=== PATIENT | female | born 1950 | race Caucasian/White ===

== ENCOUNTER → 2017-02-20 | Outpatient (REF) | payer BC ==
[2017-02-20 14:32] LABS: VITAMIN B12 LEVEL 466 PG/ML (247-911)
[2017-02-20 14:34] LABS: FOLATE 23.7 NG/ML (>5.4)
[2017-02-20 14:39] LABS: ALBUMIN 3.7 GM/DL (3.2-5.2); ALBUMIN/GLOBULIN RATIO 1.03 (1.00-1.93); ALKALINE PHOSPHATASE 91 U/L (45-117); ALT/SGPT 18 U/L (12-78); ANION GAP 9 MEQ/L (8-16); AST/SGOT 12 U/L (15-37); BILIRUBIN,TOTAL 0.3 MG/DL (0.2-1.0); BLOOD UREA NITROGEN 15 MG/DL (7-18); CALCIUM LEVEL 9.3 MG/DL (8.8-10.2); CARBON DIOXIDE LEVEL 28 MEQ/L (21-32); CHLORIDE LEVEL 100 MEQ/L (98-107); CREATININE FOR GFR 0.86 MG/DL (0.55-1.02); GLOMERULAR FILTRATION RATE > 60.0 (>45); GLUCOSE, FASTING 105 MG/DL (80-110); POTASSIUM SERUM 4.7 MEQ/L (3.5-5.1); SODIUM LEVEL 137 MEQ/L (136-145); TOTAL PROTEIN 7.3 GM/DL (6.4-8.2)
[2017-02-20 18:21] LABS: BASO % 0.7 % (0.0-1.0); EOS # 0.1 K/mm3 (0.0-0.50); EOS % 1.8 % (0.0-3.0); LARGE UNSTAINED CELL # 0.1 K/mm3 (0.0-0.4); LYMPH # 1.1 K/mm3 (1.5-4.5); LYMPH % 18.1 % (24.0-44.0); MEAN CORPUSCULAR HEMOGLOBIN 32.5 pg (27.0-33.0); MEAN CORPUSCULAR HGB CONC 33.3 g/dl (32.0-36.5); MEAN CORPUSCULAR VOLUME 97.5 fl (80.0-96.0); MONO # 0.3 K/mm3 (0.0-0.8); MONO % 5.4 % (0.0-5.0); NEUTROPHILS # 4.4 K/mm3 (1.8-7.7); NEUTROPHILS % 71.9 % (36.0-66.0); PLATELET COUNT, AUTOMATED 391 k/mm3 (150-450); RED CELL DISTRIBUTION WIDTH 12.8 % (11.5-14.5); WHITE BLOOD COUNT 6.1 K/mm3 (4.0-10.0)
[2017-02-20 20:14] LABS: ERYTHROCYTE SEDIMENTATION RATE 33 mm/hr (0-30)
[2017-02-21 13:37] LABS: ALBUMIN % 54.2 % (55.8-66.1)
[2017-02-21 13:38] LABS: ALBUMIN 3.96 GM/DL (3.29-5.55); GAMMA GLOBULIN % 14.4 % (11.1-18.8)
[2017-02-24 00:06] LABS: Lyme Disease IgG/IgM Antibodie <0.91 ISR (0.00-0.90); Lyme Disease IgM Ab Quantitati <0.80 index (0.00-0.79); VITAMIN E LEVEL 12.7 mg/L (6.5-21.5)
== END ==
LOC: M LABNEURO 10:21
PROVIDERS: ATTEND Psychiatry & Neurology Neurology
DX: G62.9 Polyneuropathy, unspecified (principal)

== ENCOUNTER → 2017-08-14 | Outpatient (CLI) | payer BC | LOC: M RAD 10:06 | DX: R06.00 Dyspnea, unspecified (principal) | CPT/HCPCS: G0297 ==

== ENCOUNTER → 2017-08-14 | Outpatient (CLI) | payer BC ==
[2017-08-14 11:00] LABS: ABG BASE EXCESS -2.7 (-2.0-2.0); ABG HCO3 20.7 MEQ/L (22.0-26.0); ABG O2 SATURATION 95.5 % (95.0-99.0); ABG PARTIAL PRESSURE CO2 31.7 mmHg (35.0-45.0); ABG PARTIAL PRESSURE O2 76.5 mmHg (75.0-100.0); ABG STANDARD HCO3 22.1 MEQ/L (22.0-26.0); ABG TOTAL CO2 21.6 MEQ/L (23.0-31.0); ABG pH (ARTERIAL) 7.432 UNITS (7.350-7.450)
== END ==
LOC: M CARPUL 08:00
DX: R06.00 Dyspnea, unspecified (principal)

== ENCOUNTER → 2017-10-25 | Outpatient (CLI) | payer BC | LOC: M PAIN 13:45 | DX: M79.1 Myalgia (principal); M54.12 Radiculopathy, cervical region; M50.30 Other cervical disc degeneration, unspecified cervical region; M51.36 Other intervertebral disc degeneration, lumbar region; M17.9 Osteoarthritis of knee, unspecified; M19.049 Primary osteoarthritis, unspecified hand; M48.00 Spinal stenosis, site unspecified; D68.51 Activated protein C resistance; E11.40 Type 2 diabetes mellitus with diabetic neuropathy, unspecified; I10 Essential (primary) hypertension; G47.30 Sleep apnea, unspecified; Z79.4 Long term (current) use of insulin; Z88.8 Allergy status to other drugs, medicaments and biological substances; Z87.891 Personal history of nicotine dependence | CPT/HCPCS: G0463 ==

== ENCOUNTER → 2017-10-25 | Outpatient (CLI) | payer BC, MEDICARE ==
[2017-10-25 17:03] LABS: ERYTHROCYTE SEDIMENTATION RATE 27 mm/hr (0-30)
[2017-10-25 18:11] LABS: RHEUMATOID FACTOR QUANT < 10.0 IU/ML (<15.0)
[2017-10-25 18:30] LABS: TOTAL 25(OH) VITAMIN D 32.9 NG/ML (30.0-100.0)
[2017-10-30 00:06] LABS: ANA (HEP2) Negative (.)
[2017-11-05 07:22] LABS: DRVV SCREEN 40.9 SEC
[2017-11-05 07:27] LABS: PTT LUPUS TYPE ANTICOAG SCREEN 0.9 (0-1.2)
== END ==
LOC: M LAB 15:53
DX: M79.1 Myalgia (principal)
CPT/HCPCS: 82306

== ENCOUNTER → 2017-11-29 | Outpatient (CLI) | payer BC ==
[~2017-11-29] MED LIST: BUPIVACAINE HCL 0.25% 10 ML VIAL As Ordered; BUPIVACAINE HCL 0.25% 30 ML VIAL As Ordered; TRIAMCINOLONE ACETONIDE SUSP 40 MG/ML VIAL (J3301) As Ordered; diazePAM 5 MG TAB As Ordered
== END ==
LOC: M PAIN 14:00
DX: G89.29 Other chronic pain (principal); M79.1 Myalgia; E11.9 Type 2 diabetes mellitus without complications; I10 Essential (primary) hypertension; G47.30 Sleep apnea, unspecified; Z79.4 Long term (current) use of insulin; Z79.82 Long term (current) use of aspirin; Z79.891 Long term (current) use of opiate analgesic; Z79.899 Other long term (current) drug therapy; Z88.4 Allergy status to anesthetic agent
CPT/HCPCS: J3301

== ENCOUNTER → 2017-12-05 | Outpatient (CLI) | payer BC ==
[~2017-12-05] MED LIST changes: -BUPIVACAINE HCL 0.25% 10 ML VIAL As Ordered; -BUPIVACAINE HCL 0.25% 30 ML VIAL As Ordered; +METHACHOLINE KIT (J7674) INH; -TRIAMCINOLONE ACETONIDE SUSP 40 MG/ML VIAL (J3301) As Ordered; -diazePAM 5 MG TAB As Ordered
== END ==
LOC: M CARPUL 10:12
DX: R06.00 Dyspnea, unspecified (principal)
CPT/HCPCS: J7674

== ENCOUNTER → 2018-01-20 | Outpatient (CLI) | payer BC | LOC: M PAIN 14:15 | DX: M79.1 Myalgia (principal); M17.0 Bilateral primary osteoarthritis of knee; M19.041 Primary osteoarthritis, right hand; M19.042 Primary osteoarthritis, left hand; E11.43 Type 2 diabetes mellitus with diabetic autonomic (poly)neuropathy; I10 Essential (primary) hypertension; G47.30 Sleep apnea, unspecified; Z79.4 Long term (current) use of insulin; Z79.891 Long term (current) use of opiate analgesic; Z79.82 Long term (current) use of aspirin; Z79.899 Other long term (current) drug therapy; Z88.8 Allergy status to other drugs, medicaments and biological substances; Z87.891 Personal history of nicotine dependence | CPT/HCPCS: G0463 ==

== ENCOUNTER → 2018-02-13 | Outpatient (CLI) | payer BC ==
[~2018-02-13] MED LIST changes: +BUPIVACAINE HCL 0.25% 10 ML VIAL As Ordered; +BUPIVACAINE HCL 0.25% 30 ML VIAL As Ordered; -METHACHOLINE KIT (J7674) INH; +TRIAMCINOLONE ACETONIDE SUSP 40 MG/ML VIAL (J3301) As Ordered; +diazePAM 5 MG TAB As Ordered
== END ==
LOC: M PAIN 10:00
DX: M79.1 Myalgia (principal); M25.511 Pain in right shoulder; M25.512 Pain in left shoulder; M54.6 Pain in thoracic spine; E11.40 Type 2 diabetes mellitus with diabetic neuropathy, unspecified; I10 Essential (primary) hypertension; M17.10 Unilateral primary osteoarthritis, unspecified knee; M19.049 Primary osteoarthritis, unspecified hand; D68.2 Hereditary deficiency of other clotting factors; G47.30 Sleep apnea, unspecified; Z79.4 Long term (current) use of insulin; Z79.82 Long term (current) use of aspirin; Z79.899 Other long term (current) drug therapy; Z88.8 Allergy status to other drugs, medicaments and biological substances; Z87.891 Personal history of nicotine dependence
CPT/HCPCS: J3301

== ENCOUNTER → 2018-03-10 | Outpatient (CLI) | payer BC | LOC: M PAIN 13:15 | DX: M79.18 Myalgia, other site (principal); E11.40 Type 2 diabetes mellitus with diabetic neuropathy, unspecified; I10 Essential (primary) hypertension; M19.041 Primary osteoarthritis, right hand; M19.042 Primary osteoarthritis, left hand; M17.0 Bilateral primary osteoarthritis of knee; D68.2 Hereditary deficiency of other clotting factors; G47.30 Sleep apnea, unspecified; Z79.4 Long term (current) use of insulin; Z79.82 Long term (current) use of aspirin; Z79.899 Other long term (current) drug therapy | CPT/HCPCS: G0463 ==

== ENCOUNTER → 2018-03-14 | Outpatient (CLI) | payer BC, MEDICARE ==
[~2018-03-14] MED LIST changes: -diazePAM 5 MG TAB As Ordered
== END ==
LOC: M PAIN 10:15
DX: M79.18 Myalgia, other site (principal); M17.0 Bilateral primary osteoarthritis of knee; E11.9 Type 2 diabetes mellitus without complications; I10 Essential (primary) hypertension; M19.041 Primary osteoarthritis, right hand; M19.042 Primary osteoarthritis, left hand; G47.30 Sleep apnea, unspecified; D68.2 Hereditary deficiency of other clotting factors; Z79.4 Long term (current) use of insulin; Z79.82 Long term (current) use of aspirin; Z79.899 Other long term (current) drug therapy; Z88.8 Allergy status to other drugs, medicaments and biological substances; Z87.891 Personal history of nicotine dependence
CPT/HCPCS: J3301

== ENCOUNTER → 2018-04-03 | Outpatient (CLI) | payer BC, MEDICARE | LOC: M PAIN 11:00 | DX: M79.18 Myalgia, other site (principal); M47.816 Spondylosis without myelopathy or radiculopathy, lumbar region; M50.20 Other cervical disc displacement, unspecified cervical region; E11.40 Type 2 diabetes mellitus with diabetic neuropathy, unspecified; G47.30 Sleep apnea, unspecified; D68.2 Hereditary deficiency of other clotting factors; I89.0 Lymphedema, not elsewhere classified; M17.0 Bilateral primary osteoarthritis of knee; M19.041 Primary osteoarthritis, right hand; M19.042 Primary osteoarthritis, left hand; Z98.42 Cataract extraction status, left eye; Z79.4 Long term (current) use of insulin; Z79.82 Long term (current) use of aspirin; Z79.899 Other long term (current) drug therapy; Z87.891 Personal history of nicotine dependence; Z88.4 Allergy status to anesthetic agent | CPT/HCPCS: G0463 ==

== ENCOUNTER → 2018-05-15 | Outpatient (CLI) | payer BC, MEDICARE ==
[~2018-05-15] MED LIST changes: -BUPIVACAINE HCL 0.25% 10 ML VIAL As Ordered; -BUPIVACAINE HCL 0.25% 30 ML VIAL As Ordered; +BUPIVACAINE HCL 0.25% 30 ML VIAL As Ordered ONE; +ISOVUE-M 300 61% 15ML VIAL (Q9967) As Ordered ONE; +LIDOCAINE 1% SDV INJ 30 ML VIAL As Ordered ONE; -TRIAMCINOLONE ACETONIDE SUSP 40 MG/ML VIAL (J3301) As Ordered; +TRIAMCINOLONE ACETONIDE SUSP 40 MG/ML VIAL (J3301) As Ordered ONE; +diazePAM 5 MG TAB As Ordered ONE; +oxyCODONE 5MG TAB As Ordered ONE
--- NOTE | 2018-06-04 00:14 | ECWPNPC ---
PATIENT NAME: CHRIS LONGORIA : 1950 GENDER: FEMALE VISIT DATE: 05/15/2018 DISCHARGE DATE: 05/15/181217 VISIT LOCKED DATE TIME: PHYSICIAN: DHARA HANSEN MD RESOURCE: DHARA HANSEN MD REASON FOR APPOINTMENT 1. BILATERAL LUMBAR FACET BLOCKS AT L4-5 AND L5-S1 HISTORY OF PRESENT ILLNESS DEPRESSION SCREENING: PHQ-2 IN LAST TWO WEEKS HAVE YOU BEEN BOTHERED BY LITTLE INTEREST OR PLEASURE IN DOING THINGSNO FEELING DOWN, DEPRESSED, OR HOPELESSNO HISTORY OF PRESENT ILLNESS: PAIN THE PATIENT DESCRIBES THE PAIN... FALL RISK SCREENING: SCREENING :NO FALLS IN THE PAST YEAR CURRENT MEDICATIONS TAKING CENTRUM SILVER 1 TABLET 1 TAB ORALLY DAILY, NOTES: 05/14/18899 TAKING VALSARTAN-HYDROCHLOROTHIAZIDE 320-25 MG TABLET 1 TABLET ORALLY ONCE A DAY, NOTES: 05/15/18714 TAKING DULOXETINE HCL 60 MG CAPSULE DELAYED RELEASE PARTICLES 1 CAPSULE ORALLY ONCE A DAY, NOTES: 05/14/18899 TAKING AMLODIPINE BESYLATE 10 MG TABLET 1 TABLET ORALLY ONCE A DAY, NOTES: 05/15/18714 TAKING METFORMIN HCL 1000 MG TABLET 1 TABLET WITH A MEAL ORALLY BID, NOTES: 05/14/182199 TAKING LABETALOL HCL 200 MG TABLET 1 TABLET ORALLY TWICE A DAY, NOTES: 05/15/18714 TAKING HYDRALAZINE HCL 25 MG TABLET 1 TABLET WITH FOOD ORALLY BID, NOTES: 05/15/18714 TAKING IRON (FERROUS GLUCONATE) 256 (28 FE) MG TABLET 1 TABLET ORALLY ONCE A DAY, NOTES: 05/14/18899 TAKING TRAMADOL HCL 50 MG TABLET 1 TABLET NEEDED ORALLY EVERY 6 HRS, NOTES: 05/15/18714 TAKING LANTUS SOLOSTAR 100 UNIT/ML SOLUTION PEN-INJECTOR 50 UNITS SUBCUTANEOUS DAILY, NOTES: 05/14/182199 TAKING ASPIRIN 81 81 MG TABLET CHEWABLE 1 TABLET ORALLY ONCE A DAY, NOTES: 05/14/182199 TAKING SIMVASTATIN 20 MG TABLET 1 TABLET IN THE EVENING ORALLY ONCE A DAY, NOTES: 05/14/182199 TAKING ROPINIROLE HCL 1 MG TABLET 4 TABLET 1 TO 3 HOURS BEFORE BEDTIME ORALLY ONCE A DAY, NOTES: 05/14/182199 TAKING OMEPRAZOLE 20 MG CAPSULE DELAYED RELEASE 1 CAPSULE ORALLY ONCE A DAY, NOTES: 05/14/182199 TAKING GABAPENTIN 100 MG CAPSULE 2 CAPSULE ORALLY BID, NOTES: 05/15/18714 TAKING TYLENOL PM EXTRA STRENGTH 500-25 MG TABLET 2 TABLET AT BEDTIME NEEDED ORALLY ONCE A DAY, NOTES: 05/14/182199 TAKING VITAMIN C 1000 MG TABLET 1 TABLET ORALLY ONCE A DAY, NOTES: 05/14/18899 TAKING CALCIUM + D + K 750-500-40 MG-UNT-MCG TABLET 1 TABLET WITH MEALS ORALLY TWICE A DAY, NOTES: 05/14/18899 TAKING BIOTIN 1000 MCG TABLET 1 TABLET ORALLY ONCE A DAY, NOTES: FEW DAYS AGO TAKING MAGNESIUM OXIDE 400 MG TABLET 2 TABLET NEEDED ORALLY ONCE A DAY, NOTES: 05/14/182199 TAKING BYDUREON BCISE 2 MG/0.85ML AUTO-INJECTOR SUBCUTANEOUS , NOTES: 05/11/18 TAKING YONI ALLERGY 180 MG TABLET 1 TABLET NEEDED ORALLY ONCE A DAY, NOTES: WEEKS AGO TAKING TIZANIDINE HCL 4 MG TABLET 1 TABLET NEEDED ORALLY BEFORE BEDTIME AND IN 4 YRS IF NEEDED MDD=2, NOTES: 05/15/18714 NOT-TAKING [id number] 1 MG TABLET CHEWABLE ORALLY NOT-TAKING FARXIGA 10 MG TABLET 1 TABLET ORALLY ONCE A DAY MEDICATION LIST REVIEWED AND RECONCILED WITH THE PATIENT PAST MEDICAL HISTORY BULGING DISCS- CERVICAL ARTHRITIS KNEES/HANDS SPINAL STENOSIS LYMPHEDEMA LOWER EXTREMITIES DIABETES TYPE 2 DIABETIC NEUROPATHY HIGH BLOOD PRESSURE DIVERTICULITIS FACTOR V LEYDEN SLEEP APNEA ALLERGIES GENERAL ANESTHESIA: NAUSEA/VOMITING: SIDE EFFECTS SURGICAL HISTORY TONSILLECTOMY 1950 APPENDIX 1970 LEFT SHOULDER REPAIR 08/28/04 LEFT CAROTID ENDARTERECTOMY 04/04/16 ARTERIOGRAM 09/07/16 LEFT CATARACT 09/26/16 FX RIGHT FOOT 2ND TOE 11/08/17 FAMILY HISTORY FATHER: 85 YRS, DIAGNOSED WITH HYPERTENSION, HEART DISEASE MOTHER: 80 YRS 1 BROTHER(S) , 3 SISTER(S) . MOTHER- DIVERTICULITIS, OF PNEUMONIASISTER - BREAST CANCER SURVIVOR, COPD. SOCIAL HISTORY GENERAL: TOBACCO USE ARE YOU A:FORMER SMOKER HOW LONG HAS IT BEEN SINCE YOU LAST SMOKED?> 10 YEARS RECREATIONAL DRUG USE DRUG USE?NO CAFFEINE CAFFEINE USE?YES HOW OFTEN AND HOW MUCH? 3 CUPS APPROXIMATELY SCIENTOLOGIST [id number] CONFUCIANISM LANGUAGE LANGUAGES SPOKEN:FRENCH LEARNING BARRIERS / SPECIAL NEEDS BARRIERS TO LEARNING?NO HEARING IMPAIRED?NO VISION IMPAIRED?NO COGNITIVELY IMPAIRED?NO READINESS TO LEARN?YES LEARNING PREFERENCES?NO LEARNING CAPABILITIES PRESENT?YES EMOTIONAL BARRIERS?NO SPECIAL DEVICES?NO HUMAN RESOURCES DIRECTOR NEEDED?NO MARITAL STATUS: SINGLE. PAIN CLINIC PFS, CLERGY, PUBLIC HEALTH REFERRALS WAS THE PROVIDER NOTIFIED OF ANY PERTINENT INFO?YES HAS THE PATIENT BEEN EDUCATED REGARDING HIS/HER PLAN OF CARE?YES HAS THE PATIENT BEEN EDUCATED REGARDING PAIN, THE RISK FOR PAIN, THE IMPORTANCE OF EFFECTIVE PAIN MANAGEMENT, AND THE PAIN ASSESSMENT PROCESS?YES ADVANCE DIRECTIVE ADVANCE DIRECTIVE DISCUSSED WITH PATIENT:YES HCP - NADER BANKS [phone] REVIEWED WITH PATIENT 04/03/18 1125 JSREVIEWED WITH PATIENT 05/15/18 1012 JS. HOSPITALIZATION/MAJOR DIAGNOSTIC PROCEDURE LEFT CAROTID ENDARTERECTOMY 04/04/16 APPENDIX 1970 BLOOD CLOT LEFT LEG (PT STATES IN THE 1989'S) TRACTION FOR BACK (PT STATES EARLY S) REVIEW OF SYSTEMS REVIEWED BY: PROVIDER: . CONSTITUTIONAL: ANY CHANGE IN YOUR MEDICAL CONDITION? YES, INCREASED PAIN . CHILLS NO . FEVER NO . INFECTION: DO YOU HAVE NEW INFECTIONS? NO . DO YOU HAVE HISTORY OF MRSA? NO . MUSCULOSKELETAL: ANY NEW PATTERNS OF PAIN OR NUMBNESS? YES, STATES PAIN INCREASED, MAKING IT DIFFICULT TO WALK SHORT DISTANCES . GASTROENTEROLOGY: ANY NEW CHANGE IN BOWEL CONTROL? NO . GENITOURINARY: ANY NEW CHANGE IN BLADDER CONTROL? NO . IS THERE A CHANCE YOU COULD BE ? NO . HEMATOLOGY/LYMPH: DO YOU TAKE ANY BLOOD THINNERS? (FOR EXAMPLE- COUMADIN, PLAVIX, AGGRENOX, PLATEL, PRADAXA, OR XARELTO) NO . WHEN WAS YOUR LAST DOSE? DATE: TIME: . NEUROLOGY: HAVE YOU FALLEN IN THE PAST 6 MONTHS? YES, STATES PRIOR TO LAST VISIT, DISCUSSED AT LAST VISIT . ANY NEW EXTREMITY NUMBNESS OR WEAKNESS? YES, STATES WORSENING WEAKNESS TO BILATERAL LEGS . CARDIOLOGY: DO YOU HAVE A PACEMAKER OR DEFIBRILLATOR? NO . RESPIRATORY: HAVE YOU BEEN SICK IN THE PAST WEEK? NO . FEVER NO . FLU LIKE SYMPTOMS? NO . COUGH NO . INTEGUMENTARY: DO YOU HAVE ANY RASHES OR OPEN SORES? NO . ALLERGIC/IMMUNO: ARE YOU ALLERGIC TO SHELLFISH OR IV DYE? NO . ANY NEW ALLERGIES? NO . PSYCHIATRIC: ARE YOU ABUSED, NEGLECTED, OR IN AN UNSAFE ENVIRONMENT? NO, PT STATES SHE HAS THOUGHTS OF HURTING HERSELF TO END THE PAIN, NO PLAN JUST THOUGHTS, DR HANSEN AWARE. DR HANSEN AT BEDSIDE, PT IS EXPRESSING WITH HER DAUGHTER AT BEDSIDE THAT THIS IS JUST A THOUGHT WHEN SHE IS AT HER WORST DAYS, NOT ALL THE TIME, NO ACTION PLAN. PT EXPRESSES THAT SHE FEELS SAFE WHEN SHE IS ALONE THAT SHE WILL NOT IMPLEMENT A PLAN. . ENDOCRINOLOGY: ARE YOU DIABETIC? YES . OTHER: DO YOU NEED ANY PRESCRIPTIONS? NO . IF YES, PLEASE LIST: ____ . ANY NEW PROBLEMS WITH YOUR MEDICATIONS? NO . WHEN DID YOU LAST EAT? 05/14/18 1000 . WHEN DID YOU LAST DRINK? 05/15/18 0730 . WHAT DID YOU LAST DRINK? WATER . NAME OF PERSON DRIVING YOU HOME? EMILIA . DO YOU HAVE ANY OTHER QUESTIONS OR CONCERNS NO . VITAL SIGNS WT 261.6 LBS, HT 71 IN, BMI 36.48 INDEX, BP 142/69 MM HG, HR 71 /MIN, RR 18 /MIN, TEMP 98.0 F, OXYGEN SAT % 95%, BLOOD GLUCOSE LEVEL 102 THIS AM, SAFE IN ENV? (Y/N) YES, NA INITIALS AW 0951, REVIEWED BY: JS. ASSESSMENTS SPONDYLOSIS OF LUMBAR REGION WITHOUT MYELOPATHY OR RADICULOPATHY - M47.816 (PRIMARY) SPONDYLOSIS OF LUMBOSACRAL REGION WITHOUT MYELOPATHY OR RADICULOPATHY - M47.817 PROCEDURES PN LUMBAR FACET BLOCK THERAPEUTIC PRE PROCEDURE DIAGNOSIS LUMBAR SPONDYLOSIS, LUMBOSACRAL SPONDYLOSIS POST PROCEDURE DIAGNOSIS LUMBAR SPONDYLOSIS, LUMBOSACRAL SPONDYLOSIS PROCEDURE BILATERAL L4-5 AND BILATERAL L5-S1 LUMBAR FACET THERAPEUTIC BLOCK SURGEON DR. DHARA HANSEN SWIMMING INSTRUCTOR NONE ANESTHESIA LOCAL PRE PROCEDURE NOTE PATIENT WITH A HISTORY OF CHRONIC LOW BACK PAIN. I EVALUATED THE PATIENT AND REVIEWED THE CHART. I WENT OVER THE RISKS, ALTERNATIVES, AND BENEFITS ASSOCIATED WITH THIS PROCEDURE. THE PATIENT WOULD LIKE TO PROCEED AND GAVE CONSENT TO PERFORM THE PROCEDURE. THE PATIENT DENIES UNEXPLAINABLE WEIGHT LOSS, FEVER, CHILLS, OR NEW CHANGES IN URINARY OR BOWEL CONTROL DESCRIPTION OF PROCEDURE THE PATIENT WAS BROUGHT TO THE PROCEDURE ROOM AND PLACED IN THE PRONE POSITION. THE LUMBOSACRAL AREA WAS CLEANED WITH CHLORAPREP SOLUTION AND DRAPED ASEPTICALLY. THE PROCEDURE WAS DONE UNDER STERILE CONDITIONS. I CHECKED LATERALITY AND THE LEVEL WHERE THE PROCEDURE WAS GOING TO BE PERFORMED WITH THE PATIENT AND THE SUPPORTING STAFF AT THE MOMENT OF THE TIME OUT IN THE PROCEDURE ROOM. UNDER FLUOROSCOPIC GUIDANCE, THE TARGET POINT WAS SELECTED AT THE RIGHT AND LEFT L4-5 AND RIGHT AND LEFT L5-S1 FACET JOINT. TARGET POINT WAS SELECTED AFTER LATERAL ROTATION AND TILT OF THE MAGNIFIER OF THE C-ARM. LIDOCAINE 0.5% WAS USED TO NUMB THE SKIN AND THE SUBCUTANEOUS TISSUE BELOW IT. SPINAL NEEDLES, 22-GAUGE, WERE ADVANCED UNDER FLUOROSCOPIC GUIDANCE AND FOLLOWING PATIENT FEEDBACK UNTIL THE TARGETS WERE TOUCHED. THE POSITION OF THE NEEDLES WAS VERIFIED WITH AP AND LATERAL VIEWS. AFTER PROPER POSITION OF THE NEEDLES WAS ACHIEVED, ISOVUE-M DYE 30% 0.1 ML WAS INJECTED SHOWING ADEQUATE SPREAD OF THE DYE. THEN A SOLUTION OF 1.9 ML OF BUPIVACAINE 0.125% OF KENALOG 10 MG WAS INJECTED AT EACH SITE. THERE WAS NO EVIDENCE OF BLOOD, PARESTHESIA OR CEREBROSPINAL FLUID DURING THE PROCEDURE. THE PATIENT WAS SENT TO THE RECOVERY ROOM. THE PATIENT WAS MOVING THE EXTREMITIES AND DOING WELL. THERE WAS NO COMPLICATION DURING THE PROCEDURE. FLUOROSCOPY TIME WAS 24 SECONDS POST PROCEDURE NOTE THE PATIENT WILL BE SEEN IN A FOLLOW UP IN THE NEXT FEW WEEKS. INSTRUCTIONS WERE GIVEN, QUESTIONS WERE ANSWERED, AND THE PATIENT EXPRESSED UNDERSTANDING AND AGREED WITH THE PLAN. I, KRISTEN SAXENA, DOCUMENTED THE ABOVE INFORMATION ACTING A SCRIBE FOR DR. HANSEN. I HAVE REVIEWED THE ABOVE DOCUMENT, WRITTEN BY KIRSTEN SAXENA SCRIBE AND I VERIFY THAT IT IS ACCURATE DIAGNOSTIC IMAGING [facility] FACET BLOCK (PAIN)[id number] PROCEDURE CODES 6045F RADXPS IN END [id number] PXD 92080 INJ PARAVERT F JNT L/S 1 LEV, MODIFIERS: 50 [id number] INJ PARAVERT F JNT L/S 2 LEV, MODIFIERS: 50 DISPOSITION & COMMUNICATION FOLLOW UP 3 WEEKS ELECTRONICALLY SIGNED BY DHARA HANSEN MD, MD ON 06/03/2018 AT 05:14 PM EST DISCLAIMER : THIS IS A VISIT SUMMARY EXTRACTED FROM THE [facility] CHART. IT IS NOT A COPY OF THE [facility] PROGRESS NOTE. MTDD
== END ==
LOC: M PAIN 10:00
PROVIDERS: ATTEND Anesthesiology
DX: M47.816 Spondylosis without myelopathy or radiculopathy, lumbar region (principal); M47.817 Spondylosis without myelopathy or radiculopathy, lumbosacral region; E11.40 Type 2 diabetes mellitus with diabetic neuropathy, unspecified; G47.30 Sleep apnea, unspecified; M50.20 Other cervical disc displacement, unspecified cervical region; M17.0 Bilateral primary osteoarthritis of knee; M19.041 Primary osteoarthritis, right hand; M19.042 Primary osteoarthritis, left hand; I89.0 Lymphedema, not elsewhere classified; R03.0 Elevated blood-pressure reading, without diagnosis of hypertension; D68.2 Hereditary deficiency of other clotting factors; Z98.42 Cataract extraction status, left eye; Z87.891 Personal history of nicotine dependence; Z79.4 Long term (current) use of insulin; Z79.82 Long term (current) use of aspirin; Z79.899 Other long term (current) drug therapy; Z88.4 Allergy status to anesthetic agent; Z90.49 Acquired absence of other specified parts of digestive tract
CPT/HCPCS: 64493; 64494; J3301; Q9967

== ENCOUNTER → 2018-05-28 | Outpatient (CLI) | payer BC, MEDICARE ==
--- NOTE | 2018-06-23 00:24 | ECWPNPC ---
PATIENT NAME: CHRIS LONGORIA : 1950 GENDER: FEMALE VISIT DATE: 05/28/2018 DISCHARGE DATE: 05/28/18 1135 VISIT LOCKED DATE TIME: PHYSICIAN: THOR WALTER RESOURCE: THOR WALTER REASON FOR APPOINTMENT 1. POST PROC HISTORY OF PRESENT ILLNESS HISTORY OF PRESENT ILLNESS: HERE FOR POST PROCEDURE F/U.HAD BILATERAL L4/5- L5/S1 THERAPEUTIC LUMBAR FACET BLOCK ON 05-15.DOING VERY WELL TODAY.RATING PAIN VAS 0/10.DISCUSSED RADIOFREQUENCY AND DIAGNOSTIC TESTING SHOULD PAIN RETURN.DISCUSSED WALKING PROGRAM. PAIN THE PATIENT DESCRIBES THE PAIN... FALL RISK SCREENING: SCREENING :NO FALLS IN THE PAST YEAR CURRENT MEDICATIONS TAKING CENTRUM SILVER 1 TABLET 1 TAB ORALLY DAILY TAKING VALSARTAN-HYDROCHLOROTHIAZIDE 320-25 MG TABLET 1 TABLET ORALLY ONCE A DAY TAKING DULOXETINE HCL 60 MG CAPSULE DELAYED RELEASE PARTICLES 1 CAPSULE ORALLY ONCE A DAY TAKING AMLODIPINE BESYLATE 10 MG TABLET 1 TABLET ORALLY ONCE A DAY TAKING METFORMIN HCL 1000 MG TABLET 1 TABLET WITH A MEAL ORALLY BID TAKING LABETALOL HCL 200 MG TABLET 1 TABLET ORALLY TWICE A DAY TAKING HYDRALAZINE HCL 25 MG TABLET 1 TABLET WITH FOOD ORALLY BID TAKING IRON (FERROUS GLUCONATE) 256 (28 FE) MG TABLET 1 TABLET ORALLY ONCE A DAY TAKING TRAMADOL HCL 50 MG TABLET 1 TABLET NEEDED ORALLY EVERY 6 HRS TAKING LANTUS SOLOSTAR 100 UNIT/ML SOLUTION PEN-INJECTOR 50 UNITS SUBCUTANEOUS DAILY TAKING ASPIRIN 81 81 MG TABLET CHEWABLE 1 TABLET ORALLY ONCE A DAY TAKING SIMVASTATIN 20 MG TABLET 1 TABLET IN THE EVENING ORALLY ONCE A DAY TAKING ROPINIROLE HCL 1 MG TABLET 4 TABLET 1 TO 3 HOURS BEFORE BEDTIME ORALLY ONCE A DAY TAKING OMEPRAZOLE 20 MG CAPSULE DELAYED RELEASE 1 CAPSULE ORALLY ONCE A DAY TAKING GABAPENTIN 100 MG CAPSULE 2 CAPSULE ORALLY BID TAKING TYLENOL PM EXTRA STRENGTH 500-25 MG TABLET 2 TABLET AT BEDTIME NEEDED ORALLY ONCE A DAY TAKING VITAMIN C 1000 MG TABLET 1 TABLET ORALLY ONCE A DAY TAKING CALCIUM + D + K 750-500-40 MG-UNT-MCG TABLET 1 TABLET WITH MEALS ORALLY TWICE A DAY TAKING BIOTIN 1000 MCG TABLET 1 TABLET ORALLY ONCE A DAY TAKING MAGNESIUM OXIDE 400 MG TABLET 2 TABLET NEEDED ORALLY ONCE A DAY TAKING BYDUREON BCISE 2 MG/0.85ML AUTO-INJECTOR SUBCUTANEOUS TAKING YONI ALLERGY 180 MG TABLET 1 TABLET NEEDED ORALLY ONCE A DAY TAKING TIZANIDINE HCL 4 MG TABLET 1 TABLET NEEDED ORALLY BEFORE BEDTIME AND IN 4 YRS IF NEEDED MDD=2 NOT-TAKING [id number] 1 MG TABLET CHEWABLE ORALLY NOT-TAKING FARXIGA 10 MG TABLET 1 TABLET ORALLY ONCE A DAY MEDICATION LIST REVIEWED AND RECONCILED WITH THE PATIENT PAST MEDICAL HISTORY BULGING DISCS- CERVICAL ARTHRITIS KNEES/HANDS SPINAL STENOSIS LYMPHEDEMA LOWER EXTREMITIES DIABETES TYPE 2 DIABETIC NEUROPATHY HIGH BLOOD PRESSURE DIVERTICULITIS FACTOR V LEYDEN SLEEP APNEA ALLERGIES GENERAL ANESTHESIA: NAUSEA/VOMITING: SIDE EFFECTS SURGICAL HISTORY TONSILLECTOMY 1950 APPENDIX 1970 LEFT SHOULDER REPAIR 08/28/04 LEFT CAROTID ENDARTERECTOMY 04/04/16 ARTERIOGRAM 09/07/16 LEFT CATARACT 09/26/16 FX RIGHT FOOT 2ND TOE 11/08/17 FAMILY HISTORY FATHER: 85 YRS, DIAGNOSED WITH HYPERTENSION, HEART DISEASE MOTHER: 80 YRS 1 BROTHER(S) , 3 SISTER(S) . MOTHER- DIVERTICULITIS, OF PNEUMONIASISTER - BREAST CANCER SURVIVOR, COPD. SOCIAL HISTORY GENERAL: TOBACCO USE ARE YOU A:FORMER SMOKER HOW LONG HAS IT BEEN SINCE YOU LAST SMOKED?> 10 YEARS RECREATIONAL DRUG USE DRUG USE?NO CAFFEINE CAFFEINE USE?YES HOW OFTEN AND HOW MUCH? 3 CUPS APPROXIMATELY SIKH [id number] CONGREGATION LANGUAGE LANGUAGES SPOKEN:[place] LEARNING BARRIERS / SPECIAL NEEDS BARRIERS TO LEARNING?NO HEARING IMPAIRED?NO VISION IMPAIRED?NO COGNITIVELY IMPAIRED?NO READINESS TO LEARN?YES LEARNING PREFERENCES?NO LEARNING CAPABILITIES PRESENT?YES EMOTIONAL BARRIERS?NO SPECIAL DEVICES?NO GEOPHYSICAL DATA TECHNICIAN NEEDED?NO MARITAL STATUS: SINGLE. PAIN CLINIC PFS, CLERGY, PUBLIC HEALTH REFERRALS WAS THE PROVIDER NOTIFIED OF ANY PERTINENT INFO?YES HAS THE PATIENT BEEN EDUCATED REGARDING HIS/HER PLAN OF CARE?YES HAS THE PATIENT BEEN EDUCATED REGARDING PAIN, THE RISK FOR PAIN, THE IMPORTANCE OF EFFECTIVE PAIN MANAGEMENT, AND THE PAIN ASSESSMENT PROCESS?YES ADVANCE DIRECTIVE ADVANCE DIRECTIVE DISCUSSED WITH PATIENT:YES HCP - NADER BANKS [phone] REVIEWED WITH PATIENT 04/03/18 1125 JSREVIEWED WITH PATIENT 05/15/18 1012 JSREVIEWED WITH PATIENT 05/28/18 1109 JS. HOSPITALIZATION/MAJOR DIAGNOSTIC PROCEDURE LEFT CAROTID ENDARTERECTOMY 04/04/16 APPENDIX 1970 BLOOD CLOT LEFT LEG (PT STATES IN THE S) TRACTION FOR BACK (PT STATES EARLY ) REVIEW OF SYSTEMS REVIEWED BY: PROVIDER: THOR REESE . CONSTITUTIONAL: ANY CHANGE IN YOUR MEDICAL CONDITION? NO . CHILLS NO . FEVER NO . INFECTION: DO YOU HAVE NEW INFECTIONS? NO . DO YOU HAVE HISTORY OF MRSA? NO . MUSCULOSKELETAL: ANY NEW PATTERNS OF PAIN OR NUMBNESS? NO . GASTROENTEROLOGY: ANY NEW CHANGE IN BOWEL CONTROL? NO . GENITOURINARY: ANY NEW CHANGE IN BLADDER CONTROL? NO . IS THERE A CHANCE YOU COULD BE ? NO . HEMATOLOGY/LYMPH: DO YOU TAKE ANY BLOOD THINNERS? (FOR EXAMPLE- COUMADIN, PLAVIX, AGGRENOX, PLATEL, PRADAXA, OR XARELTO) NO . WHEN WAS YOUR LAST DOSE? DATE: TIME: . NEUROLOGY: HAVE YOU FALLEN IN THE PAST 6 MONTHS? NO . ANY NEW EXTREMITY NUMBNESS OR WEAKNESS? NO . CARDIOLOGY: DO YOU HAVE A PACEMAKER OR DEFIBRILLATOR? NO . RESPIRATORY: HAVE YOU BEEN SICK IN THE PAST WEEK? NO . FEVER NO . FLU LIKE SYMPTOMS? NO . COUGH NO . INTEGUMENTARY: DO YOU HAVE ANY RASHES OR OPEN SORES? NO . ALLERGIC/IMMUNO: ARE YOU ALLERGIC TO SHELLFISH OR IV DYE? NO . ANY NEW ALLERGIES? NO . PSYCHIATRIC: DO YOU HAVE THOUGHTS OF HURTING YOURSELF OR SOMEONE ELSE? NO . ARE YOU ABUSED, NEGLECTED, OR IN AN UNSAFE ENVIRONMENT? NO . ENDOCRINOLOGY: ARE YOU DIABETIC? NO . OTHER: DO YOU NEED ANY PRESCRIPTIONS? NO . IF YES, PLEASE LIST: ____ . ANY NEW PROBLEMS WITH YOUR MEDICATIONS? NO . WHEN DID YOU LAST EAT? ____ . WHEN DID YOU LAST DRINK? ____ . WHAT DID YOU LAST DRINK? ____ . NAME OF PERSON DRIVING YOU HOME? ____ . DO YOU HAVE ANY OTHER QUESTIONS OR CONCERNS NO . VITAL SIGNS WT 256.4 LBS, HT 71 IN, BMI 35.76 INDEX, BP 158/68 MM HG, HR 72 /MIN, RR 16 /MIN, TEMP 96.8 F, OXYGEN SAT % 95%, SAFE IN ENV? (Y/N) YES, REVIEWED BY: AUNDREA. EXAMINATION GENERAL EXAMINATION: GENERAL APPEARANCE:AWAKE,ALERT ,PLEAASANT . PSYCHAFFECT NORMAL . LUNGS:LUNG SERNA ARE CLEAR TO AUSCULTATION BILATERALLY. GOOD MOVEMENT OF AIR . HEART:S1, S2 IN A REGULAR RATE AND RHYTHM. NO SIGNIFICANT MURMURS, RUBS OR GALLOPS NOTED . ASSESSMENTS SPONDYLOSIS OF LUMBAR REGION WITHOUT MYELOPATHY OR RADICULOPATHY - M47.816 (PRIMARY) TREATMENT SPONDYLOSIS OF LUMBAR REGION WITHOUT MYELOPATHY OR RADICULOPATHY NOTES: PATIENT WAS ADVISED TO START A WALKING PROGRAM TO STRENGTHEN LUMBAR PARASPINAL MUSCLES AND IMPROVE MOBILITY. THEY WERE ADVISED THAT THIS WILL IMPROVE WEIGHT LOSS AND ALSO DEPRESSION/FIBROMYALGIA SYMPTOMS. ADVISED TO WALK 10 MINUTES EVERY OTHER DAY ON A FLAT SURFACE. EMPHASIZED THE IMPORTANCE OF DOING THIS CONSISTANTLY AND NOT SPORATICALLY TO AVOID INJURY. STRONG ADVISED NOT TO DO MORE THAN 10 MINUTES EVERY OTHER DAY FOR THE FIRST 4 WEEKS. DISPOSITION & COMMUNICATION FOLLOW UP 6 WEEKS ELECTRONICALLY SIGNED BY MARY ANN ROA ON 06/22/2018 AT 03:42 PM EST DISCLAIMER : THIS IS A VISIT SUMMARY EXTRACTED FROM THE [employer] CHART. IT IS NOT A COPY OF THE [employer] PROGRESS NOTE. JUANITO
== END ==
LOC: M PAIN 11:15
PROVIDERS: ATTEND Nurse Practitioner Family
DX: M47.816 Spondylosis without myelopathy or radiculopathy, lumbar region (principal); E11.9 Type 2 diabetes mellitus without complications; I10 Essential (primary) hypertension; Z79.82 Long term (current) use of aspirin; Z79.4 Long term (current) use of insulin; Z79.891 Long term (current) use of opiate analgesic; Z79.899 Other long term (current) drug therapy; Z87.891 Personal history of nicotine dependence

== ENCOUNTER → 2018-07-11 | Outpatient (CLI) | payer BC, MEDICARE ==
--- NOTE | 2018-07-28 00:11 | ECWPNPC ---
PATIENT NAME: CHRIS LONGORIA : 1950 GENDER: FEMALE VISIT DATE: 07/11/2018 DISCHARGE DATE: 07/11/18 1235 VISIT LOCKED DATE TIME: PHYSICIAN: THOR WALTER RESOURCE: THOR WALTER REASON FOR APPOINTMENT 1. BACK & NECK HISTORY OF PRESENT ILLNESS HISTORY OF PRESENT ILLNESS: HERE FOR F/U OF CHRONIC LOW BACK PAIN.RATING PAIN VAS 3/10.CONTINUES TO BENEFIT FROM BILATERAL LUMBAR THERAPEUTIC FACET BLOCK DONE IN MAY. PAIN THE PATIENT DESCRIBES THE PAIN... FALL RISK SCREENING: SCREENING :NO FALLS IN THE PAST YEAR CURRENT MEDICATIONS TAKING CENTRUM SILVER 1 TABLET 1 TAB ORALLY DAILY TAKING VALSARTAN-HYDROCHLOROTHIAZIDE 320-25 MG TABLET 1 TABLET ORALLY ONCE A DAY TAKING DULOXETINE HCL 60 MG CAPSULE DELAYED RELEASE PARTICLES 1 CAPSULE ORALLY ONCE A DAY TAKING AMLODIPINE BESYLATE 10 MG TABLET 1 TABLET ORALLY ONCE A DAY TAKING METFORMIN HCL 1000 MG TABLET 1 TABLET WITH A MEAL ORALLY BID TAKING LABETALOL HCL 200 MG TABLET 1 TABLET ORALLY TWICE A DAY TAKING HYDRALAZINE HCL 25 MG TABLET 1 TABLET WITH FOOD ORALLY BID TAKING IRON (FERROUS GLUCONATE) 256 (28 FE) MG TABLET 1 TABLET ORALLY ONCE A DAY TAKING TRAMADOL HCL 50 MG TABLET 1 TABLET NEEDED ORALLY EVERY 6 HRS TAKING LANTUS SOLOSTAR 100 UNIT/ML SOLUTION PEN-INJECTOR 50 UNITS SUBCUTANEOUS DAILY TAKING ASPIRIN 81 81 MG TABLET CHEWABLE 1 TABLET ORALLY ONCE A DAY TAKING SIMVASTATIN 20 MG TABLET 1 TABLET IN THE EVENING ORALLY ONCE A DAY TAKING ROPINIROLE HCL 1 MG TABLET 4 TABLET 1 TO 3 HOURS BEFORE BEDTIME ORALLY ONCE A DAY TAKING OMEPRAZOLE 20 MG CAPSULE DELAYED RELEASE 1 CAPSULE ORALLY ONCE A DAY TAKING GABAPENTIN 100 MG CAPSULE 2 CAPSULE ORALLY BID TAKING TYLENOL PM EXTRA STRENGTH 500-25 MG TABLET 2 TABLET AT BEDTIME NEEDED ORALLY ONCE A DAY TAKING VITAMIN C 1000 MG TABLET 1 TABLET ORALLY ONCE A DAY TAKING CALCIUM + D + K 750-500-40 MG-UNT-MCG TABLET 1 TABLET WITH MEALS ORALLY TWICE A DAY TAKING BIOTIN 1000 MCG TABLET 1 TABLET ORALLY ONCE A DAY TAKING MAGNESIUM OXIDE 400 MG TABLET 2 TABLET NEEDED ORALLY ONCE A DAY TAKING YONI ALLERGY 180 MG TABLET 1 TABLET NEEDED ORALLY ONCE A DAY, NOTES: NOT LATELY TAKING TIZANIDINE HCL 4 MG TABLET 1 TABLET NEEDED ORALLY BEFORE BEDTIME AND IN 4 YRS IF NEEDED MDD=2 NOT-TAKING BYDUREON BCISE 2 MG/0.85ML AUTO-INJECTOR SUBCUTANEOUS UNKNOWN [id number] 1 MG TABLET CHEWABLE ORALLY UNKNOWN FARXIGA 10 MG TABLET 1 TABLET ORALLY ONCE A DAY MEDICATION LIST REVIEWED AND RECONCILED WITH THE PATIENT PAST MEDICAL HISTORY BULGING DISCS- CERVICAL ARTHRITIS KNEES/HANDS SPINAL STENOSIS LYMPHEDEMA LOWER EXTREMITIES DIABETES TYPE 2 DIABETIC NEUROPATHY HIGH BLOOD PRESSURE DIVERTICULITIS FACTOR V LEYDEN SLEEP APNEA ALLERGIES GENERAL ANESTHESIA: NAUSEA/VOMITING: SIDE EFFECTS SURGICAL HISTORY TONSILLECTOMY 1950 APPENDIX 1970 LEFT SHOULDER REPAIR 08/28/04 LEFT CAROTID ENDARTERECTOMY 04/04/16 ARTERIOGRAM 09/07/16 LEFT CATARACT 09/26/16 FX RIGHT FOOT 2ND TOE 11/08/17 FAMILY HISTORY FATHER: 85 YRS, DIAGNOSED WITH HYPERTENSION, HEART DISEASE MOTHER: 80 YRS 1 BROTHER(S) , 3 SISTER(S) . MOTHER- DIVERTICULITIS, OF PNEUMONIASISTER - BREAST CANCER SURVIVOR, COPD. SOCIAL HISTORY GENERAL: TOBACCO USE ARE YOU A:FORMER SMOKER HOW LONG HAS IT BEEN SINCE YOU LAST SMOKED?> 10 YEARS RECREATIONAL DRUG USE DRUG USE?NO CAFFEINE CAFFEINE USE?YES HOW OFTEN AND HOW MUCH? 3 CUPS APPROXIMATELY ANABAPTISM [id number] CHRISTIAN LANGUAGE LANGUAGES SPOKEN:SIERRA LEONEAN LEARNING BARRIERS / SPECIAL NEEDS BARRIERS TO LEARNING?NO HEARING IMPAIRED?NO VISION IMPAIRED?NO COGNITIVELY IMPAIRED?NO READINESS TO LEARN?YES LEARNING PREFERENCES?NO LEARNING CAPABILITIES PRESENT?YES EMOTIONAL BARRIERS?NO SPECIAL DEVICES?NO HOTEL DIRECTOR NEEDED?NO MARITAL STATUS: SINGLE. PAIN CLINIC PFS, CLERGY, PUBLIC HEALTH REFERRALS WAS THE PROVIDER NOTIFIED OF ANY PERTINENT INFO?YES HAS THE PATIENT BEEN EDUCATED REGARDING HIS/HER PLAN OF CARE?YES HAS THE PATIENT BEEN EDUCATED REGARDING PAIN, THE RISK FOR PAIN, THE IMPORTANCE OF EFFECTIVE PAIN MANAGEMENT, AND THE PAIN ASSESSMENT PROCESS?YES ADVANCE DIRECTIVE ADVANCE DIRECTIVE DISCUSSED WITH PATIENT:YES HCP - NADER BANKS [phone] REVIEWED WITH PATIENT 04/03/18 1125 JSREVIEWED WITH PATIENT 05/15/18 1012 JSREVIEWED WITH PATIENT 05/28/18 1109 JS. HOSPITALIZATION/MAJOR DIAGNOSTIC PROCEDURE LEFT CAROTID ENDARTERECTOMY 04/04/16 APPENDIX 1970 BLOOD CLOT LEFT LEG (PT STATES IN THE 1989'S) TRACTION FOR BACK (PT STATES EARLY ) REVIEW OF SYSTEMS REVIEWED BY: PROVIDER: THOR REESE . CONSTITUTIONAL: ANY CHANGE IN YOUR MEDICAL CONDITION? NO . CHILLS NO . FEVER NO . INFECTION: DO YOU HAVE NEW INFECTIONS? NO . DO YOU HAVE HISTORY OF MRSA? NO . MUSCULOSKELETAL: ANY NEW PATTERNS OF PAIN OR NUMBNESS? NO . GASTROENTEROLOGY: ANY NEW CHANGE IN BOWEL CONTROL? NO . GENITOURINARY: ANY NEW CHANGE IN BLADDER CONTROL? NO . IS THERE A CHANCE YOU COULD BE ? NO . HEMATOLOGY/LYMPH: DO YOU TAKE ANY BLOOD THINNERS? (FOR EXAMPLE- COUMADIN, PLAVIX, AGGRENOX, PLATEL, PRADAXA, OR XARELTO) NO . WHEN WAS YOUR LAST DOSE? DATE: TIME: . NEUROLOGY: HAVE YOU FALLEN IN THE PAST 12 MONTHS? NO . ANY NEW EXTREMITY NUMBNESS OR WEAKNESS? NO . CARDIOLOGY: DO YOU HAVE A PACEMAKER OR DEFIBRILLATOR? NO . RESPIRATORY: HAVE YOU BEEN SICK IN THE PAST WEEK? NO . FEVER NO . FLU LIKE SYMPTOMS? NO . COUGH NO . INTEGUMENTARY: DO YOU HAVE ANY RASHES OR OPEN SORES? NO . ALLERGIC/IMMUNO: ARE YOU ALLERGIC TO IV DYE? NO . ANY NEW ALLERGIES? NO . PSYCHIATRIC: DO YOU HAVE THOUGHTS OF HURTING YOURSELF OR SOMEONE ELSE? NO . ARE YOU ABUSED, NEGLECTED, OR IN AN UNSAFE ENVIRONMENT? NO . ENDOCRINOLOGY: ARE YOU DIABETIC? NO . OTHER: DO YOU NEED ANY PRESCRIPTIONS? NO . IF YES, PLEASE LIST: ____ . ANY NEW PROBLEMS WITH YOUR MEDICATIONS? NO . WHEN DID YOU LAST EAT? ____ . WHEN DID YOU LAST DRINK? ____ . WHAT DID YOU LAST DRINK? ____ . NAME OF PERSON DRIVING YOU HOME? ____ . DO YOU HAVE ANY OTHER QUESTIONS OR CONCERNS NO . VITAL SIGNS WT 270 LBS, HT 71 IN, BMI 37.65 INDEX, BP 160/88 MM HG, HR 70 /MIN, RR 17 /MIN, TEMP 97 F,2 F, OXYGEN SAT % 97, REVIEWED BY: KG. EXAMINATION GENERAL EXAMINATION: GENERAL APPEARANCE:AWAKE,ALERT ,PLEAASANT . PSYCHAFFECT NORMAL . LUNGS:LUNG SERNA ARE CLEAR TO AUSCULTATION BILATERALLY. GOOD MOVEMENT OF AIR . HEART:S1, S2 IN A REGULAR RATE AND RHYTHM. NO SIGNIFICANT MURMURS, RUBS OR GALLOPS NOTED . ASSESSMENTS SPONDYLOSIS OF LUMBAR REGION WITHOUT MYELOPATHY OR RADICULOPATHY - M47.816 (PRIMARY) TREATMENT SPONDYLOSIS OF LUMBAR REGION WITHOUT MYELOPATHY OR RADICULOPATHY NOTES: CONTINUE CONSERVATIVE CARE AND EXCERSISE. PROCEDURE CODES FA211 ESTABILISHED PATIENT [facility] FACILITY CHARGE DISPOSITION & COMMUNICATION FOLLOW UP 3 MONTHS ELECTRONICALLY SIGNED BY MARY ANN ROA ON 07/27/2018 AT 02:32 PM EST DISCLAIMER : THIS IS A VISIT SUMMARY EXTRACTED FROM THE [employer] CHART. IT IS NOT A COPY OF THE [employer] PROGRESS NOTE. JUANITO
== END ==
LOC: M PAIN 11:45
PROVIDERS: ATTEND Nurse Practitioner Family
DX: M47.816 Spondylosis without myelopathy or radiculopathy, lumbar region (principal); G89.29 Other chronic pain; M17.10 Unilateral primary osteoarthritis, unspecified knee; M19.049 Primary osteoarthritis, unspecified hand; E11.40 Type 2 diabetes mellitus with diabetic neuropathy, unspecified; I10 Essential (primary) hypertension; G47.30 Sleep apnea, unspecified; Z87.891 Personal history of nicotine dependence; Z88.4 Allergy status to anesthetic agent; Z79.4 Long term (current) use of insulin; Z79.82 Long term (current) use of aspirin; Z79.899 Other long term (current) drug therapy

== ENCOUNTER → 2018-08-13 | Outpatient (CLI) | payer BC, MEDICARE ==
--- NOTE | 2018-08-14 00:41 | ECWPNPC ---
PATIENT NAME: CHRIS LONGORIA : 1950 GENDER: FEMALE VISIT DATE: 08/13/2018 DISCHARGE DATE: 08/13/18 1444 VISIT LOCKED DATE TIME: PHYSICIAN: THOR WALTER RESOURCE: THOR WALTER REASON FOR APPOINTMENT 1. BACK & NECK HISTORY OF PRESENT ILLNESS HISTORY OF PRESENT ILLNESS: PAIN THE PATIENT DESCRIBES THE PAINDURING THE LAST MONTH SEVERITY - PAIN SCORE OF8/10 PATIENT IS A 68 YR OLD FEMALE WITH ONGOING LOWER BACK PAIN.SHE HAS PAIN WHEN WALKING AND SAYS SHE HAS WEAKNESS IN LEFT LOWER LEG WITH SOME RADIATING PAIN DOWN TO THE BACK OF KNEE.SHE SAYS SHE IS UNABLE TO SIT FOR LONG PERIODS AND UNABLE TO WALK LONG DISTANCES AND CANNOT CLIMB STAIRS DUE TO PAIN.SHE IS A DIABETIC. :LAST A1C WAS 9.5 G/DL TWO WEEKS AGO. FALL RISK SCREENING: SCREENING : NO FALLS IN THE PAST YEAR. CURRENT MEDICATIONS TAKING CENTRUM SILVER 1 TABLET 1 TAB ORALLY DAILY TAKING VALSARTAN-HYDROCHLOROTHIAZIDE 320-25 MG TABLET 1 TABLET ORALLY ONCE A DAY TAKING DULOXETINE HCL 60 MG CAPSULE DELAYED RELEASE PARTICLES 1 CAPSULE ORALLY ONCE A DAY TAKING AMLODIPINE BESYLATE 10 MG TABLET 1 TABLET ORALLY ONCE A DAY TAKING METFORMIN HCL 1000 MG TABLET 1 TABLET WITH A MEAL ORALLY BID TAKING LABETALOL HCL 200 MG TABLET 1 TABLET ORALLY TWICE A DAY TAKING HYDRALAZINE HCL 25 MG TABLET 1 TABLET WITH FOOD ORALLY BID TAKING IRON (FERROUS GLUCONATE) 256 (28 FE) MG TABLET 1 TABLET ORALLY ONCE A DAY TAKING TRAMADOL HCL 50 MG TABLET 1 TABLET NEEDED ORALLY EVERY 6 HRS TAKING LANTUS SOLOSTAR 100 UNIT/ML SOLUTION PEN-INJECTOR 50 UNITS SUBCUTANEOUS DAILY TAKING ASPIRIN 81 81 MG TABLET CHEWABLE 1 TABLET ORALLY ONCE A DAY TAKING SIMVASTATIN 20 MG TABLET 1 TABLET IN THE EVENING ORALLY ONCE A DAY TAKING ROPINIROLE HCL 1 MG TABLET 4 TABLET 1 TO 3 HOURS BEFORE BEDTIME ORALLY ONCE A DAY TAKING OMEPRAZOLE 20 MG CAPSULE DELAYED RELEASE 1 CAPSULE ORALLY ONCE A DAY TAKING GABAPENTIN 100 MG CAPSULE 2 CAPSULE ORALLY BID TAKING TYLENOL PM EXTRA STRENGTH 500-25 MG TABLET 2 TABLET AT BEDTIME NEEDED ORALLY ONCE A DAY TAKING VITAMIN C 1000 MG TABLET 1 TABLET ORALLY ONCE A DAY TAKING CALCIUM + D + K 750-500-40 MG-UNT-MCG TABLET 1 TABLET WITH MEALS ORALLY TWICE A DAY TAKING MAGNESIUM OXIDE 400 MG TABLET 2 TABLET NEEDED ORALLY ONCE A DAY TAKING YONI ALLERGY 180 MG TABLET 1 TABLET NEEDED ORALLY ONCE A DAY, NOTES: NOT LATELY TAKING TIZANIDINE HCL 4 MG TABLET 1 TABLET NEEDED ORALLY BEFORE BEDTIME AND IN 4 YRS IF NEEDED MDD=2 TAKING HUMALOG 100 UNIT/ML SOLUTION SUBCUTANEOUS SLIDING SCALE BEFORE MEALS NOT-TAKING BIOTIN 1000 MCG TABLET 1 TABLET ORALLY ONCE A DAY NOT-TAKING BYDUREON BCISE 2 MG/0.85ML AUTO-INJECTOR SUBCUTANEOUS NOT-TAKING [id number] 1 MG TABLET CHEWABLE ORALLY NOT-TAKING FARXIGA 10 MG TABLET 1 TABLET ORALLY ONCE A DAY MEDICATION LIST REVIEWED AND RECONCILED WITH THE PATIENT PAST MEDICAL HISTORY BULGING DISCS- CERVICAL ARTHRITIS KNEES/HANDS SPINAL STENOSIS LYMPHEDEMA LOWER EXTREMITIES DIABETES TYPE 2 DIABETIC NEUROPATHY HIGH BLOOD PRESSURE DIVERTICULITIS FACTOR V LEYDEN SLEEP APNEA ALLERGIES GENERAL ANESTHESIA: NAUSEA/VOMITING: SIDE EFFECTS SURGICAL HISTORY TONSILLECTOMY 1950 APPENDIX 1970 LEFT SHOULDER REPAIR 08/28/04 LEFT CAROTID ENDARTERECTOMY 04/04/16 ARTERIOGRAM 09/07/16 LEFT CATARACT 09/26/16 FX RIGHT FOOT 2ND TOE 11/08/17 FAMILY HISTORY FATHER: 85 YRS, DIAGNOSED WITH HYPERTENSION, HEART DISEASE MOTHER: 80 YRS 1 BROTHER(S) , 3 SISTER(S) . MOTHER- DIVERTICULITIS, OF PNEUMONIASISTER - BREAST CANCER SURVIVOR, COPD. SOCIAL HISTORY GENERAL: TOBACCO USE ARE YOU A:FORMER SMOKER HOW LONG HAS IT BEEN SINCE YOU LAST SMOKED?> 10 YEARS RECREATIONAL DRUG USE DRUG USE?NO CAFFEINE CAFFEINE USE?YES HOW OFTEN AND HOW MUCH? 3 CUPS APPROXIMATELY [employer] [id number] SCIENTOLOGY LANGUAGE LANGUAGES SPOKEN:NEPALESE LEARNING BARRIERS / SPECIAL NEEDS BARRIERS TO LEARNING?NO HEARING IMPAIRED?NO VISION IMPAIRED?NO COGNITIVELY IMPAIRED?NO READINESS TO LEARN?YES LEARNING PREFERENCES?NO LEARNING CAPABILITIES PRESENT?YES EMOTIONAL BARRIERS?NO SPECIAL DEVICES?NO HOUSE MOVER SUPERVISOR NEEDED?NO MARITAL STATUS: SINGLE. PAIN CLINIC PFS, CLERGY, PUBLIC HEALTH REFERRALS WAS THE PROVIDER NOTIFIED OF ANY PERTINENT INFO?YES HAS THE PATIENT BEEN EDUCATED REGARDING HIS/HER PLAN OF CARE?YES HAS THE PATIENT BEEN EDUCATED REGARDING PAIN, THE RISK FOR PAIN, THE IMPORTANCE OF EFFECTIVE PAIN MANAGEMENT, AND THE PAIN ASSESSMENT PROCESS?YES ADVANCE DIRECTIVE ADVANCE DIRECTIVE DISCUSSED WITH PATIENT:YES HCP - NADER BANKS [phone] REVIEWED WITH PATIENT 04/03/18 1125 JSREVIEWED WITH PATIENT 05/15/18 1012 JSREVIEWED WITH PATIENT 05/28/18 1109 JS. HOSPITALIZATION/MAJOR DIAGNOSTIC PROCEDURE LEFT CAROTID ENDARTERECTOMY 04/04/16 APPENDIX 1970 BLOOD CLOT LEFT LEG (PT STATES IN THE 1989'S) TRACTION FOR BACK (PT STATES EARLY S) REVIEW OF SYSTEMS REVIEWED BY: PROVIDER: CH . CONSTITUTIONAL: ANY CHANGE IN YOUR MEDICAL CONDITION? NO . CHILLS NO . FEVER NO . INFECTION: DO YOU HAVE NEW INFECTIONS? NO . DO YOU HAVE HISTORY OF MRSA? NO . MUSCULOSKELETAL: ANY NEW PATTERNS OF PAIN OR NUMBNESS? NO . GASTROENTEROLOGY: ANY NEW CHANGE IN BOWEL CONTROL? NO . GENITOURINARY: ANY NEW CHANGE IN BLADDER CONTROL? YES, PT C/O FREQUENCY AND INCONTENENCE BEFORE REACHING TOILET 2 WEEKS, PT HAS APPT W PCP 10/2018 FOR THIS . IS THERE A CHANCE YOU COULD BE ? NO . HEMATOLOGY/LYMPH: DO YOU TAKE ANY BLOOD THINNERS? (FOR EXAMPLE- COUMADIN, PLAVIX, AGGRENOX, PLATEL, PRADAXA, OR XARELTO) NO . WHEN WAS YOUR LAST DOSE? DATE: TIME: . NEUROLOGY: HAVE YOU FALLEN IN THE PAST 12 MONTHS? NO . ANY NEW EXTREMITY NUMBNESS OR WEAKNESS? NO . CARDIOLOGY: DO YOU HAVE A PACEMAKER OR DEFIBRILLATOR? NO . RESPIRATORY: HAVE YOU BEEN SICK IN THE PAST WEEK? NO . FEVER NO . FLU LIKE SYMPTOMS? NO . COUGH NO . INTEGUMENTARY: DO YOU HAVE ANY RASHES OR OPEN SORES? NO . ALLERGIC/IMMUNO: ARE YOU ALLERGIC TO IV DYE? NO . ANY NEW ALLERGIES? NO . PSYCHIATRIC: DO YOU HAVE THOUGHTS OF HURTING YOURSELF OR SOMEONE ELSE? NO . ARE YOU ABUSED, NEGLECTED, OR IN AN UNSAFE ENVIRONMENT? NO . ENDOCRINOLOGY: ARE YOU DIABETIC? YES . OTHER: DO YOU NEED ANY PRESCRIPTIONS? NO . IF YES, PLEASE LIST: ____ . ANY NEW PROBLEMS WITH YOUR MEDICATIONS? NO . WHEN DID YOU LAST EAT? ____ . WHEN DID YOU LAST DRINK? ____ . WHAT DID YOU LAST DRINK? ____ . NAME OF PERSON DRIVING YOU HOME? ____ . DO YOU HAVE ANY OTHER QUESTIONS OR CONCERNS NO . VITAL SIGNS WT 274.6 LBS, HT 71 IN, BMI 38.29 INDEX, BP 180/70 MM HG, HR 82 /MIN, RR 18 /MIN, TEMP 96.6 F, OXYGEN SAT % 96%, NA INITIALS AW 1400, REVIEWED BY: EM. EXAMINATION GENERAL EXAMINATION: GENERAL APPEARANCE:NO ACUTE DISTRESS, WELL NOURISHED AND HYDRATED, OVERWEIGHT . LUNGS:CLEAR TO AUSCULTATION BILATERALLY, NO WHEEZES, RHONCHI, RALES . HEART:NO MURMURS, REGULAR RATE AND RHYTHM . BACK:SLOW MOVMENTS WHEN TRANSFERRING FROM CHAIR TO STANDING POSITION. LIMITED ROM PALPATION TO PARASPINAL MUSCLES ++ IN L4-L5-S1 REGION SLR NEG BILATERAL . ASSESSMENTS SPONDYLOSIS OF LUMBAR REGION WITHOUT MYELOPATHY OR RADICULOPATHY - M47.816 (PRIMARY) TREATMENT SPONDYLOSIS OF LUMBAR REGION WITHOUT MYELOPATHY OR RADICULOPATHY CLINICAL NOTES: DISCUSSED OPTIONS FOR TREATMENT AND ADVISED LESI.PATIENT AGREED. RISKS DISCUSSEDIN DETAIL WITH PATIENT: SMALL RISK OF INFECTION, BLEEDING, PARALYSIS. PROCEDURE CODES FA211 ESTABILISHED PATIENT [facility] FACILITY CHARGE DISPOSITION & COMMUNICATION FOLLOW UP POST PROCEDURE EMILIA (REASON: LESI L4/L5,PATIENT AGREED,) ELECTRONICALLY SIGNED BY MARY ANN ROA ON 08/13/2018 AT 04:04 PM EDT DISCLAIMER : THIS IS A VISIT SUMMARY EXTRACTED FROM THE [employer] CHART. IT IS NOT A COPY OF THE [employer] PROGRESS NOTE. JUANITO
== END ==
LOC: M PAIN 13:45
PROVIDERS: ATTEND Nurse Practitioner Family
DX: M47.816 Spondylosis without myelopathy or radiculopathy, lumbar region (principal); M17.0 Bilateral primary osteoarthritis of knee; M19.041 Primary osteoarthritis, right hand; M19.042 Primary osteoarthritis, left hand; E11.40 Type 2 diabetes mellitus with diabetic neuropathy, unspecified; I10 Essential (primary) hypertension; G47.30 Sleep apnea, unspecified; Z87.891 Personal history of nicotine dependence; Z88.4 Allergy status to anesthetic agent; Z79.4 Long term (current) use of insulin; Z79.82 Long term (current) use of aspirin; Z79.899 Other long term (current) drug therapy

== ENCOUNTER → 2018-09-17 | Outpatient (CLI) | payer BC, MEDICARE ==
[~2018-09-17] MED LIST changes: -BUPIVACAINE HCL 0.25% 30 ML VIAL As Ordered ONE; -TRIAMCINOLONE ACETONIDE SUSP 40 MG/ML VIAL (J3301) As Ordered ONE; +methylPREDNISolone SUSP 40 MG/ML (DEPO-medrol) VIAL (J1030) As Ordered ONE; -oxyCODONE 5MG TAB As Ordered ONE
--- NOTE | 2018-09-17 14:36 | REP ---
Partial lumbar spine series: Two views. History: Injection procedure for pain. 15 seconds of fluoroscopy time is reported. Findings: A sequence of two fluoroscopically obtained last image hold procedural spot radiographs of the lumbar spine document needle position and contrast injection associated with injection procedure. Electronically Signed by Luan Bess MD 09/17/2018 02:27 P
--- NOTE | 2018-09-30 00:31 | ECWPNPC ---
PATIENT NAME: CHRIS LONGORIA : 1950 GENDER: FEMALE VISIT DATE: 09/17/2018 DISCHARGE DATE: 09/17/18 1119 VISIT LOCKED DATE TIME: PHYSICIAN: DHARA HANSEN MD RESOURCE: DAHRA HANSEN MD REASON FOR APPOINTMENT 1. LESI HISTORY OF PRESENT ILLNESS HISTORY OF PRESENT ILLNESS: PAIN THE PATIENT DESCRIBES THE PAIN... FALL RISK SCREENING: SCREENING :NO FALLS REPORTED IN THE LAST YEAR CURRENT MEDICATIONS TAKING CENTRUM SILVER 1 TABLET 1 TAB ORALLY DAILY, NOTES: 0700 TAKING VALSARTAN-HYDROCHLOROTHIAZIDE 320-25 MG TABLET 1 TABLET ORALLY ONCE A DAY, NOTES: 0700 TAKING DULOXETINE HCL 60 MG CAPSULE DELAYED RELEASE PARTICLES 1 CAPSULE ORALLY ONCE A DAY, NOTES: 0700 TAKING AMLODIPINE BESYLATE 10 MG TABLET 1 TABLET ORALLY ONCE A DAY, NOTES: 0700 TAKING METFORMIN HCL 1000 MG TABLET 1 TABLET WITH A MEAL ORALLY BID, NOTES: 09/16/18@2200 TAKING LABETALOL HCL 200 MG TABLET 1 TABLET ORALLY TWICE A DAY, NOTES: 0700 TAKING HYDRALAZINE HCL 25 MG TABLET 1 TABLET WITH FOOD ORALLY BID, NOTES: 0700 TAKING IRON (FERROUS GLUCONATE) 256 (28 FE) MG TABLET 1 TABLET ORALLY ONCE A DAY, NOTES: 0700 TAKING TRAMADOL HCL 50 MG TABLET 1 TABLET NEEDED ORALLY EVERY 6 HRS, NOTES: 0700 TAKING LANTUS SOLOSTAR 100 UNIT/ML SOLUTION PEN-INJECTOR 50 UNITS SUBCUTANEOUS DAILY, NOTES: 09/16/18 TAKING ASPIRIN 81 81 MG TABLET CHEWABLE 1 TABLET ORALLY ONCE A DAY, NOTES: 09/16/18 TAKING SIMVASTATIN 20 MG TABLET 1 TABLET IN THE EVENING ORALLY ONCE A DAY, NOTES: 09/16/18 TAKING ROPINIROLE HCL 1 MG TABLET 4 TABLET 1 TO 3 HOURS BEFORE BEDTIME ORALLY ONCE A DAY, NOTES: 09/16/18 TAKING OMEPRAZOLE 20 MG CAPSULE DELAYED RELEASE 1 CAPSULE ORALLY ONCE A DAY, NOTES: 09/16/18 TAKING GABAPENTIN 100 MG CAPSULE 2 CAPSULE ORALLY BID, NOTES: 09/17/18 TAKING TYLENOL PM EXTRA STRENGTH 500-25 MG TABLET 2 TABLET AT BEDTIME NEEDED ORALLY ONCE A DAY, NOTES: 09/17/18 TAKING VITAMIN C 1000 MG TABLET 1 TABLET ORALLY ONCE A DAY, NOTES: 0700 TAKING CALCIUM + D + K 750-500-40 MG-UNT-MCG TABLET 1 TABLET WITH MEALS ORALLY TWICE A DAY, NOTES: 0700 TAKING MAGNESIUM OXIDE 400 MG TABLET 2 TABLET NEEDED ORALLY ONCE A DAY, NOTES: 0700 TAKING YONI ALLERGY 180 MG TABLET 1 TABLET NEEDED ORALLY ONCE A DAY, NOTES: 0700 TAKING HUMALOG 100 UNIT/ML SOLUTION SUBCUTANEOUS SLIDING SCALE BEFORE MEALS, NOTES: 09/16/18@0700 TAKING TIZANIDINE HCL 4 MG TABLET 1 TABLET NEEDED ORALLY BEFORE BEDTIME AND IN 4 YRS IF NEEDED MDD=2, NOTES: 09/16/18@2100 TAKING MELOXICAM 7.5 MG TABLET 1 TABLET ORALLY BID TAKING [id number] 1 MG TABLET CHEWABLE ORALLY , NOTES: 0700 DISCONTINUED BIOTIN 1000 MCG TABLET 1 TABLET ORALLY ONCE A DAY DISCONTINUED BYDUREON BCISE 2 MG/0.85ML AUTO-INJECTOR SUBCUTANEOUS DISCONTINUED FARXIGA 10 MG TABLET 1 TABLET ORALLY ONCE A DAY MEDICATION LIST REVIEWED AND RECONCILED WITH THE PATIENT PAST MEDICAL HISTORY BULGING DISCS- CERVICAL ARTHRITIS KNEES/HANDS SPINAL STENOSIS LYMPHEDEMA LOWER EXTREMITIES DIABETES TYPE 2 DIABETIC NEUROPATHY HIGH BLOOD PRESSURE DIVERTICULITIS FACTOR V LEYDEN SLEEP APNEA ALLERGIES GENERAL ANESTHESIA: NAUSEA/VOMITING - SIDE EFFECTS SURGICAL HISTORY TONSILLECTOMY 1950 APPENDIX 1970 LEFT SHOULDER REPAIR 08/28/04 LEFT CAROTID ENDARTERECTOMY 04/04/16 ARTERIOGRAM 09/07/16 LEFT CATARACT 09/26/16 FX RIGHT FOOT 2ND TOE 11/08/17 FAMILY HISTORY FATHER: 85 YRS, DIAGNOSED WITH HYPERTENSION, HEART DISEASE MOTHER: 80 YRS 1 BROTHER(S) , 3 SISTER(S) . MOTHER- DIVERTICULITIS, OF PNEUMONIA\NSISTER - BREAST CANCER SURVIVOR, COPD. SOCIAL HISTORY GENERAL: TOBACCO USE ARE YOU A:FORMER SMOKER HOW LONG HAS IT BEEN SINCE YOU LAST SMOKED?> 10 YEARS LATEX QUESTIONNAIRE LATEX ALLERGY : HAVE YOU EVER DEVELOPED ANY TYPE OF REACTION AFTER HANDLING LATEX PRODUCTS SUCH RUBBER GLOVES, CONDOMS, DIAPHRAGMS, BALLOONS, SOCKS, OR UNDERWEAR?NO LATEX ALLERGY : HAVE YOU EVER DEVELOPED ANY TYPE OF REACTION DURING OR AFTER DENTAL APPOINTMENT, VAGINAL/RECTAL EXAMINATION, SURGICAL PROCEDURE, OR ANY OTHER EXPOSURE?NO LATEX RISK : HAVE YOU EVER HAD ANY DIFFICULTY BREATHING OR HIVES AFTER EATING OR HANDLING ANY FRUITS, OR VEGETABLES; SUCH KIWI, BANANAS, STONE FRUITS, OR CHESTNUTSNO LATEX RISK : DO YOU HAVE A PREVIOUS PERSONAL HISTORY OF MORE THAN NINE SURGERIES, SPINA BIFIDA, OR REPEATED CATHERTIZATIONS? NO LATEX RISK : ARE YOU FREQUENTLY EXPOSED TO LATEX PRODUCTS IN YOUR OCCUPATION?NO DATE ASKED : 09/17/2018 ALCOHOL SCREENING DID YOU HAVE A DRINK CONTAINING ALCOHOL IN THE PAST YEAR?NO POINTS0 INTERPRETATIONNEGATIVE RECREATIONAL DRUG USE DRUG USE?NO CAFFEINE CAFFEINE USE?YES HOW OFTEN AND HOW MUCH? 3 CUPS APPROXIMATELY ADVENTIST [id number] RASTAFARI LANGUAGE LANGUAGES SPOKEN:HONG KONGER LEARNING BARRIERS / SPECIAL NEEDS BARRIERS TO LEARNING?NO HEARING IMPAIRED?NO VISION IMPAIRED?NO COGNITIVELY IMPAIRED?NO READINESS TO LEARN?YES LEARNING PREFERENCES?NO LEARNING CAPABILITIES PRESENT?YES EMOTIONAL BARRIERS?NO SPECIAL DEVICES?NO ANCHOR TACKER NEEDED?NO OCCUPATION: RETIRED. DIET: REGULAR. MARITAL STATUS: SINGLE. OTHERS AT HOME: S[place]. PAIN CLINIC PFS, CLERGY, PUBLIC HEALTH REFERRALS WAS THE PROVIDER NOTIFIED OF ANY PERTINENT INFO?YES HAS THE PATIENT BEEN EDUCATED REGARDING HIS/HER PLAN OF CARE?YES HAS THE PATIENT BEEN EDUCATED REGARDING PAIN, THE RISK FOR PAIN, THE IMPORTANCE OF EFFECTIVE PAIN MANAGEMENT, AND THE PAIN ASSESSMENT PROCESS?YES ADVANCE DIRECTIVE ADVANCE DIRECTIVE DISCUSSED WITH PATIENT:YES HCP - NADER BANKS [phone] REVIEWED WITH PATIENT 04/03/18 1125 JSREVIEWED WITH PATIENT 05/15/18 1012 JSREVIEWED WITH PATIENT 05/28/18 1109 JS. HOSPITALIZATION/MAJOR DIAGNOSTIC PROCEDURE LEFT CAROTID ENDARTERECTOMY 04/04/16 APPENDIX 1970 BLOOD CLOT LEFT LEG (PT STATES IN THE 1989'S) TRACTION FOR BACK (PT STATES EARLY S) REVIEW OF SYSTEMS REVIEWED BY: PROVIDER: . CONSTITUTIONAL: ANY CHANGE IN YOUR MEDICAL CONDITION? NO . CHILLS NO . FEVER NO . INFECTION: DO YOU HAVE NEW INFECTIONS? NO . DO YOU HAVE HISTORY OF MRSA? NO . MUSCULOSKELETAL: ANY NEW PATTERNS OF PAIN OR NUMBNESS? NO . GASTROENTEROLOGY: ANY NEW CHANGE IN BOWEL CONTROL? NO . GENITOURINARY: ANY NEW CHANGE IN BLADDER CONTROL? NO . IS THERE A CHANCE YOU COULD BE ? NO . HEMATOLOGY/LYMPH: DO YOU TAKE ANY BLOOD THINNERS? (FOR EXAMPLE- COUMADIN, PLAVIX, AGGRENOX, PLATEL, PRADAXA, OR XARELTO) NO . WHEN WAS YOUR LAST DOSE? DATE: TIME: . NEUROLOGY: HAVE YOU FALLEN IN THE PAST 12 MONTHS? NO . ANY NEW EXTREMITY NUMBNESS OR WEAKNESS? NO . CARDIOLOGY: DO YOU HAVE A PACEMAKER OR DEFIBRILLATOR? NO . RESPIRATORY: HAVE YOU BEEN SICK IN THE PAST WEEK? NO . FEVER NO . FLU LIKE SYMPTOMS? NO . COUGH NO . INTEGUMENTARY: DO YOU HAVE ANY RASHES OR OPEN SORES? NO . ALLERGIC/IMMUNO: ARE YOU ALLERGIC TO IV DYE? NO . ANY NEW ALLERGIES? NO . PSYCHIATRIC: DO YOU HAVE THOUGHTS OF HURTING YOURSELF OR SOMEONE ELSE? NO . ARE YOU ABUSED, NEGLECTED, OR IN AN UNSAFE ENVIRONMENT? NO . ENDOCRINOLOGY: ARE YOU DIABETIC? NO . OTHER: DO YOU NEED ANY PRESCRIPTIONS? NO . IF YES, PLEASE LIST: ____ . ANY NEW PROBLEMS WITH YOUR MEDICATIONS? NO . WHEN DID YOU LAST EAT? ____09/16/18 . WHEN DID YOU LAST DRINK? ____07 . WHAT DID YOU LAST DRINK? ____WATER . NAME OF PERSON DRIVING YOU HOME? ____CHRISSY . DO YOU HAVE ANY OTHER QUESTIONS OR CONCERNS NO . VITAL SIGNS WT 273.6 LBS, HT 71 IN, BMI 38.16 INDEX, BP 150/70 MANUAL, HR 82 /MIN, RR 18 /MIN, TEMP 98.0 F, OXYGEN SAT % 96%, SAFE IN ENV? (Y/N) YES, NA INITIALS FL 09:36, REVIEWED BY: AILEEN. ASSESSMENTS INTERVERTEBRAL DISC DISORDER WITH RADICULOPATHY OF LUMBOSACRAL REGION - M51.17 (PRIMARY) PROCEDURES PRE PROCEDURE DIAGNOSIS LUMBOSACRAL DISC DISORDER WITH RADICULOPATHY POST PROCEDURE DIAGNOSIS LUMBOSACRAL DISC DISORDER WITH RADICULOPATHY PROCEDURE LUMBAR EPIDURAL STEROID INJECTION UNDER FLUOROSCOPIC GUIDANCE SURGEON DR. DHARA HANSEN CHAIRMAN NONE ANESTHESIA LOCAL PRE PROCEDURE NOTE THE PATIENT HAS A HISTORY OF CHRONIC LOW BACK PAIN. I EVALUATED THE PATIENT AND REVIEWED THE CHART. I WENT OVER THE RISKS, ALTERNATIVES, AND BENEFITS ASSOCIATED WITH THIS PROCEDURE. THE PATIENT WOULD LIKE TO PROCEED AND GIVE CONSENT TO PERFORM THE PROCEDURE. THE PATIENT DENIES UNEXPLAINABLE WEIGHT LOSS, FEVER, CHILLS, OR NEW CHANGES IN URINARY OR BOWEL CONTROL. DESCRIPTION OF PROCEDURE THE PATIENT WAS BROUGHT TO THE PROCEDURE ROOM AND PLACED IN THE PRONE POSITION. THE LUMBOSACRAL AREA WAS CLEANED WITH BETADINE SOLUTION AND DRAPED ASEPTICALLY. THE PROCEDURE WAS DONE UNDER STERILE CONDITIONS. I CHECKED LATERALITY AND THE LEVEL WHERE THE PROCEDURE WAS GOING TO BE PERFORMED WITH THE PATIENT AND THE SUPPORTING STAFF AT THE MOMENT OF THE TIME OUT IN THE PROCEDURE ROOM. UNDER FLUOROSCOPIC GUIDANCE, THE TARGET POINT WAS SELECTED AT THE INTERLAMINAR LEVEL OF L5-S1. LIDOCAINE WAS USED TO NUMB THE SKIN AND THE SUBCUTANEOUS TISSUE BELOW IT. EPIDURAL TUOHY NEEDLE, 17-GAUGE, WAS ADVANCED UNDER FLUOROSCOPIC GUIDANCE AND FOLLOWING PATIENT FEEDBACK UNTIL THE EPIDURAL SPACE WAS REACHED, 7 CM DEEP INTO THE SKIN BY THE LOSS OF RESISTANCE TECHNIQUE. ISOVUE M DYE 30%, 0.25 ML, WAS INJECTED SHOWING ADEQUATE SPREAD OF THE DYE. THEN, A SOLUTION OF 3 ML OF NORMAL SALINE WITH DEPO-MEDROL 60 MG WAS INJECTED SLOWLY FOLLOWING PATIENT FEEDBACK. THERE WAS NO EVIDENCE OF BLOOD, PARESTHESIA OR CEREBROSPINAL FLUID DURING THE PROCEDURE. THE PATIENT WAS SENT TO THE RECOVERY ROOM. THE PATIENT WAS MOVING THE EXTREMITIES AND DOING WELL. THERE WAS NO COMPLICATION DURING THE PROCEDURE. FLUOROSCOPY TIME WAS 15 SECONDS. POST PROCEDURE NOTE THE PATIENT WILL BE SEEN IN A FOLLOW UP IN THE NEXT FEW WEEKS. INSTRUCTIONS WERE GIVEN, QUESTIONS WERE ANSWERED, AND THE PATIENT EXPRESSED UNDERSTANDING AND AGREES WITH THE PLAN. I, RADU TENORIO, DOCUMENTED THE ABOVE INFORMATION ACTING A SCRIBE FOR DR. HANSEN. I HAVE REVIEWED THE ABOVE DOCUMENT, WRITTEN BY RADU TENORIO SCRIBE AND I VERIFY THAT IT IS ACCURATE. DIAGNOSTIC IMAGING [facility] FLUORO GUIDE SPINE INJECTION (PAIN)[id number] PROCEDURE CODES 77320 LUMBAR/SACRAL W/ IMAGING 6045F RADXPS IN END [id number] PXD DISPOSITION & COMMUNICATION FOLLOW UP 2 WEEKS ELECTRONICALLY SIGNED BY DHARA HANSEN MD, MD ON 09/29/2018 AT 02:45 PM EDT DISCLAIMER : THIS IS A VISIT SUMMARY EXTRACTED FROM THE [employer] CHART. IT IS NOT A COPY OF THE [employer] PROGRESS NOTE. MTDD
== END ==
LOC: M PAIN 09:30
PROVIDERS: ATTEND Anesthesiology
DX: M51.17 Intervertebral disc disorders with radiculopathy, lumbosacral region (principal); M17.0 Bilateral primary osteoarthritis of knee; M19.041 Primary osteoarthritis, right hand; M19.042 Primary osteoarthritis, left hand; I89.0 Lymphedema, not elsewhere classified; E11.40 Type 2 diabetes mellitus with diabetic neuropathy, unspecified; G47.30 Sleep apnea, unspecified; D68.2 Hereditary deficiency of other clotting factors; Z87.891 Personal history of nicotine dependence; Z79.4 Long term (current) use of insulin; Z79.899 Other long term (current) drug therapy; Z79.1 Long term (current) use of non-steroidal anti-inflammatories (NSAID); Z90.49 Acquired absence of other specified parts of digestive tract; Z98.42 Cataract extraction status, left eye; Z88.4 Allergy status to anesthetic agent
CPT/HCPCS: 62323; J1030; Q9967

== ENCOUNTER → 2018-10-03 | Outpatient (CLI) | payer BC, MEDICARE ==
--- NOTE | 2018-10-29 00:52 | ECWPNPC ---
PATIENT NAME: CHRIS LONGORIA : 1950 GENDER: FEMALE VISIT DATE: 10/03/2018 DISCHARGE DATE: 10/03/18 1132 VISIT LOCKED DATE TIME: PHYSICIAN: THOR WALTER RESOURCE: THOR WALTER REASON FOR APPOINTMENT 1. POST PROCEUDRE HISTORY OF PRESENT ILLNESS HISTORY OF PRESENT ILLNESS: HERE FOR POST PROEDURE F/U.HAD LESI ON 09/17/18.FEELS IT WAS HELPFUL.REPORTS RESOLUTION OF LEFT POSTERIOR THIGH PAIN.RATING PAIN VAS 5/10. PAIN THE PATIENT DESCRIBES THE PAIN... FALL RISK SCREENING: SCREENING :NO FALLS REPORTED IN THE LAST YEAR CURRENT MEDICATIONS TAKING CENTRUM SILVER 1 TABLET 1 TAB ORALLY DAILY TAKING VALSARTAN-HYDROCHLOROTHIAZIDE 320-25 MG TABLET 1 TABLET ORALLY ONCE A DAY TAKING DULOXETINE HCL 60 MG CAPSULE DELAYED RELEASE PARTICLES 1 CAPSULE ORALLY ONCE A DAY TAKING AMLODIPINE BESYLATE 10 MG TABLET 1 TABLET ORALLY ONCE A DAY TAKING METFORMIN HCL 1000 MG TABLET 1 TABLET WITH A MEAL ORALLY BID TAKING LABETALOL HCL 200 MG TABLET 1 TABLET ORALLY TWICE A DAY TAKING HYDRALAZINE HCL 25 MG TABLET 1 TABLET WITH FOOD ORALLY BID TAKING IRON (FERROUS GLUCONATE) 256 (28 FE) MG TABLET 1 TABLET ORALLY ONCE A DAY TAKING TRAMADOL HCL 50 MG TABLET 1 TABLET NEEDED ORALLY EVERY 6 HRS TAKING LANTUS SOLOSTAR 100 UNIT/ML SOLUTION PEN-INJECTOR 50 UNITS SUBCUTANEOUS DAILY TAKING ASPIRIN 81 81 MG TABLET CHEWABLE 1 TABLET ORALLY ONCE A DAY TAKING SIMVASTATIN 20 MG TABLET 1 TABLET IN THE EVENING ORALLY ONCE A DAY TAKING ROPINIROLE HCL 1 MG TABLET 4 TABLET 1 TO 3 HOURS BEFORE BEDTIME ORALLY ONCE A DAY TAKING OMEPRAZOLE 20 MG CAPSULE DELAYED RELEASE 1 CAPSULE ORALLY ONCE A DAY TAKING GABAPENTIN 100 MG CAPSULE 2 CAPSULE ORALLY BID TAKING TYLENOL PM EXTRA STRENGTH 500-25 MG TABLET 2 TABLET AT BEDTIME NEEDED ORALLY ONCE A DAY TAKING VITAMIN C 1000 MG TABLET 1 TABLET ORALLY ONCE A DAY TAKING CALCIUM + D + K 750-500-40 MG-UNT-MCG TABLET 1 TABLET WITH MEALS ORALLY TWICE A DAY TAKING MAGNESIUM OXIDE 400 MG TABLET 2 TABLET NEEDED ORALLY ONCE A DAY, NOTES: 0700 TAKING YONI ALLERGY 180 MG TABLET 1 TABLET NEEDED ORALLY ONCE A DAY, NOTES: 0700 TAKING HUMALOG 100 UNIT/ML SOLUTION SUBCUTANEOUS SLIDING SCALE BEFORE MEALS TAKING TIZANIDINE HCL 4 MG TABLET 1 TABLET NEEDED ORALLY BEFORE BEDTIME AND IN 4 YRS IF NEEDED MDD=2 TAKING MELOXICAM 7.5 MG TABLET 1 TABLET ORALLY BID TAKING [id number] 1 MG TABLET CHEWABLE ORALLY , NOTES: 0700 MEDICATION LIST REVIEWED AND RECONCILED WITH THE PATIENT PAST MEDICAL HISTORY BULGING DISCS- CERVICAL ARTHRITIS KNEES/HANDS SPINAL STENOSIS LYMPHEDEMA LOWER EXTREMITIES DIABETES TYPE 2 DIABETIC NEUROPATHY HIGH BLOOD PRESSURE DIVERTICULITIS FACTOR V LEYDEN SLEEP APNEA ALLERGIES GENERAL ANESTHESIA: NAUSEA/VOMITING - SIDE EFFECTS SURGICAL HISTORY TONSILLECTOMY 1950 APPENDIX 1970 LEFT SHOULDER REPAIR 08/28/04 LEFT CAROTID ENDARTERECTOMY 04/04/16 ARTERIOGRAM 09/07/16 LEFT CATARACT 09/26/16 FX RIGHT FOOT 2ND TOE 11/08/17 FAMILY HISTORY FATHER: 85 YRS, DIAGNOSED WITH HYPERTENSION, HEART DISEASE MOTHER: 80 YRS 1 BROTHER(S) , 3 SISTER(S) . MOTHER- DIVERTICULITIS, OF PNEUMONIA\\NSISTER - BREAST CANCER SURVIVOR, COPD. SOCIAL HISTORY GENERAL: TOBACCO USE ARE YOU A:FORMER SMOKER HOW LONG HAS IT BEEN SINCE YOU LAST SMOKED?> 10 YEARS OTHERS AT HOME: [place]ING. DIET: REGULAR. LANGUAGE LANGUAGES SPOKEN:MONEGASQUE RECREATIONAL DRUG USE DRUG USE?NO LEARNING BARRIERS / SPECIAL NEEDS BARRIERS TO LEARNING?NO HEARING IMPAIRED?NO VISION IMPAIRED?NO COGNITIVELY IMPAIRED?NO READINESS TO LEARN?YES LEARNING PREFERENCES?NO LEARNING CAPABILITIES PRESENT?YES EMOTIONAL BARRIERS?NO SPECIAL DEVICES?NO MANAGER AEROSPACE NEEDED?NO PAIN CLINIC PFS, CLERGY, PUBLIC HEALTH REFERRALS WAS THE PROVIDER NOTIFIED OF ANY PERTINENT INFO?YES HAS THE PATIENT BEEN EDUCATED REGARDING HIS/HER PLAN OF CARE?YES HAS THE PATIENT BEEN EDUCATED REGARDING PAIN, THE RISK FOR PAIN, THE IMPORTANCE OF EFFECTIVE PAIN MANAGEMENT, AND THE PAIN ASSESSMENT PROCESS?YES LATEX QUESTIONNAIRE LATEX ALLERGY : HAVE YOU EVER DEVELOPED ANY TYPE OF REACTION AFTER HANDLING LATEX PRODUCTS SUCH RUBBER GLOVES, CONDOMS, DIAPHRAGMS, BALLOONS, SOCKS, OR UNDERWEAR?NO LATEX ALLERGY : HAVE YOU EVER DEVELOPED ANY TYPE OF REACTION DURING OR AFTER DENTAL APPOINTMENT, VAGINAL/RECTAL EXAMINATION, SURGICAL PROCEDURE, OR ANY OTHER EXPOSURE?NO LATEX RISK : HAVE YOU EVER HAD ANY DIFFICULTY BREATHING OR HIVES AFTER EATING OR HANDLING ANY FRUITS, OR VEGETABLES; SUCH KIWI, BANANAS, STONE FRUITS, OR CHESTNUTSNO LATEX RISK : DO YOU HAVE A PREVIOUS PERSONAL HISTORY OF MORE THAN NINE SURGERIES, SPINA BIFIDA, OR REPEATED CATHERTIZATIONS? NO LATEX RISK : ARE YOU FREQUENTLY EXPOSED TO LATEX PRODUCTS IN YOUR OCCUPATION?NO DATE ASKED : 10/03/2018 CAFFEINE CAFFEINE USE?YES HOW OFTEN AND HOW MUCH? 3 CUPS APPROXIMATELY ADVANCE DIRECTIVE ADVANCE DIRECTIVE DISCUSSED WITH PATIENT:YES HCP - NADER BANKS [phone] SABIANIST [id number] VOODOO MARITAL STATUS: SINGLE. ALCOHOL SCREENING DID YOU HAVE A DRINK CONTAINING ALCOHOL IN THE PAST YEAR?NO POINTS0 INTERPRETATIONNEGATIVE OCCUPATION: RETIRED. REVIEWED WITH PATIENT 04/03/18 1125 JSREVIEWED WITH PATIENT 05/15/18 1012 JSREVIEWED WITH PATIENT 05/28/18 1109 JS. HOSPITALIZATION/MAJOR DIAGNOSTIC PROCEDURE LEFT CAROTID ENDARTERECTOMY 04/04/16 APPENDIX 1970 BLOOD CLOT LEFT LEG (PT STATES IN THE 1989'S) TRACTION FOR BACK (PT STATES EARLY S) REVIEW OF SYSTEMS REVIEWED BY: PROVIDER: THOR REESE . CONSTITUTIONAL: ANY CHANGE IN YOUR MEDICAL CONDITION? NO . CHILLS NO . FEVER NO . INFECTION: DO YOU HAVE NEW INFECTIONS? NO . DO YOU HAVE HISTORY OF MRSA? NO . MUSCULOSKELETAL: ANY NEW PATTERNS OF PAIN OR NUMBNESS? NO . GASTROENTEROLOGY: ANY NEW CHANGE IN BOWEL CONTROL? NO . GENITOURINARY: ANY NEW CHANGE IN BLADDER CONTROL? NO . IS THERE A CHANCE YOU COULD BE ? NO . HEMATOLOGY/LYMPH: DO YOU TAKE ANY BLOOD THINNERS? (FOR EXAMPLE- COUMADIN, PLAVIX, AGGRENOX, PLATEL, PRADAXA, OR XARELTO) NO . WHEN WAS YOUR LAST DOSE? DATE: TIME: . NEUROLOGY: HAVE YOU FALLEN IN THE PAST 12 MONTHS? NO . ANY NEW EXTREMITY NUMBNESS OR WEAKNESS? NO . CARDIOLOGY: DO YOU HAVE A PACEMAKER OR DEFIBRILLATOR? NO . RESPIRATORY: HAVE YOU BEEN SICK IN THE PAST WEEK? NO . FEVER NO . FLU LIKE SYMPTOMS? NO . COUGH NO . INTEGUMENTARY: DO YOU HAVE ANY RASHES OR OPEN SORES? NO . ALLERGIC/IMMUNO: ARE YOU ALLERGIC TO IV DYE? NO . ANY NEW ALLERGIES? NO . PSYCHIATRIC: DO YOU HAVE THOUGHTS OF HURTING YOURSELF OR SOMEONE ELSE? NO . ARE YOU ABUSED, NEGLECTED, OR IN AN UNSAFE ENVIRONMENT? NO . ENDOCRINOLOGY: ARE YOU DIABETIC? YES, MANAGED WITH INSULIN AND PO MEDS . OTHER: DO YOU NEED ANY PRESCRIPTIONS? NO . IF YES, PLEASE LIST: ____ . ANY NEW PROBLEMS WITH YOUR MEDICATIONS? NO . WHEN DID YOU LAST EAT? ____ . WHEN DID YOU LAST DRINK? ____ . WHAT DID YOU LAST DRINK? ____ . NAME OF PERSON DRIVING YOU HOME? ____ . DO YOU HAVE ANY OTHER QUESTIONS OR CONCERNS PT STATES THAT SHE HAS GOOD RELIEF FROM PROCEDURE, PT STATES THAT SHE NOTICES GOOD RELIEF ON LEFT SIDE, RIGHT SIDE REMAINS SORE AND PAINFUL . VITAL SIGNS WT 275.6 LBS, HT 71 IN, BMI 38.43 INDEX, BP 166/67 MM HG, HR 91 /MIN, RR 18 /MIN, TEMP 96.6 F, OXYGEN SAT % 96%, SAFE IN ENV? (Y/N) Y, NA INITIALS SC 10:38, REVIEWED BY: IBNA. EXAMINATION GENERAL EXAMINATION: GENERAL APPEARANCE: ALERT,NO DISTRESS . PSYCH AFFECT NORMAL . LUNGS: LUNG SOUNDS ARE CLEAR . HEART: HEART RATE REGULAR . MUSCULOSKELETAL: MST 5/5 BILAT. LOWER EXTREMITIES . LUMBAR SACRAL SPINE TENDERNESS BILAT. SIJ . DIAGNOSTIC TESTS REVIEWEDMRI L/S [id number] . ASSESSMENTS SACROILIITIS - M46.1 (PRIMARY) TREATMENT SACROILIITIS NOTES: BILAT SIJ. PROCEDURE CODES FA211 ESTABILISHED PATIENT [facility] FACILITY CHARGE DISPOSITION & COMMUNICATION FOLLOW UP POST (REASON: BILAT SIJ) ELECTRONICALLY SIGNED BY MARY ANN ROA ON 10/28/2018 AT 08:30 AM EDT DISCLAIMER : THIS IS A VISIT SUMMARY EXTRACTED FROM THE [employer] CHART. IT IS NOT A COPY OF THE [employer] PROGRESS NOTE. JUANITO
== END ==
LOC: M PAIN 10:30
PROVIDERS: ATTEND Nurse Practitioner Family
DX: M46.1 Sacroiliitis, not elsewhere classified (principal); M19.90 Unspecified osteoarthritis, unspecified site; E11.40 Type 2 diabetes mellitus with diabetic neuropathy, unspecified; I10 Essential (primary) hypertension; G47.30 Sleep apnea, unspecified; Z87.891 Personal history of nicotine dependence; Z88.4 Allergy status to anesthetic agent; Z79.4 Long term (current) use of insulin; Z79.82 Long term (current) use of aspirin; Z79.899 Other long term (current) drug therapy

== ENCOUNTER → 2018-11-06 | Outpatient (CLI) | payer BC, MEDICARE ==
[~2018-11-06] MED LIST changes: +BUPIVACAINE HCL 0.25% 30 ML VIAL As Ordered ONE; +TRIAMCINOLONE ACETONIDE SUSP 40 MG/ML VIAL (J3301) As Ordered ONE; -methylPREDNISolone SUSP 40 MG/ML (DEPO-medrol) VIAL (J1030) As Ordered ONE
--- NOTE | 2018-11-07 09:06 | REP ---
Fluoro guidance The images were reviewed with Dr. myers. The patient has a history of pain. The portable C-arm was provided in the OR for Dr. Joe Livingston for fluoroscopic guidance. Four intraoperative last image hold fluoro spot films were obtained for needle placement verification for bilateral SI joint injection. The films are on the PACS system and are available for review. 40 seconds of fluoroscopy time was utilized for this procedure. Reviewed by NYDIA Varma 11/06/2018 04:16 P Electronically Signed by Moshe Myers MD 11/07/2018 08:57 A
--- NOTE | 2018-11-16 23:53 | ECWPNPC ---
PATIENT NAME: CHRIS LONGORIA : 1950 GENDER: FEMALE VISIT DATE: 11/06/2018 DISCHARGE DATE: 11/06/18 1343 VISIT LOCKED DATE TIME: PHYSICIAN: DHARA HANSEN MD RESOURCE: DHARA HANSEN MD REASON FOR APPOINTMENT 1. CHRISSIE WICK HISTORY OF PRESENT ILLNESS HISTORY OF PRESENT ILLNESS: PAIN THE PATIENT DESCRIBES THE PAIN... FALL RISK SCREENING: SCREENING :NO FALLS REPORTED IN THE LAST YEAR CURRENT MEDICATIONS TAKING CENTRUM SILVER 1 TABLET 1 TAB ORALLY DAILY, NOTES: 11/05/18 AM TAKING VALSARTAN-HYDROCHLOROTHIAZIDE 320-25 MG TABLET 1 TABLET ORALLY ONCE A DAY, NOTES: 11/06/18 0800 TAKING DULOXETINE HCL 60 MG CAPSULE DELAYED RELEASE PARTICLES 1 CAPSULE ORALLY ONCE A DAY, NOTES: 11/06/18 0800 TAKING AMLODIPINE BESYLATE 10 MG TABLET 1 TABLET ORALLY ONCE A DAY, NOTES: 11/06/18 0900 TAKING METFORMIN HCL 1000 MG TABLET 1 TABLET WITH A MEAL ORALLY BID, NOTES: 11/05/18 PM TAKING LABETALOL HCL 200 MG TABLET 1 TABLET ORALLY TWICE A DAY, NOTES: 11/06/18 0900 TAKING HYDRALAZINE HCL 25 MG TABLET 1 TABLET WITH FOOD ORALLY BID, NOTES: 11/06/18 0900 TAKING IRON (FERROUS GLUCONATE) 256 (28 FE) MG TABLET 1 TABLET ORALLY ONCE A DAY, NOTES: 11/05/18 AM TAKING TRAMADOL HCL 50 MG TABLET 1 TABLET NEEDED ORALLY EVERY 6 HRS, NOTES: 11/05/18 PM TAKING LANTUS SOLOSTAR 100 UNIT/ML SOLUTION PEN-INJECTOR 50 UNITS SUBCUTANEOUS DAILY, NOTES: 11/05/18 PM TAKING ASPIRIN 81 81 MG TABLET CHEWABLE 1 TABLET ORALLY ONCE A DAY, NOTES: 11/05/18 PM TAKING SIMVASTATIN 20 MG TABLET 1 TABLET IN THE EVENING ORALLY ONCE A DAY, NOTES: 11/05/18 PM TAKING ROPINIROLE HCL 1 MG TABLET 4 TABLET 1 TO 3 HOURS BEFORE BEDTIME ORALLY ONCE A DAY, NOTES: 11/05/18 PM TAKING OMEPRAZOLE 20 MG CAPSULE DELAYED RELEASE 1 CAPSULE ORALLY ONCE A DAY, NOTES: 11/05/18 PM TAKING GABAPENTIN 100 MG CAPSULE 2 CAPSULE ORALLY BID, NOTES: 11/05/18 PM TAKING TYLENOL PM EXTRA STRENGTH 500-25 MG TABLET 2 TABLET AT BEDTIME NEEDED ORALLY ONCE A DAY, NOTES: NONE RECENT TAKING VITAMIN C 1000 MG TABLET 1 TABLET ORALLY ONCE A DAY, NOTES: 11/05/18 AM TAKING CALCIUM + D + K 750-500-40 MG-UNT-MCG TABLET 1 TABLET WITH MEALS ORALLY TWICE A DAY, NOTES: 11/05/18 AM TAKING MAGNESIUM OXIDE 400 MG TABLET 2 TABLET NEEDED ORALLY ONCE A DAY, NOTES: 11/05/18 PM TAKING YONI ALLERGY 180 MG TABLET 1 TABLET NEEDED ORALLY ONCE A DAY, NOTES: 11/06/18 AM TAKING HUMALOG 100 UNIT/ML SOLUTION SUBCUTANEOUS SLIDING SCALE BEFORE MEALS, NOTES: 11/05/18 PM TAKING TIZANIDINE HCL 4 MG TABLET 1 TABLET NEEDED ORALLY BEFORE BEDTIME AND IN 4 YRS IF NEEDED MDD=2, NOTES: 11/05/18 PM TAKING MELOXICAM 7.5 MG TABLET 1 TABLET ORALLY BID, NOTES: 11/05/18 PM TAKING [id number] 1 MG TABLET CHEWABLE ORALLY , NOTES: 11/05/18 AM MEDICATION LIST REVIEWED AND RECONCILED WITH THE PATIENT PAST MEDICAL HISTORY BULGING DISCS- CERVICAL ARTHRITIS KNEES/HANDS SPINAL STENOSIS LYMPHEDEMA LOWER EXTREMITIES DIABETES TYPE 2 DIABETIC NEUROPATHY HIGH BLOOD PRESSURE DIVERTICULITIS FACTOR V LEYDEN SLEEP APNEA ALLERGIES GENERAL ANESTHESIA: NAUSEA/VOMITING - SIDE EFFECTS SURGICAL HISTORY TONSILLECTOMY 1950 APPENDIX 1970 LEFT SHOULDER REPAIR 08/28/04 LEFT CAROTID ENDARTERECTOMY 04/04/16 ARTERIOGRAM 09/07/16 LEFT CATARACT 09/26/16 FX RIGHT FOOT 2ND TOE 11/08/17 FAMILY HISTORY FATHER: 85 YRS, DIAGNOSED WITH HYPERTENSION, HEART DISEASE MOTHER: 80 YRS 1 BROTHER(S) , 3 SISTER(S) . MOTHER- DIVERTICULITIS, OF PNEUMONIA\\NSISTER - BREAST CANCER SURVIVOR, COPD. SOCIAL HISTORY GENERAL: TOBACCO USE ARE YOU A:FORMER SMOKER HOW LONG HAS IT BEEN SINCE YOU LAST SMOKED?> 10 YEARS OTHERS AT HOME: [place]. DIET: REGULAR. LANGUAGE LANGUAGES SPOKEN:THAI RECREATIONAL DRUG USE DRUG USE?NO LEARNING BARRIERS / SPECIAL NEEDS BARRIERS TO LEARNING?NO HEARING IMPAIRED?NO VISION IMPAIRED?NO COGNITIVELY IMPAIRED?NO READINESS TO LEARN?YES LEARNING PREFERENCES?NO LEARNING CAPABILITIES PRESENT?YES EMOTIONAL BARRIERS?NO SPECIAL DEVICES?NO PROGRAM DIRECTOR/TRAFFIC DIRECTOR NEEDED?NO PAIN CLINIC PFS, CLERGY, PUBLIC HEALTH REFERRALS WAS THE PROVIDER NOTIFIED OF ANY PERTINENT INFO?YES HAS THE PATIENT BEEN EDUCATED REGARDING HIS/HER PLAN OF CARE?YES HAS THE PATIENT BEEN EDUCATED REGARDING PAIN, THE RISK FOR PAIN, THE IMPORTANCE OF EFFECTIVE PAIN MANAGEMENT, AND THE PAIN ASSESSMENT PROCESS?YES LATEX QUESTIONNAIRE LATEX ALLERGY : HAVE YOU EVER DEVELOPED ANY TYPE OF REACTION AFTER HANDLING LATEX PRODUCTS SUCH RUBBER GLOVES, CONDOMS, DIAPHRAGMS, BALLOONS, SOCKS, OR UNDERWEAR?NO LATEX ALLERGY : HAVE YOU EVER DEVELOPED ANY TYPE OF REACTION DURING OR AFTER DENTAL APPOINTMENT, VAGINAL/RECTAL EXAMINATION, SURGICAL PROCEDURE, OR ANY OTHER EXPOSURE?NO LATEX RISK : HAVE YOU EVER HAD ANY DIFFICULTY BREATHING OR HIVES AFTER EATING OR HANDLING ANY FRUITS, OR VEGETABLES; SUCH KIWI, BANANAS, STONE FRUITS, OR CHESTNUTSNO LATEX RISK : DO YOU HAVE A PREVIOUS PERSONAL HISTORY OF MORE THAN NINE SURGERIES, SPINA BIFIDA, OR REPEATED CATHERTIZATIONS? NO LATEX RISK : ARE YOU FREQUENTLY EXPOSED TO LATEX PRODUCTS IN YOUR OCCUPATION?NO DATE ASKED : 10/03/2018 CAFFEINE CAFFEINE USE?YES HOW OFTEN AND HOW MUCH? 3 CUPS APPROXIMATELY ADVANCE DIRECTIVE ADVANCE DIRECTIVE DISCUSSED WITH PATIENT:YES HCP - NADER BANKS [phone] HOAHAOISM [id number] [facility] STATUS: SINGLE. ALCOHOL SCREENING DID YOU HAVE A DRINK CONTAINING ALCOHOL IN THE PAST YEAR?NO POINTS0 INTERPRETATIONNEGATIVE OCCUPATION: RETIRED. REVIEWED WITH PATIENT 04/03/18 1125 JSREVIEWED WITH PATIENT 05/15/18 1012 JSREVIEWED WITH PATIENT 05/28/18 1109 JS REVIEWED WITH PT 11/06/18 1151 BV. HOSPITALIZATION/MAJOR DIAGNOSTIC PROCEDURE LEFT CAROTID ENDARTERECTOMY 04/04/16 APPENDIX 1970 BLOOD CLOT LEFT LEG (PT STATES IN THE 1989'S) TRACTION FOR BACK (PT STATES EARLY S) REVIEW OF SYSTEMS REVIEWED BY: PROVIDER: . CONSTITUTIONAL: ANY CHANGE IN YOUR MEDICAL CONDITION? NO . CHILLS NO . FEVER NO . INFECTION: DO YOU HAVE NEW INFECTIONS? NO . DO YOU HAVE HISTORY OF MRSA? NO . MUSCULOSKELETAL: ANY NEW PATTERNS OF PAIN OR NUMBNESS? NO . GASTROENTEROLOGY: ANY NEW CHANGE IN BOWEL CONTROL? NO . GENITOURINARY: ANY NEW CHANGE IN BLADDER CONTROL? NO . IS THERE A CHANCE YOU COULD BE ? NO . HEMATOLOGY/LYMPH: DO YOU TAKE ANY BLOOD THINNERS? (FOR EXAMPLE- COUMADIN, PLAVIX, AGGRENOX, PLATEL, PRADAXA, OR XARELTO) NO . WHEN WAS YOUR LAST DOSE? DATE: TIME: . NEUROLOGY: HAVE YOU FALLEN IN THE PAST 12 MONTHS? NO . ANY NEW EXTREMITY NUMBNESS OR WEAKNESS? NO . CARDIOLOGY: DO YOU HAVE A PACEMAKER OR DEFIBRILLATOR? NO . RESPIRATORY: HAVE YOU BEEN SICK IN THE PAST WEEK? NO . FEVER NO . FLU LIKE SYMPTOMS? NO . COUGH NO . INTEGUMENTARY: DO YOU HAVE ANY RASHES OR OPEN SORES? NO . ALLERGIC/IMMUNO: ARE YOU ALLERGIC TO IV DYE? NO . ANY NEW ALLERGIES? NO . PSYCHIATRIC: DO YOU HAVE THOUGHTS OF HURTING YOURSELF OR SOMEONE ELSE? NO . ARE YOU ABUSED, NEGLECTED, OR IN AN UNSAFE ENVIRONMENT? NO . ENDOCRINOLOGY: ARE YOU DIABETIC? YES . OTHER: DO YOU NEED ANY PRESCRIPTIONS? NO . IF YES, PLEASE LIST: ____ . ANY NEW PROBLEMS WITH YOUR MEDICATIONS? NO . WHEN DID YOU LAST EAT? ____10-05 1130 PM . WHEN DID YOU LAST DRINK? ____TODAY 830 AM . WHAT DID YOU LAST DRINK? ____WATER . NAME OF PERSON DRIVING YOU HOME? ____TIKI.VN . DO YOU HAVE ANY OTHER QUESTIONS OR CONCERNS NO . VITAL SIGNS WT 273.8 LBS, HT 71 IN, BMI 38.18 INDEX, BP 178/71 MM HG, HR 73 /MIN, RR 18 /MIN, TEMP 98.1 F, OXYGEN SAT % 92%, SAFE IN ENV? (Y/N) YES, NA INITIALS LA 11:05, REVIEWED BY: KG. ASSESSMENTS SACROILIITIS - M46.1 (PRIMARY) TREATMENT SACROILIITIS [facility] FLUORO GUIDANCE (PAIN)[id number] PROCEDURES PN SI PRE PROCEDURE DIAGNOSIS SACROILIITIS, SACROILIAC JOINT DYSFUNCTION POST PROCEDURE DIAGNOSIS SACROILIITIS, SACROILIAC JOINT DYSFUNCTION PROCEDURE BILATERAL SACROILIAC JOINT BLOCK SURGEON DR. DHARA HANSEN MANAGER OF T[employer] NONE ANESTHESIA LOCAL PRE PROCEDURE NOTE PATIENT WITH HISTORY OF CHRONIC LOW BACK PAIN. I EVALUATED THE PATIENT AND REVIEWED THE CHART. I WENT OVER THE RISKS, ALTERNATIVES, AND BENEFITS ASSOCIATED WITH THIS PROCEDURE. THE PATIENT WOULD LIKE TO PROCEED AND GAVE CONSENT TO PERFORM THE PROCEDURE. THE PATIENT DENIES UNEXPLAINABLE WEIGHT LOSS, FEVER, CHILLS, OR NEW CHANGES IN URINARY OR BOWEL CONTROL DESCRIPTION OF PROCEDURE THE PATIENT WAS BROUGHT TO THE PROCEDURE ROOM AND PLACED IN THE PRONE POSITION. THE LUMBOSACRAL AREA WAS CLEANED WITH CHLORAPREP SOLUTION AND DRAPED ASEPTICALLY. THE PROCEDURE WAS DONE UNDER STERILE CONDITIONS. I CHECKED LATERALITY AND THE LEVEL WHERE THE PROCEDURE WAS GOING TO BE PERFORMED WITH THE PATIENT AND THE SUPPORTING STAFF AT THE MOMENT OF THE TIME OUT IN THE PROCEDURE ROOM. UNDER FLUOROSCOPIC GUIDANCE, TARGET POINT WAS SELECTED AT THE LOWER BORDER OF THE RIGHT AND LEFT SACROILIAC JOINT. TARGET POINT WAS SELECTED AFTER MEDIAL ROTATION AND TILT OF THE MAGNIFIER OF THE C-ARM. LIDOCAINE WAS USED TO NUMB THE SKIN AND SUBCUTANEOUS TISSUE BELOW IT. A SPINAL NEEDLE, 22-GAUGE, WAS ADVANCED UNDER FLUOROSCOPIC GUIDANCE AND FOLLOWING PATIENT FEEDBACK UNTIL THE TARGET AREA WAS TOUCHED. THE POSITION OF THE NEEDLE WAS VERIFIED WITH AP AND LATERAL VIEWS. AFTER PROPER POSITION OF THE NEEDLE WAS ACHIEVED, ISOVUE M DYE 30%, 0.25 ML, WAS INJECTED SHOWING SPREAD OF THE DYE. THEN, A SOLUTION OF 20 MG OF KENALOG WAS INJECTED IN RIGHT AND LEFT JOINT WITH 3 ML OF BUPIVACAINE 0.125%. THERE WAS NO EVIDENCE OF BLOOD, PARESTHESIA OR CEREBROSPINAL FLUID DURING THE PROCEDURE. THE PATIENT WAS SENT TO THE RECOVERY ROOM. THE PATIENT WAS MOVING THE EXTREMITIES AND DOING WELL. THERE WAS NO COMPLICATION DURING THE PROCEDURE. FLUOROSCOPY TIME WAS 40 SECONDS POST PROCEDURE NOTE THE PATIENT WILL BE SEEN IN A FOLLOW UP IN THE NEXT FEW WEEKS. INSTRUCTIONS WERE GIVEN, QUESTIONS WERE ANSWERED, AND THE PATIENT EXPRESSED UNDERSTANDING AND AGREED WITH THE PLAN. I, YEYO CARTY, DOCUMENTED THE ABOVE INFORMATION ACTING A SCRIBE FOR DR. HANSEN. I HAVE REVIEWED THE ABOVE DOCUMENT, WRITTEN BY YEYO COLUNGA AND I VERIFY THAT IT IS ACCURATE. PROCEDURE CODES 6045F RADXPS IN END [id number] INJECT SACROILIAC JOINT, MODIFIERS: 50 DISPOSITION & COMMUNICATION FOLLOW UP 3 WEEKS ELECTRONICALLY SIGNED BY DHARA HANSEN MD, MD ON 11/16/2018 AT 02:04 PM EDT DISCLAIMER : THIS IS A VISIT SUMMARY EXTRACTED FROM THE [employer] CHART. IT IS NOT A COPY OF THE [employer] PROGRESS NOTE. MTDD
== END ==
LOC: M PAIN 11:00
PROVIDERS: ATTEND Anesthesiology
DX: M46.1 Sacroiliitis, not elsewhere classified (principal); M50.20 Other cervical disc displacement, unspecified cervical region; M17.0 Bilateral primary osteoarthritis of knee; M19.041 Primary osteoarthritis, right hand; M19.042 Primary osteoarthritis, left hand; I89.0 Lymphedema, not elsewhere classified; E11.40 Type 2 diabetes mellitus with diabetic neuropathy, unspecified; D68.2 Hereditary deficiency of other clotting factors; G47.30 Sleep apnea, unspecified; Z90.49 Acquired absence of other specified parts of digestive tract; Z98.41 Cataract extraction status, right eye; Z87.891 Personal history of nicotine dependence; Z79.4 Long term (current) use of insulin; Z79.82 Long term (current) use of aspirin; Z79.899 Other long term (current) drug therapy; Z88.4 Allergy status to anesthetic agent
CPT/HCPCS: G0260; J3301; Q9967

== ENCOUNTER → 2019-01-14 | Outpatient (CLI) | payer BC, MEDICARE ==
--- NOTE | 2019-01-16 00:25 | ECWPNPC ---
PATIENT NAME: CHRIS LONGORIA : 1950 GENDER: FEMALE VISIT DATE: 01/14/2019 DISCHARGE DATE: 01/14/19 1411 VISIT LOCKED DATE TIME: PHYSICIAN: MERY FLORES RESOURCE: MERY FLORES REASON FOR APPOINTMENT 1. POST BILAT SIJ HISTORY OF PRESENT ILLNESS HISTORY OF PRESENT ILLNESS: PAIN THE PATIENT DESCRIBES THE PAIN... 68 YEAR OLD FEMALE IN FOR POST BILATERAL SIJ FOLLOW UP. SHE FEELS THE PROCEDURE WORKED WELL AND LASTED A LITTLE OVER A MONTH. SHE DOES ADMIT THE PAIN HAS SINCE RETURNED AND RATES IT A 03/12. FALL RISK SCREENING: SCREENING :NO FALLS REPORTED IN THE LAST YEAR CURRENT MEDICATIONS TAKING VALSARTAN-HYDROCHLOROTHIAZIDE 320-25 MG TABLET 1 TABLET ORALLY ONCE A DAY TAKING DULOXETINE HCL 60 MG CAPSULE DELAYED RELEASE PARTICLES 1 CAPSULE ORALLY ONCE A DAY TAKING AMLODIPINE BESYLATE 10 MG TABLET 1 TABLET ORALLY ONCE A DAY TAKING METFORMIN HCL 1000 MG TABLET 1 TABLET WITH A MEAL ORALLY BID TAKING LABETALOL HCL 200 MG TABLET 1 TABLET ORALLY TWICE A DAY TAKING HYDRALAZINE HCL 25 MG TABLET 1 TABLET WITH FOOD ORALLY BID TAKING IRON (FERROUS GLUCONATE) 256 (28 FE) MG TABLET 1 TABLET ORALLY ONCE A DAY TAKING TRAMADOL HCL 50 MG TABLET 1 TABLET NEEDED ORALLY EVERY 6 HRS TAKING LANTUS SOLOSTAR 100 UNIT/ML SOLUTION PEN-INJECTOR 66 UNITS SUBCUTANEOUS DAILY TAKING ASPIRIN 81 81 MG TABLET CHEWABLE 1 TABLET ORALLY ONCE A DAY TAKING ROPINIROLE HCL 1 MG TABLET 4 TABLET 1 TO 3 HOURS BEFORE BEDTIME ORALLY ONCE A DAY TAKING OMEPRAZOLE 20 MG CAPSULE DELAYED RELEASE 1 CAPSULE ORALLY ONCE A DAY TAKING GABAPENTIN 100 MG CAPSULE 2 CAPSULE ORALLY BID TAKING TYLENOL PM EXTRA STRENGTH 500-25 MG TABLET 2 TABLET AT BEDTIME NEEDED ORALLY ONCE A DAY, NOTES: NONE RECENT TAKING YONI ALLERGY 180 MG TABLET 1 TABLET NEEDED ORALLY ONCE A DAY TAKING HUMALOG 100 UNIT/ML SOLUTION SUBCUTANEOUS SLIDING SCALE BEFORE MEALS TAKING TIZANIDINE HCL 4 MG TABLET 1 TABLET NEEDED ORALLY BEFORE BEDTIME AND IN 4 YRS IF NEEDED MDD=2 TAKING MELOXICAM 7.5 MG TABLET 1 TABLET ORALLY BID TAKING ROSUVASTATIN CALCIUM 10 MG TABLET 1 TABLET ORALLY ONCE A DAY NOT-TAKING CENTRUM SILVER 1 TABLET 1 TAB ORALLY DAILY NOT-TAKING SIMVASTATIN 20 MG TABLET 1 TABLET IN THE EVENING ORALLY ONCE A DAY NOT-TAKING VITAMIN C 1000 MG TABLET 1 TABLET ORALLY ONCE A DAY NOT-TAKING CALCIUM + D + K 750-500-40 MG-UNT-MCG TABLET 1 TABLET WITH MEALS ORALLY TWICE A DAY NOT-TAKING MAGNESIUM OXIDE 400 MG TABLET 2 TABLET NEEDED ORALLY ONCE A DAY NOT-TAKING [id number]-[id number] 1 MG TABLET CHEWABLE ORALLY MEDICATION LIST REVIEWED AND RECONCILED WITH THE PATIENT PAST MEDICAL HISTORY BULGING DISCS- CERVICAL ARTHRITIS KNEES/HANDS SPINAL STENOSIS LYMPHEDEMA LOWER EXTREMITIES DIABETES TYPE 2 DIABETIC NEUROPATHY HIGH BLOOD PRESSURE DIVERTICULITIS FACTOR V LEYDEN SLEEP APNEA SEPSIS AFTER TOE SURGERY DECEMBER 2018 ALLERGIES GENERAL ANESTHESIA: NAUSEA/VOMITING - SIDE EFFECTS SURGICAL HISTORY TONSILLECTOMY 1950 APPENDIX 1970 LEFT SHOULDER REPAIR 08/28/04 LEFT CAROTID ENDARTERECTOMY 04/04/16 ARTERIOGRAM 09/07/16 LEFT CATARACT 09/26/16 FX RIGHT FOOT 2ND TOE 11/08/17 AMOUTATION OF 3RD TOE LEFT FOOT 12/2018 FAMILY HISTORY FATHER: 85 YRS, DIAGNOSED WITH HYPERTENSION, HEART DISEASE MOTHER: 80 YRS 1 BROTHER(S) , 3 SISTER(S) . MOTHER- DIVERTICULITIS, OF PNEUMONIA\\NSISTER - BREAST CANCER SURVIVOR, COPD. SOCIAL HISTORY GENERAL: TOBACCO USE ARE YOU A:FORMER SMOKER HOW LONG HAS IT BEEN SINCE YOU LAST SMOKED?> 10 YEARS OTHERS AT HOME: [place]. DIET: REGULAR. LANGUAGE LANGUAGES SPOKEN:TELUGU RECREATIONAL DRUG USE DRUG USE?NO LEARNING BARRIERS / SPECIAL NEEDS BARRIERS TO LEARNING?NO HEARING IMPAIRED?NO VISION IMPAIRED?NO COGNITIVELY IMPAIRED?NO READINESS TO LEARN?YES LEARNING PREFERENCES?NO LEARNING CAPABILITIES PRESENT?YES EMOTIONAL BARRIERS?NO SPECIAL DEVICES?NO DIE CLEANER NEEDED?NO PAIN CLINIC PFS, CLERGY, PUBLIC HEALTH REFERRALS WAS THE PROVIDER NOTIFIED OF ANY PERTINENT INFO?YES HAS THE PATIENT BEEN EDUCATED REGARDING HIS/HER PLAN OF CARE?YES HAS THE PATIENT BEEN EDUCATED REGARDING PAIN, THE RISK FOR PAIN, THE IMPORTANCE OF EFFECTIVE PAIN MANAGEMENT, AND THE PAIN ASSESSMENT PROCESS?YES LATEX QUESTIONNAIRE LATEX ALLERGY : HAVE YOU EVER DEVELOPED ANY TYPE OF REACTION AFTER HANDLING LATEX PRODUCTS SUCH RUBBER GLOVES, CONDOMS, DIAPHRAGMS, BALLOONS, SOCKS, OR UNDERWEAR?NO LATEX ALLERGY : HAVE YOU EVER DEVELOPED ANY TYPE OF REACTION DURING OR AFTER DENTAL APPOINTMENT, VAGINAL/RECTAL EXAMINATION, SURGICAL PROCEDURE, OR ANY OTHER EXPOSURE?NO LATEX RISK : HAVE YOU EVER HAD ANY DIFFICULTY BREATHING OR HIVES AFTER EATING OR HANDLING ANY FRUITS, OR VEGETABLES; SUCH KIWI, BANANAS, STONE FRUITS, OR CHESTNUTSNO LATEX RISK : DO YOU HAVE A PREVIOUS PERSONAL HISTORY OF MORE THAN NINE SURGERIES, SPINA BIFIDA, OR REPEATED CATHERIZATIONS? NO LATEX RISK : ARE YOU FREQUENTLY EXPOSED TO LATEX PRODUCTS IN YOUR OCCUPATION?NO DATE ASKED : 10/03/2018 CAFFEINE CAFFEINE USE?YES HOW OFTEN AND HOW MUCH? 3 CUPS APPROXIMATELY ADVANCE DIRECTIVE ADVANCE DIRECTIVE DISCUSSED WITH PATIENT:YES HCP - NADER BANKS [phone] UATSDIN [id number] [employer] MARITAL STATUS: SINGLE. ALCOHOL SCREENING DID YOU HAVE A DRINK CONTAINING ALCOHOL IN THE PAST YEAR?NO POINTS0 INTERPRETATIONNEGATIVE OCCUPATION: RETIRED. REVIEWED WITH PATIENT 04/03/18 1125 JSREVIEWED WITH PATIENT 05/15/18 1012 JSREVIEWED WITH PATIENT 05/28/18 1109 JS REVIEWED WITH PT 11/06/18 1151 BVREVIEWED WITH PATIENT 01/14/19 1315 NLJ. HOSPITALIZATION/MAJOR DIAGNOSTIC PROCEDURE LEFT CAROTID ENDARTERECTOMY 04/04/16 APPENDIX 1970 BLOOD CLOT LEFT LEG (PT STATES IN THE S) TRACTION FOR BACK (PT STATES EARLY S) HOSPITALIZED WITH SEPSIS AFTER TOE SURGERY REVIEW OF SYSTEMS REVIEWED BY: PROVIDER: AMELIA REESE-Abad . CONSTITUTIONAL: ANY CHANGE IN YOUR MEDICAL CONDITION? YES- ADDMITTED TO THE HOSPITAL WITH SEPSIS AFTER FOOT SURGERY IN DECEMBER 2018 . CHILLS NO . FEVER NO . INFECTION: DO YOU HAVE NEW INFECTIONS? YES- SEPSIS IN DECEMBER 2018 . DO YOU HAVE HISTORY OF MRSA? NO . MUSCULOSKELETAL: ANY NEW PATTERNS OF PAIN OR NUMBNESS? YES- INCREASED PAIN SINCE BEING ADMITTED TO THE HOSPITAL IN DECEMBER 2018, AND A FALL IN DECEMBER 2018 . GASTROENTEROLOGY: ANY NEW CHANGE IN BOWEL CONTROL? NO . GENITOURINARY: ANY NEW CHANGE IN BLADDER CONTROL? NO . IS THERE A CHANCE YOU COULD BE ? NO . HEMATOLOGY/LYMPH: DO YOU TAKE ANY BLOOD THINNERS? (FOR EXAMPLE- COUMADIN, PLAVIX, AGGRENOX, PLATEL, PRADAXA, OR XARELTO) NO . WHEN WAS YOUR LAST DOSE? DATE: TIME: . NEUROLOGY: HAVE YOU FALLEN IN THE PAST 12 MONTHS? YES- LOST BALANCE IN DECEMBER 2018, STATES SHE DID NOT RECEIVE MEDICAL CARE, PAIN HAS INCREASED MORE SINCE THE FALL . ANY NEW EXTREMITY NUMBNESS OR WEAKNESS? YES- PAIN DOWN LEFT BUTTOCK AND GROIN AREA SINCE THE FALL . CARDIOLOGY: DO YOU HAVE A PACEMAKER OR DEFIBRILLATOR? NO . RESPIRATORY: HAVE YOU BEEN SICK IN THE PAST WEEK? NO . FEVER NO . FLU LIKE SYMPTOMS? NO . COUGH NO . INTEGUMENTARY: DO YOU HAVE ANY RASHES OR OPEN SORES? NO . ALLERGIC/IMMUNO: ARE YOU ALLERGIC TO IV DYE? NO . ANY NEW ALLERGIES? NO . PSYCHIATRIC: DO YOU HAVE THOUGHTS OF HURTING YOURSELF OR SOMEONE ELSE? NO . ARE YOU ABUSED, NEGLECTED, OR IN AN UNSAFE ENVIRONMENT? NO . ENDOCRINOLOGY: ARE YOU DIABETIC? NO . OTHER: DO YOU NEED ANY PRESCRIPTIONS? YES . IF YES, PLEASE LIST: ____TIZANIDINE . ANY NEW PROBLEMS WITH YOUR MEDICATIONS? NO . WHEN DID YOU LAST EAT? ____ . WHEN DID YOU LAST DRINK? ____ . WHAT DID YOU LAST DRINK? ____ . NAME OF PERSON DRIVING YOU HOME? ____ . DO YOU HAVE ANY OTHER QUESTIONS OR CONCERNS YES- WOULD LIKE SUGGESTIONS FOR PAIN CONTROL . VITAL SIGNS WT 272 LBS, HT 71 IN, BMI 37.93 INDEX, BP 150/100 MANUAL, HR 86 /MIN, RR 18 /MIN, TEMP 97.9 F, OXYGEN SAT % 94%, NA INITIALS AW 1316. EXAMINATION GENERAL EXAMINATION: GENERALNO ACUTE DISTRESS, WELL NOURISHED AND HYDRATED. PSYCHAPPROPRIATE MOOD AND AFFECT . LUNGS:CLEAR TO AUSCULTATION BILATERALLY, NO WHEEZES, RHONCHI, RALES. HEART:NO MURMURS, REGULAR RATE AND RHYTHM. BACK: POINT TENDER OVER BILATERAL SIJ. ASSESSMENTS SACROILIITIS - M46.1 (PRIMARY) MYALGIA - M79.10 TREATMENT SACROILIITIS NOTES: BILATERAL SIJ . CLINICAL NOTES: 68 YEAR OLD FEMALE IN FOR POST SIJ FOLLOW UP. GIVEN PRESENTING SYMPTOMS AND RESULTS OF PHYSICAL EXAMINATION RECOMMENDED REPEAT BILATERAL SIJ WITH POST PROCEDURAL FOLLOW UP. PT CURRENTLY ON TRAMADOL PRESCRIBED BY HER PCP AND WAS ENCOURAGED TO DISCUSS MEDICATION CHANGE WITH THEM. PATIENT HAS EXPRESSED UNDERSTANDING OF AND WAS IN AGREEMENT WITH TREATMENT PLAN. GIVEN TIME TO ASK QUESTIONS AND EXPRESS CONCERNS. . MYALGIA REFILL TIZANIDINE HCL TABLET, 4 MG, 1 TABLET NEEDED, ORALLY, BEFORE BEDTIME AND IN 4 YRS IF NEEDED MDD=2, 30 DAY(S), 60, REFILLS 3 PREVENTIVE MEDICINE PAIN CLINIC TEACHING: PROCEDURE TEACHING SACROILIAC JOINT INJECTION TEACHING PRINTED AND REVIEWED WITH PATIENT 01/14/19 1402 NLJ. PROCEDURE CODES FA211 ESTABILISHED PATIENT [facility] CHARGE DISPOSITION & COMMUNICATION FOLLOW UP POST PROCEDURE (REASON: BILATERAL SIJ ) ELECTRONICALLY SIGNED BY MARY ANN STOUT ON 01/15/2019 AT 10:38 AM EDT DISCLAIMER : THIS IS A VISIT SUMMARY EXTRACTED FROM THE [employer] CHART. IT IS NOT A COPY OF THE [employer] PROGRESS NOTE. JUANITO
== END ==
LOC: M PAIN 13:15
PROVIDERS: ATTEND Family Medicine
DX: M46.1 Sacroiliitis, not elsewhere classified (principal); M79.10 Myalgia, unspecified site; M17.0 Bilateral primary osteoarthritis of knee; M19.041 Primary osteoarthritis, right hand; M19.042 Primary osteoarthritis, left hand; E11.40 Type 2 diabetes mellitus with diabetic neuropathy, unspecified; I10 Essential (primary) hypertension; G47.30 Sleep apnea, unspecified; Z87.891 Personal history of nicotine dependence; Z88.4 Allergy status to anesthetic agent; Z79.4 Long term (current) use of insulin; Z79.82 Long term (current) use of aspirin; Z79.899 Other long term (current) drug therapy

== ENCOUNTER → 2019-02-04 | Outpatient (CLI) | payer BC, MEDICARE ==
[~2019-02-04] MED LIST changes: +AMLO10TA5; +ASPI81TA26 PO; +BYDU1INJ SC; +CALCCHW19 PO; +CENT1TAB PO; +DULO1CAP6; +FARX1TAB3 PO; +FERR325T3 PO; +GABA-845 PO; +HYDR-3911; +INSUHUMDS SC; +LABE20TAB; +LANTINJ4 SC; +MELO7.5T35; +METF10004; +OMEP-218; +ROPI1TAB; +ROSU10TA6; +SM HTAB3 PO; +TIZA4CAP6 PO; +TRAM50TA2; +VALS320T3 PO
--- NOTE | 2019-02-04 11:54 | REP ---
C-ARM VIEWS SACROILIAC JOINTS: CLINICAL HISTORY: Pain. Two C-arm views of the sacroiliac joints performed. A needle is seen overlying each sacroiliac joint. Injection performed by Dr. Dominguez. 42 seconds fluoroscopy time utilized. Electronically Signed by Moshe Myers MD 02/04/2019 03:34 P
--- NOTE | 2019-02-18 00:06 | ECWPNPC ---
PATIENT NAME: CHRIS LONGORIA : 1950 GENDER: FEMALE VISIT DATE: 02/04/2019 DISCHARGE DATE: 02/04/19 1145 VISIT LOCKED DATE TIME: PHYSICIAN: DHARA HANSEN MD RESOURCE: DHARA HANSEN MD REASON FOR APPOINTMENT 1. CHRISSIE WICK PER CHARGE NURSE HISTORY OF PRESENT ILLNESS HISTORY OF PRESENT ILLNESS: PAIN THE PATIENT DESCRIBES THE PAIN... FALL RISK SCREENING: SCREENING :NO FALLS REPORTED IN THE LAST YEAR CURRENT MEDICATIONS TAKING SIMVASTATIN 20 MG TABLET 1 TABLET IN THE EVENING ORALLY ONCE A DAY TAKING VALSARTAN-HYDROCHLOROTHIAZIDE 320-25 MG TABLET 1 TABLET ORALLY ONCE A DAY TAKING DULOXETINE HCL 60 MG CAPSULE DELAYED RELEASE PARTICLES 1 CAPSULE ORALLY ONCE A DAY TAKING AMLODIPINE BESYLATE 10 MG TABLET 1 TABLET ORALLY ONCE A DAY TAKING METFORMIN HCL 1000 MG TABLET 1 TABLET WITH A MEAL ORALLY BID, NOTES: 0200 TAKING LABETALOL HCL 200 MG TABLET 1 TABLET ORALLY TWICE A DAY, NOTES: 0800 TAKING HYDRALAZINE HCL 25 MG TABLET 1 TABLET WITH FOOD ORALLY BID TAKING TRAMADOL HCL 50 MG TABLET 1 TABLET NEEDED ORALLY EVERY 6 HRS TAKING LANTUS SOLOSTAR 100 UNIT/ML SOLUTION PEN-INJECTOR 66 UNITS SUBCUTANEOUS DAILY TAKING ASPIRIN 81 81 MG TABLET CHEWABLE 1 TABLET ORALLY ONCE A DAY TAKING ROPINIROLE HCL 1 MG TABLET 4 TABLET 1 TO 3 HOURS BEFORE BEDTIME ORALLY ONCE A DAY TAKING OMEPRAZOLE 20 MG CAPSULE DELAYED RELEASE 1 CAPSULE ORALLY ONCE A DAY TAKING GABAPENTIN 400 MG CAPSULE 1 CAPSULE ORALLY BID TAKING YONI ALLERGY 180 MG TABLET 1 TABLET NEEDED ORALLY ONCE A DAY TAKING HUMALOG 100 UNIT/ML SOLUTION SUBCUTANEOUS SLIDING SCALE BEFORE MEALS TAKING MELOXICAM 7.5 MG TABLET 1 TABLET ORALLY BID TAKING ROSUVASTATIN CALCIUM 10 MG TABLET 1 TABLET ORALLY ONCE A DAY TAKING TIZANIDINE HCL 4 MG TABLET 1 TABLET NEEDED ORALLY BEFORE BEDTIME AND IN 4 YRS IF NEEDED MDD=2 DISCONTINUED CENTRUM SILVER 1 TABLET 1 TAB ORALLY DAILY DISCONTINUED VITAMIN C 1000 MG TABLET 1 TABLET ORALLY ONCE A DAY DISCONTINUED CALCIUM + D + K 750-500-40 MG-UNT-MCG TABLET 1 TABLET WITH MEALS ORALLY TWICE A DAY DISCONTINUED MAGNESIUM OXIDE 400 MG TABLET 2 TABLET NEEDED ORALLY ONCE A DAY DISCONTINUED [id number] 1 MG TABLET CHEWABLE ORALLY DISCONTINUED IRON (FERROUS GLUCONATE) 256 (28 FE) MG TABLET 1 TABLET ORALLY ONCE A DAY DISCONTINUED TYLENOL PM EXTRA STRENGTH 500-25 MG TABLET 2 TABLET AT BEDTIME NEEDED ORALLY ONCE A DAY, NOTES: NONE RECENT MEDICATION LIST REVIEWED AND RECONCILED WITH THE PATIENT PAST MEDICAL HISTORY BULGING DISCS- CERVICAL ARTHRITIS KNEES/HANDS SPINAL STENOSIS LYMPHEDEMA LOWER EXTREMITIES DIABETES TYPE 2 DIABETIC NEUROPATHY HIGH BLOOD PRESSURE DIVERTICULITIS FACTOR V LEYDEN SLEEP APNEA SEPSIS AFTER TOE SURGERY DECEMBER 2018 ALLERGIES GENERAL ANESTHESIA: NAUSEA/VOMITING - SIDE EFFECTS SURGICAL HISTORY TONSILLECTOMY 1950 APPENDIX 1970 LEFT SHOULDER REPAIR 08/28/04 LEFT CAROTID ENDARTERECTOMY 04/04/16 ARTERIOGRAM 09/07/16 LEFT CATARACT 09/26/16 FX RIGHT FOOT 2ND TOE 11/08/17 AMOUTATION OF 3RD TOE LEFT FOOT 12/2018 FAMILY HISTORY FATHER: 85 YRS, DIAGNOSED WITH HYPERTENSION, UNSPECIFIED HEART DISEASE MOTHER: 80 YRS 1 BROTHER(S) , 3 SISTER(S) . MOTHER- DIVERTICULITIS, OF PNEUMONIA\\NSISTER - BREAST CANCER SURVIVOR, COPD. SOCIAL HISTORY GENERAL: TOBACCO USE ARE YOU A:FORMER SMOKER HOW LONG HAS IT BEEN SINCE YOU LAST SMOKED?> 10 YEARS OTHERS AT HOME: [place]. DIET: REGULAR. LANGUAGE LANGUAGES SPOKEN:ARMENIAN RECREATIONAL DRUG USE DRUG USE?NO LEARNING BARRIERS / SPECIAL NEEDS BARRIERS TO LEARNING?NO HEARING IMPAIRED?NO VISION IMPAIRED?NO COGNITIVELY IMPAIRED?NO READINESS TO LEARN?YES LEARNING PREFERENCES?NO LEARNING CAPABILITIES PRESENT?YES EMOTIONAL BARRIERS?NO SPECIAL DEVICES?NO AUTO DEALERSHIP PORTER NEEDED?NO PAIN CLINIC PFS, CLERGY, PUBLIC HEALTH REFERRALS WAS THE PROVIDER NOTIFIED OF ANY PERTINENT INFO?YES HAS THE PATIENT BEEN EDUCATED REGARDING HIS/HER PLAN OF CARE?YES HAS THE PATIENT BEEN EDUCATED REGARDING PAIN, THE RISK FOR PAIN, THE IMPORTANCE OF EFFECTIVE PAIN MANAGEMENT, AND THE PAIN ASSESSMENT PROCESS?YES LATEX QUESTIONNAIRE LATEX ALLERGY : HAVE YOU EVER DEVELOPED ANY TYPE OF REACTION AFTER HANDLING LATEX PRODUCTS SUCH RUBBER GLOVES, CONDOMS, DIAPHRAGMS, BALLOONS, SOCKS, OR UNDERWEAR?NO LATEX ALLERGY : HAVE YOU EVER DEVELOPED ANY TYPE OF REACTION DURING OR AFTER DENTAL APPOINTMENT, VAGINAL/RECTAL EXAMINATION, SURGICAL PROCEDURE, OR ANY OTHER EXPOSURE?NO LATEX RISK : HAVE YOU EVER HAD ANY DIFFICULTY BREATHING OR HIVES AFTER EATING OR HANDLING ANY FRUITS, OR VEGETABLES; SUCH KIWI, BANANAS, STONE FRUITS, OR CHESTNUTSNO LATEX RISK : DO YOU HAVE A PREVIOUS PERSONAL HISTORY OF MORE THAN NINE SURGERIES, SPINA BIFIDA, OR REPEATED CATHERIZATIONS? NO LATEX RISK : ARE YOU FREQUENTLY EXPOSED TO LATEX PRODUCTS IN YOUR OCCUPATION?NO DATE ASKED : 02/04/2019 CAFFEINE CAFFEINE USE?YES HOW OFTEN AND HOW MUCH? 3 CUPS APPROXIMATELY ADVANCE DIRECTIVE ADVANCE DIRECTIVE DISCUSSED WITH PATIENT:YES HCP - NADER BANKS [phone] MORMON [id number] JAIN MARITAL STATUS: SINGLE. ALCOHOL SCREENING DID YOU HAVE A DRINK CONTAINING ALCOHOL IN THE PAST YEAR?NO POINTS0 INTERPRETATIONNEGATIVE OCCUPATION: RETIRED. REVIEWED WITH PATIENT 04/03/18 1125 JSREVIEWED WITH PATIENT 05/15/18 1012 JSREVIEWED WITH PATIENT 05/28/18 1109 JS REVIEWED WITH PT 11/06/18 1151 BVREVIEWED WITH PATIENT 01/14/19 1315 NLJ. HOSPITALIZATION/MAJOR DIAGNOSTIC PROCEDURE LEFT CAROTID ENDARTERECTOMY 04/04/16 APPENDIX 1970 BLOOD CLOT LEFT LEG (PT STATES IN THE 1989'S) TRACTION FOR BACK (PT STATES EARLY ) HOSPITALIZED WITH SEPSIS AFTER TOE SURGERY REVIEW OF SYSTEMS REVIEWED BY: PROVIDER: . CONSTITUTIONAL: ANY CHANGE IN YOUR MEDICAL CONDITION? NO . CHILLS NO . FEVER NO . INFECTION: DO YOU HAVE NEW INFECTIONS? NO . DO YOU HAVE HISTORY OF MRSA? NO . MUSCULOSKELETAL: ANY NEW PATTERNS OF PAIN OR NUMBNESS? YES . GASTROENTEROLOGY: ANY NEW CHANGE IN BOWEL CONTROL? NO . GENITOURINARY: ANY NEW CHANGE IN BLADDER CONTROL? NO . IS THERE A CHANCE YOU COULD BE ? NO . HEMATOLOGY/LYMPH: DO YOU TAKE ANY BLOOD THINNERS? (FOR EXAMPLE- COUMADIN, PLAVIX, AGGRENOX, PLATEL, PRADAXA, OR XARELTO) NO . WHEN WAS YOUR LAST DOSE? DATE: TIME: . NEUROLOGY: HAVE YOU FALLEN IN THE PAST 12 MONTHS? NO . ANY NEW EXTREMITY NUMBNESS OR WEAKNESS? NO . CARDIOLOGY: DO YOU HAVE A PACEMAKER OR DEFIBRILLATOR? NO . RESPIRATORY: HAVE YOU BEEN SICK IN THE PAST WEEK? NO . FEVER NO . FLU LIKE SYMPTOMS? NO . COUGH NO . INTEGUMENTARY: DO YOU HAVE ANY RASHES OR OPEN SORES? NO . ALLERGIC/IMMUNO: ARE YOU ALLERGIC TO IV DYE? NO . ANY NEW ALLERGIES? NO . PSYCHIATRIC: DO YOU HAVE THOUGHTS OF HURTING YOURSELF OR SOMEONE ELSE? NO . ARE YOU ABUSED, NEGLECTED, OR IN AN UNSAFE ENVIRONMENT? NO . ENDOCRINOLOGY: ARE YOU DIABETIC? YES . OTHER: DO YOU NEED ANY PRESCRIPTIONS? NO . IF YES, PLEASE LIST: ____ . ANY NEW PROBLEMS WITH YOUR MEDICATIONS? NO . WHEN DID YOU LAST EAT? ____02/03/19 . WHEN DID YOU LAST DRINK? ____0800 . WHAT DID YOU LAST DRINK? ____WATER . NAME OF PERSON DRIVING YOU HOME? ____JUANITA . DO YOU HAVE ANY OTHER QUESTIONS OR CONCERNS NO . VITAL SIGNS WT 273.8 LBS, HT 71 IN, BMI 38.18 INDEX, BP 154/97 MM HG, HR 66 /MIN, RR 18 /MIN, TEMP 96.2 F, OXYGEN SAT % 95%, NA INITIALS SC 09:47. ASSESSMENTS SACROILIITIS - M46.1 (PRIMARY) TREATMENT SACROILIITIS SMC FACET BLOCK (PAIN)[id number] PROCEDURES PN SI PRE PROCEDURE DIAGNOSIS SACROILIITIS, SACROILIAC JOINT DYSFUNCTION POST PROCEDURE DIAGNOSIS SACROILIITIS, SACROILIAC JOINT DYSFUNCTION PROCEDURE BILATERAL SACROILIAC JOINT BLOCK SURGEON DR. DHARA HANSEN CHAIR CAR DRIVER NONE ANESTHESIA LOCAL PRE PROCEDURE NOTE PATIENT WITH HISTORY OF CHRONIC LOW BACK PAIN. I EVALUATED THE PATIENT AND REVIEWED THE CHART. I WENT OVER THE RISKS, ALTERNATIVES, AND BENEFITS ASSOCIATED WITH THIS PROCEDURE. THE PATIENT WOULD LIKE TO PROCEED AND GAVE CONSENT TO PERFORM THE PROCEDURE. THE PATIENT DENIES UNEXPLAINABLE WEIGHT LOSS, FEVER, CHILLS, OR NEW CHANGES IN URINARY OR BOWEL CONTROL DESCRIPTION OF PROCEDURE THE PATIENT WAS BROUGHT TO THE PROCEDURE ROOM AND PLACED IN THE PRONE POSITION. THE LUMBOSACRAL AREA WAS CLEANED WITH CHLORAPREP SOLUTION AND DRAPED ASEPTICALLY. THE PROCEDURE WAS DONE UNDER STERILE CONDITIONS. I CHECKED LATERALITY AND THE LEVEL WHERE THE PROCEDURE WAS GOING TO BE PERFORMED WITH THE PATIENT AND THE SUPPORTING STAFF AT THE MOMENT OF THE TIME OUT IN THE PROCEDURE ROOM. UNDER FLUOROSCOPIC GUIDANCE, TARGET POINT WAS SELECTED AT THE LOWER BORDER OF THE RIGHT AND LEFT SACROILIAC JOINT. TARGET POINT WAS SELECTED AFTER MEDIAL ROTATION AND TILT OF THE MAGNIFIER OF THE C-ARM. LIDOCAINE WAS USED TO NUMB THE SKIN AND SUBCUTANEOUS TISSUE BELOW IT. A SPINAL NEEDLE, 22-GAUGE, WAS ADVANCED UNDER FLUOROSCOPIC GUIDANCE AND FOLLOWING PATIENT FEEDBACK UNTIL THE TARGET AREA WAS TOUCHED. THE POSITION OF THE NEEDLE WAS VERIFIED WITH AP AND LATERAL VIEWS. AFTER PROPER POSITION OF THE NEEDLE WAS ACHIEVED, ISOVUE M DYE 30%, 0.25 ML, WAS INJECTED SHOWING SPREAD OF THE DYE. THEN, A SOLUTION OF 30 MG OF KENALOG WAS INJECTED IN RIGHT AND LEFT JOINT WITH 3 ML OF BUPIVACAINE 0.125%. THERE WAS NO EVIDENCE OF BLOOD, PARESTHESIA OR CEREBROSPINAL FLUID DURING THE PROCEDURE. THE PATIENT WAS SENT TO THE RECOVERY ROOM. THE PATIENT WAS MOVING THE EXTREMITIES AND DOING WELL. THERE WAS NO COMPLICATION DURING THE PROCEDURE. FLUOROSCOPY TIME WAS 42 SECONDS POST PROCEDURE NOTE THE PATIENT WILL BE SEEN IN A FOLLOW UP IN THE NEXT FEW WEEKS. INSTRUCTIONS WERE GIVEN, QUESTIONS WERE ANSWERED, AND THE PATIENT EXPRESSED UNDERSTANDING AND AGREED WITH THE PLAN. I, RADU TENORIO, DOCUMENTED THE ABOVE INFORMATION ACTING A SCRIBE FOR DR. HANSEN. I HAVE REVIEWED THE ABOVE DOCUMENT, WRITTEN BY RADU CASEYIBRaman AND I VERIFY THAT IT IS ACCURATE. PROCEDURE CODES 93452 INJECT SACROILIAC JOINT, MODIFIERS: 50 [id number] RADXPS IN END [id number] PXD DISPOSITION & COMMUNICATION FOLLOW UP 3 WEEKS ELECTRONICALLY SIGNED BY DHARA HANSEN MD, MD ON 02/17/2019 AT 10:39 AM EDT DISCLAIMER : THIS IS A VISIT SUMMARY EXTRACTED FROM THE [employer] CHART. IT IS NOT A COPY OF THE [employer] PROGRESS NOTE. MTDD
== END ==
LOC: M PAIN 09:15
PROVIDERS: ATTEND Anesthesiology
DX: M46.1 Sacroiliitis, not elsewhere classified (principal); M50.20 Other cervical disc displacement, unspecified cervical region; M17.0 Bilateral primary osteoarthritis of knee; M19.041 Primary osteoarthritis, right hand; M19.042 Primary osteoarthritis, left hand; E11.40 Type 2 diabetes mellitus with diabetic neuropathy, unspecified; G47.30 Sleep apnea, unspecified; D68.2 Hereditary deficiency of other clotting factors; R03.0 Elevated blood-pressure reading, without diagnosis of hypertension; M48.00 Spinal stenosis, site unspecified; Z98.42 Cataract extraction status, left eye; Z90.49 Acquired absence of other specified parts of digestive tract; Z89.422 Acquired absence of other left toe(s); Z79.82 Long term (current) use of aspirin; Z79.891 Long term (current) use of opiate analgesic; Z79.899 Other long term (current) drug therapy; Z87.891 Personal history of nicotine dependence; Z88.4 Allergy status to anesthetic agent
CPT/HCPCS: G0260; J3301; Q9967

== ENCOUNTER 2019-02-12 07:42 | Day surgery (SDC) | payer BC, MEDICARE ==
[~2019-02-12] VITALS: Ht 182.9 cm; Wt 119.9 kg
[~2019-02-12 07:42] MED LIST changes: -BUPIVACAINE HCL 0.25% 30 ML VIAL As Ordered ONE; -ISOVUE-M 300 61% 15ML VIAL (Q9967) As Ordered ONE; -LIDOCAINE 1% SDV INJ 30 ML VIAL As Ordered ONE; -TRIAMCINOLONE ACETONIDE SUSP 40 MG/ML VIAL (J3301) As Ordered ONE; -diazePAM 5 MG TAB As Ordered ONE
[2019-02-12] MEDS ORDERED: LIDOCAINE W/EPINEPHRINE 1% 20ML VIAL As Ordered ONE (08:41)
[2019-02-12] MEDS ORDERED: METHYLENE BLUE 0.5% (5MG/ML) 10 ML AMP (PROVAYBLUE)(Q9968 PER 1MG) As Ordered ONE (08:41)
[2019-02-12] MEDS ORDERED: EPINEPHrine 1MG/ML INJ 30ML MD-VIAL As Ordered ONE (08:42)
[2019-02-12] MEDS ORDERED: PROPOFOL 500 MG/50 ML VIAL As Ordered ONE ×2 (08:52→09:33)
[2019-02-12] MEDS ORDERED: PROPOFOL 200 MG/20 ML VIAL As Ordered ONE (08:57)
[2019-02-12] MEDS ORDERED: LIDOCAINE 2% INJ 100 MG/5 ML SDV (FOR ANES.) As Ordered ONE (08:57)
[2019-02-12] MEDS ORDERED: REMIFENTANIL 1MG 3ML VIAL As Ordered ONE (08:57)
[2019-02-12] MEDS ORDERED: ROCURONIUM BROMIDE 50 MG/5 ML VIAL As Ordered ONE (08:57)
[2019-02-12] MEDS ORDERED: fentaNYL 100 MCG/2 ML INJECTION (J3010) As Ordered ONE (08:59)
[2019-02-12] MEDS ORDERED: MIDAZOLAM INJ 2 MG/2 ML VIAL (J2250) As Ordered ONE (08:59)
[2019-02-12] MEDS ORDERED: SCOPOLAMINE 1MG TRANSDERMAL PATCH TOP ONE (09:00)
[2019-02-12] MEDS ORDERED: SCOPOLAMINE 1MG TRANSDERMAL PATCH As Ordered ONE (09:06)
[2019-02-12] MEDS ORDERED: ONDANSETRON 4MG/2ML VIAL (J2405) As Ordered ONE (09:29)
[2019-02-12] MEDS ORDERED: dexameTHASONE 4 MG/ML 1ML VIAL (J1100) As Ordered ONE (09:29)
[2019-02-12] MEDS ORDERED: NEOSTIGMINE 10 MG/10 ML VIAL (J2710) As Ordered ONE (09:41)
[2019-02-12] MEDS ORDERED: GLYCOPYRROLATE INJ 0.2 MG/ML 2 ML VIAL As Ordered ONE (09:41)
[2019-02-12] MEDS ORDERED: SUGAMMADEX SODIUM 500 MG/5 ML VIAL (BRIDION) As Ordered ONE (09:47)
[2019-02-12] MEDS ORDERED: LR 1,000 ML IV SCH ×2 (10:00→10:30)
[2019-02-12] MEDS ORDERED: ACETAMINOPH W/CODEINE #3 TAB UD PO PRN (10:00)
[2019-02-12] MEDS ORDERED: ONDANSETRON 4MG/2ML VIAL (J2405) IV PRN (10:30)
[2019-02-12] MEDS ORDERED: fentaNYL 100 MCG/2 ML INJECTION (J3010) IV PRN (10:30)
[2019-02-12] MEDS ORDERED: hydrALAZINE INJ 20 MG/ML VIAL As Ordered ONE (10:32)
[2019-02-12] MEDS: hydrALAZINE INJ 20 MG/ML VIAL IV SCH ×4 (10:35→10:50)
[2019-02-12 10:50] VITALS: BP 198/74
[2019-02-12 11:50] VITALS: BP 188/78
--- NOTE | 2019-02-12 20:39 | RO ---
DATE OF PROCEDURE: 02/12/2019 PREOPERATIVE DIAGNOSIS: Nasal septal deviation, chronic rhinitis. POSTOPERATIVE DIAGNOSIS: Nasal septal deviation, chronic rhinitis. PROCEDURE: Septoplasty, bilateral turbinectomy. SURGEON: Dr. Romel Shukla PRODUCT MANUFACTURING PROFESSIONAL: ANESTHESIA: General. DESCRIPTION OF PROCEDURE: Under general anesthesia with the patient intubated, the patient was draped in the usual manner. I used pledgets of adrenaline 1:1000 and infiltrated with lidocaine with epinephrine. I started on the left side. I made an incision anteriorly. The septum was deviated towards the left side anteriorly, the right side posteriorly. I the quadrangular cartilage from the maxillary crest and then took out a slip of cartilage inferiorly. I then the quadrangular cartilage from the ethmoid plate and removed a portion of the ethmoid plate, and vomer was deviated towards the right side. Once this was done, the septum was straight, so I closed the incision with interrupted #4-0 Vicryl, #4-0 chromic. I mad an incision anterior to the inferior turbinate on the right side and elevated periosteum and the mucosa. I then used the microdebrider to remove a portion of the maría elena anteriorly on that right side. On the left side, the middle turbinate was large, so I removed the lateral portion of the middle turbinate and then put in a Propel implant. Less than 10 mL estimated blood loss. The patient tolerated the procedure well, was extubated and then transferred to the recovery room in excellent condition.
== END 2019-02-12 12:20 | disposition home or self-care (01) ==
LOC: M SDC 07:42
PROVIDERS: ATTEND Otolaryngology
DX: J34.2 Deviated nasal septum (principal); J31.0 Chronic rhinitis; I10 Essential (primary) hypertension; I25.10 Atherosclerotic heart disease of native coronary artery without angina pectoris; E11.9 Type 2 diabetes mellitus without complications; K21.9 Gastro-esophageal reflux disease without esophagitis; K57.90 Diverticulosis of intestine, part unspecified, without perforation or abscess without bleeding; D64.9 Anemia, unspecified; G47.30 Sleep apnea, unspecified; F41.9 Anxiety disorder, unspecified; F32.9 Major depressive disorder, single episode, unspecified; Z79.82 Long term (current) use of aspirin; Z79.4 Long term (current) use of insulin; Z79.84 Long term (current) use of oral hypoglycemic drugs; Z79.899 Other long term (current) drug therapy; Z88.8 Allergy status to other drugs, medicaments and biological substances
CPT/HCPCS: 30140; 30520; 88300; 88305; C2625; J1100; J2250; J2405; J3010; Q9968

== ENCOUNTER → 2019-02-19 | Outpatient (CLI) | payer BC, MEDICARE ==
--- NOTE | 2019-02-21 00:25 | ECWPNPC ---
PATIENT NAME: CHRIS LONGORIA : 1950 GENDER: FEMALE VISIT DATE: 02/19/2019 DISCHARGE DATE: 02/19/19 1204 VISIT LOCKED DATE TIME: PHYSICIAN: MERY FLORES RESOURCE: MERY FLORES REASON FOR APPOINTMENT 1. POST PROC HISTORY OF PRESENT ILLNESS HISTORY OF PRESENT ILLNESS: PAIN THE PATIENT DESCRIBES THE PAIN... 68-YEAR-OLD FEMALE IN FOR POST BILATERAL SIJ FOLLOW-UP. SHE RATES HER PAIN PREPROCEDURE AT A 10 OUT OF 10 AND POSTPROCEDURE AT A 1-2 OUT OF 10. SHE RATES HER PAIN CURRENTLY AT A 2 OUT OF 10 AND DESCRIBES IT SORE. FALL RISK SCREENING: SCREENING :NO FALLS REPORTED IN THE LAST YEAR CURRENT MEDICATIONS TAKING VALSARTAN-HYDROCHLOROTHIAZIDE 320-25 MG TABLET 1 TABLET ORALLY ONCE A DAY TAKING DULOXETINE HCL 60 MG CAPSULE DELAYED RELEASE PARTICLES 1 CAPSULE ORALLY ONCE A DAY TAKING AMLODIPINE BESYLATE 10 MG TABLET 1 TABLET ORALLY ONCE A DAY TAKING METFORMIN HCL 1000 MG TABLET 1 TABLET WITH A MEAL ORALLY BID TAKING LABETALOL HCL 200 MG TABLET 1 TABLET ORALLY TWICE A DAY TAKING HYDRALAZINE HCL 50 MG TABLET 1 TABLET WITH FOOD ORALLY TID TAKING TRAMADOL HCL 50 MG TABLET 1 TABLET NEEDED ORALLY EVERY 6 HRS TAKING LANTUS SOLOSTAR 100 UNIT/ML SOLUTION PEN-INJECTOR 66 UNITS SUBCUTANEOUS DAILY TAKING ASPIRIN 81 81 MG TABLET CHEWABLE 1 TABLET ORALLY ONCE A DAY TAKING ROPINIROLE HCL 1 MG TABLET 4 TABLET 1 TO 3 HOURS BEFORE BEDTIME ORALLY ONCE A DAY TAKING OMEPRAZOLE 20 MG CAPSULE DELAYED RELEASE 1 CAPSULE ORALLY ONCE A DAY TAKING GABAPENTIN 400 MG CAPSULE 1 CAPSULE ORALLY BID TAKING YONI ALLERGY 180 MG TABLET 1 TABLET NEEDED ORALLY ONCE A DAY TAKING HUMALOG 100 UNIT/ML SOLUTION SUBCUTANEOUS SLIDING SCALE BEFORE MEALS TAKING MELOXICAM 7.5 MG TABLET 1 TABLET ORALLY BID TAKING ROSUVASTATIN CALCIUM 10 MG TABLET 1 TABLET ORALLY ONCE A DAY TAKING TIZANIDINE HCL 4 MG TABLET 1 TABLET NEEDED ORALLY BEFORE BEDTIME AND IN 4 YRS IF NEEDED MDD=2 NOT-TAKING SIMVASTATIN 20 MG TABLET 1 TABLET IN THE EVENING ORALLY ONCE A DAY MEDICATION LIST REVIEWED AND RECONCILED WITH THE PATIENT PAST MEDICAL HISTORY BULGING DISCS- CERVICAL ARTHRITIS KNEES/HANDS SPINAL STENOSIS LYMPHEDEMA LOWER EXTREMITIES DIABETES TYPE 2 DIABETIC NEUROPATHY HIGH BLOOD PRESSURE DIVERTICULITIS FACTOR V LEYDEN SLEEP APNEA SEPSIS AFTER TOE SURGERY DECEMBER 2018 ALLERGIES GENERAL ANESTHESIA: NAUSEA/VOMITING - SIDE EFFECTS SURGICAL HISTORY TONSILLECTOMY 1950 APPENDIX 1970 LEFT SHOULDER REPAIR 08/28/04 LEFT CAROTID ENDARTERECTOMY 04/04/16 ARTERIOGRAM 09/07/16 LEFT CATARACT 09/26/16 FX RIGHT FOOT 2ND TOE 11/08/17 AMOUTATION OF 3RD TOE LEFT FOOT 12/2018 DEVIATED SEPTUM REPAIR 02/2019 FAMILY HISTORY FATHER: 85 YRS, DIAGNOSED WITH HYPERTENSION, UNSPECIFIED HEART DISEASE MOTHER: 80 YRS 1 BROTHER(S) , 3 SISTER(S) . MOTHER- DIVERTICULITIS, OF PNEUMONIA\\NSISTER - BREAST CANCER SURVIVOR, COPD. SOCIAL HISTORY GENERAL: TOBACCO USE ARE YOU A:FORMER SMOKER HOW LONG HAS IT BEEN SINCE YOU LAST SMOKED?> 10 YEARS OTHERS AT HOME: [place]. DIET: REGULAR. LANGUAGE LANGUAGES SPOKEN:SAMMARINESE RECREATIONAL DRUG USE DRUG USE?NO LEARNING BARRIERS / SPECIAL NEEDS BARRIERS TO LEARNING?NO HEARING IMPAIRED?NO VISION IMPAIRED?NO COGNITIVELY IMPAIRED?NO READINESS TO LEARN?YES LEARNING PREFERENCES?NO LEARNING CAPABILITIES PRESENT?YES EMOTIONAL BARRIERS?NO SPECIAL DEVICES?NO INSPECTOR OPEN DIE NEEDED?NO PAIN CLINIC PFS, CLERGY, PUBLIC HEALTH REFERRALS WAS THE PROVIDER NOTIFIED OF ANY PERTINENT INFO?YES HAS THE PATIENT BEEN EDUCATED REGARDING HIS/HER PLAN OF CARE?YES HAS THE PATIENT BEEN EDUCATED REGARDING PAIN, THE RISK FOR PAIN, THE IMPORTANCE OF EFFECTIVE PAIN MANAGEMENT, AND THE PAIN ASSESSMENT PROCESS?YES LATEX QUESTIONNAIRE LATEX ALLERGY : HAVE YOU EVER DEVELOPED ANY TYPE OF REACTION AFTER HANDLING LATEX PRODUCTS SUCH RUBBER GLOVES, CONDOMS, DIAPHRAGMS, BALLOONS, SOCKS, OR UNDERWEAR?NO LATEX ALLERGY : HAVE YOU EVER DEVELOPED ANY TYPE OF REACTION DURING OR AFTER DENTAL APPOINTMENT, VAGINAL/RECTAL EXAMINATION, SURGICAL PROCEDURE, OR ANY OTHER EXPOSURE?NO LATEX RISK : HAVE YOU EVER HAD ANY DIFFICULTY BREATHING OR HIVES AFTER EATING OR HANDLING ANY FRUITS, OR VEGETABLES; SUCH KIWI, BANANAS, STONE FRUITS, OR CHESTNUTSNO LATEX RISK : DO YOU HAVE A PREVIOUS PERSONAL HISTORY OF MORE THAN NINE SURGERIES, SPINA BIFIDA, OR REPEATED CATHERIZATIONS? NO LATEX RISK : ARE YOU FREQUENTLY EXPOSED TO LATEX PRODUCTS IN YOUR OCCUPATION?NO DATE ASKED : 02/04/2019 CAFFEINE CAFFEINE USE?YES HOW OFTEN AND HOW MUCH? 3 CUPS APPROXIMATELY ADVANCE DIRECTIVE ADVANCE DIRECTIVE DISCUSSED WITH PATIENT:YES HCP - NADER BANKS [phone] YARSANISM [id number] QUAKER MARITAL STATUS: SINGLE. ALCOHOL SCREENING DID YOU HAVE A DRINK CONTAINING ALCOHOL IN THE PAST YEAR?NO POINTS0 INTERPRETATIONNEGATIVE OCCUPATION: RETIRED. REVIEWED WITH PATIENT 04/03/18 1125 JSREVIEWED WITH PATIENT 05/15/18 1012 JSREVIEWED WITH PATIENT 05/28/18 1109 JS REVIEWED WITH PT 11/06/18 1151 BVREVIEWED WITH PATIENT 01/14/19 1315 NLJREVIEWED WITH PATIENT 02/19/19 1139 JS. HOSPITALIZATION/MAJOR DIAGNOSTIC PROCEDURE LEFT CAROTID ENDARTERECTOMY 04/04/16 APPENDIX 1970 BLOOD CLOT LEFT LEG (PT STATES IN THE S) TRACTION FOR BACK (PT STATES EARLY ) HOSPITALIZED WITH SEPSIS AFTER TOE SURGERY REVIEW OF SYSTEMS REVIEWED BY: PROVIDER: AMELIA CARTER . CONSTITUTIONAL: ANY CHANGE IN YOUR MEDICAL CONDITION? NO . CHILLS NO . FEVER NO . INFECTION: DO YOU HAVE NEW INFECTIONS? NO . DO YOU HAVE HISTORY OF MRSA? NO . MUSCULOSKELETAL: ANY NEW PATTERNS OF PAIN OR NUMBNESS? NO . GASTROENTEROLOGY: ANY NEW CHANGE IN BOWEL CONTROL? NO . GENITOURINARY: ANY NEW CHANGE IN BLADDER CONTROL? NO . IS THERE A CHANCE YOU COULD BE ? NO . HEMATOLOGY/LYMPH: DO YOU TAKE ANY BLOOD THINNERS? (FOR EXAMPLE- COUMADIN, PLAVIX, AGGRENOX, PLATEL, PRADAXA, OR XARELTO) NO . WHEN WAS YOUR LAST DOSE? DATE: TIME: . NEUROLOGY: HAVE YOU FALLEN IN THE PAST 12 MONTHS? NO . ANY NEW EXTREMITY NUMBNESS OR WEAKNESS? NO . CARDIOLOGY: DO YOU HAVE A PACEMAKER OR DEFIBRILLATOR? NO . RESPIRATORY: HAVE YOU BEEN SICK IN THE PAST WEEK? NO . FEVER NO . FLU LIKE SYMPTOMS? NO . COUGH NO . INTEGUMENTARY: DO YOU HAVE ANY RASHES OR OPEN SORES? NO . ALLERGIC/IMMUNO: ARE YOU ALLERGIC TO IV DYE? NO . ANY NEW ALLERGIES? NO . PSYCHIATRIC: DO YOU HAVE THOUGHTS OF HURTING YOURSELF OR SOMEONE ELSE? NO . ARE YOU ABUSED, NEGLECTED, OR IN AN UNSAFE ENVIRONMENT? NO . ENDOCRINOLOGY: ARE YOU DIABETIC? YES . OTHER: DO YOU NEED ANY PRESCRIPTIONS? NO . IF YES, PLEASE LIST: ____ . ANY NEW PROBLEMS WITH YOUR MEDICATIONS? NO . WHEN DID YOU LAST EAT? ____ . WHEN DID YOU LAST DRINK? ____ . WHAT DID YOU LAST DRINK? ____ . NAME OF PERSON DRIVING YOU HOME? ____ . DO YOU HAVE ANY OTHER QUESTIONS OR CONCERNS NO . VITAL SIGNS WT 266.8 LBS, HT 71 IN, BMI 37.21 INDEX, BP 218/84 MM HG, REPEAT BP 156/68 MANUAL, HR 81 /MIN, RR 18 /MIN, TEMP 96.3 F, OXYGEN SAT % 93%, SAFE IN ENV? (Y/N) YES, NA INITIALS DE 11:32, REVIEWED BY: AUNDREA. EXAMINATION GENERAL EXAMINATION: GENERALNO ACUTE DISTRESS, WELL NOURISHED AND HYDRATED. PSYCHAPPROPRIATE MOOD AND AFFECT . LUNGS:CLEAR TO AUSCULTATION BILATERALLY, NO WHEEZES, RHONCHI, RALES. HEART:NO MURMURS, REGULAR RATE AND RHYTHM. ASSESSMENTS SACROILIITIS - M46.1 (PRIMARY) TREATMENT SACROILIITIS CLINICAL NOTES: 68-YEAR-OLD FEMALE IN FOR POST BILATERAL SIJ FOLLOW-UP. GIVEN PRESENTING SYMPTOMS AND RESULTS OF PHYSICAL EXAMINATION RECOMMENDED FOLLOW-UP IN 2 MONTHS. PATIENT HAS EXPRESSED UNDERSTANDING OF AND WAS IN AGREEMENT WITH TREATMENT PLAN. GIVEN TIME TO ASK QUESTIONS AND EXPRESS CONCERNS. PROCEDURE CODES FA211 ESTABILISHED PATIENT [facility] CHARGE DISPOSITION & COMMUNICATION FOLLOW UP 2 MONTHS (REASON: CHRONIC PAIN) ELECTRONICALLY SIGNED BY MARY ANN STOUT ON 02/20/2019 AT 11:50 AM EDT DISCLAIMER : THIS IS A VISIT SUMMARY EXTRACTED FROM THE [employer] CHART. IT IS NOT A COPY OF THE [employer] PROGRESS NOTE. JUANITO
== END ==
LOC: M PAIN 11:30
PROVIDERS: ATTEND Family Medicine
DX: M46.1 Sacroiliitis, not elsewhere classified (principal); M48.00 Spinal stenosis, site unspecified; E11.40 Type 2 diabetes mellitus with diabetic neuropathy, unspecified; I10 Essential (primary) hypertension; G47.30 Sleep apnea, unspecified; Z87.891 Personal history of nicotine dependence; Z88.4 Allergy status to anesthetic agent; Z79.4 Long term (current) use of insulin; Z79.82 Long term (current) use of aspirin; Z79.899 Other long term (current) drug therapy

== ENCOUNTER → 2019-04-21 | Outpatient (CLI) | payer BC, MEDICARE ==
--- NOTE | 2019-04-24 02:00 | ECWPNPC ---
PATIENT NAME: CHRIS LONGORIA : 1950 GENDER: FEMALE VISIT DATE: 04/21/2019 DISCHARGE DATE: 04/21/19 1419 VISIT LOCKED DATE TIME: PHYSICIAN: MERY FLORES RESOURCE: MERY FLORES REASON FOR APPOINTMENT 1. CHRONIC PAIN HISTORY OF PRESENT ILLNESS HISTORY OF PRESENT ILLNESS: PAIN THE PATIENT DESCRIBES THE PAIN... 69-YEAR-OLD FEMALE IN FOR CHRONIC PAIN FOLLOW-UP. SHE RATES HER PAIN CURRENTLY AT A 5 OUT OF 10 AND DESCRIBES IT ACHING, STABBING, SHOOTING, CONTINUOUS, AND FURTHER STATES IT WAKES HER FROM HER SLEEP. SHE FEELS HER MEDICATIONS ARE HELPFUL AND DENIES MED SIDE EFFECTS AT THIS TIME. SHE WOULD LIKE TO DISCUSS A REPEAT BILATERAL SIJ. FALL RISK SCREENING: SCREENING :NO FALLS REPORTED IN THE LAST YEAR CURRENT MEDICATIONS TAKING VALSARTAN-HYDROCHLOROTHIAZIDE 320-25 MG TABLET 1 TABLET ORALLY ONCE A DAY TAKING DULOXETINE HCL 60 MG CAPSULE DELAYED RELEASE PARTICLES 1 CAPSULE ORALLY ONCE A DAY TAKING AMLODIPINE BESYLATE 10 MG TABLET 1 TABLET ORALLY ONCE A DAY TAKING METFORMIN HCL 1000 MG TABLET 1 TABLET WITH A MEAL ORALLY BID TAKING LABETALOL HCL 200 MG TABLET 1 TABLET ORALLY TWICE A DAY TAKING HYDRALAZINE HCL 50 MG TABLET 1 TABLET WITH FOOD ORALLY TID TAKING TRAMADOL HCL 50 MG TABLET 1 TABLET NEEDED ORALLY EVERY 6 HRS TAKING LANTUS SOLOSTAR 100 UNIT/ML SOLUTION PEN-INJECTOR 70 UNITS SUBCUTANEOUS DAILY TAKING ASPIRIN 81 81 MG TABLET CHEWABLE 1 TABLET ORALLY ONCE A DAY TAKING ROPINIROLE HCL 1 MG TABLET 4 TABLET 1 TO 3 HOURS BEFORE BEDTIME ORALLY ONCE A DAY TAKING OMEPRAZOLE 20 MG CAPSULE DELAYED RELEASE 1 CAPSULE ORALLY ONCE A DAY TAKING GABAPENTIN 400 MG CAPSULE 1 CAPSULE ORALLY BID TAKING YONI ALLERGY 180 MG TABLET 1 TABLET NEEDED ORALLY ONCE A DAY TAKING HUMALOG 100 UNIT/ML SOLUTION SUBCUTANEOUS SLIDING SCALE BEFORE MEALS TAKING MELOXICAM 7.5 MG TABLET 1 TABLET ORALLY BID TAKING ROSUVASTATIN CALCIUM 10 MG TABLET 1 TABLET ORALLY ONCE A DAY TAKING TIZANIDINE HCL 4 MG TABLET 1 TABLET NEEDED ORALLY BEFORE BEDTIME AND IN 4 YRS IF NEEDED MDD=2 NOT-TAKING SIMVASTATIN 20 MG TABLET 1 TABLET IN THE EVENING ORALLY ONCE A DAY MEDICATION LIST REVIEWED AND RECONCILED WITH THE PATIENT PAST MEDICAL HISTORY BULGING DISCS- CERVICAL ARTHRITIS KNEES/HANDS SPINAL STENOSIS LYMPHEDEMA LOWER EXTREMITIES DIABETES TYPE 2 DIABETIC NEUROPATHY HIGH BLOOD PRESSURE DIVERTICULITIS FACTOR V LEYDEN SLEEP APNEA SEPSIS AFTER TOE SURGERY DECEMBER 2018 ALLERGIES GENERAL ANESTHESIA: NAUSEA/VOMITING - SIDE EFFECTS SURGICAL HISTORY TONSILLECTOMY 1950 APPENDIX 1970 LEFT SHOULDER REPAIR 08/28/04 LEFT CAROTID ENDARTERECTOMY 04/04/16 ARTERIOGRAM 09/07/16 LEFT CATARACT 09/26/16 FX RIGHT FOOT 2ND TOE 11/08/17 AMOUTATION OF 3RD TOE LEFT FOOT 12/2018 DEVIATED SEPTUM REPAIR 02/2019 FAMILY HISTORY FATHER: 85 YRS, DIAGNOSED WITH HYPERTENSION, UNSPECIFIED HEART DISEASE MOTHER: 80 YRS 1 BROTHER(S) , 3 SISTER(S) . MOTHER- DIVERTICULITIS, OF PNEUMONIA\\NSISTER - BREAST CANCER SURVIVOR, COPD. SOCIAL HISTORY GENERAL: TOBACCO USE ARE YOU A:FORMER SMOKER HOW LONG HAS IT BEEN SINCE YOU LAST SMOKED?> 10 YEARS OTHERS AT HOME: [place]. DIET: REGULAR. LANGUAGE LANGUAGES SPOKEN:KENYAN DOMESTIC VIOLENCE DO YOU FEEL SAFE IN YOUR ENVIRONMENT?YES RECREATIONAL DRUG USE DRUG USE?NO LEARNING BARRIERS / SPECIAL NEEDS BARRIERS TO LEARNING?NO HEARING IMPAIRED?NO VISION IMPAIRED?YES :CORRECTIVE LENSES COGNITIVELY IMPAIRED?NO READINESS TO LEARN?YES LEARNING PREFERENCES?NO LEARNING CAPABILITIES PRESENT?YES EMOTIONAL BARRIERS?NO SPECIAL DEVICES?NO FIGHTING VEHICLE SYSTEMS MAINTAINER NEEDED?NO PAIN CLINIC PFS, CLERGY, PUBLIC HEALTH REFERRALS HAS THE PATIENT BEEN EDUCATED REGARDING HIS/HER PLAN OF CARE?YES HAS THE PATIENT BEEN EDUCATED REGARDING PAIN, THE RISK FOR PAIN, THE IMPORTANCE OF EFFECTIVE PAIN MANAGEMENT, AND THE PAIN ASSESSMENT PROCESS?YES LATEX QUESTIONNAIRE LATEX ALLERGY : HAVE YOU EVER DEVELOPED ANY TYPE OF REACTION AFTER HANDLING LATEX PRODUCTS SUCH RUBBER GLOVES, CONDOMS, DIAPHRAGMS, BALLOONS, SOCKS, OR UNDERWEAR?NO LATEX ALLERGY : HAVE YOU EVER DEVELOPED ANY TYPE OF REACTION DURING OR AFTER DENTAL APPOINTMENT, VAGINAL/RECTAL EXAMINATION, SURGICAL PROCEDURE, OR ANY OTHER EXPOSURE?NO LATEX RISK : HAVE YOU EVER HAD ANY DIFFICULTY BREATHING OR HIVES AFTER EATING OR HANDLING ANY FRUITS, OR VEGETABLES; SUCH KIWI, BANANAS, STONE FRUITS, OR CHESTNUTSNO LATEX RISK : DO YOU HAVE A PREVIOUS PERSONAL HISTORY OF MORE THAN NINE SURGERIES, SPINA BIFIDA, OR REPEATED CATHERIZATIONS? NO LATEX RISK : ARE YOU FREQUENTLY EXPOSED TO LATEX PRODUCTS IN YOUR OCCUPATION?NO DATE ASKED : 04/21/2019 CAFFEINE CAFFEINE USE?YES HOW OFTEN AND HOW MUCH? 3 CUPS APPROXIMATELY ADVANCE DIRECTIVE ADVANCE DIRECTIVE DISCUSSED WITH PATIENT:YES HCP - NADER BANKS [phone] SCIENTOLOGY [id number] JEWISH MARITAL STATUS: SINGLE. ALCOHOL SCREENING DID YOU HAVE A DRINK CONTAINING ALCOHOL IN THE PAST YEAR?NO POINTS0 INTERPRETATIONNEGATIVE OCCUPATION: RETIRED. REVIEWED WITH PATIENT 04/03/18 1125 JSREVIEWED WITH PATIENT 05/15/18 1012 JSREVIEWED WITH PATIENT 05/28/18 1109 JS REVIEWED WITH PT 11/06/18 1151 BVREVIEWED WITH PATIENT 01/14/19 1315 [id number] REVIEWED WITH PT. ADREVIEWED WITH PATIENT 02/19/19 1139 JS. HOSPITALIZATION/MAJOR DIAGNOSTIC PROCEDURE LEFT CAROTID ENDARTERECTOMY 04/04/16 APPENDIX 1970 BLOOD CLOT LEFT LEG (PT STATES IN THE 1989'S) TRACTION FOR BACK (PT STATES EARLY ) HOSPITALIZED WITH SEPSIS AFTER TOE SURGERY REVIEW OF SYSTEMS REVIEWED BY: PROVIDER: AMELIA REESE-Abad . CONSTITUTIONAL: ANY CHANGE IN YOUR MEDICAL CONDITION? NO . CHILLS NO . FEVER NO . INFECTION: DO YOU HAVE NEW INFECTIONS? NO . DO YOU HAVE HISTORY OF MRSA? NO . MUSCULOSKELETAL: ANY NEW PATTERNS OF PAIN OR NUMBNESS? NO . GASTROENTEROLOGY: ANY NEW CHANGE IN BOWEL CONTROL? NO . GENITOURINARY: ANY NEW CHANGE IN BLADDER CONTROL? NO . IS THERE A CHANCE YOU COULD BE ? NO . HEMATOLOGY/LYMPH: DO YOU TAKE ANY BLOOD THINNERS? (FOR EXAMPLE- COUMADIN, PLAVIX, AGGRENOX, PLATEL, PRADAXA, OR XARELTO) NO . WHEN WAS YOUR LAST DOSE? DATE: TIME: . NEUROLOGY: HAVE YOU FALLEN IN THE PAST 12 MONTHS? NO . ANY NEW EXTREMITY NUMBNESS OR WEAKNESS? NO . CARDIOLOGY: DO YOU HAVE A PACEMAKER OR DEFIBRILLATOR? NO . RESPIRATORY: HAVE YOU BEEN SICK IN THE PAST WEEK? NO . FEVER NO . FLU LIKE SYMPTOMS? NO . COUGH NO . INTEGUMENTARY: DO YOU HAVE ANY RASHES OR OPEN SORES? NO . ALLERGIC/IMMUNO: ARE YOU ALLERGIC TO IV DYE? NO . ANY NEW ALLERGIES? NO . PSYCHIATRIC: DO YOU HAVE THOUGHTS OF HURTING YOURSELF OR SOMEONE ELSE? NO . ARE YOU ABUSED, NEGLECTED, OR IN AN UNSAFE ENVIRONMENT? NO . ENDOCRINOLOGY: ARE YOU DIABETIC? YES . OTHER: DO YOU NEED ANY PRESCRIPTIONS? YES . IF YES, PLEASE LIST: TIZANIDINE . ANY NEW PROBLEMS WITH YOUR MEDICATIONS? NO . WHEN DID YOU LAST EAT? ____ . WHEN DID YOU LAST DRINK? ____ . WHAT DID YOU LAST DRINK? ____ . NAME OF PERSON DRIVING YOU HOME? ____ . DO YOU HAVE ANY OTHER QUESTIONS OR CONCERNS NO . VITAL SIGNS WT 284.6 LBS, HT 71 IN, BMI 39.69 INDEX, BP 120/75 MM HG, HR 96 /MIN, RR 18 /MIN, TEMP 96.0 F, OXYGEN SAT % 91%, SAFE IN ENV? (Y/N) Y, NA INITIALS SC 13:40, REVIEWED BY: AD. EXAMINATION GENERAL EXAMINATION: GENERALNO ACUTE DISTRESS, WELL NOURISHED AND HYDRATED. PSYCHAPPROPRIATE MOOD AND AFFECT . LUNGS:CLEAR TO AUSCULTATION BILATERALLY, NO WHEEZES, RHONCHI, RALES. HEART:NO MURMURS, REGULAR RATE AND RHYTHM. BACK:POINT TENDER OVER BILATERAL SIJ . ASSESSMENTS SACROILIITIS - M46.1 (PRIMARY) TREATMENT SACROILIITIS REFILL TIZANIDINE HCL TABLET, 4 MG, 1 TABLET NEEDED, ORALLY, BEFORE BEDTIME AND IN 4 YRS IF NEEDED MDD=2, 30 DAY(S), 60, REFILLS 3 NOTES: BILATERAL SIJ. CLINICAL NOTES: 69-YEAR-OLD FEMALE IN FOR CHRONIC PAIN FOLLOW-UP. GIVEN PRESENTING SYMPTOMS AND RESULTS OF PHYSICAL EXAMINATION RECOMMENDED BILATERAL SIJ WITH POSTPROCEDURAL FOLLOW-UP. PATIENT HAS EXPRESSED UNDERSTANDING OF AND WAS IN AGREEMENT WITH TREATMENT PLAN. GIVEN TIME TO ASK QUESTIONS AND EXPRESS CONCERNS. PREVENTIVE MEDICINE PAIN CLINIC TEACHING: PROCEDURE TEACHING PT. DECLINED PRINTED INFORMATION ON SACROILIAC JOINT BLOCK STATING SHE HAS HAD IT BEFORE AND IS FAMILIAR WITH IT. PRINTED PRE-PROCEDURE INSTRUCTIONS GIVEN TO AND REVIEWED WITH PT AND SHE VERBALIZED UNDERSTANDING. AD. DISPOSITION & COMMUNICATION FOLLOW UP POSTPROCEDURE (REASON: BILATERAL SIJ) ELECTRONICALLY SIGNED BY MARY ANN STOUT ON 04/23/2019 AT 08:50 AM EST DISCLAIMER : THIS IS A VISIT SUMMARY EXTRACTED FROM THE [employer] CHART. IT IS NOT A COPY OF THE [employer] PROGRESS NOTE. JUANITO
== END ==
LOC: M PAIN 13:15
PROVIDERS: ATTEND Family Medicine
DX: M46.1 Sacroiliitis, not elsewhere classified (principal)

== ENCOUNTER → 2019-07-14 | Outpatient (CLI) | payer BC, MEDICARE ==
[~2019-07-14] MED LIST changes: +BUPIVACAINE HCL 0.25% 30 ML VIAL As Ordered ONE; +ISOVUE-M 300 61% 15ML VIAL (Q9967) As Ordered ONE; +LIDOCAINE 1% SDV INJ 30 ML VIAL As Ordered ONE; -ROPI1TAB; +ROPI1TAB3; +TRIAMCINOLONE ACETONIDE SUSP 40 MG/ML VIAL (J3301) As Ordered ONE
--- NOTE | 2019-07-14 15:30 | REP ---
Bilateral SI joint series: Limited study. Four views. History: Bilateral SI joint injection for pain. 49 seconds of fluoroscopy time is reported. Findings: A sequence of four last image hold fluoroscopically obtained spot radiographs of the SI joints document various needle positions and contrast injections associated with injection procedure. Electronically Signed by Luan Bess MD 07/14/2019 03:21 P
--- NOTE | 2019-07-18 03:19 | ECWPNPC ---
PATIENT NAME: CHRIS LONGORIA : 1950 GENDER: FEMALE VISIT DATE: 07/14/2019 DISCHARGE DATE: 07/14/19 1346 VISIT LOCKED DATE TIME: PHYSICIAN: DHARA HANSEN MD RESOURCE: DHARA HANSEN MD REASON FOR APPOINTMENT 1. BILATERAL SIJ HISTORY OF PRESENT ILLNESS HISTORY OF PRESENT ILLNESS: PAIN THE PATIENT DESCRIBES THE PAIN... FALL RISK SCREENING: SCREENING :NO FALLS REPORTED IN THE LAST YEAR CURRENT MEDICATIONS TAKING VALSARTAN-HYDROCHLOROTHIAZIDE 320-25 MG TABLET 1 TABLET ORALLY ONCE A DAY, NOTES: 2 AM TAKING DULOXETINE HCL 60 MG CAPSULE DELAYED RELEASE PARTICLES 1 CAPSULE ORALLY ONCE A DAY, NOTES: 07/13 PM TAKING AMLODIPINE BESYLATE 10 MG TABLET 1 TABLET ORALLY ONCE A DAY, NOTES: 07/13 AM TAKING METFORMIN HCL 1000 MG TABLET 1 TABLET WITH A MEAL ORALLY BID, NOTES: 07/13 2300 TAKING LABETALOL HCL 200 MG TABLET 1 TABLET ORALLY TWICE A DAY, NOTES: 07/14 0800 TAKING HYDRALAZINE HCL 50 MG TABLET 1 TABLET WITH FOOD ORALLY TID, NOTES: 07/14 08 TAKING LANTUS SOLOSTAR 100 UNIT/ML SOLUTION PEN-INJECTOR 70 UNITS SUBCUTANEOUS DAILY, NOTES: 07/13 PM TAKING ASPIRIN 81 81 MG TABLET CHEWABLE 1 TABLET ORALLY ONCE A DAY, NOTES: 07/13 PM TAKING ROPINIROLE HCL 1 MG TABLET 4 TABLET 1 TO 3 HOURS BEFORE BEDTIME ORALLY ONCE A DAY, NOTES: 07/13 PM TAKING OMEPRAZOLE 20 MG CAPSULE DELAYED RELEASE 1 CAPSULE ORALLY ONCE A DAY, NOTES: 07/13 PM TAKING GABAPENTIN 400 MG CAPSULE 1 CAPSULE ORALLY BID, NOTES: 07/13 PM TAKING YONI ALLERGY 180 MG TABLET 1 TABLET NEEDED ORALLY ONCE A DAY, NOTES: NONE RECNET TAKING HUMALOG 100 UNIT/ML SOLUTION SUBCUTANEOUS SLIDING SCALE BEFORE MEALS, NOTES: 07/13 PM TAKING ROSUVASTATIN CALCIUM 10 MG TABLET 1 TABLET ORALLY ONCE A DAY, NOTES: 07/12 TAKING TIZANIDINE HCL 4 MG TABLET 1 TABLET NEEDED ORALLY BEFORE BEDTIME AND IN 4 YRS IF NEEDED MDD=2, NOTES: 07/13 PM TAKING TYLENOL WITH CODEINE #3 300-30 MG TABLET 1 TABLET NEEDED ORALLY EVERY 6 HRS, NOTES: 07/13 PM TAKING ELIQUIS 5 MG TABLET DIRECTED ORALLY BID, NOTES: 2/10 PM NOT-TAKING SIMVASTATIN 20 MG TABLET 1 TABLET IN THE EVENING ORALLY ONCE A DAY MEDICATION LIST REVIEWED AND RECONCILED WITH THE PATIENT PAST MEDICAL HISTORY BULGING DISCS- CERVICAL ARTHRITIS KNEES/HANDS SPINAL STENOSIS LYMPHEDEMA LOWER EXTREMITIES DIABETES TYPE 2 DIABETIC NEUROPATHY HIGH BLOOD PRESSURE DIVERTICULITIS FACTOR V LEYDEN SLEEP APNEA SEPSIS AFTER TOE SURGERY DECEMBER 2018 DVT IN LUNGS ALLERGIES GENERAL ANESTHESIA: NAUSEA/VOMITING - SIDE EFFECTS SURGICAL HISTORY TONSILLECTOMY 1950 APPENDIX 1970 LEFT SHOULDER REPAIR 08/28/04 LEFT CAROTID ENDARTERECTOMY 04/04/16 ARTERIOGRAM 09/07/16 LEFT CATARACT 09/26/16 FX RIGHT FOOT 2ND TOE 11/08/17 AMOUTATION OF 3RD TOE LEFT FOOT 12/2018 DEVIATED SEPTUM REPAIR 02/2019 FAMILY HISTORY FATHER: 85 YRS, DIAGNOSED WITH HYPERTENSION, UNSPECIFIED HEART DISEASE MOTHER: 80 YRS 1 BROTHER(S) , 3 SISTER(S) . MOTHER- DIVERTICULITIS, OF PNEUMONIA\\NSISTER - BREAST CANCER SURVIVOR, COPD. SOCIAL HISTORY GENERAL: TOBACCO USE ARE YOU A:FORMER SMOKER HOW LONG HAS IT BEEN SINCE YOU LAST SMOKED?> 10 YEARS OTHERS AT HOME: [place]. DIET: REGULAR. LANGUAGE LANGUAGES SPOKEN:UPPER SORBIAN DOMESTIC VIOLENCE DO YOU FEEL SAFE IN YOUR ENVIRONMENT?YES RECREATIONAL DRUG USE DRUG USE?NO LEARNING BARRIERS / SPECIAL NEEDS BARRIERS TO LEARNING?NO HEARING IMPAIRED?NO VISION IMPAIRED?YES COGNITIVELY IMPAIRED?NO :CORRECTIVE LENSES READINESS TO LEARN?YES LEARNING PREFERENCES?NO LEARNING CAPABILITIES PRESENT?YES EMOTIONAL BARRIERS?NO SPECIAL DEVICES?NO TERADATA SOLUTION ARCHITECT NEEDED?NO PAIN CLINIC PFS, CLERGY, PUBLIC HEALTH REFERRALS HAS THE PATIENT BEEN EDUCATED REGARDING HIS/HER PLAN OF CARE?YES HAS THE PATIENT BEEN EDUCATED REGARDING PAIN, THE RISK FOR PAIN, THE IMPORTANCE OF EFFECTIVE PAIN MANAGEMENT, AND THE PAIN ASSESSMENT PROCESS?YES LATEX QUESTIONNAIRE LATEX ALLERGY : HAVE YOU EVER DEVELOPED ANY TYPE OF REACTION AFTER HANDLING LATEX PRODUCTS SUCH RUBBER GLOVES, CONDOMS, DIAPHRAGMS, BALLOONS, SOCKS, OR UNDERWEAR?NO LATEX ALLERGY : HAVE YOU EVER DEVELOPED ANY TYPE OF REACTION DURING OR AFTER DENTAL APPOINTMENT, VAGINAL/RECTAL EXAMINATION, SURGICAL PROCEDURE, OR ANY OTHER EXPOSURE?NO LATEX RISK : HAVE YOU EVER HAD ANY DIFFICULTY BREATHING OR HIVES AFTER EATING OR HANDLING ANY FRUITS, OR VEGETABLES; SUCH KIWI, BANANAS, STONE FRUITS, OR CHESTNUTSNO LATEX RISK : DO YOU HAVE A PREVIOUS PERSONAL HISTORY OF MORE THAN NINE SURGERIES, SPINA BIFIDA, OR REPEATED CATHERIZATIONS? NO LATEX RISK : ARE YOU FREQUENTLY EXPOSED TO LATEX PRODUCTS IN YOUR OCCUPATION?NO DATE ASKED : 04/21/2019 CAFFEINE CAFFEINE USE?YES HOW OFTEN AND HOW MUCH? 3 CUPS APPROXIMATELY ADVANCE DIRECTIVE ADVANCE DIRECTIVE DISCUSSED WITH PATIENT:YES HCP - NADER BANKS [phone] JEW [id number] RESTORATIONISM MARITAL STATUS: SINGLE. ALCOHOL SCREENING DID YOU HAVE A DRINK CONTAINING ALCOHOL IN THE PAST YEAR?NO POINTS0 INTERPRETATIONNEGATIVE OCCUPATION: RETIRED. REVIEWED WITH PATIENT 04/03/18 1125 JSREVIEWED WITH PATIENT 05/15/18 1012 JSREVIEWED WITH PATIENT 05/28/18 1109 JS REVIEWED WITH PT 11/06/18 1151 BVREVIEWED WITH PATIENT 01/14/19 1315 [id number] REVIEWED WITH PT. ADREVIEWED WITH PATIENT 02/19/19 1139 JSPRE-PROCEDURE CALL DONE 07/13/19 EM. HOSPITALIZATION/MAJOR DIAGNOSTIC PROCEDURE LEFT CAROTID ENDARTERECTOMY 04/04/16 APPENDIX 1970 BLOOD CLOT LEFT LEG (PT STATES IN THE 1989'S) TRACTION FOR BACK (PT STATES EARLY S) HOSPITALIZED WITH SEPSIS AFTER TOE SURGERY TOE SURGERY 12/2018 REVIEW OF SYSTEMS REVIEWED BY: PROVIDER: . CONSTITUTIONAL: ANY CHANGE IN YOUR MEDICAL CONDITION? NO . CHILLS NO . FEVER NO . INFECTION: DO YOU HAVE NEW INFECTIONS? NO . DO YOU HAVE HISTORY OF MRSA? NO . MUSCULOSKELETAL: ANY NEW PATTERNS OF PAIN OR NUMBNESS? NO . GASTROENTEROLOGY: ANY NEW CHANGE IN BOWEL CONTROL? NO . GENITOURINARY: ANY NEW CHANGE IN BLADDER CONTROL? YES, PT REPORTS SOME URINARY LEAKAGE FOR ABOUT 2 MONTHS . IS THERE A CHANCE YOU COULD BE ? NO, PATIENT MARKED YES ON HER INTAKE SHEET, HOWEVER STATES SHE WAS JOKING AND THERE IS NO CHANCE SHE IS . HEMATOLOGY/LYMPH: DO YOU TAKE ANY BLOOD THINNERS? (FOR EXAMPLE- COUMADIN, PLAVIX, AGGRENOX, PLATEL, PRADAXA, OR XARELTO) YES, ELINILESH, LAST DOSE 2/10 PM . WHEN WAS YOUR LAST DOSE? DATE: TIME: . NEUROLOGY: HAVE YOU FALLEN IN THE PAST 12 MONTHS? NO . ANY NEW EXTREMITY NUMBNESS OR WEAKNESS? NO . CARDIOLOGY: DO YOU HAVE A PACEMAKER OR DEFIBRILLATOR? NO . RESPIRATORY: HAVE YOU BEEN SICK IN THE PAST WEEK? NO . FEVER NO . FLU LIKE SYMPTOMS? NO . COUGH NO . INTEGUMENTARY: DO YOU HAVE ANY RASHES OR OPEN SORES? NO . ALLERGIC/IMMUNO: ARE YOU ALLERGIC TO IV DYE? NO . ANY NEW ALLERGIES? NO . PSYCHIATRIC: DO YOU HAVE THOUGHTS OF HURTING YOURSELF OR SOMEONE ELSE? NO . ARE YOU ABUSED, NEGLECTED, OR IN AN UNSAFE ENVIRONMENT? NO . ENDOCRINOLOGY: ARE YOU DIABETIC? YES, FSBS WAS 150 AT 8AM . OTHER: DO YOU NEED ANY PRESCRIPTIONS? NO . IF YES, PLEASE LIST: ____ . ANY NEW PROBLEMS WITH YOUR MEDICATIONS? NO . WHEN DID YOU LAST EAT? 07/13 2300 . WHEN DID YOU LAST DRINK? 07/14/19 0800 . WHAT DID YOU LAST DRINK? WATER . NAME OF PERSON DRIVING YOU HOME? DENNY . DO YOU HAVE ANY OTHER QUESTIONS OR CONCERNS NO . VITAL SIGNS WT 270 LBS, HT 71 IN, BMI 37.65 INDEX, BP 145/65 MM HG, HR 89 /MIN, RR 18 /MIN, TEMP 98.1 F, OXYGEN SAT % 92%, NA INITIALS AW 1115, REVIEWED BY: BV. ASSESSMENTS SACROILIITIS - M46.1 (PRIMARY) TREATMENT SACROILIITIS [facility] FLUORO GUIDANCE (PAIN)[id number] PROCEDURES PN SI PRE PROCEDURE DIAGNOSIS SACROILIITIS, SACROILIAC JOINT DYSFUNCTION POST PROCEDURE DIAGNOSIS SACROILIITIS, SACROILIAC JOINT DYSFUNCTION PROCEDURE BILATERAL SACROILIAC JOINT BLOCK SURGEON DR. DHAAR HANSEN SERVICES TECH NONE ANESTHESIA LOCAL PRE PROCEDURE NOTE PATIENT WITH HISTORY OF CHRONIC LOW BACK PAIN. I EVALUATED THE PATIENT AND REVIEWED THE CHART. I WENT OVER THE RISKS, ALTERNATIVES, AND BENEFITS ASSOCIATED WITH THIS PROCEDURE. THE PATIENT WOULD LIKE TO PROCEED AND GAVE CONSENT TO PERFORM THE PROCEDURE. THE PATIENT DENIES UNEXPLAINABLE WEIGHT LOSS, FEVER, CHILLS, OR NEW CHANGES IN URINARY OR BOWEL CONTROL DESCRIPTION OF PROCEDURE THE PATIENT WAS BROUGHT TO THE PROCEDURE ROOM AND PLACED IN THE PRONE POSITION. THE LUMBOSACRAL AREA WAS CLEANED WITH CHLORAPREP SOLUTION AND DRAPED ASEPTICALLY. THE PROCEDURE WAS DONE UNDER STERILE CONDITIONS. I CHECKED LATERALITY AND THE LEVEL WHERE THE PROCEDURE WAS GOING TO BE PERFORMED WITH THE PATIENT AND THE SUPPORTING STAFF AT THE MOMENT OF THE TIME OUT IN THE PROCEDURE ROOM. UNDER FLUOROSCOPIC GUIDANCE, TARGET POINT WAS SELECTED AT THE LOWER BORDER OF THE RIGHT AND LEFT SACROILIAC JOINT. TARGET POINT WAS SELECTED AFTER MEDIAL ROTATION AND TILT OF THE MAGNIFIER OF THE C-ARM. LIDOCAINE WAS USED TO NUMB THE SKIN AND SUBCUTANEOUS TISSUE BELOW IT. A SPINAL NEEDLE, 22-GAUGE, WAS ADVANCED UNDER FLUOROSCOPIC GUIDANCE AND FOLLOWING PATIENT FEEDBACK UNTIL THE TARGET AREA WAS TOUCHED. THE POSITION OF THE NEEDLE WAS VERIFIED WITH AP AND LATERAL VIEWS. AFTER PROPER POSITION OF THE NEEDLE WAS ACHIEVED, ISOVUE M DYE 30%, 0.25 ML, WAS INJECTED SHOWING SPREAD OF THE DYE. THEN, A SOLUTION OF 30 MG OF KENALOG WAS INJECTED IN RIGHT AND LEFT JOINT WITH 3 ML OF BUPIVACAINE 0.125%. THERE WAS NO EVIDENCE OF BLOOD, PARESTHESIA OR CEREBROSPINAL FLUID DURING THE PROCEDURE. THE PATIENT WAS SENT TO THE RECOVERY ROOM. THE PATIENT WAS MOVING THE EXTREMITIES AND DOING WELL. THERE WAS NO COMPLICATION DURING THE PROCEDURE. FLUOROSCOPY TIME WAS 49 SECONDS POST PROCEDURE NOTE THE PATIENT WILL BE SEEN IN A FOLLOW UP IN THE NEXT FEW WEEKS. I AM LOOKING FOR LONG LASTING PAIN RELIEF WITH THIS INJECTION. INSTRUCTIONS WERE GIVEN, QUESTIONS WERE ANSWERED, AND THE PATIENT EXPRESSED UNDERSTANDING AND AGREED WITH THE PLAN. I, RADU TENORIO, DOCUMENTED THE ABOVE INFORMATION ACTING A SCRIBE FOR DR. HANSEN. I HAVE REVIEWED THE ABOVE DOCUMENT, WRITTEN BY RADU TENORIO SCRIBE AND I VERIFY THAT IT IS ACCURATE. PROCEDURE CODES 28432 INJECT SACROILIAC JOINT, MODIFIERS: [id number] RADXPS IN END [id number] PXD DISPOSITION & COMMUNICATION FOLLOW UP 3 WEEKS ELECTRONICALLY SIGNED BY DHARA HANSEN MD, MD ON 07/17/2019 AT 11:48 AM EST DISCLAIMER : THIS IS A VISIT SUMMARY EXTRACTED FROM THE [employer] CHART. IT IS NOT A COPY OF THE [employer] PROGRESS NOTE. MTDD
== END ==
LOC: M PAIN 11:15
PROVIDERS: ATTEND Anesthesiology
DX: M46.1 Sacroiliitis, not elsewhere classified (principal); E11.40 Type 2 diabetes mellitus with diabetic neuropathy, unspecified; I10 Essential (primary) hypertension; G47.30 Sleep apnea, unspecified; Z86.718 Personal history of other venous thrombosis and embolism; Z87.891 Personal history of nicotine dependence; Z88.4 Allergy status to anesthetic agent; Z79.01 Long term (current) use of anticoagulants; Z79.4 Long term (current) use of insulin; Z79.82 Long term (current) use of aspirin; Z79.899 Other long term (current) drug therapy
CPT/HCPCS: G0260; J3301; Q9967

== ENCOUNTER → 2019-08-06 | Outpatient (CLI) | payer BC, MEDICARE ==
[~2019-08-06] MED LIST changes: -BUPIVACAINE HCL 0.25% 30 ML VIAL As Ordered ONE; -ISOVUE-M 300 61% 15ML VIAL (Q9967) As Ordered ONE; -LIDOCAINE 1% SDV INJ 30 ML VIAL As Ordered ONE; -TRIAMCINOLONE ACETONIDE SUSP 40 MG/ML VIAL (J3301) As Ordered ONE
--- NOTE | 2019-08-08 02:50 | ECWPNPC ---
PATIENT NAME: CHRIS LONGORIA : 1950 GENDER: FEMALE VISIT DATE: 08/06/2019 DISCHARGE DATE: 08/06/19 1046 VISIT LOCKED DATE TIME: PHYSICIAN: MERY FLORES RESOURCE: MERY FLORES REASON FOR APPOINTMENT 1. POST F/U HISTORY OF PRESENT ILLNESS HISTORY OF PRESENT ILLNESS: PAIN THE PATIENT DESCRIBES THE PAIN... 69-YEAR-OLD FEMALE IN FOR POST SIJ FOLLOW-UP. SHE FEELS THE PROCEDURE WORKED WELL OVERALL RATING HER PAIN PREPROCEDURE AT A 10 OUT OF 10 AND POSTPROCEDURE AT A 0-3 OUT OF 10 FURTHER STATING THAT THE PAIN RELIEF CONTINUES TODAY. SHE RATES HER PAIN CURRENTLY AT A 1-3 OUT OF 10 AND DESCRIBES IT SORE, AND TENDER. FALL RISK SCREENING: SCREENING :NO FALLS REPORTED IN THE LAST YEAR CURRENT MEDICATIONS TAKING VALSARTAN-HYDROCHLOROTHIAZIDE 320-25 MG TABLET 1 TABLET ORALLY ONCE A DAY TAKING DULOXETINE HCL 60 MG CAPSULE DELAYED RELEASE PARTICLES 1 CAPSULE ORALLY ONCE A DAY TAKING AMLODIPINE BESYLATE 10 MG TABLET 1 TABLET ORALLY ONCE A DAY TAKING METFORMIN HCL 1000 MG TABLET 1 TABLET WITH A MEAL ORALLY BID TAKING LABETALOL HCL 200 MG TABLET 1 TABLET ORALLY TWICE A DAY TAKING HYDRALAZINE HCL 50 MG TABLET 1 TABLET WITH FOOD ORALLY TID TAKING LANTUS SOLOSTAR 100 UNIT/ML SOLUTION PEN-INJECTOR 66 UNITS SUBCUTANEOUS DAILY TAKING ASPIRIN 81 81 MG TABLET CHEWABLE 1 TABLET ORALLY ONCE A DAY TAKING ROPINIROLE HCL 1 MG TABLET 4 TABLET 1 TO 3 HOURS BEFORE BEDTIME ORALLY ONCE A DAY TAKING OMEPRAZOLE 20 MG CAPSULE DELAYED RELEASE 1 CAPSULE ORALLY ONCE A DAY TAKING GABAPENTIN 400 MG CAPSULE 1 CAPSULE ORALLY BID TAKING YONI ALLERGY 180 MG TABLET 1 TABLET NEEDED ORALLY ONCE A DAY TAKING HUMALOG 100 UNIT/ML SOLUTION SUBCUTANEOUS SLIDING SCALE BEFORE MEALS TAKING ROSUVASTATIN CALCIUM 10 MG TABLET 1 TABLET ORALLY EVERY OTHER DAY TAKING TIZANIDINE HCL 4 MG TABLET 1 TABLET NEEDED ORALLY BEFORE BEDTIME AND IN 4 HRS IF NEEDED MDD=2 TAKING TYLENOL WITH CODEINE #3 300-30 MG TABLET 1 TABLET NEEDED ORALLY EVERY 6 HRS TAKING ELIQUIS 5 MG TABLET DIRECTED ORALLY BID NOT-TAKING SIMVASTATIN 20 MG TABLET 1 TABLET IN THE EVENING ORALLY ONCE A DAY MEDICATION LIST REVIEWED AND RECONCILED WITH THE PATIENT PAST MEDICAL HISTORY BULGING DISCS- CERVICAL ARTHRITIS KNEES/HANDS SPINAL STENOSIS LYMPHEDEMA LOWER EXTREMITIES DIABETES TYPE 2 DIABETIC NEUROPATHY HIGH BLOOD PRESSURE DIVERTICULITIS FACTOR V LEYDEN SLEEP APNEA SEPSIS AFTER TOE SURGERY DECEMBER 2018 DVT IN LUNGS ALLERGIES GENERAL ANESTHESIA: NAUSEA/VOMITING - SIDE EFFECTS SURGICAL HISTORY TONSILLECTOMY 1950 APPENDIX 1970 LEFT SHOULDER REPAIR 08/28/04 LEFT CAROTID ENDARTERECTOMY 04/04/16 ARTERIOGRAM 09/07/16 LEFT CATARACT 09/26/16 FX RIGHT FOOT 2ND TOE 11/08/17 AMOUTATION OF 3RD TOE LEFT FOOT 12/2018 DEVIATED SEPTUM REPAIR 02/2019 FAMILY HISTORY FATHER: 85 YRS, DIAGNOSED WITH HYPERTENSION, UNSPECIFIED HEART DISEASE MOTHER: 80 YRS 1 BROTHER(S) , 3 SISTER(S) . MOTHER- DIVERTICULITIS, OF PNEUMONIA\\NSISTER - BREAST CANCER SURVIVOR, COPD. SOCIAL HISTORY GENERAL: TOBACCO USE ARE YOU A:FORMER SMOKER HOW LONG HAS IT BEEN SINCE YOU LAST SMOKED?> 10 YEARS OTHERS AT HOME: [place]. DIET: REGULAR. LANGUAGE LANGUAGES SPOKEN:ANDORRAN DOMESTIC VIOLENCE DO YOU FEEL SAFE IN YOUR ENVIRONMENT?YES RECREATIONAL DRUG USE DRUG USE?NO LEARNING BARRIERS / SPECIAL NEEDS BARRIERS TO LEARNING?NO HEARING IMPAIRED?NO VISION IMPAIRED?YES COGNITIVELY IMPAIRED?NO :CORRECTIVE LENSES READINESS TO LEARN?YES LEARNING PREFERENCES?NO LEARNING CAPABILITIES PRESENT?YES EMOTIONAL BARRIERS?NO SPECIAL DEVICES?NO CLOTH COVERED HELMET PULLER NEEDED?NO PAIN CLINIC PFS, CLERGY, PUBLIC HEALTH REFERRALS HAS THE PATIENT BEEN EDUCATED REGARDING HIS/HER PLAN OF CARE?YES HAS THE PATIENT BEEN EDUCATED REGARDING PAIN, THE RISK FOR PAIN, THE IMPORTANCE OF EFFECTIVE PAIN MANAGEMENT, AND THE PAIN ASSESSMENT PROCESS?YES LATEX QUESTIONNAIRE LATEX ALLERGY : HAVE YOU EVER DEVELOPED ANY TYPE OF REACTION AFTER HANDLING LATEX PRODUCTS SUCH RUBBER GLOVES, CONDOMS, DIAPHRAGMS, BALLOONS, SOCKS, OR UNDERWEAR?NO LATEX ALLERGY : HAVE YOU EVER DEVELOPED ANY TYPE OF REACTION DURING OR AFTER DENTAL APPOINTMENT, VAGINAL/RECTAL EXAMINATION, SURGICAL PROCEDURE, OR ANY OTHER EXPOSURE?NO DATE ASKED : 04/21/2019 LATEX RISK : HAVE YOU EVER HAD ANY DIFFICULTY BREATHING OR HIVES AFTER EATING OR HANDLING ANY FRUITS, OR VEGETABLES; SUCH KIWI, BANANAS, STONE FRUITS, OR CHESTNUTSNO LATEX RISK : DO YOU HAVE A PREVIOUS PERSONAL HISTORY OF MORE THAN NINE SURGERIES, SPINA BIFIDA, OR REPEATED CATHERIZATIONS? NO LATEX RISK : ARE YOU FREQUENTLY EXPOSED TO LATEX PRODUCTS IN YOUR OCCUPATION?NO CAFFEINE CAFFEINE USE?YES HOW OFTEN AND HOW MUCH? 3 CUPS APPROXIMATELY ADVANCE DIRECTIVE ADVANCE DIRECTIVE DISCUSSED WITH PATIENT:YES HCP - NADER BANKS [phone] VOODOO [id number] ORTHODOXY MARITAL STATUS: SINGLE. ALCOHOL SCREENING DID YOU HAVE A DRINK CONTAINING ALCOHOL IN THE PAST YEAR?NO POINTS0 INTERPRETATIONNEGATIVE OCCUPATION: RETIRED. REVIEWED WITH PATIENT 04/03/18 1125 JSREVIEWED WITH PATIENT 05/15/18 1012 JSREVIEWED WITH PATIENT 05/28/18 1109 JS REVIEWED WITH PT 11/06/18 1151 BVREVIEWED WITH PATIENT 01/14/19 1315 [id number]/[id number] REVIEWED WITH PT. ADREVIEWED WITH PATIENT 02/19/19 1139 JSPRE-PROCEDURE CALL DONE 07/13/19 EM. HOSPITALIZATION/MAJOR DIAGNOSTIC PROCEDURE LEFT CAROTID ENDARTERECTOMY 04/04/16 APPENDIX 1970 BLOOD CLOT LEFT LEG (PT STATES IN THE 1989'S) TRACTION FOR BACK (PT STATES EARLY S) HOSPITALIZED WITH SEPSIS AFTER TOE SURGERY TOE SURGERY 12/2018 REVIEW OF SYSTEMS REVIEWED BY: PROVIDER: AMELIA CARTER . CONSTITUTIONAL: ANY CHANGE IN YOUR MEDICAL CONDITION? NO . CHILLS NO . FEVER NO . INFECTION: DO YOU HAVE NEW INFECTIONS? NO . DO YOU HAVE HISTORY OF MRSA? NO . MUSCULOSKELETAL: ANY NEW PATTERNS OF PAIN OR NUMBNESS? NO . GASTROENTEROLOGY: ANY NEW CHANGE IN BOWEL CONTROL? NO . GENITOURINARY: ANY NEW CHANGE IN BLADDER CONTROL? NO . IS THERE A CHANCE YOU COULD BE ? NO . HEMATOLOGY/LYMPH: DO YOU TAKE ANY BLOOD THINNERS? (FOR EXAMPLE- COUMADIN, PLAVIX, AGGRENOX, PLATEL, PRADAXA, OR XARELTO) YES- ELIQUIS . WHEN WAS YOUR LAST DOSE? DATE:08/05/2019 TIME:2100 . NEUROLOGY: HAVE YOU FALLEN IN THE PAST 12 MONTHS? NO . ANY NEW EXTREMITY NUMBNESS OR WEAKNESS? NO . CARDIOLOGY: DO YOU HAVE A PACEMAKER OR DEFIBRILLATOR? NO . RESPIRATORY: HAVE YOU BEEN SICK IN THE PAST WEEK? NO . FEVER NO . FLU LIKE SYMPTOMS? NO . COUGH NO . INTEGUMENTARY: DO YOU HAVE ANY RASHES OR OPEN SORES? NO . ALLERGIC/IMMUNO: ARE YOU ALLERGIC TO IV DYE? NO . ANY NEW ALLERGIES? NO . PSYCHIATRIC: DO YOU HAVE THOUGHTS OF HURTING YOURSELF OR SOMEONE ELSE? NO . ARE YOU ABUSED, NEGLECTED, OR IN AN UNSAFE ENVIRONMENT? NO . ENDOCRINOLOGY: ARE YOU DIABETIC? NO . OTHER: DO YOU NEED ANY PRESCRIPTIONS? YES . IF YES, PLEASE LIST: TIZANIDINE BY THE END OF THE MONTH . ANY NEW PROBLEMS WITH YOUR MEDICATIONS? NO . WHEN DID YOU LAST EAT? ____ . WHEN DID YOU LAST DRINK? ____ . WHAT DID YOU LAST DRINK? ____ . NAME OF PERSON DRIVING YOU HOME? ____ . DO YOU HAVE ANY OTHER QUESTIONS OR CONCERNS NO- BILATERAL SIJ WORKED WELL FOR PT AND SHE STATES SHE CONTINUES TO FEEL RELIEF 08/06/2019 1027 NLJ . VITAL SIGNS WT 256.4 LBS, HT 71 IN, BMI 35.76 INDEX, BP 186/90 MANUAL, HR 93 /MIN, RR 19 /MIN, TEMP 96.1 F, OXYGEN SAT % 92%, SAFE IN ENV? (Y/N) YES, NA INITIALS MS 1015, REVIEWED BY: NLKarel. EXAMINATION GENERAL EXAMINATION: GENERALNO ACUTE DISTRESS, WELL NOURISHED AND HYDRATED. PSYCHAPPROPRIATE MOOD AND AFFECT . LUNGS:CLEAR TO AUSCULTATION BILATERALLY, NO WHEEZES, RHONCHI, RALES. HEART:NO MURMURS, REGULAR RATE AND RHYTHM. ASSESSMENTS SACROILIITIS - M46.1 (PRIMARY) TREATMENT SACROILIITIS REFILL TIZANIDINE HCL TABLET, 4 MG, 1 TABLET NEEDED, ORALLY, BEFORE BEDTIME AND IN 4 HRS IF NEEDED MDD=2, 30 DAYS, 30 CLINICAL NOTES: 69-YEAR-OLD FEMALE IN FOR POST SIJ FOLLOW-UP. GIVEN PRESENTING SYMPTOMS AND RESULTS PHYSICAL EXAMINATION RECOMMENDED FOLLOW-UP IN ONE MONTH. PATIENT HAS EXPRESSED UNDERSTANDING OF AND WAS IN AGREEMENT WITH TREATMENT PLAN. GIVEN TIME TO ASK QUESTIONS AND EXPRESS CONCERNS. OTHERS NOTES: INFIRMATION REVIEWED AND VERIFIED WITH PT 1024 NLJ. PROCEDURE CODES FA211 ESTABILISHED PATIENT [facility] FACILITY CHARGE DISPOSITION & COMMUNICATION FOLLOW UP 4 WEEKS (REASON: SACROILIITIS) ELECTRONICALLY SIGNED BY MARY ANN STOUT ON 08/07/2019 AT 08:40 AM EST DISCLAIMER : THIS IS A VISIT SUMMARY EXTRACTED FROM THE [employer] CHART. IT IS NOT A COPY OF THE [employer] PROGRESS NOTE. JUANITO
== END ==
LOC: M PAIN 10:00
PROVIDERS: ATTEND Family Medicine
DX: M46.1 Sacroiliitis, not elsewhere classified (principal); E11.40 Type 2 diabetes mellitus with diabetic neuropathy, unspecified; I10 Essential (primary) hypertension; G47.30 Sleep apnea, unspecified; Z86.718 Personal history of other venous thrombosis and embolism; Z87.891 Personal history of nicotine dependence; Z88.4 Allergy status to anesthetic agent; Z79.01 Long term (current) use of anticoagulants; Z79.4 Long term (current) use of insulin; Z79.82 Long term (current) use of aspirin; Z79.899 Other long term (current) drug therapy

== ENCOUNTER → 2019-10-02 | Outpatient (CLI) | payer BC, MEDICARE ==
--- NOTE | 2019-10-06 03:26 | ECWPNPC ---
PATIENT NAME: CHRIS LONGORIA : 1950 GENDER: FEMALE VISIT DATE: 10/02/2019 DISCHARGE DATE: 10/02/19 1150 VISIT LOCKED DATE TIME: PHYSICIAN: MERY FLORES RESOURCE: MERY FLORES REASON FOR APPOINTMENT 1. [phone] HISTORY OF PRESENT ILLNESS HISTORY OF PRESENT ILLNESS: PAIN THE PATIENT DESCRIBES THE PAIN... PERMISSION REQUESTED AND RECEIVED FROM PATIENT TO PERFORM TELEPHONE VISIT. 69-YEAR-OLD FEMALE IN FOR CHRONIC PAIN FOLLOW-UP. SHE RATES HER PAIN CURRENTLY AT A 7-9 OUT OF 10 AND DESCRIBES IT SHARP, STABBING, AND THROBBING. SHE IS PRESCRIBED TYLENOL WITH CODEINE FROM ANOTHER PROVIDER AND ADMITS THAT THIS MEDICATION HAS BEEN HELPFUL AND SHE DENIES BEEN SIDE EFFECTS WITH THIS. SHE WOULD LIKE TO DISCUSS A REPEAT PROCEDURE FOR HER SACROILIITIS. FALL RISK SCREENING: SCREENING :NO FALLS REPORTED IN THE LAST YEAR CURRENT MEDICATIONS TAKING VALSARTAN-HYDROCHLOROTHIAZIDE 320-25 MG TABLET 1 TABLET ORALLY ONCE A DAY TAKING DULOXETINE HCL 60 MG CAPSULE DELAYED RELEASE PARTICLES 1 CAPSULE ORALLY ONCE A DAY TAKING AMLODIPINE BESYLATE 10 MG TABLET 1 TABLET ORALLY ONCE A DAY TAKING METFORMIN HCL 1000 MG TABLET 1 TABLET WITH A MEAL ORALLY BID TAKING LABETALOL HCL 200 MG TABLET 1 TABLET ORALLY TWICE A DAY TAKING HYDRALAZINE HCL 50 MG TABLET 1 TABLET WITH FOOD ORALLY TID TAKING LANTUS SOLOSTAR 100 UNIT/ML SOLUTION PEN-INJECTOR 66 UNITS SUBCUTANEOUS DAILY TAKING ASPIRIN 81 81 MG TABLET CHEWABLE 1 TABLET ORALLY ONCE A DAY TAKING ROPINIROLE HCL 1 MG TABLET 4 TABLET 1 TO 3 HOURS BEFORE BEDTIME ORALLY ONCE A DAY TAKING OMEPRAZOLE 20 MG CAPSULE DELAYED RELEASE 1 CAPSULE ORALLY ONCE A DAY TAKING GABAPENTIN 400 MG CAPSULE 1 CAPSULE ORALLY BID TAKING YONI ALLERGY 180 MG TABLET 1 TABLET NEEDED ORALLY ONCE A DAY TAKING HUMALOG 100 UNIT/ML SOLUTION SUBCUTANEOUS SLIDING SCALE BEFORE MEALS TAKING ROSUVASTATIN CALCIUM 10 MG TABLET 1 TABLET ORALLY EVERY OTHER DAY TAKING TYLENOL WITH CODEINE #3 300-30 MG TABLET 1 TABLET NEEDED ORALLY EVERY 6 HRS TAKING ELIQUIS 5 MG TABLET DIRECTED ORALLY BID TAKING TIZANIDINE HCL 4 MG TABLET 1 TABLET NEEDED ORALLY BEFORE BEDTIME AND IN 4 HRS IF NEEDED MDD=2 NOT-TAKING SIMVASTATIN 20 MG TABLET 1 TABLET IN THE EVENING ORALLY ONCE A DAY MEDICATION LIST REVIEWED AND RECONCILED WITH THE PATIENT PAST MEDICAL HISTORY BULGING DISCS- CERVICAL ARTHRITIS KNEES/HANDS SPINAL STENOSIS LYMPHEDEMA LOWER EXTREMITIES DIABETES TYPE 2 DIABETIC NEUROPATHY HIGH BLOOD PRESSURE DIVERTICULITIS FACTOR V LEYDEN SLEEP APNEA SEPSIS AFTER TOE SURGERY DECEMBER 2018 DVT IN LUNGS ALLERGIES GENERAL ANESTHESIA: NAUSEA/VOMITING - SIDE EFFECTS SURGICAL HISTORY TONSILLECTOMY 1950 APPENDIX 1970 LEFT SHOULDER REPAIR 08/28/04 LEFT CAROTID ENDARTERECTOMY 04/04/16 ARTERIOGRAM 09/07/16 LEFT CATARACT 09/26/16 FX RIGHT FOOT 2ND TOE 11/08/17 AMOUTATION OF 3RD TOE LEFT FOOT 12/2018 DEVIATED SEPTUM REPAIR 02/2019 FAMILY HISTORY FATHER: 85 YRS, DIAGNOSED WITH HYPERTENSION, UNSPECIFIED HEART DISEASE MOTHER: 80 YRS 1 BROTHER(S) , 3 SISTER(S) . MOTHER- DIVERTICULITIS, OF PNEUMONIA\\NSISTER - BREAST CANCER SURVIVOR, COPD. SOCIAL HISTORY GENERAL: TOBACCO USE ARE YOU A:FORMER SMOKER HOW LONG HAS IT BEEN SINCE YOU LAST SMOKED?> 10 YEARS LATEX QUESTIONNAIRE LATEX ALLERGY : HAVE YOU EVER DEVELOPED ANY TYPE OF REACTION AFTER HANDLING LATEX PRODUCTS SUCH RUBBER GLOVES, CONDOMS, DIAPHRAGMS, BALLOONS, SOCKS, OR UNDERWEAR?NO LATEX ALLERGY : HAVE YOU EVER DEVELOPED ANY TYPE OF REACTION DURING OR AFTER DENTAL APPOINTMENT, VAGINAL/RECTAL EXAMINATION, SURGICAL PROCEDURE, OR ANY OTHER EXPOSURE?NO DATE ASKED : 04/21/2019 LATEX RISK : HAVE YOU EVER HAD ANY DIFFICULTY BREATHING OR HIVES AFTER EATING OR HANDLING ANY FRUITS, OR VEGETABLES; SUCH KIWI, BANANAS, STONE FRUITS, OR CHESTNUTSNO LATEX RISK : DO YOU HAVE A PREVIOUS PERSONAL HISTORY OF MORE THAN NINE SURGERIES, SPINA BIFIDA, OR REPEATED CATHERIZATIONS? NO LATEX RISK : ARE YOU FREQUENTLY EXPOSED TO LATEX PRODUCTS IN YOUR OCCUPATION?NO ALCOHOL SCREENING DID YOU HAVE A DRINK CONTAINING ALCOHOL IN THE PAST YEAR?NO POINTS0 INTERPRETATIONNEGATIVE RECREATIONAL DRUG USE DRUG USE?NO CAFFEINE CAFFEINE USE?YES HOW OFTEN AND HOW MUCH? 3 CUPS APPROXIMATELY FAITH [id number] ZOR[place]ASTRIAN LANGUAGE LANGUAGES SPOKEN:DIVEHI LEARNING BARRIERS / SPECIAL NEEDS BARRIERS TO LEARNING?NO HEARING IMPAIRED?NO VISION IMPAIRED?YES COGNITIVELY IMPAIRED?NO :CORRECTIVE LENSES READINESS TO LEARN?YES LEARNING PREFERENCES?NO LEARNING CAPABILITIES PRESENT?YES EMOTIONAL BARRIERS?NO SPECIAL DEVICES?NO MANAGER INFRASTRUCTURE NEEDED?NO DOMESTIC VIOLENCE DO YOU FEEL SAFE IN YOUR ENVIRONMENT?YES OCCUPATION: RETIRED. DIET: REGULAR. MARITAL STATUS: SINGLE. OTHERS AT HOME: [place]. NEW PATIENT PAIN DIARY TODAY'S VISIT 10/02/19 PATIENT DESCRIBES PAIN :ACHING, BURNING, IT COMES AND GOES, SHARP, STABBING, TENDER, THROBBING, SORE, SHOOTING FROM 0-10, WHAT LEVEL IS YOUR PAIN TODAY?8 PRECIPITATING FACTORS SITTING TO STANDING POSITION CHANGE ALLEVIATING FACTORS RESTING IMPACT ON FUNCTION YES PAIN CLINIC PFS, CLERGY, PUBLIC HEALTH REFERRALS HAS THE PATIENT BEEN EDUCATED REGARDING HIS/HER PLAN OF CARE?YES HAS THE PATIENT BEEN EDUCATED REGARDING PAIN, THE RISK FOR PAIN, THE IMPORTANCE OF EFFECTIVE PAIN MANAGEMENT, AND THE PAIN ASSESSMENT PROCESS?YES ADVANCE DIRECTIVE ADVANCE DIRECTIVE DISCUSSED WITH PATIENT:YES HCP - ANDER EMILIA BANKS [phone] REVIEWED WITH PATIENT 04/03/18 1125 JSREVIEWED WITH PATIENT 05/15/18 1012 JSREVIEWED WITH PATIENT 05/28/18 1109 JS REVIEWED WITH PT 11/06/18 1151 BVREVIEWED WITH PATIENT 01/14/19 1315 NLJ106/21/[id number] REVIEWED WITH PT. ADREVIEWED WITH PATIENT 02/19/19 1139 JSPRE-PROCEDURE CALL DONE 07/13/19 EM. HOSPITALIZATION/MAJOR DIAGNOSTIC PROCEDURE LEFT CAROTID ENDARTERECTOMY 04/04/16 APPENDIX 1970 BLOOD CLOT LEFT LEG (PT STATES IN THE 1989'S) TRACTION FOR BACK (PT STATES EARLY S) HOSPITALIZED WITH SEPSIS AFTER TOE SURGERY TOE SURGERY 12/2018 REVIEW OF SYSTEMS REVIEWED BY: PROVIDER: AMELIA CARTER . CONSTITUTIONAL: ANY CHANGE IN YOUR MEDICAL CONDITION? NO . CHILLS NO . FEVER NO . INFECTION: DO YOU HAVE NEW INFECTIONS? NO . DO YOU HAVE HISTORY OF MRSA? NO . MUSCULOSKELETAL: ANY NEW PATTERNS OF PAIN OR NUMBNESS? YES, PAIN IS WORSE IN PAST MONTH . GASTROENTEROLOGY: ANY NEW CHANGE IN BOWEL CONTROL? NO . GENITOURINARY: ANY NEW CHANGE IN BLADDER CONTROL? NO . IS THERE A CHANCE YOU COULD BE ? NO . HEMATOLOGY/LYMPH: DO YOU TAKE ANY BLOOD THINNERS? (FOR EXAMPLE- COUMADIN, PLAVIX, AGGRENOX, PLATEL, PRADAXA, OR XARELTO) YES, ELIQUIS . WHEN WAS YOUR LAST DOSE? DATE: TIME: . NEUROLOGY: HAVE YOU FALLEN IN THE PAST 12 MONTHS? NO . ANY NEW EXTREMITY NUMBNESS OR WEAKNESS? NO . CARDIOLOGY: DO YOU HAVE A PACEMAKER OR DEFIBRILLATOR? NO . RESPIRATORY: HAVE YOU BEEN SICK IN THE PAST WEEK? NO . FEVER NO . FLU LIKE SYMPTOMS? NO . COUGH NO . INTEGUMENTARY: DO YOU HAVE ANY RASHES OR OPEN SORES? NO . ALLERGIC/IMMUNO: ARE YOU ALLERGIC TO IV DYE? NO . ANY NEW ALLERGIES? NO . PSYCHIATRIC: DO YOU HAVE THOUGHTS OF HURTING YOURSELF OR SOMEONE ELSE? NO . ARE YOU ABUSED, NEGLECTED, OR IN AN UNSAFE ENVIRONMENT? NO . ENDOCRINOLOGY: ARE YOU DIABETIC? YES . OTHER: DO YOU NEED ANY PRESCRIPTIONS? YES, TIZANIDINE . IF YES, PLEASE LIST: ____ . ANY NEW PROBLEMS WITH YOUR MEDICATIONS? NO . WHEN DID YOU LAST EAT? ____ . WHEN DID YOU LAST DRINK? ____ . WHAT DID YOU LAST DRINK? ____ . NAME OF PERSON DRIVING YOU HOME? ____ . DO YOU HAVE ANY OTHER QUESTIONS OR CONCERNS NO . EXAMINATION GENERAL EXAMINATION: PSYCHAPPROPRIATE MOOD AND AFFECT , ORIENTED X 3. ASSESSMENTS SACROILIITIS - M46.1 (PRIMARY) TREATMENT SACROILIITIS REFILL TIZANIDINE HCL TABLET, 4 MG, 1 TABLET NEEDED, ORALLY, BEFORE BEDTIME AND IN 4 HRS IF NEEDED MDD=2, 30 DAYS, 30 CLINICAL NOTES: 69-YEAR-OLD FEMALE IN FOR CHRONIC PAIN FOLLOW-UP. GIVEN PRESENTING SYMPTOMS RECOMMEND IN CLINIC VISIT IN 2 WEEKS FOR PHYSICAL EXAM AND TO SCHEDULE SIJ PROCEDURE. PATIENT HAS EXPRESSED UNDERSTANDING OF AND WAS IN AGREEMENT WITH TREATMENT PLAN. GIVEN TIME TO ASK QUESTIONS AND EXPRESS CONCERNS. VISIT TO BE BILLED BASED ON TIME SPENT WITH PATIENT. TIME SPENT WITH PATIENT 11 MINUTES. DISPOSITION & COMMUNICATION FOLLOW UP 2 WEEKS IN CLINIC (REASON: SACROILIITIS) ELECTRONICALLY SIGNED BY MARY ANN STOUT ON 10/05/2019 AT 02:31 PM EDT DISCLAIMER : THIS IS A VISIT SUMMARY EXTRACTED FROM THE [employer] CHART. IT IS NOT A COPY OF THE [employer] PROGRESS NOTE. JUANITO
== END ==
LOC: M PAIN 11:30
PROVIDERS: ATTEND Family Medicine
DX: M46.1 Sacroiliitis, not elsewhere classified (principal); G89.29 Other chronic pain; E11.40 Type 2 diabetes mellitus with diabetic neuropathy, unspecified; I10 Essential (primary) hypertension; G47.30 Sleep apnea, unspecified; Z86.718 Personal history of other venous thrombosis and embolism; Z87.891 Personal history of nicotine dependence; Z88.4 Allergy status to anesthetic agent; Z79.01 Long term (current) use of anticoagulants; Z79.4 Long term (current) use of insulin; Z79.82 Long term (current) use of aspirin; Z79.899 Other long term (current) drug therapy

== ENCOUNTER → 2019-10-19 | Outpatient (CLI) | payer BC, MEDICARE ==
--- NOTE | 2019-10-21 02:10 | ECWPNPC ---
PATIENT NAME: CHRIS LONGORIA : 1950 GENDER: FEMALE VISIT DATE: 10/19/2019 DISCHARGE DATE: 10/19/19 1223 VISIT LOCKED DATE TIME: PHYSICIAN: MERY FLORES RESOURCE: MERY FLORES REASON FOR APPOINTMENT 1. SACROILIITIS HISTORY OF PRESENT ILLNESS HISTORY OF PRESENT ILLNESS: PAIN THE PATIENT DESCRIBES THE PAINDURING THE LAST MONTH SEVERITY - PAIN SCORE OF8/10, 9/10 LOCATIONSLOWER BACK SACRAL ILIAC QUALITYSTABBING, THROBBING DURATIONCONTINUOUS, CONSTANT, ALL DAY, MAINLY DURING THE DAY, AWAKENS FROM SLEEEP PAIN IS INCREASED BY:ACTIVITIES, PROLONGED STANDING MOSLTY WALKING PAIN IS DECREASED BY:USE OF PAIN MEDICATIONS 69-YEAR-OLD FEMALE IN FOR CHRONIC PAIN FOLLOW-UP. SHE RATES HER PAIN CURRENTLY AT AN 8-9 OUT OF 10 AND DESCRIBES IT STABBING AND THROBBING. PATIENT HAS HAD SIJ INJECTIONS IN THE PAST AND FOUND THEM HELPFUL IN ALLEVIATING HER PAIN SYMPTOMS. FALL RISK SCREENING: SCREENING :NO FALLS REPORTED IN THE LAST YEAR CURRENT MEDICATIONS TAKING VALSARTAN-HYDROCHLOROTHIAZIDE 320-25 MG TABLET 1 TABLET ORALLY ONCE A DAY TAKING DULOXETINE HCL 60 MG CAPSULE DELAYED RELEASE PARTICLES 1 CAPSULE ORALLY ONCE A DAY TAKING AMLODIPINE BESYLATE 10 MG TABLET 1 TABLET ORALLY ONCE A DAY TAKING METFORMIN HCL 1000 MG TABLET 1 TABLET WITH A MEAL ORALLY BID TAKING LABETALOL HCL 200 MG TABLET 1 TABLET ORALLY TWICE A DAY TAKING HYDRALAZINE HCL 50 MG TABLET 1 TABLET WITH FOOD ORALLY TID TAKING LANTUS SOLOSTAR 100 UNIT/ML SOLUTION PEN-INJECTOR 66 UNITS SUBCUTANEOUS DAILY TAKING ASPIRIN 81 81 MG TABLET CHEWABLE 1 TABLET ORALLY ONCE A DAY TAKING ROPINIROLE HCL 1 MG TABLET 4 TABLET 1 TO 3 HOURS BEFORE BEDTIME ORALLY ONCE A DAY TAKING OMEPRAZOLE 20 MG CAPSULE DELAYED RELEASE 1 CAPSULE ORALLY ONCE A DAY TAKING GABAPENTIN 400 MG CAPSULE 1 CAPSULE ORALLY BID TAKING YONI ALLERGY 180 MG TABLET 1 TABLET NEEDED ORALLY ONCE A DAY TAKING HUMALOG 100 UNIT/ML SOLUTION SUBCUTANEOUS SLIDING SCALE BEFORE MEALS TAKING ROSUVASTATIN CALCIUM 10 MG TABLET 1 TABLET ORALLY EVERY OTHER DAY TAKING TYLENOL WITH CODEINE #3 300-30 MG TABLET 1 TABLET NEEDED ORALLY EVERY 6 HRS TAKING ELIQUIS 5 MG TABLET DIRECTED ORALLY BID TAKING TIZANIDINE HCL 4 MG TABLET 1 TABLET NEEDED ORALLY BEFORE BEDTIME AND IN 4 HRS IF NEEDED MDD=2 NOT-TAKING SIMVASTATIN 20 MG TABLET 1 TABLET IN THE EVENING ORALLY ONCE A DAY MEDICATION LIST REVIEWED AND RECONCILED WITH THE PATIENT PAST MEDICAL HISTORY BULGING DISCS- CERVICAL ARTHRITIS KNEES/HANDS SPINAL STENOSIS LYMPHEDEMA LOWER EXTREMITIES DIABETES TYPE 2 DIABETIC NEUROPATHY HIGH BLOOD PRESSURE DIVERTICULITIS FACTOR V LEYDEN SLEEP APNEA SEPSIS AFTER TOE SURGERY DECEMBER 2018 DVT IN LUNGS ALLERGIES GENERAL ANESTHESIA: NAUSEA/VOMITING - SIDE EFFECTS SURGICAL HISTORY TONSILLECTOMY 1950 APPENDIX 1970 LEFT SHOULDER REPAIR 08/28/04 LEFT CAROTID ENDARTERECTOMY 04/04/16 ARTERIOGRAM 09/07/16 LEFT CATARACT 09/26/16 FX RIGHT FOOT 2ND TOE 11/08/17 AMOUTATION OF 3RD TOE LEFT FOOT 12/2018 DEVIATED SEPTUM REPAIR 02/2019 FAMILY HISTORY FATHER: 85 YRS, DIAGNOSED WITH UNSPECIFIED HEART DISEASE, HYPERTENSION MOTHER: 80 YRS 1 BROTHER(S) , 3 SISTER(S) . MOTHER- DIVERTICULITIS, OF PNEUMONIA\\NSISTER - BREAST CANCER SURVIVOR, COPD. SOCIAL HISTORY GENERAL: TOBACCO USE ARE YOU A:FORMER SMOKER HOW LONG HAS IT BEEN SINCE YOU LAST SMOKED?> 10 YEARS LATEX QUESTIONNAIRE LATEX ALLERGY : HAVE YOU EVER DEVELOPED ANY TYPE OF REACTION AFTER HANDLING LATEX PRODUCTS SUCH RUBBER GLOVES, CONDOMS, DIAPHRAGMS, BALLOONS, SOCKS, OR UNDERWEAR?NO LATEX ALLERGY : HAVE YOU EVER DEVELOPED ANY TYPE OF REACTION DURING OR AFTER DENTAL APPOINTMENT, VAGINAL/RECTAL EXAMINATION, SURGICAL PROCEDURE, OR ANY OTHER EXPOSURE?NO DATE ASKED : 04/21/2019 LATEX RISK : HAVE YOU EVER HAD ANY DIFFICULTY BREATHING OR HIVES AFTER EATING OR HANDLING ANY FRUITS, OR VEGETABLES; SUCH KIWI, BANANAS, STONE FRUITS, OR CHESTNUTSNO LATEX RISK : DO YOU HAVE A PREVIOUS PERSONAL HISTORY OF MORE THAN NINE SURGERIES, SPINA BIFIDA, OR REPEATED CATHERIZATIONS? NO LATEX RISK : ARE YOU FREQUENTLY EXPOSED TO LATEX PRODUCTS IN YOUR OCCUPATION?NO ALCOHOL SCREENING DID YOU HAVE A DRINK CONTAINING ALCOHOL IN THE PAST YEAR?NO POINTS0 INTERPRETATIONNEGATIVE RECREATIONAL DRUG USE DRUG USE?NO CAFFEINE CAFFEINE USE?YES HOW OFTEN AND HOW MUCH? 3 CUPS APPROXIMATELY WORSHIP [id number] PENTECOSTAL LANGUAGE LANGUAGES SPOKEN:PORTUGUESE LEARNING BARRIERS / SPECIAL NEEDS BARRIERS TO LEARNING?NO HEARING IMPAIRED?NO VISION IMPAIRED?YES COGNITIVELY IMPAIRED?NO :CORRECTIVE LENSES READINESS TO LEARN?YES LEARNING PREFERENCES?NO LEARNING CAPABILITIES PRESENT?YES EMOTIONAL BARRIERS?NO SPECIAL DEVICES?NO JOB PRESS OPERATOR NEEDED?NO DOMESTIC VIOLENCE DO YOU FEEL SAFE IN YOUR ENVIRONMENT?YES OCCUPATION: RETIRED. DIET: REGULAR. MARITAL STATUS: SINGLE. OTHERS AT HOME: SIBLING. NEW PATIENT PAIN DIARY TODAY'S VISIT 10/02/19 PATIENT DESCRIBES PAIN :ACHING, BURNING, IT COMES AND GOES, SHARP, STABBING, TENDER, THROBBING, SORE, SHOOTING FROM 0-10, WHAT LEVEL IS YOUR PAIN TODAY?8 PRECIPITATING FACTORS SITTING TO STANDING POSITION CHANGE ALLEVIATING FACTORS RESTING IMPACT ON FUNCTION YES PAIN CLINIC PFS, CLERGY, PUBLIC HEALTH REFERRALS HAS THE PATIENT BEEN EDUCATED REGARDING HIS/HER PLAN OF CARE?YES HAS THE PATIENT BEEN EDUCATED REGARDING PAIN, THE RISK FOR PAIN, THE IMPORTANCE OF EFFECTIVE PAIN MANAGEMENT, AND THE PAIN ASSESSMENT PROCESS?YES ADVANCE DIRECTIVE ADVANCE DIRECTIVE DISCUSSED WITH PATIENT:YES HCP - NADER BANKS [phone] HOSPITALIZATION/MAJOR DIAGNOSTIC PROCEDURE LEFT CAROTID ENDARTERECTOMY 04/04/16 APPENDIX 1970 BLOOD CLOT LEFT LEG (PT STATES IN THE 1989'S) TRACTION FOR BACK (PT STATES EARLY ) HOSPITALIZED WITH SEPSIS AFTER TOE SURGERY TOE SURGERY 12/2018 REVIEW OF SYSTEMS REVIEWED BY: PROVIDER: AMELIA FLORES MEDICAL TRANSLATOR-C . CONSTITUTIONAL: ANY CHANGE IN YOUR MEDICAL CONDITION? NO . CHILLS NO . FEVER NO . INFECTION: DO YOU HAVE NEW INFECTIONS? NO . DO YOU HAVE HISTORY OF MRSA? NO . MUSCULOSKELETAL: ANY NEW PATTERNS OF PAIN OR NUMBNESS? NO . GASTROENTEROLOGY: ANY NEW CHANGE IN BOWEL CONTROL? NO . GENITOURINARY: ANY NEW CHANGE IN BLADDER CONTROL? NO . IS THERE A CHANCE YOU COULD BE ? NO . HEMATOLOGY/LYMPH: DO YOU TAKE ANY BLOOD THINNERS? (FOR EXAMPLE- COUMADIN, PLAVIX, AGGRENOX, PLATEL, PRADAXA, OR XARELTO) YES . WHEN WAS YOUR LAST DOSE? DATE:10/18/19 TIME: 10:30PM . NEUROLOGY: HAVE YOU FALLEN IN THE PAST 12 MONTHS? NO . ANY NEW EXTREMITY NUMBNESS OR WEAKNESS? NO . CARDIOLOGY: DO YOU HAVE A PACEMAKER OR DEFIBRILLATOR? NO . RESPIRATORY: HAVE YOU BEEN SICK IN THE PAST WEEK? NO . FEVER NO . FLU LIKE SYMPTOMS? NO . COUGH NO . INTEGUMENTARY: DO YOU HAVE ANY RASHES OR OPEN SORES? NO . ALLERGIC/IMMUNO: ARE YOU ALLERGIC TO IV DYE? NO . ANY NEW ALLERGIES? NO . PSYCHIATRIC: DO YOU HAVE THOUGHTS OF HURTING YOURSELF OR SOMEONE ELSE? NO . ARE YOU ABUSED, NEGLECTED, OR IN AN UNSAFE ENVIRONMENT? NO . ENDOCRINOLOGY: ARE YOU DIABETIC? YES . OTHER: DO YOU NEED ANY PRESCRIPTIONS? YES, REFILL TIZANIDINE . IF YES, PLEASE LIST: ____ . ANY NEW PROBLEMS WITH YOUR MEDICATIONS? NO . WHEN DID YOU LAST EAT? ____ . WHEN DID YOU LAST DRINK? ____ . WHAT DID YOU LAST DRINK? ____ . NAME OF PERSON DRIVING YOU HOME? ____ . DO YOU HAVE ANY OTHER QUESTIONS OR CONCERNS NO . VITAL SIGNS WT 269.0 LBS, HT 71 IN, BMI 37.51 INDEX, BP 148/82 MM HG, HR 108 /MIN, RR 18 /MIN, TEMP 96.9 F, OXYGEN SAT % 93%, SAFE IN ENV? (Y/N) YES, NA INITIALS AW [id number] ASUMADU CONTENT DEVELOPMENT MANAGER. EXAMINATION GENERAL EXAMINATION: GENERALNO ACUTE DISTRESS, WELL NOURISHED AND HYDRATED. PSYCHAPPROPRIATE MOOD AND AFFECT . LUNGS:CLEAR TO AUSCULTATION BILATERALLY, NO WHEEZES, RHONCHI, RALES. HEART:NO MURMURS, REGULAR RATE AND RHYTHM. BACK:POINT TENDER OVER LEFT SIJ . ASSESSMENTS SACROILIITIS - M46.1 (PRIMARY) TREATMENT SACROILIITIS REFILL TIZANIDINE HCL TABLET, 4 MG, 1 TABLET NEEDED, ORALLY, BEFORE BEDTIME AND IN 4 HRS IF NEEDED MDD=2, 30 DAYS, 30 NOTES: LEFT SIJ. CLINICAL NOTES: 69-YEAR-OLD FEMALE IN FOR CHRONIC PAIN FOLLOW-UP. GIVEN PRESENTING SYMPTOMS AND RESULTS OF PHYSICAL EXAMINATION RECOMMENDED LEFT SIJ WITH POSTPROCEDURAL FOLLOW-UP. PATIENT HAS EXPRESSED UNDERSTANDING OF AND WAS IN AGREEMENT WITH TREATMENT PLAN. GIVEN TIME TO ASK QUESTIONS AND EXPRESS CONCERNS. PROCEDURE CODES FA211 ESTABILISHED PATIENT [facility] CHARGE DISPOSITION & COMMUNICATION FOLLOW UP POSTPROCEDURE (REASON: LEFT SIJ) ELECTRONICALLY SIGNED BY MARY ANN STOUT ON 10/20/2019 AT 08:19 AM EDT DISCLAIMER : THIS IS A VISIT SUMMARY EXTRACTED FROM THE [employer] CHART. IT IS NOT A COPY OF THE [employer] PROGRESS NOTE. JUANITO
== END ==
LOC: M PAIN 11:30
PROVIDERS: ATTEND Family Medicine
DX: M46.1 Sacroiliitis, not elsewhere classified (principal); G89.29 Other chronic pain; E11.40 Type 2 diabetes mellitus with diabetic neuropathy, unspecified; I10 Essential (primary) hypertension; G47.30 Sleep apnea, unspecified; Z86.718 Personal history of other venous thrombosis and embolism; Z87.891 Personal history of nicotine dependence; Z88.4 Allergy status to anesthetic agent; Z79.01 Long term (current) use of anticoagulants; Z79.4 Long term (current) use of insulin; Z79.82 Long term (current) use of aspirin; Z79.899 Other long term (current) drug therapy

== ENCOUNTER → 2019-11-01 | Outpatient (CLI) | payer BC, MEDICARE | LOC: M LABSMTC 11:32 | PROVIDERS: ATTEND Anesthesiology | DX: Z03.818 Encounter for observation for suspected exposure to other biological agents ruled out (principal); Z11.59 Encounter for screening for other viral diseases | CPT/HCPCS: C9803; U0003 ==

== ENCOUNTER → 2019-11-04 | Outpatient (CLI) | payer BC, MEDICARE ==
[~2019-11-04] MED LIST changes: +BUPIVACAINE HCL 0.25% 30ML VIAL As Ordered ONE; +ISOVUE-M 300 61% 15ML VIAL As Ordered ONE; +LIDOCAINE 1% SDV 30ML VIAL As Ordered ONE; +dexameTHASONE 10MG/1ML VIAL PRES.FREE (J1100 PER 1MG) As Ordered ONE
--- NOTE | 2019-11-04 13:25 | REP ---
C-ARM VIEWS LEFT SACROILIAC JOINT: CLINICAL HISTORY: Pain. Two C-arm views left sacroiliac joint performed during injection by Dr. Dominguez. Needle is seen at the left sacroiliac joint. 50 seconds of fluoroscopy time is utilized. Electronically Signed by Moshe Myers MD 11/05/2019 07:07 P
--- NOTE | 2019-11-05 01:06 | ECWPNPC ---
PATIENT NAME: CHRIS LONGORIA : 1950 GENDER: FEMALE VISIT DATE: 11/04/2019 DISCHARGE DATE: 11/04/19 1301 VISIT LOCKED DATE TIME: PHYSICIAN: DHARA HANSEN MD RESOURCE: DHARA HANSEN MD REASON FOR APPOINTMENT 1. LEFT SIJ PAT DONE HISTORY OF PRESENT ILLNESS GENERAL: -. FALL RISK SCREENING: SCREENING :NO FALLS REPORTED IN THE LAST YEAR PT STATES THAT SHE WAS HOME WHEN SHE FELL, PT STATES THAT SHE WAS NOT INJURED FROM FALL PAIN SCREENING: PATIENT HAS A COMPLAINT OF ACUTE OR CHRONIC PAIN :YES LOCATION OF PAIN:LEFT HIP, RIGHT HIP INTENSITY OF PAIN (SCALE OF 1 TO 10):10 WHAT DOES YOUR PAIN FEEL LIKE:ACHING, INTERMITTENT, SHARP, SHOOTING DURATION:ALL DAY, MAINLY DURING THE DAY, AWAKENS FROM SLEEP PAIN IS INCREASED BY:ACTIVITIES PAIN IS DECREASED BY:SITTING NURSING NOTE: -. PAIN CENTER INTAKE QUESTIONS: DO YOU HAVE A HISTORY OF MRSA? :NO DO YOU TAKE A BLOOD THINNERS? 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 :YES FACTOR FIVE - CAUSES BLOOD CLOTS ANY NEW NUMBNESS OR WEAKNESS IN YOUR LEGS OR ARMS? :NO ANY PACEMAKER,DEFIBRILLATOR, OR DORSAL COLUMN STIMULATOR? :NO DO YOU HAVE ANY RASHES OR OPEN SORES? :NO ARE YOU ALLERGIC TO IV DYE? :NO ARE YOU DIABETIC? :YES MANAGED WITH INSULIN AND ORAL MEDS FSBS 106 @ 9AM 11/04/2019 ANY NEW PROBLEMS WITH YOUR MEDICATIONS? :NO HAVE YOU RECEIVED A VACCINE IN THE PAST 30 DAYS? :NO DO YOU PLAN TO RECEIVE A VACCINE IN THE NEXT 21 DAYS? :NO ANY HISTORY OF SEIZURES? :NO ANY HISTORY OF CARDIAC ISSUES OR EVENTS? :NO DO YOU HAVE SLEEP APNEA? :YES DO YOU WEAR A CPAP?YES ANY RECENT HEAD INJURY? :NO DO YOU HAVE ANY NEW INFECTIONS? :NO WHEN DID YOU LAST EAT? : -11/03 5AM WHEN DID YOU LAST DRINK? : -11/03 0930 WHAT DID YOU LAST DRINK? : -WATER NAME OF PERSON DRIVING YOU HOME? : -NEPHEW - SHOAIB DO YOU HAVE ANY OTHER QUESTIONS OR CONCERNS? : PT STATES COVD-19 TESTING DONE AND NEGATIVE CURRENT MEDICATIONS TAKING VALSARTAN-HYDROCHLOROTHIAZIDE 320-25 MG TABLET 1 TABLET ORALLY ONCE A DAY, NOTES: 11/02 TAKING DULOXETINE HCL 60 MG CAPSULE DELAYED RELEASE PARTICLES 1 CAPSULE ORALLY ONCE A DAY, NOTES: 11/02 TAKING AMLODIPINE BESYLATE 10 MG TABLET 1 TABLET ORALLY ONCE A DAY, NOTES: 11/02 9A TAKING METFORMIN HCL 1000 MG TABLET 1 TABLET WITH A MEAL ORALLY BID, NOTES: 11/02 TAKING LABETALOL HCL 200 MG TABLET 1 TABLET ORALLY TWICE A DAY, NOTES: 11/02 TAKING HYDRALAZINE HCL 50 MG TABLET 1 TABLET WITH FOOD ORALLY TID, NOTES: 11/02 TAKING LANTUS SOLOSTAR 100 UNIT/ML SOLUTION PEN-INJECTOR 66 UNITS SUBCUTANEOUS DAILY, NOTES: 11/02 TAKING ASPIRIN 81 81 MG TABLET CHEWABLE 1 TABLET ORALLY ONCE A DAY, NOTES: 11/02 TAKING ROPINIROLE HCL 1 MG TABLET 4 TABLET 1 TO 3 HOURS BEFORE BEDTIME ORALLY ONCE A DAY, NOTES: 11/02 TAKING OMEPRAZOLE 20 MG CAPSULE DELAYED RELEASE 1 CAPSULE ORALLY ONCE A DAY, NOTES: 11/02 TAKING GABAPENTIN 400 MG CAPSULE 1 CAPSULE ORALLY BID, NOTES: 11/02 TAKING YONI ALLERGY 180 MG TABLET 1 TABLET NEEDED ORALLY ONCE A DAY, NOTES: 3 WEEKS TAKING HUMALOG 100 UNIT/ML SOLUTION SUBCUTANEOUS SLIDING SCALE BEFORE MEALS, NOTES: 11/02 TAKING ROSUVASTATIN CALCIUM 10 MG TABLET 1 TABLET ORALLY EVERY OTHER DAY, NOTES: 6 AM TAKING TYLENOL WITH CODEINE #3 300-30 MG TABLET 1 TABLET NEEDED ORALLY EVERY 6 HRS, NOTES: 11/02 TAKING ELIQUIS 5 MG TABLET DIRECTED ORALLY BID, NOTES: 11/02 TAKING TIZANIDINE HCL 4 MG TABLET 1 TABLET NEEDED ORALLY BEFORE BEDTIME AND IN 4 HRS IF NEEDED MDD=2, NOTES: 11/02 NOT-TAKING SIMVASTATIN 20 MG TABLET 1 TABLET IN THE EVENING ORALLY ONCE A DAY MEDICATION LIST REVIEWED AND RECONCILED WITH THE PATIENT PAST MEDICAL HISTORY BULGING DISCS- CERVICAL ARTHRITIS KNEES/HANDS SPINAL STENOSIS LYMPHEDEMA LOWER EXTREMITIES DIABETES TYPE 2 DIABETIC NEUROPATHY HIGH BLOOD PRESSURE DIVERTICULITIS FACTOR V LEYDEN SLEEP APNEA SEPSIS AFTER TOE SURGERY DECEMBER 2018 DVT IN LUNGS ALLERGIES GENERAL ANESTHESIA: NAUSEA/VOMITING - SIDE EFFECTS SURGICAL HISTORY TONSILLECTOMY 1950 APPENDIX 1970 LEFT SHOULDER REPAIR 08/28/04 LEFT CAROTID ENDARTERECTOMY 04/04/16 ARTERIOGRAM 09/07/16 LEFT CATARACT 09/26/16 FX RIGHT FOOT 2ND TOE 11/08/17 AMOUTATION OF 3RD TOE LEFT FOOT 12/2018 DEVIATED SEPTUM REPAIR 02/2019 FAMILY HISTORY FATHER: 85 YRS, DIAGNOSED WITH HYPERTENSION, UNSPECIFIED HEART DISEASE MOTHER: 80 YRS 1 BROTHER(S) , 3 SISTER(S) . MOTHER- DIVERTICULITIS, OF PNEUMONIA\\NSISTER - BREAST CANCER SURVIVOR, COPD. SOCIAL HISTORY GENERAL: TOBACCO USE ARE YOU A:FORMER SMOKER HOW LONG HAS IT BEEN SINCE YOU LAST SMOKED?> 10 YEARS LATEX QUESTIONNAIRE LATEX ALLERGY : HAVE YOU EVER DEVELOPED ANY TYPE OF REACTION AFTER HANDLING LATEX PRODUCTS SUCH RUBBER GLOVES, CONDOMS, DIAPHRAGMS, BALLOONS, SOCKS, OR UNDERWEAR?NO LATEX ALLERGY : HAVE YOU EVER DEVELOPED ANY TYPE OF REACTION DURING OR AFTER DENTAL APPOINTMENT, VAGINAL/RECTAL EXAMINATION, SURGICAL PROCEDURE, OR ANY OTHER EXPOSURE?NO LATEX RISK : HAVE YOU EVER HAD ANY DIFFICULTY BREATHING OR HIVES AFTER EATING OR HANDLING ANY FRUITS, OR VEGETABLES; SUCH KIWI, BANANAS, STONE FRUITS, OR CHESTNUTSNO LATEX RISK : DO YOU HAVE A PREVIOUS PERSONAL HISTORY OF MORE THAN NINE SURGERIES, SPINA BIFIDA, OR REPEATED CATHERIZATIONS? NO LATEX RISK : ARE YOU FREQUENTLY EXPOSED TO LATEX PRODUCTS IN YOUR OCCUPATION?NO DATE ASKED : 11/03/2019 ALCOHOL SCREENING DID YOU HAVE A DRINK CONTAINING ALCOHOL IN THE PAST YEAR?NO POINTS0 INTERPRETATIONNEGATIVE RECREATIONAL DRUG USE DRUG USE?NO CAFFEINE CAFFEINE USE?YES HOW OFTEN AND HOW MUCH? 3 CUPS APPROXIMATELY PENTECOSTAL [id number] TENRIISM LANGUAGE LANGUAGES SPOKEN:ARMENIAN LEARNING BARRIERS / SPECIAL NEEDS BARRIERS TO LEARNING?NO HEARING IMPAIRED?NO VISION IMPAIRED?YES COGNITIVELY IMPAIRED?NO :CORRECTIVE LENSES READINESS TO LEARN?YES LEARNING PREFERENCES?NO LEARNING CAPABILITIES PRESENT?YES EMOTIONAL BARRIERS?NO SPECIAL DEVICES?NO DIRECTOR PLANS NEEDED?NO DOMESTIC VIOLENCE DO YOU FEEL SAFE IN YOUR ENVIRONMENT?YES OCCUPATION: RETIRED. DIET: REGULAR. MARITAL STATUS: SINGLE. OTHERS AT HOME: SIBLING. NEW PATIENT PAIN DIARY PATIENT DESCRIBES PAIN :ACHING, BURNING, IT COMES AND GOES, SHARP, STABBING, TENDER, THROBBING, SORE, SHOOTING FROM 0-10, WHAT LEVEL IS YOUR PAIN TODAY?8 PRECIPITATING FACTORS SITTING TO STANDING POSITION CHANGE ALLEVIATING FACTORS RESTING IMPACT ON FUNCTION YES PAIN CLINIC PFS, CLERGY, PUBLIC HEALTH REFERRALS HAS THE PATIENT BEEN EDUCATED REGARDING HIS/HER PLAN OF CARE?YES HAS THE PATIENT BEEN EDUCATED REGARDING PAIN, THE RISK FOR PAIN, THE IMPORTANCE OF EFFECTIVE PAIN MANAGEMENT, AND THE PAIN ASSESSMENT PROCESS?YES ADVANCE DIRECTIVE ADVANCE DIRECTIVE DISCUSSED WITH PATIENT:YES HCP - NADER BANKS [phone] HOSPITALIZATION/MAJOR DIAGNOSTIC PROCEDURE LEFT CAROTID ENDARTERECTOMY 04/04/16 APPENDIX 1970 BLOOD CLOT LEFT LEG (PT STATES IN THE 1989'S) TRACTION FOR BACK (PT STATES EARLY ) HOSPITALIZED WITH SEPSIS AFTER TOE SURGERY TOE SURGERY 12/2018 VITAL SIGNS WT 280 LBS, HT 71 IN, BMI 39.05 INDEX, BP 190/80 MANUAL, HR 98 /MIN, RR 18 /MIN, TEMP 98.2 F, OXYGEN SAT % 95%, SAFE IN ENV? (Y/N) Y, NA INITIALS AW 1112, REVIEWED BY: IBAN. EXAMINATION GENERAL EXAMINATION: THE PATIENT IS ALERT, ORIENTED TIMES THREE AND COOPERATIVE. HEART SHOWS REGULAR RHYTHM, NO MURMURS AND NO GALLOPS. LUNGS ARE CLEAR TO AUSCULTATION. ASSESSMENTS SACROILIITIS - M46.1 SACROILIAC JOINT DYSFUNCTION - M53.3 TREATMENT SACROILIITIS [facility] FLUORO GUIDANCE (PAIN)[id number] PROCEDURES PAIN NURSING RECORD PRE-PROCEDURE IV SITE N/A, PRE-PROCEDURE ORAL MEDICATIONS NA PT TAKEN TO PROCEDURE ROOM VIA STRETCHER. PT POSITIONING SELF ON TABLE WITH MIN 1 ASSIST, PT TOLERATED TRANSFER AND POSITIONING WELL. PROCEDURE IN ROOM 1143, PHYSICIAN IN ROOM 1225, START 1228, FINISH 1235, PHYSICIAN OUT OF ROOM 1240, OUT OF ROOM 1244, STEROID DEXAMETHASONE, O2 RA, ECG NORMAL SINUS, PATIENT SHIELDED YES, SAFETY STRAP YES, PREP CHLOROPREP, IV INFUSED N/A, DRESSING TEGADERM MD HANSEN LOC: ASHOK SPARROW RN 11/04/2019 11:52:36 AM > , 1. ALERT, ORIENTED RESP: ASHOK SPARROW RN 11/04/2019 11:51:44 AM > , 1. REGULAR, NO DYSPNEA COLOR: ASHOK SPARROW RN 11/04/2019 11:51:49 AM > , 1. PINK SKIN: ASHOK SPARROW RN 11/04/2019 11:51:54 AM > , 1. WARM, DRY POSITION: ASHOK SPARROW RN 11/04/2019 11:51:51 AM > , 1. PRONE VITALS: ASHOK SPARROW RN 11/04/2019 11:49:40 AM > 187/113, 86, 16, 93% , ASHOK SPARROW RN 11/04/2019 12:05:24 PM > 188/117, 86, 16, 93% , ASHOK SPARROW RN 11/04/2019 12:20:40 PM > , 150/113, 85, 18, 90% ASHOK SPARROW RN 11/04/2019 12:29:52 PM > 198/107, 85, 18, 91% , ASHOK SPARROW RN 11/04/2019 12:47:11 PM > 186/96, 91, 18, 94% PT TRANSFERRED TO STRETCHER AND BROUGHT TO RECOVERY ROOM, PT ABLE TO STAND WITH MIN 1 ASSIST, PT GAIT STEADY. DS DISCHARGE: POST PAIN 06/12, DRESSING SITE DRY AND INTACT, IV N/A, GAIT STEADY, TEACHING COMPLETED, PATIENT ACKNOWLEDGES UNDERSTANDING YES, PATIENT DISCHARGED AT 1250 PN SI PRE PROCEDURE DIAGNOSIS SACROILIITIS, SACROILIAC JOINT DYSFUNCTION POST PROCEDURE DIAGNOSIS SACROILIITIS, SACROILIAC JOINT DYSFUNCTION PROCEDURE LEFT SACROILIAC JOINT BLOCK SURGEON DR. DHARA HANSEN AUDITING CODER NONE ANESTHESIA LOCAL PRE PROCEDURE NOTE THE PATIENT WITH HISTORY OF CHRONIC LOW BACK PAIN. I EVALUATED THE PATIENT AND REVIEWED THE CHART. I WENT OVER THE RISKS, ALTERNATIVES, AND BENEFITS ASSOCIATED WITH THIS PROCEDURE. I DISCUSSED THAT THE USE OF STEROIDS MAY CONTRIBUTE TO IMMUNOSUPPRESSION OF THE PATIENT'S BODY AGAINST INFECTIONS SUCH THE KIM VIRUS, COVID-19. THE PATIENT IS AWARE OF THE POTENTIAL COMPLICATIONS ASSOCIATED WITH AN INFECTION OF THIS VIRUS INCLUDING . THE PATIENT WOULD LIKE TO PROCEED AND GAVE CONSENT TO PERFORM THE PROCEDURE. THE PATIENT DENIES UNEXPLAINABLE WEIGHT LOSS, FEVER, CHILLS, OR NEW CHANGES IN URINARY OR BOWEL CONTROL. THE PATIENT IS COVID-19 NEGATIVE DESCRIPTION OF PROCEDURE THE PATIENT WAS BROUGHT TO THE PROCEDURE ROOM AND PLACED IN THE PRONE POSITION. THE LUMBOSACRAL AREA WAS CLEANED WITH CHLORAPREP SOLUTION AND DRAPED ASEPTICALLY. THE PROCEDURE WAS DONE UNDER STERILE CONDITIONS. I CHECKED LATERALITY AND THE LEVEL WHERE THE PROCEDURE WAS GOING TO BE PERFORMED WITH THE PATIENT AND THE SUPPORTING STAFF AT THE MOMENT OF THE TIME OUT IN THE PROCEDURE ROOM. UNDER FLUOROSCOPIC GUIDANCE, TARGET POINT WAS SELECTED AT THE LOWER BORDER OF THE LEFT SACROILIAC JOINT. TARGET POINT WAS SELECTED AFTER MEDIAL ROTATION AND TILT OF THE MAGNIFIER OF THE C-ARM. LIDOCAINE WAS USED TO NUMB THE SKIN AND SUBCUTANEOUS TISSUE BELOW IT. A SPINAL NEEDLE, 22-GAUGE, WAS ADVANCED UNDER FLUOROSCOPIC GUIDANCE AND FOLLOWING PATIENT FEEDBACK UNTIL THE TARGET AREA WAS TOUCHED. THE POSITION OF THE NEEDLE WAS VERIFIED WITH AP AND LATERAL VIEWS. AFTER PROPER POSITION OF THE NEEDLE WAS ACHIEVED, ISOVUE M DYE 30%, 0.25 ML, WAS INJECTED SHOWING SPREAD OF THE DYE. THEN, A SOLUTION OF 10 MG OF DEXAMETHASONE WAS INJECTED IN THE LEFT JOINT WITH 3 ML OF BUPIVACAINE 0.125%. THERE WAS NO EVIDENCE OF BLOOD, PARESTHESIA OR CEREBROSPINAL FLUID DURING THE PROCEDURE. THE PATIENT WAS SENT TO THE RECOVERY ROOM. THE PATIENT WAS MOVING THE EXTREMITIES AND DOING WELL. THERE WAS NO COMPLICATION DURING THE PROCEDURE. FLUOROSCOPY TIME WAS 50 SECONDS POST PROCEDURE NOTE THE PROCEDURE DONE WAS DISCUSSED WITH THE PATIENT. THE PATIENT WILL BE SEEN IN A FOLLOW UP IN THE NEXT FEW WEEKS. I AM LOOKING FOR LONG LASTING PAIN RELIEF FOR THE PATIENT WITH THIS INTERVENTION. INSTRUCTIONS WERE GIVEN, QUESTIONS WERE ANSWERED, AND THE PATIENT EXPRESSED UNDERSTANDING AND AGREES WITH THE PLAN. THE PATIENT IS AWARE TO STAY HOME FOR THE NEXT WEEK, IF POSSIBLE, DUE TO COVID-19. I, CRYS FERREIRA, DOCUMENTED THE ABOVE INFORMATION ACTING A SCRIBE FOR DR. HANSEN. I HAVE REVIEWED THE ABOVE DOCUMENT, WRITTEN BY CRYS FERREIRA, ORNITHOLOGY TEACHER, AND I VERIFY THAT IT IS ACCURATE PROCEDURE CODES 82163 INJECT SACROILIAC JOINT, MODIFIERS: LT DISPOSITION & COMMUNICATION FOLLOW UP F/UP WITH PAVING INSPECTOR (REASON: POST LEFT SIJ) ELECTRONICALLY SIGNED BY DHARA HANSEN MD, MD ON 11/04/2019 AT 04:43 PM EDT DISCLAIMER : THIS IS A VISIT SUMMARY EXTRACTED FROM THE [employer] CHART. IT IS NOT A COPY OF THE [employer] PROGRESS NOTE. JUANITO
== END ==
LOC: M PAIN 11:15
PROVIDERS: ATTEND Anesthesiology
DX: M46.1 Sacroiliitis, not elsewhere classified (principal); M53.3 Sacrococcygeal disorders, not elsewhere classified
CPT/HCPCS: G0260; J1100; Q9967

== ENCOUNTER → 2019-11-18 | Outpatient (CLI) | payer BC, MEDICARE ==
[~2019-11-18] MED LIST changes: -BUPIVACAINE HCL 0.25% 30ML VIAL As Ordered ONE; -ISOVUE-M 300 61% 15ML VIAL As Ordered ONE; -LIDOCAINE 1% SDV 30ML VIAL As Ordered ONE; -dexameTHASONE 10MG/1ML VIAL PRES.FREE (J1100 PER 1MG) As Ordered ONE
--- NOTE | 2019-11-20 01:57 | ECWPNPC ---
PATIENT NAME: CHRIS LONGORIA : 1950 GENDER: FEMALE VISIT DATE: 11/18/2019 DISCHARGE DATE: 11/18/19 1356 VISIT LOCKED DATE TIME: PHYSICIAN: MERY FLORES RESOURCE: MERY FLORES REASON FOR APPOINTMENT 1. POST LEFT SIJ [phone] PAT COMPLETED HISTORY OF PRESENT ILLNESS GENERAL: - 69-YEAR-OLD FEMALE IN FOR POST SIJ FOLLOW-UP. SHE RATES HER PAIN PREPROCEDURE AT A 10 OUT OF 10 AND POST PROCEDURE AT A 0-3 OUT OF 10. SHE FEELS THE PROCEDURE WAS HELPFUL. SHE RATES HER PAIN CURRENTLY AT A 2 OUT OF 10 AND DESCRIBES IT AN ACHE. FALL RISK SCREENING: SCREENING :NO FALLS REPORTED IN THE LAST YEAR PAIN SCREENING: PATIENT HAS A COMPLAINT OF ACUTE OR CHRONIC PAIN :YES [id number], [id number] LASTED FOR A WEEK. LOCATION OF PAIN:LOW BACK INTENSITY OF PAIN (SCALE OF 1 TO 10):3 WHAT DOES YOUR PAIN FEEL LIKE:ACHING DURATION:INTERMITTENT PAIN IS INCREASED BY:ACTIVITIES, PROLONGED STANDING WALLKING PAIN IS DECREASED BY:USE OF PAIN MEDICATIONS ICE PACK PAIN HAS INTERFERED WITH THE FOLLOWING:MOOD, WALKING ABILITY, HOUSEWORK, RELATIONSHIP WITH OTHERS, ENJOYMENT OF LIFE PLAN/GOALS/TREATMENT/INTERVENTION/FOLLOW UP:SEE PLAN NURSING NOTE: -. PAIN CENTER INTAKE QUESTIONS: DO YOU HAVE A HISTORY OF MRSA? :NO DO YOU TAKE A BLOOD THINNERS? :NO DO YOU HAVE ANY BLEEDING DISORDERS? :NO ANY NEW NUMBNESS OR WEAKNESS IN YOUR LEGS OR ARMS? :NO ANY PACEMAKER,DEFIBRILLATOR, OR DORSAL COLUMN STIMULATOR? :NO DO YOU HAVE ANY RASHES OR OPEN SORES? :NO ARE YOU ALLERGIC TO IV DYE? :NO ARE YOU DIABETIC? :YES ANY NEW PROBLEMS WITH YOUR MEDICATIONS? :NO HAVE YOU RECEIVED A VACCINE IN THE PAST 30 DAYS? :NO DO YOU PLAN TO RECEIVE A VACCINE IN THE NEXT 21 DAYS? :NO DO YOU NEED ANY PRESCRIPTION? :YES TIZANIDINE DO YOU TAKE ANY IMMUNOSUPPRESSIVE MEDICATIONS? :NO IS THERE A CHANCE YOU COULD BE ? :NO ARE YOU BREAST FEEDING? :NO CURRENT MEDICATIONS TAKING VALSARTAN-HYDROCHLOROTHIAZIDE 320-25 MG TABLET 1 TABLET ORALLY ONCE A DAY, NOTES: 11/02 9P TAKING DULOXETINE HCL 60 MG CAPSULE DELAYED RELEASE PARTICLES 1 CAPSULE ORALLY ONCE A DAY, NOTES: 11/02 9P TAKING AMLODIPINE BESYLATE 10 MG TABLET 1 TABLET ORALLY ONCE A DAY, NOTES: 11/02 9A TAKING METFORMIN HCL 1000 MG TABLET 1 TABLET WITH A MEAL ORALLY BID, NOTES: 11/02 7P TAKING LABETALOL HCL 200 MG TABLET 1 TABLET ORALLY TWICE A DAY, NOTES: 11/02 7P TAKING HYDRALAZINE HCL 50 MG TABLET 1 TABLET WITH FOOD ORALLY TID, NOTES: 11/02P TAKING LANTUS SOLOSTAR 100 UNIT/ML SOLUTION PEN-INJECTOR 66 UNITS SUBCUTANEOUS DAILY, NOTES: 11/02 7 TAKING ASPIRIN 81 81 MG TABLET CHEWABLE 1 TABLET ORALLY ONCE A DAY, NOTES: 11/02 TAKING ROPINIROLE HCL 1 MG TABLET 4 TABLET 1 TO 3 HOURS BEFORE BEDTIME ORALLY ONCE A DAY, NOTES: 11/02 TAKING OMEPRAZOLE 20 MG CAPSULE DELAYED RELEASE 1 CAPSULE ORALLY ONCE A DAY, NOTES: 11/02 TAKING GABAPENTIN 400 MG CAPSULE 1 CAPSULE ORALLY BID, NOTES: 11/02 TAKING YONI ALLERGY 180 MG TABLET 1 TABLET NEEDED ORALLY ONCE A DAY, NOTES: 3 WEEKS TAKING HUMALOG 100 UNIT/ML SOLUTION SUBCUTANEOUS SLIDING SCALE BEFORE MEALS, NOTES: 11/02 TAKING ROSUVASTATIN CALCIUM 10 MG TABLET 1 TABLET ORALLY EVERY OTHER DAY, NOTES: 11/01 AM TAKING TYLENOL WITH CODEINE #3 300-30 MG TABLET 1 TABLET NEEDED ORALLY EVERY 6 HRS, NOTES: 11/02 TAKING ELIQUIS 5 MG TABLET DIRECTED ORALLY BID, NOTES: 11/02 09P TAKING TIZANIDINE HCL 4 MG TABLET 1 TABLET NEEDED ORALLY BEFORE BEDTIME AND IN 4 HRS IF NEEDED MDD=2, NOTES: 11/02 09P NOT-TAKING SIMVASTATIN 20 MG TABLET 1 TABLET IN THE EVENING ORALLY ONCE A DAY MEDICATION LIST REVIEWED AND RECONCILED WITH THE PATIENT PAST MEDICAL HISTORY BULGING DISCS- CERVICAL ARTHRITIS KNEES/HANDS SPINAL STENOSIS LYMPHEDEMA LOWER EXTREMITIES DIABETES TYPE 2 DIABETIC NEUROPATHY HIGH BLOOD PRESSURE DIVERTICULITIS FACTOR V LEYDEN SLEEP APNEA SEPSIS AFTER TOE SURGERY DECEMBER 2018 DVT IN LUNGS ALLERGIES GENERAL ANESTHESIA: NAUSEA/VOMITING - SIDE EFFECTS SURGICAL HISTORY TONSILLECTOMY 1950 APPENDIX 1970 LEFT SHOULDER REPAIR 08/28/04 LEFT CAROTID ENDARTERECTOMY 04/04/16 ARTERIOGRAM 09/07/16 LEFT CATARACT 09/26/16 FX RIGHT FOOT 2ND TOE 11/08/17 AMOUTATION OF 3RD TOE LEFT FOOT 12/2018 DEVIATED SEPTUM REPAIR 02/2019 FAMILY HISTORY FATHER: 85 YRS, DIAGNOSED WITH HYPERTENSION, UNSPECIFIED HEART DISEASE MOTHER: 80 YRS 1 BROTHER(S) , 3 SISTER(S) . MOTHER- DIVERTICULITIS, OF PNEUMONIA\\NSISTER - BREAST CANCER SURVIVOR, COPD. SOCIAL HISTORY GENERAL: TOBACCO USE ARE YOU A:FORMER SMOKER HOW LONG HAS IT BEEN SINCE YOU LAST SMOKED?> 10 YEARS LATEX QUESTIONNAIRE LATEX ALLERGY : HAVE YOU EVER DEVELOPED ANY TYPE OF REACTION AFTER HANDLING LATEX PRODUCTS SUCH RUBBER GLOVES, CONDOMS, DIAPHRAGMS, BALLOONS, SOCKS, OR UNDERWEAR?NO LATEX ALLERGY : HAVE YOU EVER DEVELOPED ANY TYPE OF REACTION DURING OR AFTER DENTAL APPOINTMENT, VAGINAL/RECTAL EXAMINATION, SURGICAL PROCEDURE, OR ANY OTHER EXPOSURE?NO LATEX RISK : HAVE YOU EVER HAD ANY DIFFICULTY BREATHING OR HIVES AFTER EATING OR HANDLING ANY FRUITS, OR VEGETABLES; SUCH KIWI, BANANAS, STONE FRUITS, OR CHESTNUTSNO LATEX RISK : DO YOU HAVE A PREVIOUS PERSONAL HISTORY OF MORE THAN NINE SURGERIES, SPINA BIFIDA, OR REPEATED CATHERIZATIONS? NO LATEX RISK : ARE YOU FREQUENTLY EXPOSED TO LATEX PRODUCTS IN YOUR OCCUPATION?NO DATE ASKED : 11/17/2019 ALCOHOL SCREENING DID YOU HAVE A DRINK CONTAINING ALCOHOL IN THE PAST YEAR?NO POINTS0 INTERPRETATIONNEGATIVE RECREATIONAL DRUG USE DRUG USE?NO CAFFEINE CAFFEINE USE?YES HOW OFTEN AND HOW MUCH? 3 CUPS APPROXIMATELY ORIENTAL ORTHODOX [id number] RASTAFARIAN LANGUAGE LANGUAGES SPOKEN:FRENCH LEARNING BARRIERS / SPECIAL NEEDS BARRIERS TO LEARNING?NO HEARING IMPAIRED?NO VISION IMPAIRED?YES COGNITIVELY IMPAIRED?NO :CORRECTIVE LENSES READINESS TO LEARN?YES LEARNING PREFERENCES?NO LEARNING CAPABILITIES PRESENT?YES EMOTIONAL BARRIERS?NO SPECIAL DEVICES?NO FILTER FILLER NEEDED?NO DOMESTIC VIOLENCE DO YOU FEEL SAFE IN YOUR ENVIRONMENT?YES OCCUPATION: RETIRED. DIET: REGULAR. MARITAL STATUS: SINGLE. OTHERS AT HOME: SIBLING. NEW PATIENT PAIN DIARY PATIENT DESCRIBES PAIN :ACHING, BURNING, IT COMES AND GOES, SHARP, STABBING, TENDER, THROBBING, SORE, SHOOTING FROM 0-10, WHAT LEVEL IS YOUR PAIN TODAY?8 PRECIPITATING FACTORS SITTING TO STANDING POSITION CHANGE ALLEVIATING FACTORS RESTING IMPACT ON FUNCTION YES PAIN CLINIC PFS, CLERGY, PUBLIC HEALTH REFERRALS HAS THE PATIENT BEEN EDUCATED REGARDING HIS/HER PLAN OF CARE?YES HAS THE PATIENT BEEN EDUCATED REGARDING PAIN, THE RISK FOR PAIN, THE IMPORTANCE OF EFFECTIVE PAIN MANAGEMENT, AND THE PAIN ASSESSMENT PROCESS?YES ADVANCE DIRECTIVE ADVANCE DIRECTIVE DISCUSSED WITH PATIENT:YES HCP - NADER EMILIA BANKS [phone] HOSPITALIZATION/MAJOR DIAGNOSTIC PROCEDURE LEFT CAROTID ENDARTERECTOMY 04/04/16 APPENDIX 1970 BLOOD CLOT LEFT LEG (PT STATES IN THE 1989'S) TRACTION FOR BACK (PT STATES EARLY ) HOSPITALIZED WITH SEPSIS AFTER TOE SURGERY TOE SURGERY 12/2018 REVIEW OF SYSTEMS CONSTITUTIONAL: ANY RECENT FEVER NO . CHILLS NO . GASTROENTEROLOGY: BOWEL INCONTINENCE NO . ANY NEW CHANGE IN BOWEL CONTROL? NO . HISTORY OF UNUSUAL ABDOMINAL PAIN OR CRAMPING NOT MENTIONED NO . CONSTIPATION NO . GENITOURINARY: ANY NEW CHANGE IN BLADDER CONTROL? NO . URINARY INCONTINENCE NO . CARDIOLOGY: NEW CHEST PRESSURE NO . HISTORY OF CHEST PAIN,IRREGULAR HEART BEAT NOT MENTIONED NO . RESPIRATORY: COUGH NO . SHORTNESS OF BREATH NO . EXAMINATION GENERAL EXAMINATION: PSYCHAPPROPRIATE MOOD AND AFFECT , ORIENTED X 3. ASSESSMENTS SACROILIITIS - M46.1 (PRIMARY) TREATMENT SACROILIITIS REFILL TIZANIDINE HCL TABLET, 4 MG, 1 TABLET NEEDED, ORALLY, BEFORE BEDTIME AND IN 4 HRS IF NEEDED MDD=2, 30 DAYS, 30, NOTES: 11/02 10P CLINICAL NOTES: 69-YEAR-OLD FEMALE IN FOR POST SIJ FOLLOW-UP. GIVEN PRESENTING SYMPTOMS AND FOLLOW-UP IN CLINIC IN 2 MONTHS. PATIENT HAS EXPRESSED UNDERSTANDING OF AND WAS IN AGREEMENT WITH TREATMENT PLAN. GIVEN TIME TO ASK QUESTIONS AND EXPRESS CONCERNS. VISIT TO BE BILLED BASED ON TIME SPENT WITH PATIENT. TIME SPENT WITH PATIENT 11 MINUTES. OTHERS NOTES: VITALS NOT OBTAINED DUE TO VIRTUAL VISIT, PRE-SCREENING COMPLETED, 11/17/19,NA. DISPOSITION & COMMUNICATION FOLLOW UP 2 MONTHS (REASON: SACROILIITIS) ELECTRONICALLY SIGNED BY MARY ANN STOUT ON 11/19/2019 AT 08:51 AM EDT DISCLAIMER : THIS IS A VISIT SUMMARY EXTRACTED FROM THE [employer] CHART. IT IS NOT A COPY OF THE [employer] PROGRESS NOTE. JUANITO
== END ==
LOC: M PAIN 13:00
PROVIDERS: ATTEND Family Medicine
DX: M46.1 Sacroiliitis, not elsewhere classified (principal)

== ENCOUNTER 2020-01-18 13:30 | Inpatient (IN) | payer BC, MEDICARE ==
[~2020-01-18] VITALS: Ht 182.9 cm; Wt 123.7 kg
[~2020-01-18 13:30] MED LIST changes: -AMLO10TA5; +AMLO1TAB25
[2020-01-18] MEDS ORDERED: hydroCHLOROthiazide 12.5 MG CAPSULE As Ordered ONE (14:00)
[2020-01-18] MEDS ORDERED: **hydrALAZINE HCL** 25 MG TAB As Ordered ONE (14:00)
[2020-01-18] MEDS ORDERED: VALSARTAN 80 MG TAB (DIOVAN) As Ordered ONE (14:03)
[2020-01-18] MEDS ORDERED: LABETALOL 100MG/20ML VIAL As Ordered ONE (14:28)
[2020-01-18] MEDS ORDERED: niCARdipine 40MG IN 200ML NACL IV BAG As Ordered ONE (16:46)
[2020-01-18] MEDS ORDERED: KETOROLAC 30 MG/ML 1ML VIAL As Ordered ONE (17:23)
[2020-01-18] MEDS ORDERED: METOCLOPRAMIDE INJ 10MG/2ML VIAL (J2765 PER 1) As Ordered ONE (17:23)
[2020-01-18] MEDS ORDERED: diphenhydrAMINE 50MG/ML VIAL (J1200) As Ordered ONE (17:23)
[2020-01-18] MEDS ORDERED: NITROGLYCERIN 2% OINT 1 GM *U/D* PKT As Ordered ONE (18:49)
[2020-01-18] MEDS ORDERED: FUROSEMIDE 100MG/10ML VIAL (J1940) As Ordered ONE (18:49)
[2020-01-18] MEDS ORDERED: MORPHINE 2 MG/ML 1ML VIAL (J2270) As Ordered ONE (18:50)
[2020-01-18] MEDS ORDERED: LIDOCAINE 1% SDV 5ML VIAL As Ordered ONE (19:40)
[2020-01-18] MEDS ORDERED: AZITHROMYCIN 250MG TABLET As Ordered ONE (19:40)
[2020-01-18] MEDS ORDERED: cefTRIAXone SOD 250MG VIAL (J0696 PER 250MG) As Ordered ONE (19:41)
[2020-01-19] MEDS ORDERED: DULoxetine 30 MG CAP (CYMBALTA) ONE (00:18)
[2020-01-19] MEDS ORDERED: HumaLOG INSULIN (NovoLOG) PER UNIT ONE ×4 (00:18→16:47)
[2020-01-19] MEDS ORDERED: OMEPRAZOLE 20 MG CAP ONE (00:18)
[2020-01-19] MEDS ORDERED: rOPINIRole 1MG TAB ONE (00:18)
[2020-01-19] MEDS ORDERED: GABAPENTIN 400 MG CAP ONE ×2 (00:18→08:26)
[2020-01-19] MEDS ORDERED: **hydrALAZINE** 50 MG TAB ONE ×2 (00:18→08:26)
[2020-01-19] MEDS ORDERED: APIXABAN 5 MG TAB (ELIQUIS) ONE ×2 (00:18→08:26)
[2020-01-19] MEDS ORDERED: ASPIRIN 81 MG ENTERIC TAB ONE (00:18)
[2020-01-19] MEDS ORDERED: FUROSEMIDE 100MG/10ML VIAL (J1940) ONE ×2 (00:18→08:26)
[2020-01-19] MEDS ORDERED: LEVEMIR (INSULIN DETEMIR) 1 UNITS/0.01ML ONE (00:18)
[2020-01-19] MEDS ORDERED: ACETAMINOPHEN TAB 650MG DOSE (2X325MG) ONE ×3 (05:43→16:47)
[2020-01-19] MEDS ORDERED: VALSARTAN 80 MG TAB (DIOVAN) ONE (08:26)
[2020-01-19] MEDS ORDERED: LABETALOL 200 MG TAB ONE (08:26)
[2020-01-19] MEDS ORDERED: ASPI81TA26 PO (12:34)
[2020-01-19] MEDS ORDERED: ROSU10TA6 PO (12:34)
[2020-01-19] MEDS ORDERED: OMEP-218 PO (12:34)
[2020-01-19] MEDS ORDERED: ROPI4TAB3 PO (12:34)
[2020-01-19] MEDS ORDERED: METF10004 PO (12:34)
[2020-01-19] MEDS ORDERED: HYDR100T PO (12:34)
[2020-01-19] MEDS ORDERED: LANTINJ4 SC (12:34)
[2020-01-19] MEDS ORDERED: DULO1CAP6 PO (12:34)
[2020-01-19] MEDS ORDERED: GLUCOSE 4GM CHEW TABLET PO PRN (19:00)
[2020-01-19] MEDS ORDERED: GLUCAGON INJ 1MG VIAL SC PRN (19:00)
[2020-01-19 20:00] VITALS: BP 179/78
[2020-01-19] MEDS ORDERED: FUROSEMIDE 80 MG TAB As Ordered ONE (20:36)
[2020-01-19] MEDS: **hydrALAZINE** 50 MG TAB PO SCH (20:49)
[2020-01-19] MEDS: ASPIRIN 81 MG ENTERIC TAB PO SCH (20:49)
[2020-01-19] MEDS: GABAPENTIN 400 MG CAP PO SCH (20:49)
[2020-01-19] MEDS: DULoxetine 30 MG CAP (CYMBALTA) PO SCH (20:49)
[2020-01-19] MEDS: ROSUVASTATIN 10 MG TAB (CRESTOR) PO SCH (20:49)
[2020-01-19] MEDS: LABETALOL 200 MG TAB PO SCH (20:49)
[2020-01-19] MEDS: APIXABAN 5 MG TAB (ELIQUIS) PO SCH (20:49)
[2020-01-19] MEDS: HumaLOG INSULIN (NovoLOG) PER UNIT SC SCH (20:50)
[2020-01-19] MEDS: LEVEMIR (INSULIN DETEMIR) 1 UNITS/0.01ML SC SCH (20:50)
[2020-01-19] MEDS: rOPINIRole 2MG TAB PO SCH (20:50)
[2020-01-19] MEDS: OMEPRAZOLE 20 MG CAP PO SCH (20:50)
[2020-01-19 21:50] LABS: BASO # 0.1 10^3/uL (0.0-0.2); BASO % 0.8 % (0.0-1.0); EOS # 0.1 10^3/uL (0.0-0.5); EOS % 0.6 % (0.0-3.0); HEMOGLOBIN 10.5 g/dl (12.0-15.5); LYMPH # 1.2 10^3/uL (1.5-5.0); LYMPH % 14.5 % (24.0-44.0); MEAN CORPUSCULAR HEMOGLOBIN 24.7 pg (27.0-33.0); MEAN CORPUSCULAR HGB CONC 30.9 g/dl (32.0-36.5); MONO # 0.8 10^3/uL (0.0-0.8); MONO % 9.4 % (0.0-5.0); NEUTROPHILS % 74.3 % (36.0-66.0); PLATELET COUNT, AUTOMATED 338 10^3/uL (150-450); RED BLOOD COUNT 4.25 10^6/uL (4.00-5.40)
[2020-01-20] VITALS: BP 179/77
[2020-01-20 04:00] VITALS: BP 135/62
[2020-01-20 06:55] LABS: BASO % 0.6 % (0.0-1.0); EOS # 0.1 10^3/uL (0.0-0.5); EOS % 1.3 % (0.0-3.0); HEMATOCRIT 32.8 % (36.0-47.0); HEMOGLOBIN 9.9 g/dl (12.0-15.5); LYMPH # 1.7 10^3/uL (1.5-5.0); LYMPH % 23.9 % (24.0-44.0); MEAN CORPUSCULAR HEMOGLOBIN 24.4 pg (27.0-33.0); MEAN CORPUSCULAR HGB CONC 30.2 g/dl (32.0-36.5); MONO # 0.7 10^3/uL (0.0-0.8); MONO % 10.2 % (0.0-5.0); NEUTROPHILS # 4.5 10^3/uL (1.5-8.5); NEUTROPHILS % 63.7 % (36.0-66.0); PLATELET COUNT, AUTOMATED 313 10^3/uL (150-450); RED BLOOD COUNT 4.05 10^6/uL (4.00-5.40); WHITE BLOOD COUNT 7.1 10^3/uL (4.0-10.0)
[2020-01-20 07:22] LABS: ALBUMIN 2.7 GM/DL (3.2-5.2); ALT/SGPT 10 U/L (12-78); BILIRUBIN,TOTAL 0.5 MG/DL (0.2-1.0); BLOOD UREA NITROGEN 15 MG/DL (7-18); CALCIUM LEVEL 8.2 MG/DL (8.8-10.2); CARBON DIOXIDE LEVEL 36 MEQ/L (21-32); CHLORIDE LEVEL 97 MEQ/L (98-107); CREATININE FOR GFR 0.85 MG/DL (0.55-1.30); GLOMERULAR FILTRATION RATE > 60.0 (>39); GLUCOSE, FASTING 55 MG/DL (70-100); NT-PRO BNP 4111 PG/ML (<125); POTASSIUM SERUM 2.9 MEQ/L (3.5-5.1); SODIUM LEVEL 138 MEQ/L (136-145); TOTAL PROTEIN 5.8 GM/DL (6.4-8.2); TROPONIN I 0.06 NG/ML (< 0.10)
[2020-01-20] MEDS: HumaLOG INSULIN (NovoLOG) PER UNIT SC SCH ×4 (07:25→21:00)
[2020-01-20] MEDS: DEXTROSE 50% 50 ML SYRINGE IV PRN ×2 (07:31→08:47)
[2020-01-20 07:43] VITALS: BP 152/82
[2020-01-20] MEDS ORDERED: POTASSIUM CHLORIDE 10 MEQ SR TABLET PO ONE ×3 (08:00→12:00)
[2020-01-20] MEDS: **hydrALAZINE** 50 MG TAB PO SCH ×3 (08:10→21:00)
[2020-01-20] MEDS ORDERED: FUROSEMIDE 100MG/10ML VIAL (J1940) IV SCH (09:00)
[2020-01-20] MEDS: VALSARTAN 80 MG TAB (DIOVAN) PO SCH (10:03)
[2020-01-20] MEDS: LABETALOL 200 MG TAB PO SCH ×2 (10:05→21:59)
[2020-01-20] MEDS: FUROSEMIDE 80 MG TAB PO SCH ×2 (10:05→17:18)
[2020-01-20] MEDS: APIXABAN 5 MG TAB (ELIQUIS) PO SCH ×2 (10:06→21:59)
[2020-01-20] MEDS: GABAPENTIN 400 MG CAP PO SCH ×2 (10:06→21:59)
[2020-01-20] MEDS: ACETAMINOPHEN TAB 650MG DOSE (2X325MG) PO PRN ×2 (10:12→22:03)
[2020-01-20] MEDS ORDERED: SLF 3 ML SYR IV PRN (11:45)
[2020-01-20 12:00] VITALS: BP 122/48
[2020-01-20 12:44] LABS: FERRITIN 16 NG/ML (8-252); IRON (FE) 19 UG/DL (50-170); PERCENT SATURATION 5.5 % (13.2-45.0); TOTAL IRON BINDING CAPACITY 346 UG/DL (250-450)
[2020-01-20] MEDS: SPIRONOLACTONE 25 MG TAB PO SCH (12:52)
--- NOTE | 2020-01-20 13:38 | IPNPDOC ---
Date Seen The patient was seen on 01/20/20. Progress Note SUBJECTIVE: doing well, states SOB much improved. Denies CP, palpitations, n/v/d. OBJECTIVE PHYSICAL EXAMINATION: VITAL SIGNS: Please see below. GENERAL: NAD HEENT: PERRLA CARDIOVASCULAR: RRR, normal S1, S2. RESPIRATORY: lungs CTAB. ABDOMINAL: soft, non tender, obese EXTREMITIES: no joint deformity NEUROLOGICAL: AAO x 3 PSYCHOLOGICAL: calm, cooperative LABORATORY DATA, IMAGING STUDIES, MICROBIOLOGY: Please see below. Echocardiogram: pending DVT prophylaxis ordered?: Y ASSESSMENT AND PLAN: 69 yo F with a hx of HTN, DM2, CKD 3, CHF, RLS, chronic pain syndrome, Hx of DVT/PE, admitted to [facility] for acute on chronic CHF exacerbation and hypertensive emergency. PROBLEMS: 1. Hypertensive emergency: BP much improved. asymptomatic. Diuresed with lasix 60 mg BiD, switched to 80 mg PO BID. Edema significantly improved. Good UOP. Oral fluid restriction 1500 L/day. Consider reducing dose of lasix in am. Renal artery dopplers pending. Nephrology service consulted. F/u plasma, urine metane phrines, catecholamines, urine VMA. 2. Acute on chronic CHF exacerbation: improved. Edema 1+. C/w labetalol, lasix 80 mg PO BID. EHCO pending. Follows with Dr. Villagran outpatient - will need to follow up. Low salt diet. 3. DM2: uncontrolled. Check a1c in am. Insulin glargine. ISS. Accuchecks. Consi stent carb diet. 4. Chronic pain syndrome: home medications 5. RLS: ropinirole 6. CKD stage 3: nephrology on consult. 7. GERD ppx: ppi 8. Hx of DVT/PE: eliquis BID 9. DVT ppx: eliquis bid. DISPOSITION: likely DC home once medcally stable and BP controlled on PO med. VS, I&O, 24H, Fishbone Vital Signs/I&O Vital Signs Date Time Temp Pulse Resp B/P (MAP) Pulse Ox O2 Delivery O2 Flow Rate FiO2 01/20/20 12:00 97.7 70 16 122/48 (72) 97 01/20/20 12:00 2.0 01/20/20 07:43 Room Air I&O- Last 24 Hours up to 6 AM 01/20/20 06:00 Intake Total 540 ml Output Total 1025 ml Balance -485 ml Laboratory Data 24H LABS Laboratory Tests 2 01/20/20 06:03: Immature Granulocyte % (Auto) 0.3, Neutrophils (%) (Auto) 63.7, Lymphocytes (%) (Auto) 23.9L, Monocytes (%) (Auto) 10.2H, Eosinophils (%) (Auto) 1.3, Basophils (%) (Auto) 0.6, Neutrophils # (Auto) 4.5, Lymphocytes # (Auto) 1.7, Monocytes # (Auto) 0.7, Eosinophils # (Auto) 0.1, Basophils # (Auto) 0.0, Nucleated Red Blood Cells % (auto) 0.0, Anion Gap 5L, Glomerular Filtration Rate > 60.0, Calcium Level 8.2L, Iron Level 19L, Total Iron Binding Capacity 346, Transferrin % Saturation 5.5L, Ferritin 16, Total Bilirubin 0.5, Aspartate Amino Transf (AST/SGOT) 12, Alanine Aminotransferase (ALT/SGPT) 10L, Alkaline Phosphatase 85, Troponin I 0.06, AZ-Vak-L-Type Natriuretic Peptide 4111H, Total Protein 5.8L, Albumin 2.7L, Albumin/Globulin Ratio 0.9L 01/20/20 06:30: CBC/BMP Laboratory Tests 01/20/20 06:03 JORGE ALBERTO DUARTE MD Jan 20, 2020 13:38
[2020-01-20 15:51] VITALS: BP 154/70
[2020-01-20] MEDS: SLF 3 ML SYR IV SCH ×2 (16:08→21:59)
[2020-01-20 16:51] LABS: BLOOD UREA NITROGEN 15 MG/DL (7-18); CALCIUM LEVEL 8.3 MG/DL (8.8-10.2); CARBON DIOXIDE LEVEL 34 MEQ/L (21-32); CHLORIDE LEVEL 97 MEQ/L (98-107); CREATININE FOR GFR 0.95 MG/DL (0.55-1.30); GLOMERULAR FILTRATION RATE > 60.0 (>39); GLUCOSE, FASTING 176 MG/DL (70-100); POTASSIUM SERUM 3.3 MEQ/L (3.5-5.1); SODIUM LEVEL 134 MEQ/L (136-145)
[2020-01-20 20:00] VITALS: BP 162/70
[2020-01-20] MEDS: rOPINIRole 2MG TAB PO SCH (21:58)
[2020-01-20] MEDS: OMEPRAZOLE 20 MG CAP PO SCH (21:58)
[2020-01-20] MEDS: DULoxetine 30 MG CAP (CYMBALTA) PO SCH (21:59)
[2020-01-20] MEDS: ASPIRIN 81 MG ENTERIC TAB PO SCH (21:59)
[2020-01-20] MEDS: LEVEMIR (INSULIN DETEMIR) 1 UNITS/0.01ML SC SCH (21:59)
[2020-01-20] MEDS ORDERED: KCL 40MEQ in NS 1000ML 1,000 ML IV SCH (23:30)
[2020-01-21] VITALS: BP 150/68
[2020-01-21] MEDS ORDERED: POTASSIUM CHLORIDE 10 MEQ SR TABLET PO ONE
[2020-01-21] MEDS: SLF 3 ML SYR IV SCH ×3 (03:59→20:42)
[2020-01-21 04:00] VITALS: BP 148/84
[2020-01-21 04:47] LABS: BASO # 0.1 10^3/uL (0.0-0.2); BASO % 0.9 % (0.0-1.0); EOS # 0.2 10^3/uL (0.0-0.5); EOS % 2.3 % (0.0-3.0); HEMATOCRIT 33.2 % (36.0-47.0); HEMOGLOBIN 9.8 g/dl (12.0-15.5); LYMPH # 1.8 10^3/uL (1.5-5.0); LYMPH % 27.1 % (24.0-44.0); MEAN CORPUSCULAR HEMOGLOBIN 24.4 pg (27.0-33.0); MEAN CORPUSCULAR HGB CONC 29.5 g/dl (32.0-36.5); MEAN CORPUSCULAR VOLUME 82.8 fl (80.0-96.0); MONO % 15.3 % (0.0-5.0); NEUTROPHILS # 3.5 10^3/uL (1.5-8.5); NEUTROPHILS % 54.1 % (36.0-66.0); PLATELET COUNT, AUTOMATED 288 10^3/uL (150-450); RED BLOOD COUNT 4.01 10^6/uL (4.00-5.40); WHITE BLOOD COUNT 6.5 10^3/uL (4.0-10.0)
[2020-01-21 05:11] LABS: ALBUMIN 2.6 GM/DL (3.2-5.2); ALT/SGPT 10 U/L (12-78); BILIRUBIN,TOTAL 0.5 MG/DL (0.2-1.0); BLOOD UREA NITROGEN 15 MG/DL (7-18); CALCIUM LEVEL 8.2 MG/DL (8.8-10.2); CARBON DIOXIDE LEVEL 29 MEQ/L (21-32); CHLORIDE LEVEL 99 MEQ/L (98-107); CREATININE FOR GFR 0.95 MG/DL (0.55-1.30); GLOMERULAR FILTRATION RATE > 60.0 (>39); GLUCOSE, FASTING 158 MG/DL (70-100); POTASSIUM SERUM 4.6 MEQ/L (3.5-5.1); SODIUM LEVEL 133 MEQ/L (136-145); TOTAL PROTEIN 6.5 GM/DL (6.4-8.2)
--- NOTE | 2020-01-21 07:10 | IPNPDOC ---
Date Seen The patient was seen on 01/21/20. Progress Note SUBJECTIVE: doing well, states SOB much improved. Denies CP, palpitations, n/v/d. Ambulating with difficulty, working with PT. OBJECTIVE PHYSICAL EXAMINATION: VITAL SIGNS: Please see below. GENERAL: NAD HEENT: PERRLA CARDIOVASCULAR: RRR, normal S1, S2. RESPIRATORY: lungs CTAB. ABDOMINAL: soft, non tender, obese EXTREMITIES: no joint deformity, 1+ edema in BLE. NEUROLOGICAL: AAO x 3 PSYCHOLOGICAL: calm, cooperative LABORATORY DATA, IMAGING STUDIES, MICROBIOLOGY: Please see below. Echocardiogram: borderline LVH. LVEF 60%. Mild AV sclerosis. PROBLEMS: ASSESSMENT AND PLAN: 69 yo F with a hx of HTN, DM2, CKD 3, CHF, RLS, chronic pain syndrome, Hx of DVT/PE, admitted to [facility] for acute on chronic CHF exacerbation and hypertensive emergency. PROBLEMS: 1. Hypertensive emergency: BP much improved. asymptomatic. Edema significantly improved. Good UOP. Oral fluid restriction 1500 L/day. Renal artery dopplers pending. Nephrology service consulted. Lasix 40 mg BID, switch to torsemide. Outpatient follow up. F/u plasma, urine metanephrines, catecholamines, urine VMA. 2. Acute on chronic CHF exacerbation: improved. Edema 1+. C/w labetalol, torsemide. ECHO pending. Follows with Dr. Villagran outpatient - will need to follow up. Low salt diet. DC pollard cath. 3. DM2: uncontrolled. Check a1c in am. Insulin levemir 66 units qhs. ISS. Accuchecks. Consistent carb diet. 4. Chronic pain syndrome: home medications 5. RLS: ropinirole 6. CKD stage 3: nephrology on consult. 7. Anemia: IV iron while inpatient. DC on FeSO4 8. GERD ppx: ppi 9. Hx of DVT/PE: eliquis BID 10. DVT ppx: eliquis bid. DISPOSITION: likely DC home once PT cleared. VS, I&O, 24H, Fishbone Vital Signs/I&O Vital Signs Date Time Temp Pulse Resp B/P (MAP) Pulse Ox O2 Delivery O2 Flow Rate FiO2 01/21/20 04:00 97.3 71 16 148/84 (105) 99 Room Air 01/20/20 12:00 2.0 I&O- Last 24 Hours up to 6 AM 01/21/20 06:00 Intake Total 1916 ml Output Total 1901 ml Balance 15 ml Laboratory Data 24H LABS Laboratory Tests 2 01/20/20 16:00: Anion Gap 3L, Glomerular Filtration Rate > 60.0, Calcium Level 8.3L 01/21/20 04:30: Anion Gap 5L, Glomerular Filtration Rate > 60.0, Calcium Level 8.2L, Immature Granulocyte % (Auto) 0.3, Neutrophils (%) (Auto) 54.1, Lymphocytes (%) (Auto) 27.1, Monocytes (%) (Auto) 15.3H, Eosinophils (%) (Auto) 2.3, Basophils (%) (Auto) 0.9, Neutrophils # (Auto) 3.5, Lymphocytes # (Auto) 1.8, Monocytes # (Auto) 1.0H, Eosinophils # (Auto) 0.2, Basophils # (Auto) 0.1, Nucleated Red Blood Cells % (auto) 0.0, Total Bilirubin 0.5, Aspartate Amino Transf (AST/SGOT) 25, Alanine Aminotransferase (ALT/SGPT) 10L, Alkaline Phosphatase 82, Total Protein 6.5, Albumin 2.6L, Albumin/Globulin Ratio 0.7L CBC/BMP Laboratory Tests 01/20/20 16:00 01/21/20 04:30 Current Medications Current Medications Medications (Trade) Dose Ordered Sig/Heather Route PRN Reason Start Time Stop Time Status Last Admin Dose Admin Acetaminophen (Tylenol Tab) 650 mg Q4H PRN PO MILD PAIN OR FEVER 01/19/20 12:15 01/20/20 22:03 Apixaban (Eliquis) 5 mg BID PO 01/19/20 21:00 01/21/20 08:24 Aspirin (Ecotrin) 81 mg QHS PO 01/19/20 21:00 01/20/20 21:59 Dextrose (Dextrose 50%) 25 ml ASDIRECTED PRN IV SEE LABEL COMMENTS 01/19/20 19:00 01/20/20 08:47 Duloxetine HCl (Cymbalta) 60 mg QHS PO 01/19/20 21:00 01/20/20 21:59 Furosemide (LASIX injection) 60 mg BID@,17 IV 01/20/20 09:00 01/19/20 14:59 DC Furosemide (Lasix) 40 mg BID@09,17 PO 01/21/20 09:00 01/21/20 08:24 Furosemide (Lasix) 80 mg BID@ PO 01/20/20 09:00 01/20/20 23:30 DC 01/20/20 17:18 Gabapentin (Neurontin) 400 mg BID PO 01/19/20 21:00 01/21/20 08:24 Glucagon (Glucagon) 1 mg ASDIRECTED PRN SC SEE LABEL COMMENTS 01/19/20 19:00 Glucose (Glucose) 16GM'S (4 TABS) ASDIRECTED PRN PO SEE LABEL COMMENTS 01/19/20 19:00 01/20/20 08:35 Home Med (Med Rec Complete!) ASDIRECTED XX 01/20/20 05:00 01/20/20 05:13 DC Hydralazine HCl (Apresoline) 100 mg TID PO 01/19/20 21:00 01/21/20 08:22 Insulin Detemir (Levemir Insulin) 66 units QHS SC 01/19/20 21:00 01/20/20 21:59 Insulin Human Lispro (HumaLOG INSULIN) See Protocol Table AC SC 01/20/20 07:30 01/21/20 08:23 Insulin Human Lispro (HumaLOG INSULIN) See Protocol Table QHS SC 01/19/20 21:00 Iron 200 mg/ Sodium Chloride 110 ml @ 110 mls/hr DAILY@1100 IV 01/21/20 11:00 01/23/20 11:59 Labetalol HCl (Normodyne, Trandate) 200 mg BID PO 01/19/20 21:00 01/21/20 08:24 Omeprazole (PriLOSEC) 20 mg QHS PO 01/19/20 21:00 01/20/20 21:58 Potassium Chloride/Sodium Chloride 1,000 ml @ 100 mls/hr Q10H IV 01/20/20 23:30 Cancel Ropinirole HCl (Requip) 4 mg QHS PO 01/19/20 21:00 01/20/20 21:58 Rosuvastatin Calcium (Crestor) 10 mg Q48H PO 01/19/20 21:00 01/19/20 20:49 Sodium Chloride (Saline Lock Flush) 2 ml ASDIRECTED PRN IV SEE LABEL COMMENTS 01/20/20 11:45 Sodium Chloride (Saline Lock Flush) 2 ml SLF IV 01/20/20 14:00 01/21/20 03:59 Spironolactone (Aldactone) 25 mg QAM PO 01/20/20 09:00 01/21/20 08:23 Valsartan (Diovan) 320 mg DAILY PO 01/20/20 09:00 01/21/20 08:23 Allergies Coded Allergies: Anesthetics - Amide Type (Verified Adverse Reaction, Intermediate, nausea vomiting, 02/12/19) desflurane (Verified Adverse Reaction, Intermediate, "HALOGENATED ETHERS", 02/12/19) nausea vomiting Anesthetics - Kellen Type- Parabens (Verified Adverse Reaction, Unknown, nausea vomiting, 02/12/19) isoflurane (Verified Adverse Reaction, Unknown, "HALOGENATED ETHERS" nausea vomiting, 02/12/19) sevoflurane (Verified Adverse Reaction, Unknown, "HALOGENATED ETHERS" nausea vomiting, 02/12/19) JORGE ALBERTO DUARTE MD Jan 21, 2020 07:10
[2020-01-21 08:00] VITALS: BP 144/62
[2020-01-21] MEDS: **hydrALAZINE** 50 MG TAB PO SCH ×3 (08:22→20:38)
[2020-01-21] MEDS: HumaLOG INSULIN (NovoLOG) PER UNIT SC SCH ×4 (08:23→20:41)
[2020-01-21] MEDS: SPIRONOLACTONE 25 MG TAB PO SCH (08:23)
[2020-01-21] MEDS: VALSARTAN 80 MG TAB (DIOVAN) PO SCH (08:23)
[2020-01-21] MEDS: LABETALOL 200 MG TAB PO SCH ×2 (08:24→20:40)
[2020-01-21] MEDS: GABAPENTIN 400 MG CAP PO SCH ×2 (08:24→20:39)
[2020-01-21] MEDS: APIXABAN 5 MG TAB (ELIQUIS) PO SCH ×2 (08:24→20:41)
[2020-01-21] MEDS ORDERED: FUROSEMIDE 40 MG TAB PO SCH (09:00)
[2020-01-21] MEDS: IRON SUCROSE 200 MG in NS 100 ML IV SCH (11:12)
[2020-01-21 11:36] VITALS: BP 122/48
[2020-01-21] MEDS: ACETAMINOPHEN TAB 650MG DOSE (2X325MG) PO PRN (11:54)
[2020-01-21 13:20] LABS: HEMOGLOBIN A1c 10.1 %
[2020-01-21 15:55] VITALS: BP 132/56
[2020-01-21] MEDS: TORSEMIDE 20 MG TAB PO SCH (17:22)
[2020-01-21 20:00] VITALS: BP 134/52
[2020-01-21] MEDS: ASPIRIN 81 MG ENTERIC TAB PO SCH (20:39)
[2020-01-21] MEDS: ROSUVASTATIN 10 MG TAB (CRESTOR) PO SCH (20:39)
[2020-01-21] MEDS: DULoxetine 30 MG CAP (CYMBALTA) PO SCH (20:40)
[2020-01-21] MEDS: OMEPRAZOLE 20 MG CAP PO SCH (20:40)
[2020-01-21] MEDS: rOPINIRole 2MG TAB PO SCH (20:40)
[2020-01-21] MEDS: LEVEMIR (INSULIN DETEMIR) 1 UNITS/0.01ML SC SCH (20:41)
[2020-01-22] VITALS: BP 124/52
[2020-01-22 04:00] VITALS: BP 130/66
[2020-01-22 04:20] LABS: BASO % 0.7 % (0.0-1.0); EOS # 0.2 10^3/uL (0.0-0.5); EOS % 2.7 % (0.0-3.0); HEMATOCRIT 32.3 % (36.0-47.0); HEMOGLOBIN 9.8 g/dl (12.0-15.5); LYMPH # 1.5 10^3/uL (1.5-5.0); LYMPH % 25.4 % (24.0-44.0); MEAN CORPUSCULAR HEMOGLOBIN 24.6 pg (27.0-33.0); MEAN CORPUSCULAR HGB CONC 30.3 g/dl (32.0-36.5); MEAN CORPUSCULAR VOLUME 81.2 fl (80.0-96.0); MONO # 0.7 10^3/uL (0.0-0.8); MONO % 11.5 % (0.0-5.0); NEUTROPHILS # 3.5 10^3/uL (1.5-8.5); NEUTROPHILS % 59.4 % (36.0-66.0); PLATELET COUNT, AUTOMATED 294 10^3/uL (150-450); RED BLOOD COUNT 3.98 10^6/uL (4.00-5.40); WHITE BLOOD COUNT 5.9 10^3/uL (4.0-10.0)
[2020-01-22 04:43] LABS: BILIRUBIN,TOTAL 0.4 MG/DL (0.2-1.0); CALCIUM LEVEL 8.6 MG/DL (8.8-10.2); CREATININE FOR GFR 1.05 MG/DL (0.55-1.30); POTASSIUM SERUM 3.4 MEQ/L (3.5-5.1); TOTAL PROTEIN 6.5 GM/DL (6.4-8.2)
[2020-01-22] MEDS: SLF 3 ML SYR IV SCH ×2 (05:12→14:23)
[2020-01-22] MEDS: HumaLOG INSULIN (NovoLOG) PER UNIT SC SCH ×2 (07:30→12:23)
[2020-01-22 08:00] VITALS: BP 150/50
[2020-01-22] MEDS ORDERED: POTASSIUM CHLORIDE 10 MEQ SR TABLET PO ONE ×2 (08:00)
[2020-01-22] MEDS: **hydrALAZINE** 50 MG TAB PO SCH ×2 (08:52→14:00)
[2020-01-22] MEDS: ACETAMINOPHEN TAB 650MG DOSE (2X325MG) PO PRN (08:52)
[2020-01-22] MEDS: VALSARTAN 80 MG TAB (DIOVAN) PO SCH (08:53)
[2020-01-22] MEDS: GABAPENTIN 400 MG CAP PO SCH (08:53)
[2020-01-22] MEDS: SPIRONOLACTONE 25 MG TAB PO SCH (08:53)
[2020-01-22] MEDS: APIXABAN 5 MG TAB (ELIQUIS) PO SCH (08:54)
[2020-01-22] MEDS: LABETALOL 200 MG TAB PO SCH (08:54)
[2020-01-22] MEDS: TORSEMIDE 20 MG TAB PO SCH (08:54)
[2020-01-22] MEDS: IRON SUCROSE 200 MG in NS 100 ML IV SCH (10:53)
[2020-01-22] MEDS ORDERED: LABE20TAB PO (10:54)
[2020-01-22] MEDS ORDERED: ALDA25TA2 PO (10:54)
[2020-01-22] MEDS ORDERED: ELIQ5TAB PO (10:54)
[2020-01-22] MEDS ORDERED: HYDR50TA PO (10:54)
[2020-01-22] MEDS ORDERED: ACET1TAB55 PO (10:54)
[2020-01-22] MEDS ORDERED: TORS20TA2 PO (10:54)
[2020-01-22] MEDS ORDERED: DIOV80TA3 PO (10:54)
--- NOTE | 2020-01-22 11:18 | DS.PDOC ---
Discharge Summary General Date of Admission Jan 18, 2020 at 16:43 Date of Discharge 01/22/2020 Primary Care Physician: Leatha Metcalf Attending Physician: JORGE ALBERTO DUARTE MD Specialist/Consultants Involve: ALFONSO BURROWS MD Discharge Summary PROCEDURES PERFORMED DURING STAY: [None]. ADMITTING DIAGNOSES: 1.HYPERTENSIVE EMERGENCY 2. ACUTE ON CHRONIC CONGESTIVE HEART FAILURE EXACERBATION 3. TYPE 2 DM 4. CHRONIC PAIN SYNDROME 5. RLS 6. CKD STAGE 3 7. HX OF PE,DVT 8 GERD DISCHARGE DIAGNOSES: 1.HYPERTENSIVE EMERGENCY 2. ACUTE ON CHRONIC CONGESTIVE HEART FAILURE EXACERBATION 3. TYPE 2 DM 4. CHRONIC PAIN SYNDROME 5. RLS 6. CKD STAGE 3 7. HX OF PE,DVT 8 GERD COMPLICATIONS/CHIEF COMPLAINT: Shortness of breath. HISTORY OF PRESENT ILLNESS: Patient is a 69 yo F with a PMHx of resistant HTN, CHF, lymphedema, DM Type 2, RLS, CKD Stage III, chronic pain syndrome, who presented to the ED from pain clinic with SBP > 245 mmHg. She complained of increasing SOB, lower extremity swelling, unsteadiness on her feet. She denied cough, fever, chills, n/v/d, dizziness or lightheadedness. She states that she has been consuming greater quantities of salty fast food and has been poorly compliant with her medications. HOSPITAL COURSE: In the ED her SBP > 230 mmHg. Trop was mildly elevated at 0.05. EKG showed chronic changes. She was given her home medications which included valsartan 320 mmHg, HCTZ 25 mg, hydralazine 50 mg as well as labetalol IV x 2. Discussion with Dr. Grover took place, without formal consult. She was given a dose of lasix 80 mg IV, 1 mg moprhine and a pollard catheter was placed. She continued to be diuresed with IV lasix, and was subsequently switched to PO dosing of 40 mg BID. He home BP medications were continued. Nephrology service Dr. Barnes was consulted for assistance in management of resistant HTN. As she developed hypokalemia from ongoing diuresis, it was replaced as needed, and spironolactone 25 mg daily was added to her medication regimen. Renal ultrasound was non contributory, but renal artery doppler indicated questionable bilateral calcification with elevated resistive indices of intrarenal arteries of both kidneys. Bilateral duplex of lower extremities showed no DVTs. Plasma and urine metanephrines and catecholamines are pending, as well as urine VMA. Patient was also evaluated by PT/OT services and cleared for discharge to home. Instruction to follow up with PCP Dr. Metcalf, drawer maker Dr. Burrows and her technical assistance consultant Dr. Villagran were given. DISCHARGE MEDICATIONS: Please see below. ALLERGIES: Please see below. PHYSICAL EXAMINATION ON DISCHARGE: VITAL SIGNS: Please see below. GENERAL: NAD, comfortable, sitting up in chair HEENT: PERRLA, EOMI NECK: supple, no JVD CARDIOVASCULAR EXAMINATION: RRR, normal S1, S2 RESPIRATORY EXAMINATION: lungs CTAB ABDOMINAL EXAMINATION: obese, soft, non tender EXTREMITIES: 1+ edema, chronic venous stasis changes SKIN: xerosis. warm, normal turgor NEUROLOGICAL EXAMINATION: no focal neuro deficits PSYCHIATRIC EXAMINATION: calm, cooperative LABORATORY DATA: Please see below. IMAGING: please see hospital course. PROGNOSIS: good ACTIVITY: to use walker DIET: 2g salt restriction, 2L per day PO intake restriction DISCHARGE PLAN: DC home, with PCP and specialist follow up. DISPOSITION: Home DISCHARGE INSTRUCTIONS: 1. Follow up with PCP 2. Follow up with Medical Laboratory Technical Officer Dr. Burrows 3. Follow up with Dr. Villagran 4. Avoid fast food, heavily salted diet. 5. limit 2g of salt per day 6. limit water intake to 2L per day. ITEMS TO FOLLOWUP ON ON OUTPATIENT: 1. Specialist follow up (nephro, cardio). 2. Check BMP, had mild hypokalemia, spironolactone added on DC. DISCHARGE CONDITION: [Stable]. TIME SPENT ON DISCHARGE: Greater than [30] minutes. Vital Signs/I&Os Vital Signs Date Time Temp Pulse Resp B/P (MAP) Pulse Ox O2 Delivery O2 Flow Rate FiO2 01/22/20 08:54 72 01/22/20 08:52 150/62 01/22/20 08:00 97.8 18 97 Room Air 01/20/20 12:00 2.0 I&O- Last 24 Hours up to 6 AM 01/22/20 06:00 Intake Total 1270 ml Output Total 1450 ml Balance -180 ml Laboratory Data Labs 24H Laboratory Tests 2 01/22/20 04:05: Immature Granulocyte % (Auto) 0.3, Neutrophils (%) (Auto) 59.4, Lymphocytes (%) (Auto) 25.4, Monocytes (%) (Auto) 11.5H, Eosinophils (%) (Auto) 2.7, Basophils (%) (Auto) 0.7, Neutrophils # (Auto) 3.5, Lymphocytes # (Auto) 1.5, Monocytes # (Auto) 0.7, Eosinophils # (Auto) 0.2, Basophils # (Auto) 0.0, Nucleated Red Blood Cells % (auto) 0.0, Anion Gap 1L, Glomerular Filtration Rate 55.0, Calcium Level 8.6L, Total Bilirubin 0.4, Aspartate Amino Transf (AST/SGOT) 11, Alanine Aminotransferase (ALT/SGPT) 10L, Alkaline Phosphatase 83, Total Protein 6.5, Albumin 3.0L, Albumin/Globulin Ratio 0.9L CBC/BMP Laboratory Tests 01/22/20 04:05 Discharge Medications Scheduled Apixaban (Eliquis) 5 Mg Tablet, 5 MG PO BID Aspirin (Aspirin EC) 81 Mg Tablet.dr, 81 MG PO QHS, (Reported) Duloxetine Hcl (Duloxetine HCl) 60 Mg Capsule.dr, 60 MG PO QHS, (Reported) Gabapentin (Gabapentin) 400 Mg Capsule, 400 MG PO BID, (Reported) Hydralazine HCl (Hydralazine HCl) 50 Mg Tablet, 50 MG PO Q8H Insulin Glargine,Hum.rec.anlog (Lantus Solostar) 100 Unit/1 Ml Insuln.pen, 66 UNITS SC QHS, (Reported) Insulin Human Lispro (Humalog) 100 Unit/1 Ml Vial, 1 DOSE SC AC, (Reported) Labetalol HCl (Labetalol HCl) 200 Mg Tablet, 200 MG PO BID Metformin HCl (Metformin HCl) 1,000 Mg Tablet, 1,000 MG PO BID, (Reported) Omeprazole (Omeprazole) 20 Mg Capsule.dr, 20 MG PO QHS, (Reported) Ropinirole HCl (Ropinirole HCl) 4 Mg Tablet, 4 MG PO QHS, (Reported) Rosuvastatin Calcium (Rosuvastatin Calcium) 10 Mg Tablet, 10 MG PO Q2D, (Reported) Spironolactone (Aldactone) 25 Mg Tablet, 25 MG PO QAM Torsemide (Torsemide) 20 Mg Tablet, 20 MG PO BID@, Valsartan (Diovan) 80 Mg Tablet, 320 MG PO DAILY Scheduled PRN Acetaminophen (Acetaminophen) 325 Mg Tablet, 650 MG PO Q4H PRN for MILD PAIN OR FEVER Allergies Coded Allergies: Anesthetics - Amide Type (Verified Adverse Reaction, Intermediate, nausea vomiting, 02/12/19) desflurane (Verified Adverse Reaction, Intermediate, "HALOGENATED ETHERS", 02/12/19) nausea vomiting Anesthetics - Kellen Type- Parabens (Verified Adverse Reaction, Unknown, nausea vomiting, 02/12/19) isoflurane (Verified Adverse Reaction, Unknown, "HALOGENATED ETHERS" nausea vomiting, 02/12/19) sevoflurane (Verified Adverse Reaction, Unknown, "HALOGENATED ETHERS" nausea vomiting, 02/12/19) JORGE ALBERTO DUARTE MD Jan 22, 2020 11:17
[2020-01-22 12:00] VITALS: BP 142/50
[2020-01-22 14:00] VITALS: BP 128/62
[2020-01-23 23:09] LABS: BLOOD UREA NITROGEN 31 MG/DL (7-18); CALCIUM LEVEL 8.5 MG/DL (8.8-10.2); CARBON DIOXIDE LEVEL 25 MEQ/L (21-32); CHLORIDE LEVEL 110 MEQ/L (98-107); CREATININE FOR GFR 1.03 MG/DL (0.55-1.30); GLOMERULAR FILTRATION RATE 56.2 (>39); GLUCOSE, FASTING 110 MG/DL (70-100); POTASSIUM SERUM 3.8 MEQ/L (3.5-5.1); SODIUM LEVEL 141 MEQ/L (136-145)
[2020-01-23 23:15] LABS: MAGNESIUM LEVEL 1.5 MG/DL (1.8-2.4); TROPONIN I 0.05 NG/ML (< 0.10)
[2020-01-25 06:20] LABS: DOPAMINE PLASMA <30 pg/mL (0-48); EPINEPHRINE PLASMA 182 pg/mL (0-62); METANEPHRINE PLASMA 24.9 pg/mL (0.0-88.0); NOREPINEPHRINE PLASMA 618 pg/mL (0-874); NORMETANEPHRINE PLASMA 38.5 pg/mL (0.0-191.8)
--- NOTE | 2020-02-02 11:45 | CR ---
DATE: 01/20/2020 REQUESTING PHYSICIAN: Dr. Amos Limon MD. CONSULTING PHYSICIAN: Dr. Bates REASON FOR CONSULTATION: Management of congestive heart failure (CHF) and hypertension. CHIEF COMPLAINT: Patient presented to the hospital with elevated blood pressures and congestive heart failure. HISTORY OF PRESENT ILLNESS: Rose Mary Gilbert is a 69-year-old female with past medical history of hypertension, diabetes, congestive heart failure. She is ordinally from [place] and follows up with Dr. Metcalf, who is her primary care, and her large animal husbandry technician is Dr. Villagran. She has not seen her large animal husbandry technician for many months. She was actually in the pain clinic before presenting to the emergency room, and over there she was found to have very elevated blood pressures. She was transferred to the emergency room, where she was in hypertensive emergency with acute congestive heart failure. She was admitted under the hospital service and was started on antihypertensive medications along with diuretics for CHF. Despite all the diuretic regimen and antihypertensives, she kept on having fluctuating blood pressures with systolics in 170s and 180s. Nephrology service was called for further help in the management of this patient with congestive heart failure and elevated blood pressures. I saw and evaluated the patient today morning at the bedside. She was sitting up in the bed. She reports that she is feeling much better today as compared with the day of admission. She reports her edema is getting better, and shortness of breath is improving. MEDICAL HISTORY: 1. Obesity. 2. Congestive heart failure. Left ventricular ejection fraction is not known. 3. History of hypertension. 4. Diabetes mellitus, type 2. 5. Paroxysmal atrial fibrillation. SURGICAL HISTORY: 1. Left carotid endarterectomy. 2. History of shoulder surgery. 3. Appendectomy in the past. ALLERGIES: She is allergic to anesthetics. FAMILY HISTORY: No significant family history of end stage renal disease requiring hemodialysis. SOCIAL HISTORY: She lives at home. She denies any smoking, illicit drug abuse, or alcohol abuse. REVIEW OF SYSTEMS: CONSTITUTIONAL: Patient denies any fevers or chills. EYES: She denies any blurry vision or double vision. ENT: She denies any dysphagia or odynophagia. CARDIOVASCULAR: She denies any chest pain or palpitations. At this time she does report improving lower extremity edema. RESPIRATORY: She was initially short of breath, but she reports her shortness of breath is getting better. GASTROINTESTINAL: She denies any nausea or vomiting. GENITOURINARY: She denies any dysuria or hematuria. She actually has in indwelling Lane catheter at this time. MUSCULOSKELETAL: She denies any muscle aches and pains. SKIN: She denies any rashes or ulcers. PSYCHIATRIC: She denies any depression or anxiety. HEMATOLOGY/ONCOLOGY: She denies any easy bleeding or bruising. CENTRAL NERVOUS SYSTEM: She denies any strokes or seizures. All other review of systems is negative. PHYSICAL EXAMINATION: GENERAL: Patient is awake, alert, oriented times three, sitting up in the bed. VITAL SIGNS: Temperature 97.8 degrees Fahrenheit, blood pressure 152/82, pulse is 73; highest blood pressure was last night at 179/78. Respirations rate of 18, saturating 99% on room air. Intake and output: Her urine output recorded since overnight is 1125 mL. Weight in the bed scale is 124 kg. HEAD AND NECK: Extraocular muscles intact. Pupils equally round and reactive to light. Mucous membranes are moist. Neck is supple. She has moderately elevated jugular venous distention (JVD). CARDIOVASCULAR: S1 S2, regular rate. Edema 2+ of the bilateral lower extremities. RESPIRATORY: Mildly decreased breath sounds at the bases. Otherwise no active rales or rhonchi. ABDOMEN: Obese. Positive bowel sounds. Nontender. She has old surgical scar in the suprapubic regio. GENITOURINARY: She has an indwelling Lane catheter. Urine in the bag is clear. MUSCULOSKELETAL: She has chronic venous stasis changes of the bilateral lower extremities, 2+ edema of the bilateral lower extremities. CENTRAL NERVOUS SYSTEM: No focal deficit. Power is 5/5 in all extremities. PSYCHIATRIC: Normal mood and affect. LABORATORY REVIEW: CBC showed a WBC 7.1, hemoglobin 9.9, platelets are 313. BMP showed sodium 138, potassium 2.9, chloride 97, bicarbonate 36, BUN 15, creatinine is 0.85, calcium 8.2. Iron levels are pending. ProBNP is 4111. Albumin is 2.7. Epinephrine and norepinephrine levels are pending. IMAGING: Renal ultrasound results from the chart were reviewed, and there was no acute pathology. CURRENT INPATIENT MEDICATIONS: Patient's medications were all reviewed by myself. She is currently on Tylenol as needed, Eliquis 5 mg by mouth twice a day, aspirin 81 mg by mouth daily, Cymbalta 60 mg every night. She is on Lasix 80 mg by mouth twice a day, gabapentin 400 mg by mouth twice a day, hydralazine 100 mg by mouth three times a day, Levemir 66 units every night, insulin Lispro, labetalol 200 mg by mouth twice a day, Prilosec 20 mg by mouth daily. She was given potassium chloride 40 mEq by mouth in the morning and another dose in the afternoon. Requip 4 mg every night and rosuvastatin 10 mg by mouth every 48 hours. I have added spironolactone 25 mg by mouth daily, and she is already on valsartan 320 mg by mouth daily. ASSESSMENT AND PLAN: 1. Acute decompensated congestive heart failure. Left ventricular (LV) ejection fraction is not known. Most likely patient has diastolic dysfunction, and patient has clinical signs of right heart failure. Continue aggressive diuresis with Lasix; however, we need to add spironolactone, which has already been added, because patient is getting hypokalemic. Volume status is getting better. 2. Hypokalemia. It is secondary to aggressive diuresis. Patient has already been given potassium chloride orally. As mentioned above, spironolactone has been added. 3. Hypertensive emergency. Most likely it was secondary to fluid overload. Patient is already on labetalol, hydralazine, valsartan. Volume status is getting better with diuretics. Blood pressures are getting better. If needed, patient will be started on isosorbide, but I believe her blood pressure is going to get better once we get more fluid off of her. Echocardiogram has been ordered. Metanephrine levels are also pending. Renal artery Doppler result is also pending. 4. Atrial fibrillation. Patient is already on Eliquis and aspirin. Heart rate is controlled. 5. Diabetes mellitus, type 2. Patient is already on Levemir and insulin sliding scale. Glucose is controlled. She is already on valsartan for renal protection and for congestive heart failure (CHF) and hypertension as well. 6. Anemia. I have ordered the iron levels. If iron levels are low, patient will be given IV iron. Thank you for involving me in the care of that is patient. I shall be happy to follow the patient along with you tomorrow morning. [facility]
--- NOTE | 2020-02-17 15:17 | ECGEPIP ---
SINUS RHYTHM POSSIBLE LEFT ATRIAL ENLARGEMENT INCOMPLETE RIGHT BUNDLE BRANCH BLOCK NONSPECIFIC T-WAVE ABNORMALITY BORDERLINE ECG SEE SCANNED DOWNTIME REPORT MTDD
[2020-03-01 11:06] LABS: INR 1.23; PARTIAL THROMBOPLASTIN TIME 28.8 SECONDS (24.2-38.5); PROTHROMBIN TIME 15.8 SECONDS (12.5-14.3)
[2020-03-02 16:48] LABS: BASO # 0.1 10^3/uL (0.0-0.2); BASO % 0.9 % (0.0-1.0); EOS # 0.1 10^3/uL (0.0-0.5); HEMATOCRIT 33.7 % (36.0-47.0); HEMOGLOBIN 10.2 g/dl (12.0-15.5); LYMPH # 1.4 10^3/uL (1.5-5.0); LYMPH % 23.3 % (24.0-44.0); MEAN CORPUSCULAR HGB CONC 30.3 g/dl (32.0-36.5); MEAN CORPUSCULAR VOLUME 82.6 fl (80.0-96.0); MONO # 0.6 10^3/uL (0.0-0.8); MONO % 10.1 % (0.0-5.0); NEUTROPHILS # 3.8 10^3/uL (1.5-8.5); NEUTROPHILS % 64.5 % (36.0-66.0); PLATELET COUNT, AUTOMATED 301 10^3/uL (150-450); RED BLOOD COUNT 4.08 10^6/uL (4.00-5.40); WHITE BLOOD COUNT 5.8 10^3/uL (4.0-10.0)
--- NOTE | 2020-03-11 12:34 | IPN ---
DATE: 01/21/2020. SUBJECTIVE: Patient was seen and examined at the bedside today morning. Patient is afebrile, hemodynamically stable. Blood pressures are significantly better. Lower extremity edema is improving. She still reports weakness in the lower extremities and difficulty with ambulation. OBJECTIVE: Vital signs: Temperature 97 degrees Fahrenheit, blood pressure 144/62, pulse 72, respiratory rate of 18, saturating 98% on room air. Intake and output: Urine output recorded as 2.2 liters yesterday, 675 mL so far today. Since overnight, weight on the bed scale is 123.5 kg. PHYSICAL EXAMINATION: GENERAL: Patient is awake, alert and oriented x3, lying in bed in no apparent distress. HEAD & NECK: Extraocular muscles intact. Pupils equally round and reactive to light. Mucous membranes are moist. Neck is supple. There is mildly elevated JVD. CARDIOVASCULAR: S1, S2, regular rate, 2+ edema of the bilateral lower extremities, which is improving. RESPIRATORY: Chest is clear to auscultation bilaterally. Bilateral equal air entry. No rales or rhonchi. ABDOMEN: Obese. Positive bowel sounds. Nontender. No organomegaly. MUSCULOSKELETAL: She has chronic venous stasis changes in the bilateral lower extremities and edema of the lower extremities as mentioned above. CENTRAL NERVOUS SYSTEM: No focal deficit. Power is 5/5 in bilateral upper extremities, and she has decreased power in the lower extremities because of weakness. LABORATORY REVIEW: CBC showed WBC 6.5, hemoglobin 9.8, platelets 288,000. BMP showed sodium 133, potassium 4.6, chloride 99, bicarb 29, BUN 15, creatinine 0.9, calcium 8.2. Albumin 2.6. CURRENT INPATIENT MEDICATIONS: Patients medications were all reviewed by myself. Her Lasix dose was decreased to 40 mg p.o. twice a day, however, I stopped Lasix and I started the patient on Torsemide 20 mg p.o. twice a day. She was started on Spironolactone 25 mg p.o. daily yesterday. I started her on Venofer 200 mg I.V. daily for a total of three doses. ASSESSMENT & PLAN: 1. Hypertension with hypertensive heart disease: Her blood pressures are significantly better controlled. Continue current dose of Torsemide and Spironolactone. Continue Labetalol 200 mg p.o. twice a day, Hydralazine 100 mg p.o. three times a day, Valsartan 320 mg p.o. daily. 2. Decompensated congestive heart failure: Echocardiogram result is not available, most likely patient has diastolic dysfunction. Volume status is getting better. Diuretics have been changed to oral diuretics. Continue Torsemide 20 mg p.o. b.i.d. along with Spironolactone 25 mg p.o. daily. Further optimization will be done based upon patient's response to this dose. 3. Iron deficiency anemia: Patient has been started on Venofer 200 mg I.V. daily for a total of three doses. DISPOSITION: Patient is optimized to be discharged from nephrology standpoint, and she will need to follow-up with nephrology within two weeks after discharge from the hospital. [facility]
--- NOTE | 2020-03-11 12:35 | IPN ---
DATE: 01/22/2020 SUBJECTIVE: Patient was seen and examined at the bedside today morning. She is afebrile, hemodynamically stable. Her leg swelling is getting better. Blood pressure is better optimized. She actually is not receiving Hydralazine dosages because of holding parameter. She otherwise denies any active complaints and she is working with physical therapy to improve her strength. OBJECTIVE: Vital signs: Temperature 97.8 degrees Fahrenheit, blood pressure 150/62, pulse 74, respiratory rate of 18, saturating 97% on room air. Intake and output: Urine output recorded as 2.1 liters yesterday, 200 mL so far today. Since overnight, weight on the bed scale is stable at 123.7 kg. PHYSICAL EXAMINATION: GENERAL: Patient is awake, alert and oriented x3, sitting up in the bed in no apparent distress. HEAD & NECK: Extraocular muscles intact. Pupils equally round and reactive to light. Mucous membranes are moist. Neck is supple. There is no JVD. CARDIOVASCULAR: S1, S2, regular rate, 1+ edema of the bilateral lower extremities. RESPIRATORY: Chest is clear to auscultation bilaterally. Bilateral equal air entry. No rales or rhonchi. ABDOMEN: Soft, obese. Positive bowel sounds. Nontender. No organomegaly. MUSCULOSKELETAL: Patient has chronic venous stasis changes of the bilateral lower extremities, 1+ edema of the lower extremities. CENTRAL NERVOUS SYSTEM: No focal deficit. Power is 5/5 in bilateral upper extremities. LABORATORY REVIEW: CBC showed WBC 5.9, hemoglobin 9.8, platelets 294,000. BMP showed sodium 135, potassium 3.4, chloride 101, bicarb 33, BUN 16, creatinine 1.05. Albumin 3. CURRENT INPATIENT MEDICATIONS: Patients medications were all reviewed by myself. She continues to be on I.V. Venofer. She is currently on Torsemide 20 mg p.o. twice a day along with Spironolactone 25 mg p.o. daily. She was given a dose of 40 mEq p.o. in the morning of potassium. ASSESSMENT & PLAN: 1. Hypertension with hypertensive heart disease: Blood pressure is very well optimized. Continue current dose of Hydralazine 50 mg p.o. every 8 hourly, which was decreased today morning by myself because she was not receiving full dose of Hydralazine because of holding parameters. Continue Labetalol 200 mg p.o. twice a day. Continue current diuretics along with the Valsartan 320 mg p.o. daily. 2. Acute decompensated congestive heart failure: Echocardiogram report is not available. LVEF is not known, most likely she has diastolic dysfunction. Continue current dose of Torsemide 20 mg p.o. twice a day. She is on Spironolactone 25 mg p.o. daily. If she remains hypokalemic, then dose can be increased to 25 mg twice a day. Continue Valsartan, Labetalol and Hydralazine. 3. Hypokalemia: Continue Spironolactone 25 mg. She was given potassium today morning. If she remains hypokalemic, Spironolactone dose will be increased. 4. Iron deficiency anemia: Patient is receiving I.V. Venofer. Hemoglobin level is stable and improving. 5. Insulin dependent diabetes: Patient is currently on insulin sliding scale and Levemir. Glucose levels are controlled. DISPOSITION: Patient is optimized from nephrology standpoint. If she is cleared by physical therapy, she can be discharged and she can follow-up with nephrology as an outpatient. [facility]
--- NOTE | 2020-03-11 14:15 | ECHO ---
DATE OF PROCEDURE: 01/20/2020 Age: 69 Gender: Female Height: 183 cm Weight: 124 kg REFERRING PHYSICIAN: Mary Bates MD INDICATION: Heart failure, unspecified. MEASUREMENTS: 2D Measurements: Interventricular septum 1.62 cm Posterior wall 1.37 cm Left ventricle diastole 4.6 cm Aortic root 3.1 cm Left atrium 4.7 cm Inferior vena cava 2.3 cm Doppler Measurements: No aortic regurgitation No aortic stenosis Trace mitral regurgitation No mitral stenosis Mild tricuspid regurgitation No pulmonic regurgitation Aortic valve velocity 135 cm/s LVOT velocity 127 cm/s LVOT VTI 31.5 cm Mitral E velocity 111 cm/s Mitral A velocity 71.6 cm/s Mitral deceleration time 207 msec Estimated right ventricular systolic pressure 41-46 mmHg Estimated right atrial pressure 5-10 mmHg Pulmonary acceleration time 148 msec MITRAL ANNULAR TISSUE DOPPLER E prime lateral 6.0 cm/s, E prime septal 4.7 cm/s DESCRIPTION: Rhythm was sinus. Image quality was fair. This was a 2D, M-mode, color flow Doppler, and pulsed wave Doppler examination including mitral annular tissue Doppler. CONCLUSIONS: * Moderate concentric left ventricular hypertrophy. Normal regional LV wall motion and wall thickening. Normal LV systolic function. LVEF 65% by visual assessment. Grade 2 LV diastolic dysfunction (pseudonormal LV filling pattern). * Moderate left atrial dilatation. * Suggestive of moderate elevation of estimated right ventricle systolic pressure (41-46 mmHg). Normal right ventricle size and systolic function. Mild tricuspid regurgitation. * Moderate mitral annular calcification. Trace mitral regurgitation. No mitral stenosis. * Mild aortic valve sclerosis with a 3-cuspid aortic valve. No aortic regurgitation. * Very small pericardial effusion seen over the posterior aspect of the AV groove (0.8 cm). No diastolic chamber collapse. MTDD
[2020-04-10 16:16] LABS: ALBUMIN 3.2 GM/DL (3.2-5.2); ALT/SGPT 11 U/L (12-78); BILIRUBIN,DIRECT 0.3 MG/DL (0.0-0.2); BILIRUBIN,TOTAL 0.6 MG/DL (0.2-1.0); BLOOD UREA NITROGEN 12 MG/DL (7-18); CALCIUM LEVEL 8.8 MG/DL (8.8-10.2); CARBON DIOXIDE LEVEL 31 MEQ/L (21-32); CHLORIDE LEVEL 99 MEQ/L (98-107); CK-MB VALUE MASS 2.4 NG/ML (<3.6); CPK CREATINE PHOSPHOKINASE 76 U/L (26-192); FREE T4 1.29 NG/DL (0.76-1.46); GLOMERULAR FILTRATION RATE > 60.0 (>39); GLUCOSE, FASTING 378 MG/DL (70-100); MB/CK RELATIVE INDEX 3.16 (< OR =4); NT-PRO BNP 7053 PG/ML (<125); POTASSIUM SERUM 3.8 MEQ/L (3.5-5.1); SODIUM LEVEL 133 MEQ/L (136-145); TOTAL PROTEIN 6.8 GM/DL (6.4-8.2); TROPONIN I 0.05 NG/ML (< 0.10)
== END 2020-01-22 14:56 | disposition home or self-care (01) | DRG 194 ==
LOC: M ED 13:30 → M PCU 16:43
PROVIDERS: ADMIT Internal Medicine; ATTEND Family Medicine
DX: I13.0 Hypertensive heart and chronic kidney disease with heart failure and stage 1 through stage 4 chronic kidney disease, or unspecified chronic kidney disease (principal); N18.3 Chronic kidney disease, stage 3 (moderate); G89.29 Other chronic pain; K21.9 Gastro-esophageal reflux disease without esophagitis; G25.81 Restless legs syndrome; E11.9 Type 2 diabetes mellitus without complications; Z86.711 Personal history of pulmonary embolism; Z86.718 Personal history of other venous thrombosis and embolism; Z79.899 Other long term (current) drug therapy; Z79.82 Long term (current) use of aspirin; Z88.8 Allergy status to other drugs, medicaments and biological substances; E66.9 Obesity, unspecified; I16.0 Hypertensive urgency; I50.9 Heart failure, unspecified; I48.0 Paroxysmal atrial fibrillation; Z88.4 Allergy status to anesthetic agent; E87.6 Hypokalemia; D64.9 Anemia, unspecified

== ENCOUNTER → 2020-02-17 | Outpatient (CLI) | payer BC, MEDICARE ==
[~2020-02-17] MED LIST changes: +ACET1TAB55 PO; +ALDA25TA2 PO; +DIOV80TA3 PO; +DULO1CAP6 PO; +ELIQ5TAB PO; +HYDR100T PO; +HYDR50TA PO; +LABE20TAB PO; +METF10004 PO; +OMEP-218 PO; +ROPI4TAB3 PO; +ROSU10TA6 PO; +TORS20TA2 PO
== END ==
LOC: M PAIN 14:23
PROVIDERS: ATTEND Family Medicine
DX: M46.1 Sacroiliitis, not elsewhere classified (principal)

== ENCOUNTER → 2020-03-17 | Outpatient (CLI) | payer BC, MEDICARE ==
--- NOTE | 2020-03-21 10:26 | ECWPNPC ---
PATIENT NAME: CHRIS LONGORIA : 1950 GENDER: FEMALE VISIT DATE: 03/17/2020 DISCHARGE DATE: 03/17/20 1535 VISIT LOCKED DATE TIME: PHYSICIAN: MERY FLORES RESOURCE: MERY FLORES REASON FOR APPOINTMENT 1. BACK PAIN HISTORY OF PRESENT ILLNESS DEPRESSION SCREENIN-YEAR-OLD FEMALE IN FOR CHRONIC PAIN FOLLOW-UP. SHE RATES HER PAIN CURRENTLY AT A 5 OUT OF 10 AND DESCRIBES IT THROBBING. SHE WAS STARTED ON BACLOFEN AT LAST CLINIC VISIT AND ADMITS TODAY THAT THIS HAS BEEN HELPFUL. PHQ-2 (2015 EDITION) LITTLE INTEREST OR PLEASURE IN DOING THINGS?NOT AT ALL FEELING DOWN, DEPRESSED, OR HOPELESS?NOT AT ALL TOTAL SCORE0 GENERAL: -. FALL RISK SCREENING: SCREENING :TWO OR MORE FALLS WITHOUT INJURY IN THE PAST YEAR PAIN SCREENING: PATIENT HAS A COMPLAINT OF ACUTE OR CHRONIC PAIN :YES LOCATION OF PAIN:LOW BACK, LEG(S) INTENSITY OF PAIN (SCALE OF 1 TO 10):5 LESS PAIN WHEN SITTING WHAT DOES YOUR PAIN FEEL LIKE:THROBBING DURATION:CONTINOUS PAIN IS INCREASED BY:ACTIVITIES, PROLONGED STANDING PAIN IS DECREASED BY:USE OF PAIN MEDICATIONS NURSING NOTE: -. PAIN CENTER INTAKE QUESTIONS: DO YOU HAVE A HISTORY OF MRSA? :NO DO YOU TAKE A BLOOD THINNERS? :YES DO YOU HAVE ANY BLEEDING DISORDERS? :NO ANY NEW NUMBNESS OR WEAKNESS IN YOUR LEGS OR ARMS? :YES WEAKNESS IN LEGS ANY PACEMAKER,DEFIBRILLATOR, OR DORSAL COLUMN STIMULATOR? :NO DO YOU HAVE ANY RASHES OR OPEN SORES? :NO ARE YOU ALLERGIC TO IV DYE? :NO ARE YOU DIABETIC? :YES ANY NEW PROBLEMS WITH YOUR MEDICATIONS? :NO HAVE YOU RECEIVED A VACCINE IN THE PAST 30 DAYS? :NO DO YOU PLAN TO RECEIVE A VACCINE IN THE NEXT 21 DAYS? :NO DO YOU NEED ANY PRESCRIPTION? :NO DO YOU TAKE ANY IMMUNOSUPPRESSIVE MEDICATIONS? :NO IS THERE A CHANCE YOU COULD BE ? :NO ARE YOU BREAST FEEDING? :NO CURRENT MEDICATIONS TAKING VALSARTAN-HYDROCHLOROTHIAZIDE 320-25 MG TABLET 1 TABLET ORALLY ONCE A DAY, NOTES: 11/02 9P TAKING DULOXETINE HCL 60 MG CAPSULE DELAYED RELEASE PARTICLES 1 CAPSULE ORALLY ONCE A DAY, NOTES: 11/02 9P TAKING LABETALOL HCL 200 MG TABLET 1 TABLET ORALLY TWICE A DAY, NOTES: 11/02 7P TAKING HYDRALAZINE HCL 50 MG TABLET 1 TABLET WITH FOOD ORALLY TID, NOTES: 11/02 9P TAKING LANTUS SOLOSTAR 100 UNIT/ML SOLUTION PEN-INJECTOR 66 UNITS SUBCUTANEOUS DAILY, NOTES: 11/02 7P TAKING ASPIRIN 81 81 MG TABLET CHEWABLE 1 TABLET ORALLY ONCE A DAY, NOTES: 11/02 9P TAKING ROPINIROLE HCL 1 MG TABLET 4 TABLET 1 TO 3 HOURS BEFORE BEDTIME ORALLY ONCE A DAY, NOTES: 11/02 TAKING OMEPRAZOLE 20 MG CAPSULE DELAYED RELEASE 1 CAPSULE ORALLY ONCE A DAY, NOTES: 11/02 TAKING GABAPENTIN 400 MG CAPSULE 1 CAPSULE ORALLY BID, NOTES: 11/02 TAKING YONI ALLERGY 180 MG TABLET 1 TABLET NEEDED ORALLY ONCE A DAY, NOTES: 3 WEEKS TAKING HUMALOG 100 UNIT/ML SOLUTION SUBCUTANEOUS SLIDING SCALE BEFORE MEALS, NOTES: 11/02 9P TAKING ROSUVASTATIN CALCIUM 10 MG TABLET 1 TABLET ORALLY EVERY OTHER DAY, NOTES: 11/01 AM TAKING TYLENOL WITH CODEINE #3 300-30 MG TABLET 1 TABLET NEEDED ORALLY EVERY 6 HRS, NOTES: 11/02 TAKING ELIQUIS 5 MG TABLET DIRECTED ORALLY BID, NOTES: 11/02 TAKING FLUOCINONIDE 0.05 % SOLUTION 1 APPLICATION EXTERNALLY NIGHTLY TO SCALP NEEDED FOR ITCH NOT-TAKING TIZANIDINE HCL 4 MG TABLET 1 TABLET NEEDED ORALLY BEFORE BEDTIME AND IN 4 HRS IF NEEDED MDD=2, NOTES: 11/02 10P NOT-TAKING AMLODIPINE BESYLATE 10 MG TABLET 1 TABLET ORALLY ONCE A DAY, NOTES: 11/02 9A NOT-TAKING METFORMIN HCL 1000 MG TABLET 1 TABLET WITH A MEAL ORALLY BID, NOTES: 11/02 7 NOT-TAKING SIMVASTATIN 20 MG TABLET 1 TABLET IN THE EVENING ORALLY ONCE A DAY MEDICATION LIST REVIEWED AND RECONCILED WITH THE PATIENT PAST MEDICAL HISTORY BULGING DISCS- CERVICAL ARTHRITIS KNEES/HANDS SPINAL STENOSIS LYMPHEDEMA LOWER EXTREMITIES DIABETES TYPE 2 DIABETIC NEUROPATHY HIGH BLOOD PRESSURE DIVERTICULITIS FACTOR V LEYDEN SLEEP APNEA SEPSIS AFTER TOE SURGERY DECEMBER 2018 DVT IN LUNGS ALLERGIES GENERAL ANESTHESIA: NAUSEA/VOMITING - SIDE EFFECTS SURGICAL HISTORY TONSILLECTOMY 1950 APPENDIX 1970 LEFT SHOULDER REPAIR 08/28/04 LEFT CAROTID ENDARTERECTOMY 04/04/16 ARTERIOGRAM 09/07/16 LEFT CATARACT 09/26/16 FX RIGHT FOOT 2ND TOE 11/08/17 AMOUTATION OF 3RD TOE LEFT FOOT 12/2018 DEVIATED SEPTUM REPAIR 02/2019 FAMILY HISTORY FATHER: 85 YRS, DIAGNOSED WITH HYPERTENSION, UNSPECIFIED HEART DISEASE MOTHER: 80 YRS 1 BROTHER(S) , 3 SISTER(S) . MOTHER- DIVERTICULITIS, OF PNEUMONIA\\NSISTER - BREAST CANCER SURVIVOR, COPD. SOCIAL HISTORY GENERAL: TOBACCO USE ARE YOU A:FORMER SMOKER HOW LONG HAS IT BEEN SINCE YOU LAST SMOKED?> 10 YEARS LATEX QUESTIONNAIRE LATEX ALLERGY : HAVE YOU EVER DEVELOPED ANY TYPE OF REACTION AFTER HANDLING LATEX PRODUCTS SUCH RUBBER GLOVES, CONDOMS, DIAPHRAGMS, BALLOONS, SOCKS, OR UNDERWEAR?NO LATEX ALLERGY : HAVE YOU EVER DEVELOPED ANY TYPE OF REACTION DURING OR AFTER DENTAL APPOINTMENT, VAGINAL/RECTAL EXAMINATION, SURGICAL PROCEDURE, OR ANY OTHER EXPOSURE?NO LATEX RISK : HAVE YOU EVER HAD ANY DIFFICULTY BREATHING OR HIVES AFTER EATING OR HANDLING ANY FRUITS, OR VEGETABLES; SUCH KIWI, BANANAS, STONE FRUITS, OR CHESTNUTSNO LATEX RISK : DO YOU HAVE A PREVIOUS PERSONAL HISTORY OF MORE THAN NINE SURGERIES, SPINA BIFIDA, OR REPEATED CATHERIZATIONS? NO LATEX RISK : ARE YOU FREQUENTLY EXPOSED TO LATEX PRODUCTS IN YOUR OCCUPATION?NO DATE ASKED : 03/17/2020 ALCOHOL SCREENING DID YOU HAVE A DRINK CONTAINING ALCOHOL IN THE PAST YEAR?NO POINTS0 INTERPRETATIONNEGATIVE RECREATIONAL DRUG USE DRUG USE?NO CAFFEINE CAFFEINE USE?YES HOW OFTEN AND HOW MUCH? 3 CUPS APPROXIMATELY PENTECOSTALISM [id number] ORIENTAL ORTHODOX LANGUAGE LANGUAGES SPOKEN:FRISIAN LEARNING BARRIERS / SPECIAL NEEDS CHANGE FROM LAST VISIT?NO BARRIERS TO LEARNING?NO HEARING IMPAIRED?NO VISION IMPAIRED?YES COGNITIVELY IMPAIRED?NO :CORRECTIVE LENSES READINESS TO LEARN?YES LEARNING PREFERENCES?NO LEARNING CAPABILITIES PRESENT?YES EMOTIONAL BARRIERS?NO SPECIAL DEVICES?NO SPRING INTERN NEEDED?NO DOMESTIC VIOLENCE DO YOU FEEL SAFE IN YOUR ENVIRONMENT?YES OCCUPATION: RETIRED. DIET: REGULAR. MARITAL STATUS: SINGLE. OTHERS AT HOME: SIBLING. NEW PATIENT PAIN DIARY PATIENT DESCRIBES PAIN : ACHING, BURNING, IT COMES AND GOES, SHARP, STABBING, TENDER, THROBBING, SORE, SHOOTING, FROM 0-10, WHAT LEVEL IS YOUR PAIN TODAY? 8, PRECIPITATING FACTORS SITTING TO STANDING POSITION CHANGE, ALLEVIATING FACTORS RESTING, IMPACT ON FUNCTION YES. PAIN CLINIC PFS, CLERGY, PUBLIC HEALTH REFERRALS HAS THE PATIENT BEEN EDUCATED REGARDING HIS/HER PLAN OF CARE?YES HAS THE PATIENT BEEN EDUCATED REGARDING PAIN, THE RISK FOR PAIN, THE IMPORTANCE OF EFFECTIVE PAIN MANAGEMENT, AND THE PAIN ASSESSMENT PROCESS?YES ADVANCE DIRECTIVE ADVANCE DIRECTIVE DISCUSSED WITH PATIENT:YES HCP - NADER BANKS [phone] HOSPITALIZATION/MAJOR DIAGNOSTIC PROCEDURE LEFT CAROTID ENDARTERECTOMY 04/04/16 APPENDIX 1970 BLOOD CLOT LEFT LEG (PT STATES IN THE 1989'S) TRACTION FOR BACK (PT STATES EARLY ) HOSPITALIZED WITH SEPSIS AFTER TOE SURGERY TOE SURGERY 12/2018 REVIEW OF SYSTEMS CONSTITUTIONAL: ANY RECENT FEVER NO . CHILLS NO . WEIGHT CHANGE OF UNKNOWN REASONS NO . GASTROENTEROLOGY: NEW UNEXPLAINABLE CHANGES IN BOWEL CONTROL NO . CONSTIPATION NO . GENITOURINARY: ANY NEW CHANGE IN BLADDER CONTROL? NO . NEUROLOGY: NEW ONSET DIZZINESS OR NEUROLOGICAL CHANGES NOT MENTIONED NO . NEW NUMBNESS OR PAIN PATTERNS NOT MENTIONED AND PERTINENT TO TODAY'S VISIT NO . CARDIOLOGY: NEW CHEST PRESSURE NO . NEW CHEST PAIN NO . RESPIRATORY: UNEXPLAINABLE COUGH NO . NEW SHORTNESS OF BREATH NO . VITAL SIGNS WT 280 LBS, HT 71 IN, BMI 39.05 INDEX, BP 187/77 MM HG, HR 68 /MIN, RR 18 /MIN, TEMP 97.6 F, OXYGEN SAT % 91%, SAFE IN ENV? (Y/N) YES, NA INITIALS AK 13:57, REVIEWED BY: AUNDREA. EXAMINATION GENERAL EXAMINATION: GENERALNO ACUTE DISTRESS, WELL NOURISHED AND HYDRATED. PSYCHAPPROPRIATE MOOD AND AFFECT . LUNGS:CLEAR TO AUSCULTATION BILATERALLY, NO WHEEZES, RHONCHI, RALES. HEART:NO MURMURS, REGULAR RATE AND RHYTHM. BACK:POINT TENDER OVER COCCYX, SURROUNDING SKIN SHOWS NO ERYTHEMA, ECCHYMOSIS, INCREASED WARMTH, AND/OR SKIN ERUPTIONS NOTED. . 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 CLINICAL NOTES: 69-YEAR-OLD FEMALE IN FOR CHRONIC PAIN FOLLOW-UP. GIVEN PRESENTING SYMPTOMS AND RESULTS OF PHYSICAL EXAMINATION RECOMMENDED INCREASING BACLOFEN TO 10 MG 3 TIMES A DAY, AND SACROCOCCYGEAL BLOCK WITH POST PROCEDURAL FOLLOW-UP. PATIENT EXPRESSED UNDERSTANDING OF AND WAS IN AGREEMENT WITH TREATMENT PLAN. GIVEN TIME TO ASK QUESTIONS AND EXPRESS CONCERNS. PREVENTIVE MEDICINE (MALE) PREVENTIVE WELLNESS PLAN: TODAY'S VISIT PATIENT PRESENTS TODAY FOR: WILL SEE PT POST PROCEDURE. NOTE PER DOC WE DO NOT NEED TO HOLD HER ELIQUIS FOR THIS PROCEDURE PROCEDURE CODES FA211 ESTABILISHED PATIENT [facility] CHARGE DISPOSITION & COMMUNICATION FOLLOW UP POSTPROCEDURE (REASON: SACROCOCCYGEAL BLOCK) ELECTRONICALLY SIGNED BY MARY ANN STOUT ON 03/21/2020 AT 10:10 AM EDT DISCLAIMER : THIS IS A VISIT SUMMARY EXTRACTED FROM THE [employer] CHART. IT IS NOT A COPY OF THE [employer] PROGRESS NOTE. TOSHAD
== END ==
LOC: M PAIN 13:45
PROVIDERS: ATTEND Family Medicine
DX: M53.3 Sacrococcygeal disorders, not elsewhere classified (principal); G89.29 Other chronic pain; E11.40 Type 2 diabetes mellitus with diabetic neuropathy, unspecified; I10 Essential (primary) hypertension; G47.30 Sleep apnea, unspecified; Z86.718 Personal history of other venous thrombosis and embolism; Z87.891 Personal history of nicotine dependence; Z88.4 Allergy status to anesthetic agent; Z79.01 Long term (current) use of anticoagulants; Z79.4 Long term (current) use of insulin; Z79.899 Other long term (current) drug therapy

== ENCOUNTER → 2020-03-23 | Outpatient (CLI) | payer BC, MEDICARE | LOC: M LABSMTC 12:56 | PROVIDERS: ATTEND Anesthesiology | DX: Z20.828 Contact with and (suspected) exposure to other viral communicable diseases (principal) | CPT/HCPCS: C9803; U0003 ==

== ENCOUNTER → 2020-03-28 | Outpatient (CLI) | payer BC, MEDICARE ==
[~2020-03-28] MED LIST changes: +BUPIVACAINE HCL 0.25% 30ML VIAL As Ordered ONE; +ISOVUE-M 300 61% 15ML VIAL As Ordered ONE; +LIDOCAINE 1% SDV 30ML VIAL As Ordered ONE; +TRIAMCINOLONE ACETONIDE SUSP 40 MG/ML VIAL (J3301) As Ordered ONE; +diazePAM 5 MG TAB As Ordered ONE
--- NOTE | 2020-03-28 13:59 | REP ---
INDICATION: SACROCCYGEAL BLOCK//PAIN. COMPARISON: None. TECHNIQUE: Procedural imaging, 8 views. 16.7 seconds of fluoroscopy time is reported. FINDINGS: Sequence of 8 last image hold fluoroscopically obtained spot radiographs of the sacrum and coccyx document various needle positions and contrast injections associated with injection procedure. IMPRESSION: Procedural imaging. <Electronically signed by Curtis Bess > 03/28/20 [id number]
--- NOTE | 2020-04-02 01:34 | ECWPNPC ---
PATIENT NAME: CHRIS LONGORIA : 1950 GENDER: FEMALE VISIT DATE: 03/28/2020 DISCHARGE DATE: 03/28/20 1300 VISIT LOCKED DATE TIME: PHYSICIAN: DHARA HANSEN MD RESOURCE: DHARA HANSEN MD REASON FOR APPOINTMENT 1. SACROCOCCYGEAL BLOCK HISTORY OF PRESENT ILLNESS GENERAL: -. FALL RISK SCREENING: SCREENING :TWO OR MORE FALLS WITHOUT INJURY IN THE PAST YEAR PATIENT EPORTS MULTIPLE FALLS OVER THE PAST YEAR WITHOUT INJURY AND DID NOT SEEK MEDICAL ATTENTION. PAIN SCREENING: PATIENT HAS A COMPLAINT OF ACUTE OR CHRONIC PAIN :YES LOCATION OF PAIN:LOW BACK, LEG(S) INTENSITY OF PAIN (SCALE OF 1 TO 10):9 WHAT DOES YOUR PAIN FEEL LIKE:STABBING, BURNING, CONTINOUS DURATION:AWAKENS FROM SLEEP NURSING NOTE: -. PAIN CENTER INTAKE QUESTIONS: DO YOU HAVE A HISTORY OF MRSA? :NO DO YOU TAKE A BLOOD THINNERS? :YES KAMINI (DR. WRIGHT) DO YOU HAVE ANY BLEEDING DISORDERS? :YES FACTOR V BLEEDING DISORDER ANY NEW NUMBNESS OR WEAKNESS IN YOUR LEGS OR ARMS? :NO ANY PACEMAKER,DEFIBRILLATOR, OR DORSAL COLUMN STIMULATOR? :NO DO YOU HAVE ANY RASHES OR OPEN SORES? :NO ARE YOU ALLERGIC TO IV DYE? :NO ARE YOU DIABETIC? :YES ANY NEW PROBLEMS WITH YOUR MEDICATIONS? :NO HAVE YOU RECEIVED A VACCINE IN THE PAST 30 DAYS? :NO DO YOU PLAN TO RECEIVE A VACCINE IN THE NEXT 21 DAYS? :NO DO YOU TAKE ANY IMMUNOSUPPRESSIVE MEDICATIONS? :NO ANY HISTORY OF SEIZURES? :NO ANY HISTORY OF CARDIAC ISSUES OR EVENTS? :YES CHF DO YOU HAVE SLEEP APNEA? :YES DO YOU WEAR A CPAP?YES ANY RECENT HEAD INJURY? :NO DO YOU HAVE ANY NEW INFECTIONS? :NO IS THERE A CHANCE YOU COULD BE ? :NO ARE YOU BREAST FEEDING? :NO WHEN DID YOU LAST EAT? : 03/27/20 MIDNIGHT WHEN DID YOU LAST DRINK? : 03/28/20 0700 WHAT DID YOU LAST DRINK? : WATER NAME OF PERSON DRIVING YOU HOME? : ZULLY (NIECE) DO YOU HAVE ANY OTHER QUESTIONS OR CONCERNS? : NO CURRENT MEDICATIONS TAKING VALSARTAN-HYDROCHLOROTHIAZIDE 320-25 MG TABLET 1 TABLET ORALLY ONCE A DAY, NOTES: 03/28 07 TAKING DULOXETINE HCL 60 MG CAPSULE DELAYED RELEASE PARTICLES 1 CAPSULE ORALLY ONCE A DAY, NOTES: 03/27 2230 TAKING LABETALOL HCL 200 MG TABLET 1 TABLET ORALLY TWICE A DAY, NOTES: 03/28 700 TAKING HYDRALAZINE HCL 50 MG TABLET 1 TABLET WITH FOOD ORALLY TID, NOTES: 03/28 700 TAKING LANTUS SOLOSTAR 100 UNIT/ML SOLUTION PEN-INJECTOR 66 UNITS SUBCUTANEOUS DAILY, NOTES: 03/27 2230 TAKING ASPIRIN 81 81 MG TABLET CHEWABLE 1 TABLET ORALLY ONCE A DAY, NOTES: 03/27 2230 TAKING ROPINIROLE HCL 1 MG TABLET 4 TABLET 1 TO 3 HOURS BEFORE BEDTIME ORALLY ONCE A DAY, NOTES: 03/27 2230 TAKING OMEPRAZOLE 20 MG CAPSULE DELAYED RELEASE 1 CAPSULE ORALLY ONCE A DAY, NOTES: 03/27 2230 TAKING GABAPENTIN 400 MG CAPSULE 1 CAPSULE ORALLY BID, NOTES: 03/27 2230 TAKING YONI ALLERGY 180 MG TABLET 1 TABLET NEEDED ORALLY ONCE A DAY, NOTES: 03/27 AM TAKING HUMALOG 100 UNIT/ML SOLUTION SUBCUTANEOUS SLIDING SCALE BEFORE MEALS, NOTES: 03/27 2230 TAKING ROSUVASTATIN CALCIUM 10 MG TABLET 1 TABLET ORALLY EVERY OTHER DAY, NOTES: 03/26 2200 TAKING TYLENOL WITH CODEINE #3 300-30 MG TABLET 1 TABLET NEEDED ORALLY EVERY 6 HRS, NOTES: 03/28 700 TAKING ELIQUIS 5 MG TABLET DIRECTED ORALLY BID, NOTES: 03/28 700 TAKING BACLOFEN 10 MG TABLET 1 TABLET WITH FOOD OR MILK ORALLY THREE TIMES A DAY, NOTES: 03/27 2230 NOT-TAKING FLUOCINONIDE 0.05 % SOLUTION 1 APPLICATION EXTERNALLY NIGHTLY TO SCALP NEEDED FOR ITCH NOT-TAKING TIZANIDINE HCL 4 MG TABLET 1 TABLET NEEDED ORALLY BEFORE BEDTIME AND IN 4 HRS IF NEEDED MDD=2, NOTES: 11/02 10P NOT-TAKING AMLODIPINE BESYLATE 10 MG TABLET 1 TABLET ORALLY ONCE A DAY, NOTES: 11/02 9A NOT-TAKING METFORMIN HCL 1000 MG TABLET 1 TABLET WITH A MEAL ORALLY BID, NOTES: 11/02 7P NOT-TAKING SIMVASTATIN 20 MG TABLET 1 TABLET IN THE EVENING ORALLY ONCE A DAY MEDICATION LIST REVIEWED AND RECONCILED WITH THE PATIENT PAST MEDICAL HISTORY BULGING DISCS- CERVICAL ARTHRITIS KNEES/HANDS SPINAL STENOSIS LYMPHEDEMA LOWER EXTREMITIES DIABETES TYPE 2 DIABETIC NEUROPATHY HIGH BLOOD PRESSURE DIVERTICULITIS FACTOR V LEYDEN SLEEP APNEA SEPSIS AFTER TOE SURGERY DECEMBER 2018 DVT IN LUNGS CHF ALLERGIES GENERAL ANESTHESIA: NAUSEA/VOMITING - SIDE EFFECTS SURGICAL HISTORY TONSILLECTOMY 1950 APPENDIX 1970 LEFT SHOULDER REPAIR 08/28/04 LEFT CAROTID ENDARTERECTOMY 04/04/16 ARTERIOGRAM 09/07/16 LEFT CATARACT 09/26/16 FX RIGHT FOOT 2ND TOE 11/08/17 AMOUTATION OF 3RD TOE LEFT FOOT 12/2018 DEVIATED SEPTUM REPAIR 02/2019 FAMILY HISTORY FATHER: 85 YRS, DIAGNOSED WITH UNSPECIFIED HEART DISEASE, HYPERTENSION MOTHER: 80 YRS 1 BROTHER(S) , 3 SISTER(S) . MOTHER- DIVERTICULITIS, OF PNEUMONIA\\NSISTER - BREAST CANCER SURVIVOR, COPD. SOCIAL HISTORY GENERAL: TOBACCO USE ARE YOU A:FORMER SMOKER HOW LONG HAS IT BEEN SINCE YOU LAST SMOKED?> 10 YEARS LATEX QUESTIONNAIRE LATEX ALLERGY : HAVE YOU EVER DEVELOPED ANY TYPE OF REACTION AFTER HANDLING LATEX PRODUCTS SUCH RUBBER GLOVES, CONDOMS, DIAPHRAGMS, BALLOONS, SOCKS, OR UNDERWEAR?NO LATEX ALLERGY : HAVE YOU EVER DEVELOPED ANY TYPE OF REACTION DURING OR AFTER DENTAL APPOINTMENT, VAGINAL/RECTAL EXAMINATION, SURGICAL PROCEDURE, OR ANY OTHER EXPOSURE?NO DATE ASKED : 03/17/2020 LATEX RISK : HAVE YOU EVER HAD ANY DIFFICULTY BREATHING OR HIVES AFTER EATING OR HANDLING ANY FRUITS, OR VEGETABLES; SUCH KIWI, BANANAS, STONE FRUITS, OR CHESTNUTSNO LATEX RISK : DO YOU HAVE A PREVIOUS PERSONAL HISTORY OF MORE THAN NINE SURGERIES, SPINA BIFIDA, OR REPEATED CATHERIZATIONS? NO LATEX RISK : ARE YOU FREQUENTLY EXPOSED TO LATEX PRODUCTS IN YOUR OCCUPATION?NO ALCOHOL SCREENING DID YOU HAVE A DRINK CONTAINING ALCOHOL IN THE PAST YEAR?NO POINTS0 INTERPRETATIONNEGATIVE RECREATIONAL DRUG USE DRUG USE?NO CAFFEINE CAFFEINE USE?YES HOW OFTEN AND HOW MUCH? 3 CUPS APPROXIMATELY DRUZE [id number] RELIGION LANGUAGE LANGUAGES SPOKEN:ISRAELI LEARNING BARRIERS / SPECIAL NEEDS CHANGE FROM LAST VISIT?NO BARRIERS TO LEARNING?NO HEARING IMPAIRED?NO VISION IMPAIRED?YES COGNITIVELY IMPAIRED?NO :CORRECTIVE LENSES READINESS TO LEARN?YES LEARNING PREFERENCES?NO LEARNING CAPABILITIES PRESENT?YES EMOTIONAL BARRIERS?NO SPECIAL DEVICES?NO KILN CLEANER NEEDED?NO DOMESTIC VIOLENCE DO YOU FEEL SAFE IN YOUR ENVIRONMENT?YES OCCUPATION: RETIRED. DIET: REGULAR. MARITAL STATUS: SINGLE. OTHERS AT HOME: SIBLING. PATIENT DESCRIBES PAIN : ACHING, BURNING, IT COMES AND GOES, SHARP, STABBING, TENDER, THROBBING, SORE, SHOOTING, FROM 0-10, WHAT LEVEL IS YOUR PAIN TODAY? 8, PRECIPITATING FACTORS SITTING TO STANDING POSITION CHANGE, ALLEVIATING FACTORS RESTING, IMPACT ON FUNCTION YES. PAIN CLINIC PFS, CLERGY, PUBLIC HEALTH REFERRALS HAS THE PATIENT BEEN EDUCATED REGARDING HIS/HER PLAN OF CARE?YES HAS THE PATIENT BEEN EDUCATED REGARDING PAIN, THE RISK FOR PAIN, THE IMPORTANCE OF EFFECTIVE PAIN MANAGEMENT, AND THE PAIN ASSESSMENT PROCESS?YES ADVANCE DIRECTIVE ADVANCE DIRECTIVE DISCUSSED WITH PATIENT:YES HCP - NADER BANKS [phone] HOSPITALIZATION/MAJOR DIAGNOSTIC PROCEDURE LEFT CAROTID ENDARTERECTOMY 04/04/16 APPENDIX 1970 BLOOD CLOT LEFT LEG (PT STATES IN THE 1989'S) TRACTION FOR BACK (PT STATES EARLY ) HOSPITALIZED WITH SEPSIS AFTER TOE SURGERY TOE SURGERY 12/2018 CHF 01/2020 VITAL SIGNS WT 278.0 LBS, HT 71 IN, BMI 38.77 INDEX, BP 232/94 MM HG, REPEAT BP 212/84 MM HG, HR 74 /MIN, RR 18 /MIN, TEMP 97.8 F, OXYGEN SAT % 98%, SAFE IN ENV? (Y/N) YES, NA INITIALS SC 10:29, REVIEWED BY: MTRN WILL RECHECK MANUAL. EXAMINATION GENERAL EXAMINATION: THE PATIENT IS ALERT, ORIENTED TIMES THREE AND COOPERATIVE. HEART SHOWS REGULAR RHYTHM, NO MURMURS AND NO GALLOPS. LUNGS ARE CLEAR TO AUSCULTATION. ASSESSMENTS COCCYDYNIA - M53.3 (PRIMARY) TREATMENT COCCYDYNIA [facility] FLUORO GUIDE SPINE INJECTION (PAIN)[id number] MEDICATION: VALIUM TAB 5MG ORALLY (DIAZEPAM)DEBRA ENRIQUEZ 03/28/2020 11:05:10 AM > VERIFIED CARLA PIÑA 03/28/2020 11:06:22 AM > LOT#: [id number] EXP: 08/2020. CARLA PIÑA 03/28/2020 11:11:28 AM > ADMINISTERED AT 1110. PROCEDURES PAIN NURSING RECORD PRE-PROCEDURE IV SITE N/A PROCEDURE IN ROOM 1205 STRETCHER, PHYSICIAN IN ROOM 1218, START 1222, FINISH 1230, PHYSICIAN OUT OF ROOM 1232, OUT OF ROOM 1240 STRETCHER, STEROID KENALOG, O2 N/A, ECG NORMAL SINUS MULTI UNIFOCAL PVCS DURING PROCEDURE TRIGEMENY., PATIENT SHIELDED YES, SAFETY STRAP YES, PREP CHLOROPREP Mil PIÑA SCREEN PRINTING LOADER UNLOADER, IV INFUSED N/A, DRESSING TEGADERM DR. LANDRY LOC: CARLA PIÑA 03/28/2020 12:10:05 PM 1. ALERT, ORIENTED RESP: CARLA PIÑA 03/28/2020 12:10:05 PM 2. OTHER H/O CHF LUNG SOUNDS CLEAR AND EQUAL BILATERALLY WITH EQUAL RISE AND FALL OF CHEST. PATIENT APPEARS SOB WITH MINIMAL EXERTION. COLOR: CARLA PIÑA 03/28/2020 12:10:05 PM 1. PINK SKIN: CARLA PIÑA 03/28/2020 12:10:05 PM 1. WARM, DRY POSITION: CARLA PIÑA 03/28/2020 12:10:05 PM 1. PRONE VITALS: CARLA PIÑA 03/28/2020 11:25:31 PM > MANUAL BP AFTER 5MG OF VALIUM 162/74. CARLA PIÑA 03/28/2020 12:10:05 PM > 230/100, HR 72, 97% RA, 18. , CARLA PIÑA 03/28/2020 12:46:50 PM > POST PROCEDURE, MANUAL BP 162/86, HR 74, 96% RA, 18. NOTES CARLA PIÑA 03/28/2020 11:22:16 AM > DR. HANSEN AWARE OF PATIENT NOT STOPPING ELIQUIS, LAST DOSE 03/28/20. PATIENT REPORTS HISTORY OF DVTS AD PE. PATIENT HAS A FACTOR V BLEEDING DISORDER. PATIENT HYPERTENSIVE UPON ARRIVAL TO CLINIC, MANUAL BLOOD PESSURE 212/84. PROVIDER AWARE OF RECENT HOSPITAL ADMISSION TO PCU IN JANUARY 2020 DUE TO CHF. PATIENT ESCORTED TO CAR VIA WHEELCHAIR BY THIS AUTOMATIC GLUING MACHINE OPERATOR. DISCHARGE: POST PAIN 0/10, DRESSING SITE DRY AND INTACT, IV N/A, GAIT WHEELCHAIR WHEELCHAIR AND WALKER AT BASELINE., TEACHING COMPLETED, PATIENT ACKNOWLEDGES UNDERSTANDING YES, PATIENT DISCHARGED AT 1300 PRE PROCEDURE DIAGNOSIS 1. INFLAMMATION OF THE SACROCOCCYGEAL LIGAMENT. 2. COCCYDYNIA POST PROCEDURE DIAGNOSIS 1. INFLAMMATION OF THE SACROCOCCYGEAL LIGAMENT. 2. COCCYDYNIA PROCEDURE INJECTION OF THE RIGHT AND LEFT SACROCOCCYGEAL LIGAMENT SURGEON DR. DHARA HANSEN SOCK KNITTING MACHINE OPERATOR NONE ANESTHESIA LOCAL PRE PROCEDURE NOTE THE PATIENT HAS HISTORY OF LOW BACK PAIN. I EVALUATED THE PATIENT AND REVIEWED THE CHART. THE PATIENT IS AWARE OF THE POTENTIAL COMPLICATIONS INLCUDING BUT NOT LIMITED TO, INCLUDE INFECTIONS, VISCERAL PUNCTURE, INCLUDING RECTAL PUNCTURE. I DISCUSSED THAT THE USE OF STEROIDS MAY CONTRIBUTE TO IMMUNOSUPPRESSION OF THE PATIENT'S BODY AGAINST INFECTIONS SUCH COVID-19. THE PATIENT IS AWARE OF THE POTENTIAL COMPLICATIONS ASSOCIATED WITH THIS VIRUS, INCLUDING, BUT NOT LIMITED TO, . I DISCUSSED ALTERNATIVES AND THE PATIENT EXPRESSED WILLIINGNESS TO PROCEED. THE PATIENT DENIES UNEXPLAINABLE, WEIGHT LOSS, FEVER, CHILLS, OR CHANGES IN URINARY OR BOWEL CONTROL. THE PATIENT IS COVID-19 NEGATIVE DESCRIPTION OF PROCEDURE AFTER CONSENT WAS TAKEN, THE PATIENT WAS BROUGHT TO THE PROCEDURE ROOM AND PLACED IN THE PRONE POSITION. THE LUMBOSACRAL AREA WAS CLEANED WITH CHLORAPREP SOLUTION AND DRAPED ASEPTICALLY. THE PROCEDURE WAS DONE UNDER STERILE CONDITIONS. UNDER FLUOROSCOPIC GUIDANCE, THE TARGET WAS SELECTED AT THE RIGHT AND LEFT SACROCOCCYGEAL LIGAMENT. I CONFIRMED AGAIN WITH EVERYONE IN THE ROOM THE LATERALITY OF THE TARGET AT 1222. LIDOCAINE WAS USED TO NUMB THE SKIN AND THE SUBCUTANEOUS TISSUE BELOW IT. A 25 GAUGE NEEDLE WAS ADVANCED UNTIL WE REACHED THE RIGHT AND LEFT SACROCOCCYGEAL LIGAMENT. I DID AP AND LATERAL VIEWS. ISOVUE-M DYE 30%, 0.25 ML, WAS INJECTED SHOWING ADEQUATE SPREAD OF THE DYE. THEN A SOLUTION OF 30 ML OF BUPIVACAINE 0.125% WITH KENALOG 40 MG WAS INJECTED OVER THE AFFECTED STRUCTURE. THE MEDICATION WAS VERIFIED WITH THE NURSE. THERE WAS NO EVIDENCE OF BLOOD, PARESTHESIA OR CEREBROSPINAL FLUID. NO EVIDENCE OF VACUUM PHENOMENON OR VISCERAL PUNCTURE. THE PATIENT WAS SENT TO THE RECOVERY ROOM WHERE SHE WAS MOVING HER EXTREMITIES AND DOING WELL. THERE WERE NO COMPLICATIONS DURING THE PROCEDURE. EBL LESS THAN 5 ML. FLUOROSCOPY TIME WAS 16 SECONDS POST PROCEDURE NOTE IN THE FUTURE, I WOULD LIKE THE PATIENT TO HAVE A SALINE LOCK. THE PATIENT HAD SOME PVCS DURING THE PROCEDURE AND HAS A HISTORY OF CARDIAC PROBLEMS. I AM LOOKING FOR LONG LASTING PAIN RELIEF WITH THIS INTERVENTION. INSTRUCTIONS WERE GIVEN. QUESTIONS WERE ANSWERED. THE PATIENT REPORTS UNDERSTANDING AND AGREES WITH THE PLAN. THERE WERE NO COMPLICATIONS DURING THE PROCEDURE. I, CRYS FERREIRA, DOCUMENTED THE ABOVE INFORMATION ACTING A SCRIBE FOR DR. HANSEN. I HAVE REVIEWED THE ABOVE DOCUMENT, WRITTEN BY CRISTINE SILVA, AND I VERIFY THAT IT IS ACCURATE PROCEDURE CODES 41566 INJ TENDON SHEATH/LIGAMENT, MODIFIERS: [id number] NEEDLE LOCALIZATION BY XRAY, MODIFIERS: 26 DISPOSITION & COMMUNICATION FOLLOW UP FOLLOW UP WITH ELEMENTARY CLASSROOM TEACHER (REASON: POST SACROCOCCYGEAL) ELECTRONICALLY SIGNED BY DHARA HANSEN MD, MD ON 04/01/2020 AT 04:31 PM EDT DISCLAIMER : THIS IS A VISIT SUMMARY EXTRACTED FROM THE [employer] CHART. IT IS NOT A COPY OF THE [employer] PROGRESS NOTE. JUANIOT
== END ==
LOC: M PAIN 10:00
PROVIDERS: ATTEND Anesthesiology
DX: M53.3 Sacrococcygeal disorders, not elsewhere classified (principal); E11.40 Type 2 diabetes mellitus with diabetic neuropathy, unspecified; G47.30 Sleep apnea, unspecified; Z87.891 Personal history of nicotine dependence; D68.2 Hereditary deficiency of other clotting factors; Z79.4 Long term (current) use of insulin; Z79.82 Long term (current) use of aspirin; Z79.01 Long term (current) use of anticoagulants; Z79.899 Other long term (current) drug therapy; Z88.4 Allergy status to anesthetic agent
CPT/HCPCS: 20550; 77002; J3301; Q9967

== ENCOUNTER → 2020-04-13 | Outpatient (CLI) | payer BC, MEDICARE ==
[~2020-04-13] MED LIST changes: -BUPIVACAINE HCL 0.25% 30ML VIAL As Ordered ONE; -ISOVUE-M 300 61% 15ML VIAL As Ordered ONE; -LIDOCAINE 1% SDV 30ML VIAL As Ordered ONE; -TRIAMCINOLONE ACETONIDE SUSP 40 MG/ML VIAL (J3301) As Ordered ONE; -diazePAM 5 MG TAB As Ordered ONE
--- NOTE | 2020-04-15 01:23 | ECWPNPC ---
PATIENT NAME: CHRIS LONGORIA : 1950 GENDER: FEMALE VISIT DATE: 04/13/2020 DISCHARGE DATE: 04/13/20 1412 VISIT LOCKED DATE TIME: PHYSICIAN: MERY FLORES RESOURCE: MERY FLORES REASON FOR APPOINTMENT 1. POST SACROCOCCYGEAL HISTORY OF PRESENT ILLNESS GENERAL: - 69-YEAR-OLD FEMALE IN FOR POST SACROCOCCYGEAL BLOCK FOLLOW-UP. SHE FEELS THE PROCEDURE WAS UNSUCCESSFUL RATING HER PAIN PREPROCEDURE AT A 7-10 OUT OF 10 AND POSTPROCEDURE AT A 3-4 OUT OF 10X2 DAYS. SHE RATES HER PAIN CURRENTLY AT 7 OUT OF 10 AND DESCRIBES IT SHARP, STABBING, THROBBING, AND SORE. PATIENT CONTINUES WITH HER BACLOFEN AND ADMITS THAT THIS HAS BEEN HELPFUL. FALL RISK SCREENING: SCREENING :TWO OR MORE FALLS WITHOUT INJURY IN THE PAST YEAR MULTIPLE FALLS THAT PATIENT DID NOT SEEK MEDICAL ATTENTION. PAIN SCREENING: PATIENT HAS A COMPLAINT OF ACUTE OR CHRONIC PAIN :YES LOCATION OF PAIN: GENERALIZED, LOW BACK INTENSITY OF PAIN (SCALE OF 1 TO 10):7 WHAT DOES YOUR PAIN FEEL LIKE:CONTINOUS, SHARP, STABBING, THROBBING, SORE DURATION:CONTINOUS, AWAKENS FROM SLEEP PAIN IS INCREASED BY:ACTIVITIES, PROLONGED STANDING PLAN/GOALS/TREATMENT/INTERVENTION/FOLLOW UP:SEE PLAN NURSING NOTE: -. PAIN CENTER INTAKE QUESTIONS: DO YOU HAVE A HISTORY OF MRSA? :NO DO YOU TAKE A BLOOD THINNERS? :YES ELIQUIS DO YOU HAVE ANY BLEEDING DISORDERS? :NO ANY NEW NUMBNESS OR WEAKNESS IN YOUR LEGS OR ARMS? :YES BILATERAL ARMS INCREASED WEAKNESS ANY PACEMAKER,DEFIBRILLATOR, OR DORSAL COLUMN STIMULATOR? :NO DO YOU HAVE ANY RASHES OR OPEN SORES? :YES RIGHT LEG ARE YOU ALLERGIC TO IV DYE? :NO ARE YOU DIABETIC? :YES ANY NEW PROBLEMS WITH YOUR MEDICATIONS? :NO HAVE YOU RECEIVED A VACCINE IN THE PAST 30 DAYS? :NO DO YOU PLAN TO RECEIVE A VACCINE IN THE NEXT 21 DAYS? :NO DO YOU NEED ANY PRESCRIPTION? :NO DO YOU TAKE ANY IMMUNOSUPPRESSIVE MEDICATIONS? :NO IS THERE A CHANCE YOU COULD BE ? :NO ARE YOU BREAST FEEDING? :NO CURRENT MEDICATIONS TAKING VALSARTAN-HYDROCHLOROTHIAZIDE 320-25 MG TABLET 1 TABLET ORALLY ONCE A DAY TAKING DULOXETINE HCL 60 MG CAPSULE DELAYED RELEASE PARTICLES 1 CAPSULE ORALLY ONCE A DAY TAKING LABETALOL HCL 200 MG TABLET 1 TABLET ORALLY TWICE A DAY TAKING HYDRALAZINE HCL 50 MG TABLET 1 TABLET WITH FOOD ORALLY TID TAKING LANTUS SOLOSTAR 100 UNIT/ML SOLUTION PEN-INJECTOR 66 UNITS SUBCUTANEOUS DAILY TAKING ASPIRIN 81 81 MG TABLET CHEWABLE 1 TABLET ORALLY ONCE A DAY TAKING ROPINIROLE HCL 1 MG TABLET 4 TABLET 1 TO 3 HOURS BEFORE BEDTIME ORALLY ONCE A DAY TAKING OMEPRAZOLE 20 MG CAPSULE DELAYED RELEASE 1 CAPSULE ORALLY ONCE A DAY TAKING GABAPENTIN 400 MG CAPSULE 1 CAPSULE ORALLY BID TAKING YONI ALLERGY 180 MG TABLET 1 TABLET NEEDED ORALLY ONCE A DAY TAKING HUMALOG 100 UNIT/ML SOLUTION SUBCUTANEOUS SLIDING SCALE BEFORE MEALS TAKING ROSUVASTATIN CALCIUM 10 MG TABLET 1 TABLET ORALLY EVERY OTHER DAY TAKING TYLENOL WITH CODEINE #3 300-30 MG TABLET 1 TABLET NEEDED ORALLY EVERY 6 HRS TAKING ELIQUIS 5 MG TABLET DIRECTED ORALLY BID TAKING BACLOFEN 10 MG TABLET 1 TABLET WITH FOOD OR MILK ORALLY THREE TIMES A DAY NOT-TAKING FLUOCINONIDE 0.05 % SOLUTION 1 APPLICATION EXTERNALLY NIGHTLY TO SCALP NEEDED FOR ITCH NOT-TAKING TIZANIDINE HCL 4 MG TABLET 1 TABLET NEEDED ORALLY BEFORE BEDTIME AND IN 4 HRS IF NEEDED MDD=2, NOTES: 11/02 10P NOT-TAKING AMLODIPINE BESYLATE 10 MG TABLET 1 TABLET ORALLY ONCE A DAY, NOTES: /2 9A NOT-TAKING METFORMIN HCL 1000 MG TABLET 1 TABLET WITH A MEAL ORALLY BID, NOTES: 11/02 7P NOT-TAKING SIMVASTATIN 20 MG TABLET 1 TABLET IN THE EVENING ORALLY ONCE A DAY MEDICATION LIST REVIEWED AND RECONCILED WITH THE PATIENT PAST MEDICAL HISTORY BULGING DISCS- CERVICAL ARTHRITIS KNEES/HANDS SPINAL STENOSIS LYMPHEDEMA LOWER EXTREMITIES DIABETES TYPE 2 DIABETIC NEUROPATHY HIGH BLOOD PRESSURE DIVERTICULITIS FACTOR V LEYDEN SLEEP APNEA SEPSIS AFTER TOE SURGERY DECEMBER 2018 DVT IN LUNGS CHF ALLERGIES GENERAL ANESTHESIA: NAUSEA/VOMITING - SIDE EFFECTS SURGICAL HISTORY TONSILLECTOMY 1950 APPENDIX 1970 LEFT SHOULDER REPAIR 08/28/04 LEFT CAROTID ENDARTERECTOMY 04/04/16 ARTERIOGRAM 09/07/16 LEFT CATARACT 09/26/16 FX RIGHT FOOT 2ND TOE 11/08/17 AMOUTATION OF 3RD TOE LEFT FOOT 12/2018 DEVIATED SEPTUM REPAIR 02/2019 FAMILY HISTORY FATHER: 85 YRS, DIAGNOSED WITH HYPERTENSION, UNSPECIFIED HEART DISEASE MOTHER: 80 YRS 1 BROTHER(S) , 3 SISTER(S) . MOTHER- DIVERTICULITIS, OF PNEUMONIA\\NSISTER - BREAST CANCER SURVIVOR, COPD. SOCIAL HISTORY GENERAL: TOBACCO USE ARE YOU A:FORMER SMOKER HOW LONG HAS IT BEEN SINCE YOU LAST SMOKED?> 10 YEARS LATEX QUESTIONNAIRE LATEX ALLERGY : HAVE YOU EVER DEVELOPED ANY TYPE OF REACTION AFTER HANDLING LATEX PRODUCTS SUCH RUBBER GLOVES, CONDOMS, DIAPHRAGMS, BALLOONS, SOCKS, OR UNDERWEAR?NO LATEX ALLERGY : HAVE YOU EVER DEVELOPED ANY TYPE OF REACTION DURING OR AFTER DENTAL APPOINTMENT, VAGINAL/RECTAL EXAMINATION, SURGICAL PROCEDURE, OR ANY OTHER EXPOSURE?NO LATEX RISK : HAVE YOU EVER HAD ANY DIFFICULTY BREATHING OR HIVES AFTER EATING OR HANDLING ANY FRUITS, OR VEGETABLES; SUCH KIWI, BANANAS, STONE FRUITS, OR CHESTNUTSNO LATEX RISK : DO YOU HAVE A PREVIOUS PERSONAL HISTORY OF MORE THAN NINE SURGERIES, SPINA BIFIDA, OR REPEATED CATHERIZATIONS? NO LATEX RISK : ARE YOU FREQUENTLY EXPOSED TO LATEX PRODUCTS IN YOUR OCCUPATION?NO DATE ASKED : 04/13/2020 ALCOHOL SCREENING DID YOU HAVE A DRINK CONTAINING ALCOHOL IN THE PAST YEAR?NO POINTS0 INTERPRETATIONNEGATIVE RECREATIONAL DRUG USE DRUG USE?NO CAFFEINE CAFFEINE USE?YES HOW OFTEN AND HOW MUCH? 3 CUPS APPROXIMATELY MU-ISM [id number] ANGLICAN LANGUAGE LANGUAGES SPOKEN:YAKUT LEARNING BARRIERS / SPECIAL NEEDS CHANGE FROM LAST VISIT?NO BARRIERS TO LEARNING?NO HEARING IMPAIRED?NO VISION IMPAIRED?YES COGNITIVELY IMPAIRED?NO :CORRECTIVE LENSES READINESS TO LEARN?YES LEARNING PREFERENCES?NO LEARNING CAPABILITIES PRESENT?YES EMOTIONAL BARRIERS?NO SPECIAL DEVICES?NO BOOTS AND SHOES SUPERVISOR NEEDED?NO DOMESTIC VIOLENCE DO YOU FEEL SAFE IN YOUR ENVIRONMENT?YES OCCUPATION: RETIRED. DIET: REGULAR. MARITAL STATUS: SINGLE. OTHERS AT HOME: SIBLING. PATIENT DESCRIBES PAIN : ACHING, BURNING, IT COMES AND GOES, SHARP, STABBING, TENDER, THROBBING, SORE, SHOOTING, FROM 0-10, WHAT LEVEL IS YOUR PAIN TODAY? 8, PRECIPITATING FACTORS SITTING TO STANDING POSITION CHANGE, ALLEVIATING FACTORS RESTING, IMPACT ON FUNCTION YES. PAIN CLINIC PFS, CLERGY, PUBLIC HEALTH REFERRALS HAS THE PATIENT BEEN EDUCATED REGARDING HIS/HER PLAN OF CARE?YES HAS THE PATIENT BEEN EDUCATED REGARDING PAIN, THE RISK FOR PAIN, THE IMPORTANCE OF EFFECTIVE PAIN MANAGEMENT, AND THE PAIN ASSESSMENT PROCESS?YES ADVANCE DIRECTIVE ADVANCE DIRECTIVE DISCUSSED WITH PATIENT:YES HCP - NADER BANKS [phone] HOSPITALIZATION/MAJOR DIAGNOSTIC PROCEDURE LEFT CAROTID ENDARTERECTOMY 11/2/16 APPENDIX 1970 BLOOD CLOT LEFT LEG (PT STATES IN THE 1989'S) TRACTION FOR BACK (PT STATES EARLY ) HOSPITALIZED WITH SEPSIS AFTER TOE SURGERY TOE SURGERY 12/2018 CHF 01/2020 REVIEW OF SYSTEMS CONSTITUTIONAL: ANY RECENT FEVER NO . CHILLS NO . WEIGHT CHANGE OF UNKNOWN REASONS NO . GASTROENTEROLOGY: NEW UNEXPLAINABLE CHANGES IN BOWEL CONTROL NO . CONSTIPATION NO . GENITOURINARY: ANY NEW CHANGE IN BLADDER CONTROL? NO . NEUROLOGY: NEW ONSET DIZZINESS OR NEUROLOGICAL CHANGES NOT MENTIONED NO . NEW NUMBNESS OR PAIN PATTERNS NOT MENTIONED AND PERTINENT TO TODAY'S VISIT NO . CARDIOLOGY: NEW CHEST PRESSURE NO . NEW CHEST PAIN NO . RESPIRATORY: UNEXPLAINABLE COUGH NO . NEW SHORTNESS OF BREATH NO . VITAL SIGNS WT 269.4 LBS, HT 71 IN, BMI 37.57 INDEX, BP 164/72 MM HG, HR 81 /MIN, RR 18 /MIN, TEMP 97.0 F, OXYGEN SAT % 95%, SAFE IN ENV? (Y/N) YES, NA INITIALS AW 1340, REVIEWED BY: MTM. PIÑA BEAN SPROUT GROWER. EXAMINATION GENERAL EXAMINATION: GENERALNO ACUTE DISTRESS, WELL NOURISHED AND HYDRATED. PSYCHAPPROPRIATE MOOD AND AFFECT . LUNGS:CLEAR TO AUSCULTATION BILATERALLY, NO WHEEZES, RHONCHI, RALES. HEART:NO MURMURS, REGULAR RATE AND RHYTHM. ASSESSMENTS COCCYDYNIA - M53.3 (PRIMARY) OTHER CHRONIC PAIN - G89.29 TREATMENT COCCYDYNIA INCREASE BACLOFEN TABLET, 20 MG, 1 TABLET WITH FOOD OR MILK, ORALLY, THREE TIMES A DAY, 30 DAY(S), 90 NOTES: 69-YEAR-OLD FEMALE IN FOR POST SACROCOCCYGEAL BLOCK FOLLOW-UP. GIVEN PRESENTING SYMPTOMS RECOMMEND INCREASING BACLOFEN TO 20 MG 3 TIMES A DAY WITH FOLLOW-UP IN 2 MONTHS TO DETERMINE EFFICACY OF TREATMENT. PATIENT HAS EXPRESSED UNDERSTANDING OF AND WAS IN AGREEMENT WITH TREATMENT PLAN. GIVEN TIME TO ASK QUESTIONS AND EXPRESS CONCERNS. OTHER CHRONIC PAIN PAIN PROCEDURE LOGDATE OF [id number]/20PROCEDURE:SACROCOCCYGEAL BLOCKAMOUNT OF PRE CMVYMB1DR VALIUMRESULT:PRE--03/12 POST 08/10 X 2 DAYS PROCEDURE CODES FA211 ESTABILISHED PATIENT [facility] CHARGE DISPOSITION & COMMUNICATION FOLLOW UP 2 MONTHS (REASON: MEDICATION INCREASE) ELECTRONICALLY SIGNED BY MARY ANN STOUT ON 04/14/2020 AT 12:55 PM EST DISCLAIMER : THIS IS A VISIT SUMMARY EXTRACTED FROM THE [employer] CHART. IT IS NOT A COPY OF THE [employer] PROGRESS NOTE. JUANITO
== END ==
LOC: M PAIN 13:30
PROVIDERS: ATTEND Family Medicine
DX: G89.29 Other chronic pain (principal); M53.3 Sacrococcygeal disorders, not elsewhere classified; E11.40 Type 2 diabetes mellitus with diabetic neuropathy, unspecified; G47.30 Sleep apnea, unspecified; I50.9 Heart failure, unspecified; Z86.711 Personal history of pulmonary embolism; Z87.891 Personal history of nicotine dependence; Z79.4 Long term (current) use of insulin; Z79.82 Long term (current) use of aspirin; Z79.899 Other long term (current) drug therapy; Z88.4 Allergy status to anesthetic agent

== ENCOUNTER → 2020-06-16 | Outpatient (CLI) | payer MEDICARE ==
--- NOTE | 2020-06-21 10:27 | SLEEPCENT ---
NOCTURNAL POLYSOMNOGRAPHY CPAP TITRATION DATE: 06/16/2020 ORDERED BY: RAUL Grimm Nocturnal polysomnography was performed for re-titration of pressure therapy in this patient with severe obstructive sleep apnea syndrome utilizing BiLevel pressure therapy. For testing a ResMed Quattro full face mask of small size was used and an initial BiLevel pressure of 20/16 was applied to the circuit and the lights were extinguished. 7 hours and 44 minutes of data were reviewed. There were 280.5 minutes of sleep identified. Sleep latency was normal at 30 minutes. REM latency was delayed at 318 minutes. Sleep architecture showed fragmentation and poor sleep progression. There was only one REM cycle late in the study. Overall sleep efficiency was 61.7%. The electrocardiogram showed a sinus rhythm with small complexes. Average heart rate was 66 per minute. Unifocal ventricular ectopic beats were noted. EEG showed alpha intrusion into non-REM stages. No focal events were identified and there were normal waveforms for wake and sleep. Persistence of respiratory events prompted an increase in CPAP pressure. Best sleep was seen at an inspiratory pressure of 21/17. Some hypopneic events occurred thereafter; however, sleep progression appeared best at that pressure. The subsequent hypopneic events were seen more in a supine posture. Scattered limb activity was appreciated. No trains of events were identified. IMPRESSION: Obstructive sleep apnea syndrome (G47.33). RECOMMENDATION: Based on these results and a BiLevel pressure of 21/17, it would seem best to palliate respiratory events. It may be helpful also to enforce sleep position retraining for avoidance of the supine posture, as hypopneic events occurred despite elevated levels of pressure therapy.
== END ==
LOC: M SLEEP 20:00
PROVIDERS: ATTEND Nurse Practitioner Family
DX: G47.33 Obstructive sleep apnea (adult) (pediatric) (principal)

== ENCOUNTER → 2020-06-20 | Outpatient (CLI) | payer BC, MEDICARE ==
--- NOTE | 2020-06-22 06:41 | ECWPNPC ---
PATIENT NAME: CHRIS LONGORIA : 1950 GENDER: FEMALE VISIT DATE: 06/20/2020 DISCHARGE DATE: 06/20/20 1517 VISIT LOCKED DATE TIME: PHYSICIAN: MERY FLORES RESOURCE: MERY FLORES REASON FOR APPOINTMENT 1. MEDICATION INCREASE HISTORY OF PRESENT ILLNESS GENERAL: -70-YEAR-OLD FEMALE IN FOR CHRONIC PAIN FOLLOW-UP. SHE RATES HER PAIN CURRENTLY AT A 6 OUT OF 10 AND DESCRIBES IT BURNING, AND INTERMITTENT. PATIENT IS CURRENTLY PRESCRIBED TYLENOL 3 BY ANOTHER PROVIDER HOWEVER SHE STATES THIS MEDICATION DOES NOT COVER HER PAIN. FALL RISK SCREENING: SCREENING :TWO OR MORE FALLS WITHOUT INJURY IN THE PAST YEAR NO NEW FALLS SINCE LAST VISIT PAIN SCREENING: PATIENT HAS A COMPLAINT OF ACUTE OR CHRONIC PAIN :YES LOCATION OF PAIN:NECK, LOW BACK LEFT SIDE INTENSITY OF PAIN (SCALE OF 1 TO 10):6 WHEN WALKING WHAT DOES YOUR PAIN FEEL LIKE:BURNING, INTERMITTENT DURATION:MAINLY DURING THE NIGHT, INTERMITTENT WORSE AT NIGHT RECENTLY PAIN IS INCREASED BY:ACTIVITIES, PROLONGED STANDING PAIN IS DECREASED BY:SITTING NURSING NOTE: -. PAIN CENTER INTAKE QUESTIONS: DO YOU HAVE A HISTORY OF MRSA? :NO DO YOU TAKE A BLOOD THINNERS? :YES ELIQUIS DO YOU HAVE ANY BLEEDING DISORDERS? :YES FACTOR V ANY NEW NUMBNESS OR WEAKNESS IN YOUR LEGS OR ARMS? :YES INCREASED WEAKNESS IN LEGS ANY PACEMAKER,DEFIBRILLATOR, OR DORSAL COLUMN STIMULATOR? :NO DO YOU HAVE ANY RASHES OR OPEN SORES? :NO ARE YOU ALLERGIC TO IV DYE? :NO ARE YOU DIABETIC? :YES ANY NEW PROBLEMS WITH YOUR MEDICATIONS? :NO HAVE YOU RECEIVED A VACCINE IN THE PAST 30 DAYS? :NO DO YOU PLAN TO RECEIVE A VACCINE IN THE NEXT 21 DAYS? :NO DO YOU NEED ANY PRESCRIPTION? :YES BACLOFEN DO YOU TAKE ANY IMMUNOSUPPRESSIVE MEDICATIONS? :NO IS THERE A CHANCE YOU COULD BE ? :NO ARE YOU BREAST FEEDING? :NO CURRENT MEDICATIONS TAKING DULOXETINE HCL 60 MG CAPSULE DELAYED RELEASE PARTICLES 1 CAPSULE ORALLY ONCE A DAY TAKING LABETALOL HCL 200 MG TABLET 1 TABLET ORALLY TWICE A DAY TAKING HYDRALAZINE HCL 50 MG TABLET 1 TABLET WITH FOOD ORALLY TID TAKING LANTUS SOLOSTAR 100 UNIT/ML SOLUTION PEN-INJECTOR 50 UNITS SUBCUTANEOUS DAILY TAKING ASPIRIN 81 81 MG TABLET CHEWABLE 1 TABLET ORALLY ONCE A DAY TAKING ROPINIROLE HCL 1 MG TABLET 4 TABLET 1 TO 3 HOURS BEFORE BEDTIME ORALLY ONCE A DAY TAKING OMEPRAZOLE 20 MG CAPSULE DELAYED RELEASE 1 CAPSULE ORALLY ONCE A DAY TAKING GABAPENTIN 400 MG CAPSULE 1 CAPSULE ORALLY BID TAKING YONI ALLERGY 180 MG TABLET 1 TABLET NEEDED ORALLY ONCE A DAY TAKING HUMALOG 100 UNIT/ML SOLUTION SUBCUTANEOUS SLIDING SCALE BEFORE MEALS TAKING ROSUVASTATIN CALCIUM 10 MG TABLET 1 TABLET ORALLY EVERY OTHER DAY TAKING TYLENOL WITH CODEINE #3 300-30 MG TABLET 1 TABLET NEEDED ORALLY EVERY 6 HRS TAKING ELIQUIS 5 MG TABLET DIRECTED ORALLY BID TAKING BACLOFEN 20 MG TABLET 1 TABLET WITH FOOD OR MILK ORALLY THREE TIMES A DAY TAKING VALSARTAN 320 MG TABLET 1 TABLET ORALLY ONCE A DAY TAKING TRULICITY 3 MG/0.5ML SOLUTION PEN-INJECTOR DIRECTED SUBCUTANEOUS WEEKLY TAKING TORSEMIDE 20 MG TABLET DIRECTED ORALLY BID TAKING SPIRONOLACTONE 25 MG TABLET 1 TABLET ORALLY BID TAKING METFORMIN HCL 1000 MG TABLET 1 TABLET WITH A MEAL ORALLY BID NOT-TAKING VALSARTAN-HYDROCHLOROTHIAZIDE 320-25 MG TABLET 1 TABLET ORALLY ONCE A DAY NOT-TAKING FLUOCINONIDE 0.05 % SOLUTION 1 APPLICATION EXTERNALLY NIGHTLY TO SCALP NEEDED FOR ITCH NOT-TAKING TIZANIDINE HCL 4 MG TABLET 1 TABLET NEEDED ORALLY BEFORE BEDTIME AND IN 4 HRS IF NEEDED MDD=2, NOTES: 11/02 10P NOT-TAKING AMLODIPINE BESYLATE 10 MG TABLET 1 TABLET ORALLY ONCE A DAY, NOTES: 11/02 9A NOT-TAKING SIMVASTATIN 20 MG TABLET 1 TABLET IN THE EVENING ORALLY ONCE A DAY MEDICATION LIST REVIEWED AND RECONCILED WITH THE PATIENT PAST MEDICAL HISTORY BULGING DISCS- CERVICAL ARTHRITIS KNEES/HANDS SPINAL STENOSIS LYMPHEDEMA LOWER EXTREMITIES DIABETES TYPE 2 DIABETIC NEUROPATHY HIGH BLOOD PRESSURE DIVERTICULITIS FACTOR V LEYDEN SLEEP APNEA SEPSIS AFTER TOE SURGERY DECEMBER 2018 DVT IN LUNGS CHF ALLERGIES GENERAL ANESTHESIA: NAUSEA/VOMITING - SIDE EFFECTS SURGICAL HISTORY TONSILLECTOMY 1950 APPENDIX 1970 LEFT SHOULDER REPAIR 08/28/04 LEFT CAROTID ENDARTERECTOMY 04/04/16 ARTERIOGRAM 09/07/16 LEFT CATARACT 09/26/16 FX RIGHT FOOT 2ND TOE 11/08/17 AMOUTATION OF 3RD TOE LEFT FOOT 12/2018 DEVIATED SEPTUM REPAIR 02/2019 FAMILY HISTORY FATHER: 85 YRS, DIAGNOSED WITH HYPERTENSION, UNSPECIFIED HEART DISEASE MOTHER: 80 YRS 1 BROTHER(S) , 3 SISTER(S) . MOTHER- DIVERTICULITIS, OF PNEUMONIA\\NSISTER - BREAST CANCER SURVIVOR, COPD. SOCIAL HISTORY GENERAL: TOBACCO USE ARE YOU A:FORMER SMOKER HOW LONG HAS IT BEEN SINCE YOU LAST SMOKED?> 10 YEARS LATEX QUESTIONNAIRE LATEX ALLERGY : HAVE YOU EVER DEVELOPED ANY TYPE OF REACTION AFTER HANDLING LATEX PRODUCTS SUCH RUBBER GLOVES, CONDOMS, DIAPHRAGMS, BALLOONS, SOCKS, OR UNDERWEAR?NO LATEX ALLERGY : HAVE YOU EVER DEVELOPED ANY TYPE OF REACTION DURING OR AFTER DENTAL APPOINTMENT, VAGINAL/RECTAL EXAMINATION, SURGICAL PROCEDURE, OR ANY OTHER EXPOSURE?NO LATEX RISK : HAVE YOU EVER HAD ANY DIFFICULTY BREATHING OR HIVES AFTER EATING OR HANDLING ANY FRUITS, OR VEGETABLES; SUCH KIWI, BANANAS, STONE FRUITS, OR CHESTNUTSNO LATEX RISK : DO YOU HAVE A PREVIOUS PERSONAL HISTORY OF MORE THAN NINE SURGERIES, SPINA BIFIDA, OR REPEATED CATHERIZATIONS? NO LATEX RISK : ARE YOU FREQUENTLY EXPOSED TO LATEX PRODUCTS IN YOUR OCCUPATION?NO DATE ASKED : 04/13/2020 ALCOHOL SCREENING DID YOU HAVE A DRINK CONTAINING ALCOHOL IN THE PAST YEAR?NO POINTS0 INTERPRETATIONNEGATIVE RECREATIONAL DRUG USE DRUG USE?NO CAFFEINE CAFFEINE USE?YES HOW OFTEN AND HOW MUCH? 3 CUPS APPROXIMATELY SCIENTOLOGIST [id number] ORTHODOX LANGUAGE LANGUAGES SPOKEN:KYRGYZ LEARNING BARRIERS / SPECIAL NEEDS CHANGE FROM LAST VISIT?NO BARRIERS TO LEARNING?NO HEARING IMPAIRED?NO VISION IMPAIRED?YES :CORRECTIVE LENSES COGNITIVELY IMPAIRED?NO READINESS TO LEARN?YES LEARNING PREFERENCES?NO LEARNING CAPABILITIES PRESENT?YES EMOTIONAL BARRIERS?NO SPECIAL DEVICES?YES :WALKER RIDE ATTENDANT NEEDED?NO OCCUPATION: RETIRED. DIET: REGULAR. MARITAL STATUS: SINGLE. OTHERS AT HOME: SIBLING. PATIENT DESCRIBES PAIN : ACHING, BURNING, IT COMES AND GOES, SHARP, STABBING, TENDER, THROBBING, SORE, SHOOTING, FROM 0-10, WHAT LEVEL IS YOUR PAIN TODAY? 8, PRECIPITATING FACTORS SITTING TO STANDING POSITION CHANGE, ALLEVIATING FACTORS RESTING, IMPACT ON FUNCTION YES. PAIN CLINIC PFS, CLERGY, PUBLIC HEALTH REFERRALS HAS THE PATIENT BEEN EDUCATED REGARDING HIS/HER PLAN OF CARE?YES HAS THE PATIENT BEEN EDUCATED REGARDING PAIN, THE RISK FOR PAIN, THE IMPORTANCE OF EFFECTIVE PAIN MANAGEMENT, AND THE PAIN ASSESSMENT PROCESS?YES ADVANCE DIRECTIVE ADVANCE DIRECTIVE DISCUSSED WITH PATIENT:YES HCP - NADER BANKS [phone] HOSPITALIZATION/MAJOR DIAGNOSTIC PROCEDURE LEFT CAROTID ENDARTERECTOMY 04/04/16 APPENDIX 1970 BLOOD CLOT LEFT LEG (PT STATES IN THE S) TRACTION FOR BACK (PT STATES EARLY ) HOSPITALIZED WITH SEPSIS AFTER TOE SURGERY TOE SURGERY 12/2018 CHF 01/2020 REVIEW OF SYSTEMS CONSTITUTIONAL: ANY RECENT FEVER NO . CHILLS NO . WEIGHT CHANGE OF UNKNOWN REASONS NO . GASTROENTEROLOGY: NEW UNEXPLAINABLE CHANGES IN BOWEL CONTROL NO . CONSTIPATION NO . GENITOURINARY: ANY NEW CHANGE IN BLADDER CONTROL? NO . NEUROLOGY: NEW ONSET DIZZINESS OR NEUROLOGICAL CHANGES NOT MENTIONED NO . NEW NUMBNESS OR PAIN PATTERNS NOT MENTIONED AND PERTINENT TO TODAY'S VISIT NO . CARDIOLOGY: NEW CHEST PRESSURE NO . NEW CHEST PAIN NO . RESPIRATORY: UNEXPLAINABLE COUGH NO . NEW SHORTNESS OF BREATH NO . VITAL SIGNS WT 281 LBS, HT 71 IN, BMI 39.19 INDEX, BP 170/90 (MANUAL), HR 81 /MIN, RR 18 /MIN, TEMP 98 F, OXYGEN SAT % 97%, SAFE IN ENV? (Y/N) YES, REVIEWED BY: ZAIDA RNDISSCUSSED BLOOD PRESSURE WITH PATIENT, PATIENT ASYMPTOMATIC AND REPORTS TAKING BP MEDS AT HOME. MERY MARK NOTIFIED. YADIRA MENDOZA. EXAMINATION GENERAL EXAMINATION: GENERALNO ACUTE DISTRESS, WELL NOURISHED AND HYDRATED. PSYCHAPPROPRIATE MOOD AND AFFECT . LUNGS:CLEAR TO AUSCULTATION BILATERALLY, NO WHEEZES, RHONCHI, RALES. HEART:NO MURMURS, REGULAR RATE AND RHYTHM. ASSESSMENTS SPONDYLOSIS OF LUMBOSACRAL REGION WITHOUT MYELOPATHY OR RADICULOPATHY - M47.817 (PRIMARY) TREATMENT SPONDYLOSIS OF LUMBOSACRAL REGION WITHOUT MYELOPATHY OR RADICULOPATHY STOP TYLENOL WITH CODEINE #3 TABLET, 300-30 MG, 1 TABLET NEEDED, ORALLY, EVERY 6 HRS START ACETAMINOPHEN-CODEINE #4 TABLET, 300-60 MG, 1 TABLET NEEDED, ORALLY, EVERY 12 HRS PRN PAIN, 30 DAYS, 60 REFILL BACLOFEN TABLET, 20 MG, 1 TABLET WITH FOOD OR MILK, ORALLY, THREE TIMES A DAY, 30 DAY(S), 90 NOTES: 70-YEAR-OLD FEMALE IN FOR CHRONIC PAIN FOLLOW-UP. GIVEN PRESENTING SYMPTOMS RECOMMEND THAT THIS DIE DRAWING CHECKER TAKEOVER PRESCRIBING PATIENT'S TYLENOL WITH CODEINE AND INCREASE IT TO TYLENOL NO. 4 WITH FOLLOW-UP IN 2 MONTHS. PATIENT HAS EXPRESSED UNDERSTANDING OF AND WAS IN AGREEMENT WITH TREATMENT PLAN. GIVEN TIME TO ASK QUESTIONS AND EXPECT CONCERNS. , [employer] REGISTRY REVIEWED AND DEMONSTRATES COMPLLIANCE. (REF # [id number] ). PROCEDURE CODES FA211 ESTABILISHED PATIENT [facility] CHARGE DISPOSITION & COMMUNICATION FOLLOW UP 2 MONTHS (REASON: BACK PAIN, MEDICATION INCREASE) ELECTRONICALLY SIGNED BY MARY ANN STOUT ON 06/21/2020 AT 09:12 AM EST DISCLAIMER : THIS IS A VISIT SUMMARY EXTRACTED FROM THE [employer] CHART. IT IS NOT A COPY OF THE [employer] PROGRESS NOTE. JUANITO
== END ==
LOC: M PAIN 13:30
PROVIDERS: ATTEND Family Medicine
DX: M47.817 Spondylosis without myelopathy or radiculopathy, lumbosacral region (principal); E11.40 Type 2 diabetes mellitus with diabetic neuropathy, unspecified; G47.30 Sleep apnea, unspecified; I50.9 Heart failure, unspecified; I89.0 Lymphedema, not elsewhere classified; D68.2 Hereditary deficiency of other clotting factors; Z79.01 Long term (current) use of anticoagulants; Z79.84 Long term (current) use of oral hypoglycemic drugs; Z86.718 Personal history of other venous thrombosis and embolism; Z79.899 Other long term (current) drug therapy; Z79.82 Long term (current) use of aspirin; Z87.891 Personal history of nicotine dependence; Z88.4 Allergy status to anesthetic agent

== ENCOUNTER → 2020-08-15 | Outpatient (CLI) | payer BC, MEDICARE ==
--- NOTE | 2020-08-17 06:20 | ECWPNPC ---
PATIENT NAME: CHRIS LONGORIA : 1950 GENDER: FEMALE VISIT DATE: 08/15/2020 DISCHARGE DATE: 08/15/20 1135 VISIT LOCKED DATE TIME: PHYSICIAN: MERY FLORES RESOURCE: MERY FLORES REASON FOR APPOINTMENT 1. BACK PAIN, MEDICATION INCREASE HISTORY OF PRESENT ILLNESS GENERAL: - 70-YEAR-OLD FEMALE IN FOR CHRONIC PAIN FOLLOW-UP. AT LAST CLINIC VISIT PATIENT'S TYLENOL THREE WAS INCREASED TO THE TYLENOL FOUR AND SHE ADMITS TODAY THAT THIS HAS BEEN BENEFICIAL. SHE RATES HER PAIN CURRENTLY AT A 3 OUT OF 10 AND DESCRIBES IT BURNING, INTERMITTENT, AND STABBING. FALL RISK SCREENING: SCREENING : NO FALLS REPORTED IN THE LAST YEAR. PAIN SCREENING: PATIENT HAS A COMPLAINT OF ACUTE OR CHRONIC PAIN :YES LOCATION OF PAIN:LOW BACK INTENSITY OF PAIN (SCALE OF 1 TO 10):3 WHAT DOES YOUR PAIN FEEL LIKE:BURNING, INTERMITTENT, STABBING DURATION:INTERMITTENT, AWAKENS FROM SLEEP PAIN IS INCREASED BY:ACTIVITIES, PROLONGED STANDING PAIN IS DECREASED BY:USE OF PAIN MEDICATIONS, SITTING NURSING NOTE: -. PAIN CENTER INTAKE QUESTIONS: DO YOU HAVE A HISTORY OF MRSA? :NO DO YOU TAKE A BLOOD THINNERS? :YES DO YOU HAVE ANY BLEEDING DISORDERS? :YES FACTOR IV ANY NEW NUMBNESS OR WEAKNESS IN YOUR LEGS OR ARMS? :YES WEAKNESS AND NUMBESS IN BOTH ARMS ANY PACEMAKER,DEFIBRILLATOR, OR DORSAL COLUMN STIMULATOR? :NO DO YOU HAVE ANY RASHES OR OPEN SORES? :NO ARE YOU ALLERGIC TO IV DYE? :NO ARE YOU DIABETIC? :YES TYPE II ANY NEW PROBLEMS WITH YOUR MEDICATIONS? :NO HAVE YOU RECEIVED A VACCINE IN THE PAST 30 DAYS? :NO DO YOU PLAN TO RECEIVE A VACCINE IN THE NEXT 21 DAYS? :YES IF SO WHAT VACCINE AND WHEN? WOULD LIKE THE COVID VACCINATION IF IT BECOMES AVAILABLE DO YOU NEED ANY PRESCRIPTION? :YES BACLOFEN AND TYLENOL #4 DO YOU TAKE ANY IMMUNOSUPPRESSIVE MEDICATIONS? :NO DO YOU HAVE ANY KIDNEY OR LIVER DISEASE? :NO IS THERE A CHANCE YOU COULD BE ? :NO ARE YOU BREAST FEEDING? :NO CURRENT MEDICATIONS TAKING VALSARTAN-HYDROCHLOROTHIAZIDE 320-25 MG TABLET 1 TABLET ORALLY ONCE A DAY TAKING DULOXETINE HCL 60 MG CAPSULE DELAYED RELEASE PARTICLES 1 CAPSULE ORALLY ONCE A DAY TAKING LABETALOL HCL 200 MG TABLET 1 TABLET ORALLY TWICE A DAY TAKING HYDRALAZINE HCL 50 MG TABLET 1 TABLET WITH FOOD ORALLY TID TAKING LANTUS SOLOSTAR 100 UNIT/ML SOLUTION PEN-INJECTOR 50 UNITS SUBCUTANEOUS DAILY TAKING ASPIRIN 81 81 MG TABLET CHEWABLE 1 TABLET ORALLY ONCE A DAY TAKING ROPINIROLE HCL 1 MG TABLET 4 TABLET 1 TO 3 HOURS BEFORE BEDTIME ORALLY ONCE A DAY TAKING OMEPRAZOLE 20 MG CAPSULE DELAYED RELEASE 1 CAPSULE ORALLY ONCE A DAY TAKING GABAPENTIN 400 MG CAPSULE 1 CAPSULE ORALLY BID TAKING YONI ALLERGY 180 MG TABLET 1 TABLET NEEDED ORALLY ONCE A DAY TAKING HUMALOG 100 UNIT/ML SOLUTION SUBCUTANEOUS SLIDING SCALE BEFORE MEALS TAKING ROSUVASTATIN CALCIUM 10 MG TABLET 1 TABLET ORALLY EVERY OTHER DAY TAKING ELIQUIS 5 MG TABLET DIRECTED ORALLY BID TAKING VALSARTAN 320 MG TABLET 1 TABLET ORALLY ONCE A DAY TAKING TRULICITY 3 MG/0.5ML SOLUTION PEN-INJECTOR DIRECTED SUBCUTANEOUS WEEKLY TAKING TORSEMIDE 20 MG TABLET DIRECTED ORALLY BID TAKING SPIRONOLACTONE 25 MG TABLET 1 TABLET ORALLY BID TAKING METFORMIN HCL 1000 MG TABLET 1 TABLET WITH A MEAL ORALLY BID TAKING ACETAMINOPHEN-CODEINE #4 300-60 MG TABLET 1 TABLET NEEDED ORALLY EVERY 12 HRS PRN PAIN TAKING BACLOFEN 20 MG TABLET 1 TABLET WITH FOOD OR MILK ORALLY THREE TIMES A DAY NOT-TAKING FLUOCINONIDE 0.05 % SOLUTION 1 APPLICATION EXTERNALLY NIGHTLY TO SCALP NEEDED FOR ITCH NOT-TAKING TIZANIDINE HCL 4 MG TABLET 1 TABLET NEEDED ORALLY BEFORE BEDTIME AND IN 4 HRS IF NEEDED MDD=2, NOTES: 11/02 10P NOT-TAKING AMLODIPINE BESYLATE 10 MG TABLET 1 TABLET ORALLY ONCE A DAY, NOTES: 11/02 9A NOT-TAKING SIMVASTATIN 20 MG TABLET 1 TABLET IN THE EVENING ORALLY ONCE A DAY MEDICATION LIST REVIEWED AND RECONCILED WITH THE PATIENT PAST MEDICAL HISTORY BULGING DISCS- CERVICAL ARTHRITIS KNEES/HANDS SPINAL STENOSIS LYMPHEDEMA LOWER EXTREMITIES DIABETES TYPE 2 DIABETIC NEUROPATHY HIGH BLOOD PRESSURE DIVERTICULITIS FACTOR V LEYDEN SLEEP APNEA SEPSIS AFTER TOE SURGERY DECEMBER 2018 DVT IN LUNGS CHF ALLERGIES GENERAL ANESTHESIA: NAUSEA/VOMITING - SIDE EFFECTS SOCIAL HISTORY GENERAL: TOBACCO USE ARE YOU A:FORMER SMOKER HOW LONG HAS IT BEEN SINCE YOU LAST SMOKED?> 10 YEARS LATEX QUESTIONNAIRE LATEX ALLERGY : HAVE YOU EVER DEVELOPED ANY TYPE OF REACTION AFTER HANDLING LATEX PRODUCTS SUCH RUBBER GLOVES, CONDOMS, DIAPHRAGMS, BALLOONS, SOCKS, OR UNDERWEAR?NO LATEX ALLERGY : HAVE YOU EVER DEVELOPED ANY TYPE OF REACTION DURING OR AFTER DENTAL APPOINTMENT, VAGINAL/RECTAL EXAMINATION, SURGICAL PROCEDURE, OR ANY OTHER EXPOSURE?NO LATEX RISK : HAVE YOU EVER HAD ANY DIFFICULTY BREATHING OR HIVES AFTER EATING OR HANDLING ANY FRUITS, OR VEGETABLES; SUCH KIWI, BANANAS, STONE FRUITS, OR CHESTNUTSNO LATEX RISK : DO YOU HAVE A PREVIOUS PERSONAL HISTORY OF MORE THAN NINE SURGERIES, SPINA BIFIDA, OR REPEATED CATHERIZATIONS? NO LATEX RISK : ARE YOU FREQUENTLY EXPOSED TO LATEX PRODUCTS IN YOUR OCCUPATION?NO DATE ASKED : 08/15/2020 ALCOHOL USE: NO. ALCOHOL SCREENING DID YOU HAVE A DRINK CONTAINING ALCOHOL IN THE PAST YEAR?NO POINTS0 INTERPRETATIONNEGATIVE RECREATIONAL DRUG USE DRUG USE?NO CAFFEINE CAFFEINE USE?YES HOW OFTEN AND HOW MUCH? 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 DIET: REGULAR. MARITAL STATUS: SINGLE. OTHERS AT HOME: SIBLING. PATIENT DESCRIBES PAIN : ACHING, BURNING, IT COMES AND GOES, SHARP, STABBING, TENDER, THROBBING, SORE, SHOOTING, FROM 0-10, WHAT LEVEL IS YOUR PAIN TODAY? 8, PRECIPITATING FACTORS SITTING TO STANDING POSITION CHANGE, ALLEVIATING FACTORS RESTING, IMPACT ON FUNCTION YES. - HAS THE PATIENT BEEN EDUCATED REGARDING HIS/HER PLAN OF CARE?YES HAS THE PATIENT BEEN EDUCATED REGARDING PAIN, THE RISK FOR PAIN, THE IMPORTANCE OF EFFECTIVE PAIN MANAGEMENT, AND THE PAIN ASSESSMENT PROCESS?YES ADVANCE DIRECTIVE ADVANCE DIRECTIVE DISCUSSED WITH PATIENT:YES HCP - NADER BANKS ( [phone] REVIEW OF SYSTEMS CONSTITUTIONAL: ANY RECENT FEVER NO . CHILLS NO . WEIGHT CHANGE OF UNKNOWN REASONS NO . GASTROENTEROLOGY: NEW UNEXPLAINABLE CHANGES IN BOWEL CONTROL NO . CONSTIPATION NO . GENITOURINARY: ANY NEW CHANGE IN BLADDER CONTROL? NO . NEUROLOGY: NEW ONSET DIZZINESS OR NEUROLOGICAL CHANGES NOT MENTIONED NO . NEW NUMBNESS OR PAIN PATTERNS NOT MENTIONED AND PERTINENT TO TODAY'S VISIT NO . CARDIOLOGY: NEW CHEST PRESSURE NO . PATIENT DENIES NO . RESPIRATORY: UNEXPLAINABLE COUGH NO . NEW SHORTNESS OF BREATH NO . VITAL SIGNS WT 292.6 LBS, HT 71 IN, BMI 40.80 INDEX, BP 162/88 MANUAL, HR 87 /MIN, RR 18 /MIN, TEMP 98 F, OXYGEN SAT % 90%, SAFE IN ENV? (Y/N) YES, REVIEWED BY: ALEX RUBIN MA. EXAMINATION GENERAL EXAMINATION: GENERALNO ACUTE DISTRESS, WELL NOURISHED AND HYDRATED. PSYCHAPPROPRIATE MOOD AND AFFECT . LUNGS:CLEAR TO AUSCULTATION BILATERALLY, NO WHEEZES, RHONCHI, RALES. HEART:NO MURMURS, REGULAR RATE AND RHYTHM. ASSESSMENTS SACROILIITIS - M46.1 (PRIMARY) SPONDYLOSIS OF LUMBOSACRAL REGION WITHOUT MYELOPATHY OR RADICULOPATHY - M47.817 TREATMENT SACROILIITIS REFILL TIZANIDINE HCL TABLET, 4 MG, 1 TABLET NEEDED, ORALLY, BEFORE BEDTIME AND IN 4 HRS IF NEEDED MDD=2, 30 DAYS, 30, NOTES: 11/02 10P NOTES: 70-YEAR-OLD FEMALE IN FOR CHRONIC PAIN FOLLOW-UP. GIVEN PRESENTING SYMPTOMS RECOMMENDED CONTINUATION OF CURRENT MEDICATION REGIMEN WITH FOLLOW-UP IN 3 MONTHS. PATIENT HAS EXPRESSED UNDERSTANDING OF AND WAS IN AGREEMENT WITH TREATMENT PLAN. GIVEN TIME TO ASK QUESTIONS AND EXPRESS CONCERNS. , ISTOP REGISTRY REVIEWED AND DEMONSTRATES COMPLLIANCE. (REF # [id number] ) BRINGS IN MEDICATIONS WHICH IS APPROPRIATE FOR WHAT WAS DISPENSED. RECENT URINE TOXICOLOGY REVIEWED. NO UNAUTHORIZED MEDICATIONS. NO ILLICIT SUBSTANCES AND PRESCRIBED MEDICATIONS WERE PRESENT. SPONDYLOSIS OF LUMBOSACRAL REGION WITHOUT MYELOPATHY OR RADICULOPATHY REFILL ACETAMINOPHEN-CODEINE #4 TABLET, 300-60 MG, 1 TABLET NEEDED, ORALLY, EVERY 12 HRS PRN PAIN, 30 DAYS, 60 PROCEDURE CODES FA211 ESTABILISHED PATIENT [facility] CHARGE DISPOSITION & COMMUNICATION FOLLOW UP 3 MONTHS (REASON: BACK PAIN) ELECTRONICALLY SIGNED BY MARY ANN STOUT ON 08/16/2020 AT 12:43 PM EDT DISCLAIMER : THIS IS A VISIT SUMMARY EXTRACTED FROM THE [employer] CHART. IT IS NOT A COPY OF THE [employer] PROGRESS NOTE. MTDD
== END ==
LOC: M PAIN 10:45
PROVIDERS: ATTEND Family Medicine
DX: M46.1 Sacroiliitis, not elsewhere classified (principal); M47.817 Spondylosis without myelopathy or radiculopathy, lumbosacral region; E11.40 Type 2 diabetes mellitus with diabetic neuropathy, unspecified; G47.30 Sleep apnea, unspecified; D68.2 Hereditary deficiency of other clotting factors; I50.9 Heart failure, unspecified; I89.0 Lymphedema, not elsewhere classified; M50.20 Other cervical disc displacement, unspecified cervical region; Z86.718 Personal history of other venous thrombosis and embolism; Z87.891 Personal history of nicotine dependence; Z79.4 Long term (current) use of insulin; Z79.899 Other long term (current) drug therapy; Z79.01 Long term (current) use of anticoagulants; Z88.4 Allergy status to anesthetic agent

== ENCOUNTER → 2020-10-24 | Outpatient (REF) | payer BC, MEDICARE ==
[~2020-10-24] MED LIST changes: +GABA-283 PO; -GABA-845 PO
[2020-10-24 18:28] LABS: MALB URINE SIEMENS 58.8 MG/L
== END ==
LOC: M LAB REF 16:44
PROVIDERS: ATTEND Nurse Practitioner Family
DX: E11.22 Type 2 diabetes mellitus with diabetic chronic kidney disease (principal)

== ENCOUNTER → 2020-11-21 | Outpatient (CLI) | payer BC, MEDICARE ==
--- NOTE | 2020-11-23 06:07 | ECWPNPC ---
PATIENT NAME: CHRIS LONGORIA : 1950 GENDER: FEMALE VISIT DATE: 11/21/2020 DISCHARGE DATE: 11/21/20 1402 VISIT LOCKED DATE TIME: PHYSICIAN: MERY FLORES RESOURCE: MERY FLORES REASON FOR APPOINTMENT 1. BACK PAIN HISTORY OF PRESENT ILLNESS GENERAL: HPI 70-YEAR-OLD FEMALE IN FOR CHRONIC PAIN FOLLOW-UP. PATIENT FEELS THE MEDICATIONS ARE HELPFUL. SHE DOES ADMIT TO INTERMITTENT CONSTIPATION FROM MEDICATION. SHE RATES HER PAIN CURRENTLY AT A 5 OUT OF 10 AND DESCRIBES IT ACHING.. -. FALL RISK SCREENING: SCREENING : NO FALLS REPORTED IN THE LAST YEAR. PAIN SCREENING: PATIENT HAS A COMPLAINT OF ACUTE OR CHRONIC PAIN :YES LOCATION OF PAIN:UPPER BACK, MID BACK, LOW BACK, LEFT HIP, RIGHT HIP HIP WHEN WALKING LONG DISTANCES INTENSITY OF PAIN (SCALE OF 1 TO 10):5 WHAT DOES YOUR PAIN FEEL LIKE:ACHING DURATION:CONTINOUS, CONSTANT, ALL DAY PAIN IS INCREASED BY:ACTIVITIES, PROLONGED STANDING, OTHERS WALKING LONG DISTANCES PAIN IS DECREASED BY:USE OF PAIN MEDICATIONS, SITTING, OTHERS ICE NURSING NOTE: -. PAIN CENTER INTAKE QUESTIONS: DO YOU HAVE A HISTORY OF MRSA? :NO DO YOU TAKE A BLOOD THINNERS? :YES ELIQUIS DO YOU HAVE ANY BLEEDING DISORDERS? :YES FACTOR V ANY NEW NUMBNESS OR WEAKNESS IN YOUR LEGS OR ARMS? :NO ANY PACEMAKER,DEFIBRILLATOR, OR DORSAL COLUMN STIMULATOR? :NO DO YOU HAVE ANY RASHES OR OPEN SORES? :NO ARE YOU ALLERGIC TO IV DYE? :NO ARE YOU DIABETIC? :YES ANY NEW PROBLEMS WITH YOUR MEDICATIONS? :NO HAVE YOU RECEIVED A VACCINE IN THE PAST 30 DAYS? :NO DO YOU PLAN TO RECEIVE A VACCINE IN THE NEXT 21 DAYS? :NO DO YOU NEED ANY PRESCRIPTION? :NO DO YOU TAKE ANY IMMUNOSUPPRESSIVE MEDICATIONS? :NO DO YOU HAVE ANY KIDNEY OR LIVER DISEASE? :NO IS THERE A CHANCE YOU COULD BE ? :NO ARE YOU BREAST FEEDING? :NO CURRENT MEDICATIONS TAKING FLUOCINONIDE 0.05 % SOLUTION 1 APPLICATION EXTERNALLY NIGHTLY TO SCALP NEEDED FOR ITCH TAKING DULOXETINE HCL 60 MG CAPSULE DELAYED RELEASE PARTICLES 1 CAPSULE ORALLY ONCE A DAY TAKING HYDRALAZINE HCL 25 MG TABLET 1 TABLET WITH FOOD ORALLY TID TAKING LANTUS SOLOSTAR 100 UNIT/ML SOLUTION PEN-INJECTOR 60 UNITS SUBCUTANEOUS DAILY TAKING ASPIRIN 81 81 MG TABLET CHEWABLE 1 TABLET ORALLY ONCE A DAY TAKING ROPINIROLE HCL 1 MG TABLET 4 TABLET 1 TO 3 HOURS BEFORE BEDTIME ORALLY ONCE A DAY TAKING OMEPRAZOLE 20 MG CAPSULE DELAYED RELEASE 1 CAPSULE ORALLY ONCE A DAY TAKING GABAPENTIN 400 MG CAPSULE 1 CAPSULE ORALLY BID TAKING YONI ALLERGY 180 MG TABLET 1 TABLET NEEDED ORALLY ONCE A DAY TAKING HUMALOG 100 UNIT/ML SOLUTION SUBCUTANEOUS SLIDING SCALE BEFORE MEALS TAKING ROSUVASTATIN CALCIUM 10 MG TABLET 1 TABLET ORALLY EVERY OTHER DAY TAKING ELIQUIS 5 MG TABLET DIRECTED ORALLY BID TAKING TRULICITY 4.5 MG/0.5ML SOLUTION PEN-INJECTOR DIRECTED SUBCUTANEOUS WEEKLY TAKING TORSEMIDE 20 MG TABLET DIRECTED ORALLY BID TAKING SPIRONOLACTONE 25 MG TABLET 1 TABLET ORALLY BID TAKING TIZANIDINE HCL 4 MG TABLET 1 TABLET NEEDED ORALLY BEFORE BEDTIME AND IN 4 HRS IF NEEDED MDD=2 TAKING ACETAMINOPHEN-CODEINE #4 300-60 MG TABLET 1 TABLET NEEDED ORALLY EVERY 12 HRS PRN PAIN TAKING BACLOFEN 20 MG TABLET 1 TABLET WITH FOOD OR MILK ORALLY THREE TIMES A DAY TAKING ENTRESTO 24-26 MG TABLET 1 TABLET ORALLY TWICE A DAY TAKING METOPROLOL TARTRATE 100 MG TABLET 1 TABLET WITH FOOD ORALLY DAILY TAKING MAGNESIUM 400 MG CAPSULE DIRECTED ORALLY DAILY TAKING POTASSIUM CHLORIDE ER 20 MEQ TABLET EXTENDED RELEASE 1 TABLET WITH FOOD ORALLY ONCE A DAY NOT-TAKING VALSARTAN-HYDROCHLOROTHIAZIDE 320-25 MG TABLET 1 TABLET ORALLY ONCE A DAY NOT-TAKING LABETALOL HCL 200 MG TABLET 1 TABLET ORALLY TWICE A DAY NOT-TAKING VALSARTAN 320 MG TABLET 1 TABLET ORALLY ONCE A DAY NOT-TAKING METFORMIN HCL 1000 MG TABLET 1 TABLET WITH A MEAL ORALLY BID NOT-TAKING AMLODIPINE BESYLATE 10 MG TABLET 1 TABLET ORALLY ONCE A DAY, NOTES: 11/02 9A NOT-TAKING SIMVASTATIN 20 MG TABLET 1 TABLET IN THE EVENING ORALLY ONCE A DAY MEDICATION LIST REVIEWED AND RECONCILED WITH THE PATIENT PAST MEDICAL HISTORY BULGING DISCS- CERVICAL ARTHRITIS KNEES/HANDS SPINAL STENOSIS LYMPHEDEMA LOWER EXTREMITIES DIABETES TYPE 2 DIABETIC NEUROPATHY HIGH BLOOD PRESSURE DIVERTICULITIS FACTOR V LEYDEN SLEEP APNEA SEPSIS AFTER TOE SURGERY DECEMBER 2018 DVT IN LUNGS CHF ALLERGIES GENERAL ANESTHESIA: NAUSEA/VOMITING - SIDE EFFECTS SOCIAL HISTORY GENERAL: TOBACCO USE ARE YOU A:FORMER SMOKER HOW LONG HAS IT BEEN SINCE YOU LAST SMOKED?> 10 YEARS LATEX QUESTIONNAIRE LATEX ALLERGY : HAVE YOU EVER DEVELOPED ANY TYPE OF REACTION AFTER HANDLING LATEX PRODUCTS SUCH RUBBER GLOVES, CONDOMS, DIAPHRAGMS, BALLOONS, SOCKS, OR UNDERWEAR?NO LATEX ALLERGY : HAVE YOU EVER DEVELOPED ANY TYPE OF REACTION DURING OR AFTER DENTAL APPOINTMENT, VAGINAL/RECTAL EXAMINATION, SURGICAL PROCEDURE, OR ANY OTHER EXPOSURE?NO LATEX RISK : HAVE YOU EVER HAD ANY DIFFICULTY BREATHING OR HIVES AFTER EATING OR HANDLING ANY FRUITS, OR VEGETABLES; SUCH KIWI, BANANAS, STONE FRUITS, OR CHESTNUTSNO LATEX RISK : DO YOU HAVE A PREVIOUS PERSONAL HISTORY OF MORE THAN NINE SURGERIES, SPINA BIFIDA, OR REPEATED CATHERIZATIONS? NO LATEX RISK : ARE YOU FREQUENTLY EXPOSED TO LATEX PRODUCTS IN YOUR OCCUPATION?NO DATE ASKED : 10/17/2020 ALCOHOL USE: NO. ALCOHOL SCREENING DID YOU HAVE A DRINK CONTAINING ALCOHOL IN THE PAST YEAR?NO POINTS0 INTERPRETATIONNEGATIVE RECREATIONAL DRUG USE DRUG USE?NO CAFFEINE CAFFEINE USE?YES HOW OFTEN AND HOW MUCH? 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 DIET: REGULAR. MARITAL STATUS: SINGLE. OTHERS AT HOME: SIBLING. PATIENT DESCRIBES PAIN : ACHING, BURNING, IT COMES AND GOES, SHARP, STABBING, TENDER, THROBBING, SORE, SHOOTING, FROM 0-10, WHAT LEVEL IS YOUR PAIN TODAY? 8, PRECIPITATING FACTORS SITTING TO STANDING POSITION CHANGE, ALLEVIATING FACTORS RESTING, IMPACT ON FUNCTION YES. - HAS THE PATIENT BEEN EDUCATED REGARDING HIS/HER PLAN OF CARE?YES HAS THE PATIENT BEEN EDUCATED REGARDING PAIN, THE RISK FOR PAIN, THE IMPORTANCE OF EFFECTIVE PAIN MANAGEMENT, AND THE PAIN ASSESSMENT PROCESS?YES ADVANCE DIRECTIVE ADVANCE DIRECTIVE DISCUSSED WITH PATIENT:YES HCP - NADER BANKS ( [phone] REVIEW OF SYSTEMS CONSTITUTIONAL: ANY RECENT FEVER NO . CHILLS NO . WEIGHT CHANGE OF UNKNOWN REASONS NO . GASTROENTEROLOGY: NEW UNEXPLAINABLE CHANGES IN BOWEL CONTROL NO . CONSTIPATION NO . GENITOURINARY: ANY NEW CHANGE IN BLADDER CONTROL? NO . NEUROLOGY: NEW ONSET DIZZINESS OR NEUROLOGICAL CHANGES NOT MENTIONED NO . NEW NUMBNESS OR PAIN PATTERNS NOT MENTIONED AND PERTINENT TO TODAY'S VISIT NO . CARDIOLOGY: NEW CHEST PRESSURE NO . PATIENT DENIES NO . RESPIRATORY: UNEXPLAINABLE COUGH NO . NEW SHORTNESS OF BREATH NO . VITAL SIGNS WT 267.4 LBS, HT 71 IN, BMI 37.29 INDEX, BP 203/84 MM HG, REPEAT BP 148/72 MANUAL, HR 75 /MIN, RR 18 /MIN, TEMP 97.5 F, OXYGEN SAT % 95%, SAFE IN ENV? (Y/N) YES, NA INITIALS [place] 13:28, REVIEWED BY: Racquel ANDERSON, RNRN IS GOING TO RECHECK PT'S BP. EXAMINATION GENERAL EXAMINATION: GENERALNO ACUTE DISTRESS, WELL NOURISHED AND HYDRATED. PSYCHAPPROPRIATE MOOD AND AFFECT . LUNGS:CLEAR TO AUSCULTATION BILATERALLY, NO WHEEZES, RHONCHI, RALES. HEART:NO MURMURS, REGULAR RATE AND RHYTHM. ASSESSMENTS SPONDYLOSIS OF LUMBOSACRAL REGION WITHOUT MYELOPATHY OR RADICULOPATHY - M47.817 (PRIMARY), RISK: (NULL) CHRONIC PRESCRIPTION OPIATE USE - Z79.891 TREATMENT SPONDYLOSIS OF LUMBOSACRAL REGION WITHOUT MYELOPATHY OR RADICULOPATHY NOTES: 70-YEAR-OLD FEMALE IN FOR CHRONIC PAIN FOLLOW-UP. GIVEN PRESENTING SYMPTOMS RECOMMENDED CONTINUATION OF CURRENT MEDICATION REGIMEN WITH FOLLOW-UP IN 3 MONTHS.PATIENT WAS ENCOURAGED TO TAKE COLACE DAILY FOR OPIATE-INDUCED CONSTIPATION. PATIENT HAS EXPRESSED UNDERSTANDING OF AND WAS IN AGREEMENT WITH TREATMENT PLAN. GIVEN TIME TO ASK QUESTIONS AND EXPRESS CONCERNS. , ISTOP REGISTRY REVIEWED AND DEMONSTRATES COMPLLIANCE. (REF # [id number] ) BRINGS IN MEDICATIONS WHICH IS APPROPRIATE FOR WHAT WAS DISPENSED. RECENT URINE TOXICOLOGY REVIEWED. NO UNAUTHORIZED MEDICATIONS. NO ILLICIT SUBSTANCES AND PRESCRIBED MEDICATIONS WERE PRESENT. CHRONIC PRESCRIPTION OPIATE USE LAB: URINE TEST GROUP TRICIA ANDERSON 11/21/2020 1:56:30 PM > LAST DOSE: TYLENOL WITH CODEINE - 11/19/20 PROCEDURE CODES FA211 ESTABILISHED PATIENT [facility] CHARGE DISPOSITION & COMMUNICATION FOLLOW UP 3 MONTHS (REASON: BACK PAIN ) ELECTRONICALLY SIGNED BY MARY ANN STOUT ON 11/22/2020 AT 08:39 AM EDT DISCLAIMER : THIS IS A VISIT SUMMARY EXTRACTED FROM THE [employer] CHART. IT IS NOT A COPY OF THE [employer] PROGRESS NOTE. JUANITO
== END ==
LOC: M PAIN 13:30
PROVIDERS: ATTEND Family Medicine
DX: M47.817 Spondylosis without myelopathy or radiculopathy, lumbosacral region (principal); Z79.891 Long term (current) use of opiate analgesic; E11.40 Type 2 diabetes mellitus with diabetic neuropathy, unspecified; G47.30 Sleep apnea, unspecified; I50.9 Heart failure, unspecified; Z86.718 Personal history of other venous thrombosis and embolism; M50.20 Other cervical disc displacement, unspecified cervical region; I89.0 Lymphedema, not elsewhere classified; Z87.891 Personal history of nicotine dependence; Z79.82 Long term (current) use of aspirin; Z79.899 Other long term (current) drug therapy; Z79.01 Long term (current) use of anticoagulants; Z79.4 Long term (current) use of insulin; Z88.4 Allergy status to anesthetic agent

== ENCOUNTER → 2020-12-15 | Outpatient (REF) | payer BC, MEDICARE | LOC: M LAB REF 17:38 | PROVIDERS: ATTEND Internal Medicine Nephrology | DX: N18.31 Chronic kidney disease, stage 3a (principal) ==

== ENCOUNTER → 2021-04-19 | Outpatient (REF) | payer BC, MEDICARE | LOC: M LAB REF 17:05 | PROVIDERS: ATTEND Nurse Practitioner Family | DX: N18.2 Chronic kidney disease, stage 2 (mild) (principal) ==

== ENCOUNTER 2021-06-23 14:07 | Outpatient (CLI) | payer BC, MEDICARE ==
[~2021-06-23] VITALS: Ht 177.8 cm; Wt 131.1 kg
[~2021-06-23 14:07] MED LIST changes: +ALBUTEROL 90 MCG/ACT 8GM HFA INHALER INH PRN; +ALBUTEROL SULFATE 2.5 MG/0.5 ML INH NEB SOLN INH PRN; +EPINEPHrine INJ 1 MG/ML 1ML AMP IM PRN; +NS 1,000 ML IV SCH; +OMEP-173; +OMEP-173 PO; -OMEP-218; -OMEP-218 PO; +diphenhydrAMINE 50MG/ML VIAL (J1200) IV PRN; +methylPREDNISolone 125MG 2ML VIAL IV PRN
[2021-06-23] MEDS ORDERED: SOTROVIMAB 500 MG in NS 100 ML IV ONE (15:30)
[2021-06-23 15:55] VITALS: BP 162/80
[2021-06-23 16:25] VITALS: BP 157/77
[2021-06-23 17:25] VITALS: BP 156/78
[2021-06-23] MEDS ORDERED: ROPI1TAB3 (19:12)
[2021-06-23] MEDS ORDERED: CALC-356 PO (19:12)
[2021-06-23] MEDS ORDERED: DULA4.5P INJ (19:12)
[2021-06-23] MEDS ORDERED: BUSP15TA47 (19:12)
[2021-06-23] MEDS ORDERED: ENTR1TAB PO (19:12)
[2021-06-23] MEDS ORDERED: METO1TAB33 PO (19:12)
[2021-06-23] MEDS ORDERED: BACL1TAB9 (19:12)
[2021-06-23] MEDS ORDERED: ALEN70TA82 PO (22:59)
[2021-06-23] MEDS ORDERED: ELIQ5TAB PO (22:59)
== END 2021-06-23 18:08 | disposition home or self-care (01) ==
LOC: M OPCLI4PR 14:07 → M 4MAIN 15:00 → M OPCLI4PR 18:08
PROVIDERS: ATTEND Family Medicine
DX: U07.1 COVID-19 (principal); Z88.4 Allergy status to anesthetic agent

== ENCOUNTER 2021-06-23 18:23 | Inpatient (IN) | payer BC, MEDICARE ==
[~2021-06-23] VITALS: Ht 182.9 cm; Wt 129.3 kg
[~2021-06-23 18:23] MED LIST changes: -ALBUTEROL 90 MCG/ACT 8GM HFA INHALER INH PRN; -ALBUTEROL SULFATE 2.5 MG/0.5 ML INH NEB SOLN INH PRN; -EPINEPHrine INJ 1 MG/ML 1ML AMP IM PRN; -NS 1,000 ML IV SCH; -diphenhydrAMINE 50MG/ML VIAL (J1200) IV PRN; -methylPREDNISolone 125MG 2ML VIAL IV PRN
[2021-06-23] MEDS ORDERED: BACL1TAB9 (19:12)
[2021-06-23] MEDS ORDERED: BUSP15TA47 (19:12)
[2021-06-23] MEDS ORDERED: CALC-356 PO (19:12)
[2021-06-23] MEDS ORDERED: DULA4.5P INJ (19:12)
[2021-06-23] MEDS ORDERED: ENTR1TAB PO (19:12)
[2021-06-23] MEDS ORDERED: ROPI1TAB3 (19:12)
[2021-06-23] MEDS ORDERED: METO1TAB33 PO (19:12)
[2021-06-23] MEDS ORDERED: ALEN70TA82 PO (22:59)
[2021-06-23] MEDS ORDERED: ELIQ5TAB PO (22:59)
[2021-06-29 08:00] VITALS: BP 154/60
[2021-06-29] MEDS ORDERED: AMLO1TAB24 PO (10:18)
[2021-06-29] MEDS ORDERED: HYDR25TA PO (10:18)
[2021-06-29] MEDS ORDERED: FURO40TA2 PO (10:18)
[2021-06-29 14:48] VITALS: BP 154/71
[2021-06-29 16:00] VITALS: O2SAT 96
== END 2021-06-29 16:54 | disposition home health service (06) | DRG 137 ==
LOC: M ED 18:23 → M ED INP 18:24 → M 4MAIN 06-24 01:12 → OBSVTOIN 06-27 11:16
PROVIDERS: ADMIT Internal Medicine; ATTEND Family Medicine
PROC: XW033E5 Introduction of Remdesivir Anti-infective into Peripheral Vein, Percutaneous Approach, New Technology Group 5 (ICD-10-PCS; principal; 2021-06-27)
PROC: 3E0333Z Introduction of Anti-inflammatory into Peripheral Vein, Percutaneous Approach (ICD-10-PCS; 2021-06-27)
DX: U07.1 COVID-19 (principal); I21.4 Non-ST elevation (NSTEMI) myocardial infarction; I11.0 Hypertensive heart disease with heart failure; I50.32 Chronic diastolic (congestive) heart failure; E11.51 Type 2 diabetes mellitus with diabetic peripheral angiopathy without gangrene; I48.0 Paroxysmal atrial fibrillation; G47.33 Obstructive sleep apnea (adult) (pediatric); E78.5 Hyperlipidemia, unspecified; G25.81 Restless legs syndrome; I24.8 Other forms of acute ischemic heart disease; I25.10 Atherosclerotic heart disease of native coronary artery without angina pectoris; R09.02 Hypoxemia; I16.0 Hypertensive urgency; Z98.42 Cataract extraction status, left eye; Z90.49 Acquired absence of other specified parts of digestive tract; Z86.711 Personal history of pulmonary embolism; Z79.01 Long term (current) use of anticoagulants; Z89.422 Acquired absence of other left toe(s); Z79.82 Long term (current) use of aspirin; Z79.899 Other long term (current) drug therapy; Z79.4 Long term (current) use of insulin; Z88.4 Allergy status to anesthetic agent; Z88.8 Allergy status to other drugs, medicaments and biological substances

== ENCOUNTER → 2021-08-21 | Outpatient (CLI) | payer BC ==
[~2021-08-21] MED LIST changes: +ALEN70TA82 PO; +AMLO1TAB24 PO; +BACL1TAB9; +BUSP15TA47; +CALC-356 PO; +DULA4.5P INJ; +ENTR1TAB PO; +FURO40TA2 PO; +HYDR25TA PO; +METO1TAB33 PO
== END ==
LOC: M PLARAD 08:50
PROVIDERS: ATTEND Family Medicine
DX: R93.89 Abnormal findings on diagnostic imaging of other specified body structures (principal); M89.9 Disorder of bone, unspecified; I65.21 Occlusion and stenosis of right carotid artery; R91.8 Other nonspecific abnormal finding of lung field; R06.02 Shortness of breath
CPT/HCPCS: 78815; A9552

== ENCOUNTER → 2021-09-15 | Outpatient (CLI) | payer BC, MEDICARE | LOC: M PAIN 11:30 | PROVIDERS: ATTEND Anesthesiology | DX: M54.50 Low back pain, unspecified (principal); M79.10 Myalgia, unspecified site; M79.18 Myalgia, other site; E11.40 Type 2 diabetes mellitus with diabetic neuropathy, unspecified; G47.30 Sleep apnea, unspecified; I50.9 Heart failure, unspecified; Z86.718 Personal history of other venous thrombosis and embolism; Z86.16 Personal history of COVID-19; Z88.4 Allergy status to anesthetic agent; Z79.82 Long term (current) use of aspirin; Z79.4 Long term (current) use of insulin; Z79.01 Long term (current) use of anticoagulants; Z79.899 Other long term (current) drug therapy ==

== ENCOUNTER → 2022-02-28 | Outpatient (CLI) | payer BC, MEDICARE ==
[2022-02-28 09:37] LABS: APPEARANCE, URINE MANUAL CLEAR (CLEAR); BILIRUBIN, URINE MANUAL NEGATIVE (NEGATIVE); BLOOD URINE MANUAL NEGATIVE (NEGATIVE); COLOR, URINE MANUAL YELLOW (YELLOW); GLUCOSE, URINE (UA) MANUAL NEGATIVE (NEGATIVE); KETONE, URINE MANUAL NEGATIVE (NEGATIVE); LEUKOCYTE ESTERASE, URINE MAN POSITIVE (NEGATIVE); NITRITE, URINE MANUAL NEGATIVE (NEGATIVE); PROTEIN, URINE MANUAL TRACE mg/dL (NEGATIVE); UROBILINOGEN, URINE MANUAL NORMAL (NORMAL)
[2022-02-28 09:42] LABS: BASO # 0.1 10^3/uL (0.0-0.2); BASO % 0.7 % (0.0-1.0); EOS # 0.1 10^3/uL (0.0-0.5); EOS % 1.3 % (0.0-3.0); HEMATOCRIT 42.3 % (36.0-47.0); HEMOGLOBIN 13.2 g/dl (12.0-15.5); LYMPH # 1.2 10^3/uL (1.5-5.0); LYMPH % 12.3 % (24.0-44.0); MEAN CORPUSCULAR HEMOGLOBIN 29.5 pg (27.0-33.0); MEAN CORPUSCULAR HGB CONC 31.2 g/dl (32.0-36.5); MEAN CORPUSCULAR VOLUME 94.4 fl (80.0-96.0); MONO # 0.8 10^3/uL (0.0-0.8); MONO % 8.2 % (2.0-8.0); NEUTROPHILS # 7.2 10^3/uL (1.5-8.5); NEUTROPHILS % 77.3 % (36.0-66.0); PLATELET COUNT, AUTOMATED 284 10^3/uL (150-450); RED BLOOD COUNT 4.48 10^6/uL (4.00-5.40); WHITE BLOOD COUNT 9.4 10^3/uL (4.0-10.0)
[2022-02-28 09:48] LABS: BACTERIA, URINE SMALL AMOUNT; HYALINE CAST, URINE 0-1 /lpf (0-1); MUCUS, URINE SMALL AMOUNT (NEGATIVE); RBC, URINE 0-1 /hpf (0-3); SQUAMOUS EPITHELIAL CELL URINE MOD AMOUNT /hpf (SMALL AMT); WBC, URINE 30-40 /hpf (0-3)
[2022-02-28 10:15] LABS: ALBUMIN 3.3 GM/DL (3.2-5.2); CALCIUM LEVEL 8.9 MG/DL (8.8-10.2); CREATININE FOR GFR 1.33 MG/DL (0.55-1.30); GLOMERULAR FILTRATION RATE 41.6 (>39); MAGNESIUM LEVEL 2.2 MG/DL (1.8-2.4); PHOSPHORUS LEVEL 4.1 MG/DL (2.5-4.9); URIC ACID 4.3 MG/DL (2.6-6.0)
== END ==
LOC: M RAD 07:53
PROVIDERS: ATTEND Nurse Practitioner Family
DX: N17.9 Acute kidney failure, unspecified (principal); I12.9 Hypertensive chronic kidney disease with stage 1 through stage 4 chronic kidney disease, or unspecified chronic kidney disease; E83.42 Hypomagnesemia

== ENCOUNTER → 2022-03-08 | Outpatient (REF) | payer BC ==
[2022-03-08 19:04] LABS: TOTAL PROTEIN,RANDOM URINE 100.3 MG/DL (0.0-12.0)
== END ==
LOC: M LAB REF 17:16
PROVIDERS: ATTEND Nurse Practitioner Family
DX: R80.9 Proteinuria, unspecified (principal)

== ENCOUNTER → 2022-03-15 | Outpatient (CLI) | payer MEDICARE ==
[~2022-03-15] MED LIST changes: +ISOVUE-370 76% 100ML VIAL As Ordered ONE
== END ==
LOC: M RAD 08:22
PROVIDERS: ATTEND Nurse Practitioner Family
DX: N17.9 Acute kidney failure, unspecified (principal); I70.1 Atherosclerosis of renal artery
CPT/HCPCS: 74175; Q9967

== ENCOUNTER → 2022-04-12 | Outpatient (CLI) | payer MEDICARE ==
[~2022-04-12] MED LIST changes: -ISOVUE-370 76% 100ML VIAL As Ordered ONE
== END ==
LOC: M LABSMTC 11:49
PROVIDERS: ATTEND Anesthesiology
DX: Z01.812 Encounter for preprocedural laboratory examination (principal)

== ENCOUNTER → 2022-04-17 | Outpatient (CLI) | payer BC, MEDICARE ==
[~2022-04-17] MED LIST changes: +BUPIVACAINE HCL 0.25% 10ML VIAL As Ordered ONE; +BUPIVACAINE HCL 0.25% 30ML VIAL As Ordered ONE; +TRIAMCINOLONE ACETONIDE SUSP 40MG/ML 1ML VIAL As Ordered ONE
== END ==
LOC: M PAIN 10:30
PROVIDERS: ATTEND Anesthesiology
DX: M79.18 Myalgia, other site (principal); M50.20 Other cervical disc displacement, unspecified cervical region; M17.0 Bilateral primary osteoarthritis of knee; M19.041 Primary osteoarthritis, right hand; M19.042 Primary osteoarthritis, left hand; R60.0 Localized edema; E11.40 Type 2 diabetes mellitus with diabetic neuropathy, unspecified; R03.0 Elevated blood-pressure reading, without diagnosis of hypertension; D68.2 Hereditary deficiency of other clotting factors; G47.30 Sleep apnea, unspecified; Z86.718 Personal history of other venous thrombosis and embolism; I50.9 Heart failure, unspecified; Z86.16 Personal history of COVID-19; I89.0 Lymphedema, not elsewhere classified; Z87.891 Personal history of nicotine dependence; Z79.82 Long term (current) use of aspirin; Z79.4 Long term (current) use of insulin; Z79.01 Long term (current) use of anticoagulants; Z79.899 Other long term (current) drug therapy; Z88.4 Allergy status to anesthetic agent

== ENCOUNTER → 2022-05-09 | Outpatient (CLI) | payer BC, MEDICARE ==
[~2022-05-09] MED LIST changes: -BUPIVACAINE HCL 0.25% 10ML VIAL As Ordered ONE; -BUPIVACAINE HCL 0.25% 30ML VIAL As Ordered ONE; -TRIAMCINOLONE ACETONIDE SUSP 40MG/ML 1ML VIAL As Ordered ONE
== END ==
LOC: M PAIN 09:45 → M TMPAIN 09:45
PROVIDERS: ATTEND Anesthesiology
DX: G89.29 Other chronic pain (principal); M47.816 Spondylosis without myelopathy or radiculopathy, lumbar region; M50.10 Cervical disc disorder with radiculopathy, unspecified cervical region; M17.0 Bilateral primary osteoarthritis of knee; M19.041 Primary osteoarthritis, right hand; M19.042 Primary osteoarthritis, left hand; M48.00 Spinal stenosis, site unspecified; I89.0 Lymphedema, not elsewhere classified; E11.40 Type 2 diabetes mellitus with diabetic neuropathy, unspecified; G47.30 Sleep apnea, unspecified; I50.9 Heart failure, unspecified; Z86.16 Personal history of COVID-19; Z86.718 Personal history of other venous thrombosis and embolism; R03.0 Elevated blood-pressure reading, without diagnosis of hypertension; Z87.891 Personal history of nicotine dependence; Z79.4 Long term (current) use of insulin; Z79.01 Long term (current) use of anticoagulants; Z79.899 Other long term (current) drug therapy; Z79.82 Long term (current) use of aspirin; Z88.4 Allergy status to anesthetic agent

== ENCOUNTER → 2022-05-10 | Outpatient (CLI) | payer MEDICARE | LOC: M LABSMTC 11:34 | PROVIDERS: ATTEND Surgery Vascular Surgery | DX: Z01.818 Encounter for other preprocedural examination (principal); Z11.52 Encounter for screening for COVID-19 ==

== ENCOUNTER → 2022-06-18 | Outpatient (CLI) | payer BC, MEDICARE | LOC: M PAIN 13:00 | PROVIDERS: ATTEND Anesthesiology | DX: M47.816 Spondylosis without myelopathy or radiculopathy, lumbar region (principal); M50.20 Other cervical disc displacement, unspecified cervical region; M17.0 Bilateral primary osteoarthritis of knee; M19.042 Primary osteoarthritis, left hand; M19.041 Primary osteoarthritis, right hand; I89.0 Lymphedema, not elsewhere classified; E11.40 Type 2 diabetes mellitus with diabetic neuropathy, unspecified; R03.0 Elevated blood-pressure reading, without diagnosis of hypertension; G47.30 Sleep apnea, unspecified; D68.2 Hereditary deficiency of other clotting factors; Z86.718 Personal history of other venous thrombosis and embolism; I50.9 Heart failure, unspecified; Z87.891 Personal history of nicotine dependence; Z79.4 Long term (current) use of insulin; Z79.82 Long term (current) use of aspirin; Z79.01 Long term (current) use of anticoagulants; Z79.899 Other long term (current) drug therapy; Z88.4 Allergy status to anesthetic agent | CPT/HCPCS: 76000; G0463 ==

== ENCOUNTER → 2022-06-20 | Outpatient (REF) | payer MEDICARE, BC | LOC: M LAB REF 17:08 | PROVIDERS: ATTEND Nurse Practitioner Family | DX: I50.32 Chronic diastolic (congestive) heart failure (principal) ==

== ENCOUNTER → 2022-08-02 | Outpatient (CLI) | payer BC, MEDICARE | LOC: M LABSMTC 10:37 | PROVIDERS: ATTEND Anesthesiology | DX: Z11.52 Encounter for screening for COVID-19 (principal) ==

== ENCOUNTER → 2022-08-07 | Outpatient (CLI) | payer BC, MEDICARE ==
[~2022-08-07] MED LIST changes: +BUPIVACAINE HCL 0.25% 30ML VIAL As Ordered ONE; +ISOVUE-M 300 61% 15ML VIAL As Ordered ONE; +LIDOCAINE 1% SDV 30ML VIAL As Ordered ONE
== END ==
LOC: M PAIN 09:00
PROVIDERS: ATTEND Anesthesiology
DX: M47.816 Spondylosis without myelopathy or radiculopathy, lumbar region (principal); M50.20 Other cervical disc displacement, unspecified cervical region; M17.0 Bilateral primary osteoarthritis of knee; M19.041 Primary osteoarthritis, right hand; M19.042 Primary osteoarthritis, left hand; I89.0 Lymphedema, not elsewhere classified; E11.40 Type 2 diabetes mellitus with diabetic neuropathy, unspecified; G47.30 Sleep apnea, unspecified; D68.2 Hereditary deficiency of other clotting factors; I50.9 Heart failure, unspecified; Z87.891 Personal history of nicotine dependence; Z79.4 Long term (current) use of insulin; Z79.82 Long term (current) use of aspirin; Z79.01 Long term (current) use of anticoagulants; Z79.899 Other long term (current) drug therapy; Z88.4 Allergy status to anesthetic agent
CPT/HCPCS: 64493; 64494; Q9967; S0020

== ENCOUNTER → 2022-08-16 | Outpatient (REF) | payer MEDICARE, BC ==
[~2022-08-16] MED LIST changes: -BUPIVACAINE HCL 0.25% 30ML VIAL As Ordered ONE; -ISOVUE-M 300 61% 15ML VIAL As Ordered ONE; -LIDOCAINE 1% SDV 30ML VIAL As Ordered ONE
== END ==
LOC: M LAB REF 17:11
PROVIDERS: ATTEND Nurse Practitioner Family
DX: I50.32 Chronic diastolic (congestive) heart failure (principal)

== ENCOUNTER → 2022-09-12 | Outpatient (CLI) | payer BC, MEDICARE | LOC: M PAIN 13:15 | PROVIDERS: ATTEND Anesthesiology | DX: M47.816 Spondylosis without myelopathy or radiculopathy, lumbar region (principal); G89.29 Other chronic pain; E11.40 Type 2 diabetes mellitus with diabetic neuropathy, unspecified; I10 Essential (primary) hypertension; G47.30 Sleep apnea, unspecified; Z86.718 Personal history of other venous thrombosis and embolism; Z87.891 Personal history of nicotine dependence; Z88.4 Allergy status to anesthetic agent; Z79.01 Long term (current) use of anticoagulants; Z79.4 Long term (current) use of insulin; Z79.82 Long term (current) use of aspirin; Z79.899 Other long term (current) drug therapy ==

== ENCOUNTER → 2022-10-16 | Outpatient (CLI) | payer BC, MEDICARE ==
[~2022-10-16] MED LIST changes: +BUPIVACAINE HCL 0.25% 30ML VIAL As Ordered ONE; +ISOVUE-M 300 61% 15ML VIAL As Ordered ONE; +LIDOCAINE 1% SDV 30ML VIAL As Ordered ONE
== END ==
LOC: M PAIN 08:00
PROVIDERS: ATTEND Anesthesiology
DX: M47.816 Spondylosis without myelopathy or radiculopathy, lumbar region (principal); E11.40 Type 2 diabetes mellitus with diabetic neuropathy, unspecified; G47.30 Sleep apnea, unspecified; I50.9 Heart failure, unspecified; M15.9 Polyosteoarthritis, unspecified; M50.20 Other cervical disc displacement, unspecified cervical region; I89.0 Lymphedema, not elsewhere classified; Z87.891 Personal history of nicotine dependence; Z79.82 Long term (current) use of aspirin; Z79.4 Long term (current) use of insulin; Z79.01 Long term (current) use of anticoagulants; Z79.899 Other long term (current) drug therapy; Z86.711 Personal history of pulmonary embolism; Z88.4 Allergy status to anesthetic agent
CPT/HCPCS: 64493; 64494; Q9967; S0020

== ENCOUNTER → 2022-10-25 | Outpatient (CLI) | payer BC, MEDICARE ==
[~2022-10-25] MED LIST changes: -BUPIVACAINE HCL 0.25% 30ML VIAL As Ordered ONE; -ISOVUE-M 300 61% 15ML VIAL As Ordered ONE; -LIDOCAINE 1% SDV 30ML VIAL As Ordered ONE
== END ==
LOC: M PAIN 15:00
PROVIDERS: ATTEND Anesthesiology
DX: G89.29 Other chronic pain (principal); M54.50 Low back pain, unspecified; M51.86 Other intervertebral disc disorders, lumbar region; E11.40 Type 2 diabetes mellitus with diabetic neuropathy, unspecified; M50.20 Other cervical disc displacement, unspecified cervical region; M17.0 Bilateral primary osteoarthritis of knee; M19.041 Primary osteoarthritis, right hand; M19.042 Primary osteoarthritis, left hand; M48.00 Spinal stenosis, site unspecified; G47.30 Sleep apnea, unspecified; I50.9 Heart failure, unspecified; Z86.718 Personal history of other venous thrombosis and embolism; Z87.891 Personal history of nicotine dependence; Z79.4 Long term (current) use of insulin; Z79.82 Long term (current) use of aspirin; Z79.01 Long term (current) use of anticoagulants; Z79.899 Other long term (current) drug therapy

== ENCOUNTER → 2023-06-19 | Outpatient (CLI) | payer MEDICARE ==
[~2023-06-19] MED LIST changes: -GABA-283 PO; +GABA-284 PO; -HYDR-3911; -HYDR50TA PO; +HYDR50TA46; +HYDR50TA47 PO; -ROPI1TAB3; +ROPI1TAB73; -ROPI4TAB3 PO; +ROPI4TAB36 PO
== END ==
LOC: M PAIN 09:00
PROVIDERS: ATTEND Anesthesiology
DX: M51.16 Intervertebral disc disorders with radiculopathy, lumbar region (principal); M48.061 Spinal stenosis, lumbar region without neurogenic claudication; G89.29 Other chronic pain; M16.0 Bilateral primary osteoarthritis of hip; M17.0 Bilateral primary osteoarthritis of knee; E11.42 Type 2 diabetes mellitus with diabetic polyneuropathy; D68.2 Hereditary deficiency of other clotting factors; Z87.891 Personal history of nicotine dependence; Z79.01 Long term (current) use of anticoagulants; Z79.899 Other long term (current) drug therapy; Z79.02 Long term (current) use of antithrombotics/antiplatelets; Z88.4 Allergy status to anesthetic agent

== ENCOUNTER → 2023-07-12 | Outpatient (CLI) | payer MEDICARE ==
[~2023-07-12] MED LIST changes: -HYDR25TA PO; +HYDR25TA88 PO
== END ==
LOC: M PAIN 16:30
PROVIDERS: ATTEND Nurse Practitioner Family
DX: M51.16 Intervertebral disc disorders with radiculopathy, lumbar region (principal); M48.061 Spinal stenosis, lumbar region without neurogenic claudication; G89.29 Other chronic pain; E11.40 Type 2 diabetes mellitus with diabetic neuropathy, unspecified; M50.20 Other cervical disc displacement, unspecified cervical region; M17.0 Bilateral primary osteoarthritis of knee; M19.041 Primary osteoarthritis, right hand; M19.042 Primary osteoarthritis, left hand; I50.9 Heart failure, unspecified; Z86.718 Personal history of other venous thrombosis and embolism; Z79.02 Long term (current) use of antithrombotics/antiplatelets; Z79.01 Long term (current) use of anticoagulants; Z79.4 Long term (current) use of insulin; Z79.899 Other long term (current) drug therapy; Z87.891 Personal history of nicotine dependence; Z88.4 Allergy status to anesthetic agent

== ENCOUNTER → 2023-07-24 | Outpatient (CLI) | payer MEDICARE | LOC: M PAIN 17:00 | PROVIDERS: ATTEND Anesthesiology | DX: M51.16 Intervertebral disc disorders with radiculopathy, lumbar region (principal); M48.061 Spinal stenosis, lumbar region without neurogenic claudication; M48.56XA Collapsed vertebra, not elsewhere classified, lumbar region, initial encounter for fracture; M15.9 Polyosteoarthritis, unspecified; E11.40 Type 2 diabetes mellitus with diabetic neuropathy, unspecified; D68.2 Hereditary deficiency of other clotting factors; G47.30 Sleep apnea, unspecified; I50.9 Heart failure, unspecified; Z79.84 Long term (current) use of oral hypoglycemic drugs; Z79.82 Long term (current) use of aspirin; Z79.899 Other long term (current) drug therapy; Z87.891 Personal history of nicotine dependence; Z88.4 Allergy status to anesthetic agent ==

== ENCOUNTER → 2023-11-02 | Outpatient (CLI) | payer MEDICARE ==
[~2023-11-02] MED LIST changes: +CARB25TA9 PO; +CLOP75TA2 PO; +INSU100I24 SQ; +ISOS10TA3 PO; +PANT40TA29 PO; -ROSU10TA6; -ROSU10TA6 PO; +ROSU10TA61; +ROSU10TA61 PO; +TIZA2TA PO; +TIZA4CAP3 PO; -TIZA4CAP6 PO
== END ==
LOC: M SLEEP 20:00
PROVIDERS: ATTEND Internal Medicine Pulmonary Disease
DX: G47.33 Obstructive sleep apnea (adult) (pediatric) (principal)

== ENCOUNTER 2025-01-19 10:13 | Inpatient (IN) | payer MEDICARE ==
[~2025-01-19] VITALS: Ht 180.3 cm; Wt 134.6 kg
[2025-01-19 11:15] LABS: BASO # 0.1 10^3/uL (0.0-0.2); BASO % 0.5 % (0.0-1.0); EOS # 0.1 10^3/uL (0.0-0.5); EOS % 0.9 % (0.0-3.0); LYMPH # 1.2 10^3/uL (1.5-5.0); LYMPH % 9.9 % (24.0-44.0); MONO # 1.0 10^3/uL (0.0-0.8); MONO % 8.5 % (2.0-8.0); NEUTROPHILS # 9.5 10^3/uL (1.5-8.5); NEUTROPHILS % 79.9 % (36.0-66.0); PLATELET COUNT, AUTOMATED 231 10^3/uL (150-450)
[2025-01-19 11:36] LABS: INR 1.0
[2025-01-19] MEDS: TETANUS/DIPHTH/ACEL. PERTUSSIS 0.5 ML SYR IM.IMMUN ONE (11:55)
[2025-01-19] MEDS: MORPHINE 2 MG/ML 1 ML VIAL IV ONE (11:55)
[2025-01-19] MEDS: ceFAZolin SODIUM 2 GM in DEXTROSE 5% (D5W) ADV/MINI-BAG 50 ML IV ONE (11:56)
[2025-01-19 12:48] LABS: ALT/SGPT < 9 U/L (7.0-40); AST/SGOT 13 U/L (<34); CALCIUM LEVEL 8.9 MG/DL (8.3-10.6); CARBON DIOXIDE LEVEL 28 MMOL/L (20-31); CHLORIDE LEVEL 104 MMOL/L (98-107); CREATININE FOR GFR 1.24 MG/DL (0.55-1.30); GLOMERULAR FILTRATION RATE 45.1 (>39); POTASSIUM SERUM 4.8 MMOL/L (3.5-5.1); SODIUM LEVEL 142 MMOL/L (136-145)
[2025-01-19] MEDS ORDERED: NALOXONE INJ 0.4 MG/1 ML VIAL IV PRN ×2 (13:05→18:45)
[2025-01-19] MEDS: LR 1,000 ML IV ONE (13:23)
[2025-01-19] MEDS ORDERED: AMLO1TAB24 PO (13:54)
[2025-01-19] MEDS ORDERED: RANO500T2 PO (13:54)
[2025-01-19] MEDS ORDERED: SUCR1TAB56 PO (13:54)
[2025-01-19] MEDS ORDERED: SERT25TA21 PO (13:54)
[2025-01-19] MEDS ORDERED: HOME MED LIST COMPLETE! XX SCH (14:05)
[2025-01-19] MEDS: MORPHINE 4 MG/ML 1 ML VIAL IV PRN (15:28)
[2025-01-19] MEDS ORDERED: GLUCAGON INJ 1 MG VIAL SC PRN (15:50)
[2025-01-19] MEDS ORDERED: GLUCOSE 4 GM CHEW PO PRN (15:50)
[2025-01-19] MEDS ORDERED: DEXTROSE 50% 50 ML SYRINGE IV PRN (15:50)
[2025-01-19] MEDS: SUCRALFATE 1 GM TAB PO SCH (16:55)
[2025-01-19] MEDS: INSULIN LISPRO (NovoLOG) PER UNIT SC SCH ×2 (17:30→22:06)
[2025-01-19] MEDS: ISOSORBIDE MONONITRATE 10 MG TABLET PO ONE (18:40)
[2025-01-19 19:14] LABS: ESTIMATED AVERAGE GLUCOSE 232.0 MG/DL (60-110)
[2025-01-19 20:47] VITALS: BP 167/71; TEMP 97.3; O2SAT 96
[2025-01-19] MEDS: ACETAMINOPHEN 500 MG TAB PO SCH (20:57)
[2025-01-19] MEDS: GABAPENTIN 400 MG CAP PO SCH (20:57)
[2025-01-19] MEDS: ROSUVASTATIN 10 MG TAB PO SCH (20:57)
[2025-01-19] MEDS: SERTRALINE HCL 25 MG TABLET PO SCH (20:58)
[2025-01-19] MEDS: ceFAZolin SOD 1 GM in DEXTROSE 5% (D5W) ADV/MINI-BAG 50 ML IV SCH (20:58)
[2025-01-19] MEDS: amLODIPine 10 MG TAB PO ONE (21:00)
[2025-01-19] MEDS ORDERED: ENTRESTO 24-26 MG TABLET (SACUBITRIL/VALSARTAN) PO SCH (21:00)
[2025-01-19] MEDS ORDERED: ISOSORBIDE DINITRATE 10 MG TAB PO SCH (21:00)
[2025-01-19 21:12] LABS: INR 1.04
[2025-01-19] MEDS: LanTUS (INSULIN GLARGINE INJ) 1 UNITS/0.01 ML SC SCH (22:07)
[2025-01-19] MEDS: KETOROLAC 30 MG/ML 1 ML VIAL IV PRN (22:07)
[2025-01-19] MEDS: CARBIDOPA/LEVODOPA 25 MG/100 MG PO SCH (23:25)
[2025-01-19] MEDS: RANOLAZINE 500MG ER TAB PO SCH (23:25)
[2025-01-20] VITALS (8 sets, daily range): BP systolic 108–214; BP diastolic 52–84; TEMP 96.8–98.1; O2SAT 92–97
[2025-01-20] MEDS: ONDANSETRON 4MG 2ML VIAL IV PRN (03:18)
[2025-01-20] MEDS ORDERED: amLODIPine 5 MG TAB PO ONE (03:20)
[2025-01-20] MEDS: hydrALAZINE 20 MG/ML 1 ML VIAL IV ONE (03:52)
[2025-01-20] MEDS: MORPHINE 2 MG/ML 1 ML VIAL IV PRN (04:53)
[2025-01-20 05:35] LABS: PLATELET COUNT, AUTOMATED 213 10^3/uL (150-450)
[2025-01-20 06:02] LABS: INR 1.09
[2025-01-20 06:04] LABS: CALCIUM LEVEL 8.7 MG/DL (8.3-10.6); CARBON DIOXIDE LEVEL 29.0 MMOL/L (20-31); CHLORIDE LEVEL 102.0 MMOL/L (98-107); CHOLESTEROL LEVEL 128.0 MG/DL (<200); CHOLESTEROL RISK RATIO 2.67 (<5); CREATININE FOR GFR 1.45 MG/DL (0.55-1.30); GLOMERULAR FILTRATION RATE 37.4 (>39); LDL CHOLESTEROL 48.0 MG/DL (<100); MAGNESIUM LEVEL 1.7 MG/DL (1.8-2.4); NON-HDL-C 80.2 MG/DL; POTASSIUM SERUM 4.2 MMOL/L (3.5-5.1); SODIUM LEVEL 142.0 MMOL/L (136-145); TRIGLYCERIDES LEVEL 161.0 MG/DL (<150)
[2025-01-20] MEDS: ISOSORBIDE DINITRATE 10 MG TAB PO SCH (08:00)
[2025-01-20 08:21] LABS: CPK CREATINE PHOSPHOKINASE 903.0 U/L (34-145)
[2025-01-20 08:26] LABS: CK-MB VALUE MASS 21.0 NG/ML (<3.6); MB/CK RELATIVE INDEX 2.32 (< OR =4)
[2025-01-20] MEDS: MAG SULF 1GM/100ML (MAG RUN) 1 GM in IV 1 EA IV SCH (08:49)
[2025-01-20] MEDS: PANTOPRAZOLE 40MG TAB PO SCH (08:54)
[2025-01-20] MEDS: amLODIPine 5 MG TAB PO SCH (08:54)
[2025-01-20] MEDS: METOPROLOL SUCC. 100 MG *XL* TAB PO SCH (08:54)
[2025-01-20] MEDS ORDERED: ISOSORBIDE DINITRATE 10 MG TAB PO SCH (09:00)
[2025-01-20] MEDS ORDERED: NALOXONE INJ 0.4 MG/1 ML VIAL IV PRN (12:50)
[2025-01-20] MEDS ORDERED: PERCOCET 5MG/325MG TAB PO PRN (12:50)
[2025-01-21] VITALS (18 sets, daily range): BP systolic 86–159; BP diastolic 54–71; TEMP 96.2–97.9; O2SAT 94–99
[2025-01-21 05:46] LABS: PLATELET COUNT, AUTOMATED 203 10^3/uL (150-450)
[2025-01-21 06:19] LABS: CALCIUM LEVEL 8.1 MG/DL (8.3-10.6); CARBON DIOXIDE LEVEL 27.0 MMOL/L (20-31); CHLORIDE LEVEL 101.0 MMOL/L (98-107); CREATININE FOR GFR 1.33 MG/DL (0.55-1.30); GLOMERULAR FILTRATION RATE 41.5 (>39); MAGNESIUM LEVEL 2.2 MG/DL (1.8-2.4); POTASSIUM SERUM 4.5 MMOL/L (3.5-5.1); SODIUM LEVEL 137.0 MMOL/L (136-145)
[2025-01-21] MEDS ORDERED: ONDANSETRON 4MG 2ML VIAL As Ordered ONE (07:14)
[2025-01-21] MEDS ORDERED: dexAMETHasone 4 MG/ML 1 ML VIAL As Ordered ONE (07:14)
[2025-01-21] MEDS: MIDAZOLAM INJ 2 MG/2 ML VIAL IV PRN (07:36)
[2025-01-21] MEDS: dexAMETHasone 10 MG/1 ML VIAL PRES.FREE PN ONE (07:38)
[2025-01-21] MEDS: LIDOCAINE 1% SDV 5 ML VIAL PN ONE (07:38)
[2025-01-21] MEDS: ROPIvacaine 0.5% 30ML VIAL PN ONE (07:38)
[2025-01-21] MEDS ORDERED: GLUCOSE 4 GM CHEW PO PRN (07:50)
[2025-01-21] MEDS ORDERED: DEXTROSE 50% 50 ML SYRINGE IV PRN (07:50)
[2025-01-21] MEDS ORDERED: GLUCAGON INJ 1 MG VIAL SC PRN (07:50)
[2025-01-21] MEDS: INSULIN LISPRO (NovoLOG) PER UNIT SC PRN ×2 (07:55→12:21)
[2025-01-21] MEDS: SCOPOLAMINE 1MG TRANSDERMAL PATCH TOP SCH (07:55)
[2025-01-21] MEDS ORDERED: dexmedeTOMIDine (4 MCG/ML) 200 MCG/50 ML BTL As Ordered ONE (08:23)
[2025-01-21] MEDS ORDERED: PHENYLEPHRINE 10MG/ML 1ML VIAL As Ordered ONE (08:25)
[2025-01-21] MEDS ORDERED: ROCURONIUM BROMIDE 50MG/5ML VIAL As Ordered ONE (08:42)
[2025-01-21] MEDS ORDERED: PROPOFOL 1,000 MG/100 ML VIAL As Ordered ONE (08:55)
[2025-01-21] MEDS ORDERED: ACETAMINOPHEN 1000MG/100ML IV BAG As Ordered ONE (09:19)
[2025-01-21] MEDS: VANCOMYCIN 1000MG/20ML VIAL As Ordered ONE (10:58)
[2025-01-21] MEDS ORDERED: LABETALOL 100 MG/20 ML VIAL As Ordered ONE (11:21)
[2025-01-21] MEDS ORDERED: ONDANSETRON 4MG 2ML VIAL IV PRN (11:40)
[2025-01-21] MEDS ORDERED: NALOXONE INJ 0.4 MG/1 ML VIAL IV PRN (12:10)
[2025-01-21] MEDS: PERCOCET 5MG/325MG TAB PO PRN ×2 (13:52→22:06)
[2025-01-21] MEDS: MIDODRINE 5 MG TAB PO ONE (15:26)
[2025-01-21] MEDS: NS (Normal Saline) 0.9% 1,000 ML IV ONE (15:26)
[2025-01-21] MEDS: INSULIN GLARGINE-YFGN 1 UNITS/0.01 ML SC SCH (21:00)
[2025-01-22] VITALS (26 sets, daily range): BP systolic 124–190; BP diastolic 61–88; PULSE 107–111; TEMP 97.3–98; O2SAT 91–100
[2025-01-22 05:24] LABS: PLATELET COUNT, AUTOMATED 201 10^3/uL (150-450)
[2025-01-22 05:49] LABS: CALCIUM LEVEL 8.5 MG/DL (8.3-10.6); CARBON DIOXIDE LEVEL 25.0 MMOL/L (20-31); CHLORIDE LEVEL 101.0 MMOL/L (98-107); CREATININE FOR GFR 1.38 MG/DL (0.55-1.30); GLOMERULAR FILTRATION RATE 39.7 (>39); MAGNESIUM LEVEL 2.2 MG/DL (1.8-2.4); POTASSIUM SERUM 5.0 MMOL/L (3.5-5.1); SODIUM LEVEL 136.0 MMOL/L (136-145)
[2025-01-22] MEDS: APIXABAN 5 MG TAB PO SCH (08:54)
[2025-01-22] MEDS: INSULIN GLARGINE-YFGN 1 UNITS/0.01 ML SC SCH (09:22)
[2025-01-22] MEDS: PERCOCET 5MG/325MG TAB PO ONE (09:23)
[2025-01-22] MEDS ORDERED: MAALOX 30 ML SUSP *UDC PO PRN (09:30)
[2025-01-22] MEDS ORDERED: CALCIUM CARBONATE 500 MG CHEW U/D PO PRN (09:30)
[2025-01-22] MEDS ORDERED: BISACODYL 10 MG SUPP PR ONE (09:40)
[2025-01-22] MEDS: MAALOX 30 ML SUSP *UDC PO ONE (09:43)
[2025-01-22] MEDS: CALCIUM CARBONATE 500 MG CHEW U/D PO ONE (09:43)
[2025-01-22] MEDS: NITROGLYCERIN 0.4 MG SUBL TABLET SL STA ×2 (10:33→11:44)
[2025-01-22] MEDS ORDERED: ISOVUE-370 76% 100 ML VIAL As Ordered ONE (10:34)
[2025-01-22] MEDS: MORPHINE 2 MG/ML 1 ML VIAL IV ONE ×2 (10:41→11:52)
[2025-01-22] MEDS: NITROGLYCERIN 0.4 MG SUBL TABLET SL PRN (10:49)
[2025-01-22] MEDS: RANOLAZINE 500MG ER TAB PO ONE (10:54)
[2025-01-22 10:55] LABS: ABG BASE EXCESS -2.0 (-2.0-2.0); ABG HCO3 22.7 MMOL/L (22.0-26.0); ABG O2 SATURATION 94.6 % (95.0-99.0); ABG PARTIAL PRESSURE CO2 38.8 mmHg (35.0-45.0); ABG PARTIAL PRESSURE O2 71.9 mmHg (75.0-100.0); ABG STANDARD HCO3 22.7 MMOL/L. (22.0-26.0); ABG TOTAL CO2 23.9 MMOL/L (23.0-31.0); ABG pH (ARTERIAL) 7.386 UNITS (7.350-7.450)
[2025-01-22 11:27] LABS: INR 0.98
[2025-01-22 11:32] LABS: CK-MB VALUE MASS 4.5 NG/ML (<3.6)
[2025-01-22 11:36] LABS: CPK CREATINE PHOSPHOKINASE 211.0 U/L (34-145); MB/CK RELATIVE INDEX 2.13 (< OR =4)
[2025-01-22] MEDS: FUROSEMIDE 40 MG/4 ML VIAL IV ONE (11:52)
[2025-01-22] MEDS: NITROGLYCERIN 0.4 MG SUBL TABLET SL SCH (12:25)
[2025-01-22] MEDS ORDERED: HEPARIN DRIP 25,000 UNITS in IV 1 EA IV SCH (12:35)
[2025-01-22] MEDS ORDERED: HEPARIN SOD 5000 UNITS/ML 1 ML VIAL/SYRINGE IV PRN (12:35)
[2025-01-22] MEDS: ASPIRIN 81 MG CHEWABLE TABLET PO ONE (12:39)
[2025-01-22] MEDS: ATORVASTATIN 20 MG TAB PO ONE (12:39)
[2025-01-22] MEDS: MORPHINE 2 MG/ML 1 ML VIAL IV SCH (12:42)
[2025-01-22 13:34] LABS: CK-MB VALUE MASS 6.0 NG/ML (<3.6)
[2025-01-22 13:36] LABS: CPK CREATINE PHOSPHOKINASE 204.0 U/L (34-145); MB/CK RELATIVE INDEX 2.94 (< OR =4)
[2025-01-22] MEDS ORDERED: ASPI81TA26 PO (13:36)
[2025-01-22] MEDS ORDERED: ATOR-398 PO (13:36)
[2025-01-22] MEDS ORDERED: PERC5TAB12 PO (13:38)
[2025-01-22] MEDS ORDERED: NITR0.4S14 SL (13:40)
[2025-01-22] MEDS ORDERED: [UNRECOGNIZED DRUG - CODE] IV (13:40)
[2025-01-22] MEDS ORDERED: INSULIN GLARGINE-YFGN 1 UNITS/0.01 ML SC SCH (21:00)
[2025-01-22] MEDS ORDERED: BISACODYL 10 MG SUPP PR SCH (21:00)
== END 2025-01-22 15:06 | disposition short-term general hospital (02) | DRG 492 ==
LOC: EDBD 10:13 → M ED 11:08 → M ED INP 13:00 → M PCU 01-20 02:45
PROVIDERS: ADMIT General Practice; ATTEND General Practice
PROC: B246ZZZ Ultrasonography of Right and Left Heart (ICD-10-PCS; 2025-01-19)
PROC: 0QSJ06Z Reposition Right Fibula with Intramedullary Internal Fixation Device, Open Approach (ICD-10-PCS; 2025-01-21)
PROC: 0QSG06Z Reposition Right Tibia with Intramedullary Internal Fixation Device, Open Approach (ICD-10-PCS; principal; 2025-01-21 07:30)
DX: S82.831B Other fracture of upper and lower end of right fibula, initial encounter for open fracture type I or II (principal); I21.4 Non-ST elevation (NSTEMI) myocardial infarction; I50.32 Chronic diastolic (congestive) heart failure; D68.51 Activated protein C resistance; N17.9 Acute kidney failure, unspecified; J98.11 Atelectasis; S82.391A Other fracture of lower end of right tibia, initial encounter for closed fracture; E11.42 Type 2 diabetes mellitus with diabetic polyneuropathy; I48.91 Unspecified atrial fibrillation; I11.0 Hypertensive heart disease with heart failure; G47.33 Obstructive sleep apnea (adult) (pediatric); M19.90 Unspecified osteoarthritis, unspecified site; I89.0 Lymphedema, not elsewhere classified; F41.9 Anxiety disorder, unspecified; F32.A Depression, unspecified; W18.30XA Fall on same level, unspecified, initial encounter; Y92.019 Unspecified place in single-family (private) house as the place of occurrence of the external cause; Y93.89 Activity, other specified; Y99.8 Other external cause status; Z90.49 Acquired absence of other specified parts of digestive tract; M48.00 Spinal stenosis, site unspecified; K21.9 Gastro-esophageal reflux disease without esophagitis; R94.31 Abnormal electrocardiogram [ECG] [EKG]; E11.65 Type 2 diabetes mellitus with hyperglycemia; Z86.711 Personal history of pulmonary embolism; Z87.891 Personal history of nicotine dependence; Z79.01 Long term (current) use of anticoagulants; Z89.421 Acquired absence of other right toe(s); Z86.718 Personal history of other venous thrombosis and embolism